=== PATIENT | male | born 1940 | race Caucasian/White ===

== ENCOUNTER 2017-09-16 14:45 | Inpatient (IN) | payer MEDICARE ==
[2017-09-16] VITALS (13 sets, daily range): BP systolic 168–228; BP diastolic 74–110; PULSE 60–72; RESP 18–35; TEMP 97.8–99; O2SAT 94–100
[~2017-09-16 14:45] MED LIST: ATOR40TA49 PO; CLON.1 PO; FOLI1 PO; METO50TA PO; NITR0.4S SL; RIVA15 PO; VITA20002 PO
[2017-09-16] MEDS ORDERED: SODIUM CHLOR 0.9% 1000 ML INJ 1,000 ML IV SCH ×2 (15:12→17:17)
[2017-09-16] MEDS ORDERED: PANTOPRAZOLE SODIUM 40 MG VIAL IVP ONE (15:15)
[2017-09-16] MEDS ORDERED: SODIUM CHLORIDE 0.9% FLUSH 10 ML FLUSH IVF PRN (15:15)
--- NOTE | 2017-09-16 15:18 | PD ---
HPI Chief Complaint: GI Complaint Time Seen by Provider: 14:55 Travel History International Travel<30 days: No Contact w/Intl Traveler<30days: No Traveled to known affect area: No History of Present Illness HPI The patient is a 77-year-old male who presents to the emergency department for rectal bleeding. The patient states he has had 4 large bowel movements at home containing bright red blood with clots. He also complains of lower abdominal cramping. He denies any history of GI bleeds including upper GI bleed, gastritis, peptic ulcer disease, hemorrhoids, or diverticulosis. However, the patient states he has never had a previous colonoscopy. The patient is followed by his primary physician, Dr. Field. The patient states he takes aspirin occasionally, but denies taking any anticoagulants on a daily basis. The patient denies any lightheadedness, chest pain, shortness of breath , dizziness, nausea, or vomiting. He denies any hematemesis. Symptoms are moderate. PFSH Past Medical History Blood Disorders: No Heart Rhythm Problems: No Cancer: Yes (BLADDER ) Cardiovascular Problems: Yes High Cholesterol: No Chemotherapy: No Chest Pain: No Congestive Heart Failure: No Diabetes: No Endocrine: No Genitourinary: Yes (BLADDER CANCER) Hepatitis: Yes (NOT SURE ) Hiatal Hernia: Yes Hypertension: Yes Immune Disorder: No Musculoskeletal: Yes (SP. STENOSIS, ARTHRITIS) Neurologic: No Psychiatric: No Reproductive: No Respiratory: Yes (COPD) Myocardial Infarction: Yes (2) Radiation Therapy: No Thyroid Disease: No Menopausal: No Past Surgical History Abdominal Surgery: No AICD: No Arteriovenous Shunt: No Body Medical Devices: STENTS X 2 Cardiac Surgery: Yes (CARDIAC STENTS X 2) Coronary Stent: Yes (2 STENTS; ) Ear Surgery: No Endocrine Surgery: No Eye Surgery: Yes (CATARACT SURGER) Genitourinary Surgery: Yes (TURBT) Gynecologic Surgery: No Insulin Pump: No Joint Replacement: No Oral Surgery: Yes Pacemaker: No Thoracic Surgery: No Other Surgery: Yes Social History Alcohol Use: No Tobacco Use: Yes ( 1 CIGAR DAILY) Substance Use: No Allergies-Medications (Allergen,Severity, Reaction): Coded Allergies: diphenhydramine (Unverified Allergy, Severe, ANTIHISTAMINES, 11/21/16) Uncoded Allergies: ANTIHISTAMINES (Allergy, Severe, 05/30/07) NIASPAN (Allergy, Intermediate, 07/10/13) FACE BECOMES NUMB Reported Meds & Prescriptions Reported Meds & Active Scripts Active Reported Losartan (Losartan Potassium) 25 Mg Tab 12.5 Mg PO DAILY Clonidine (Clonidine HCl) 0.1 Mg Tab 0.1 Mg PO BID Metoprolol Tartrate 25 Mg Tab 25 Mg PO BID Review of Systems Except as stated in HPI: all other systems reviewed are Neg General / Constitutional: No: Fever HENT: No: Lightheadedness Cardiovascular: No: Chest Pain or Discomfort Respiratory: No: Shortness of Breath Gastrointestinal: Positive: Abdominal Pain, Hematochezia, Changes in Bowel Habits (Lower abdominal cramping), No: Nausea, Vomiting, Hematemesis Genitourinary: No: Hematuria Musculoskeletal: No: Weakness Neurologic: No: Weakness, Dizziness Physical Exam Narrative GENERAL: Awake, alert, pleasant 77-year-old male who appears his stated age and is in SKIN: Focused skin assessment warm/dry. HEAD: Atraumatic. Normocephalic. EYES: No injection or drainage. ENT: No nasal bleeding or discharge. Mucous membranes pink and moist. NECK: Trachea midline. No JVD. CARDIOVASCULAR: Regular rate and rhythm. No murmur appreciated. RESPIRATORY: No accessory muscle use. Clear to auscultation. Breath sounds equal bilaterally. GASTROINTESTINAL: Abdomen soft, non-tender, nondistended. No rebound tenderness. Rectal: The patient has gross red blood clots around the anus, within the adult diaper, on exam. MUSCULOSKELETAL: No obvious deformities. No clubbing. No cyanosis. No edema. NEUROLOGICAL: Awake and alert. No obvious cranial nerve deficits. Motor grossly within normal limits. Normal speech. PSYCHIATRIC: Appropriate mood and affect; insight and judgment normal. Data Data Last Documented VS Vital Signs Date Time Temp Pulse Resp B/P (MAP) Pulse Ox O2 Delivery O2 Flow Rate FiO2 09/16/17 15:54 18 09/16/17 15:50 98 Nasal Cannula 2.00 09/16/17 15:49 60 09/16/17 14:48 97.8 Orders Orders Complete Blood Count With Diff (09/16/17 15:12) Comprehensive Metabolic Panel (09/16/17 15:12) Prothrombin Time / Inr (Pt) (09/16/17 15:12) Act Partial Throm Time (Ptt) (09/16/17 15:12) Type And Screen (09/16/17 15:12) Ecg Monitoring (09/16/17 15:12) Iv Access Insert/Monitor (09/16/17 15:12) Orthostatic Vital Signs (09/16/17 15:12) Oximetry (09/16/17 15:12) Pantoprazole Inj (Protonix Inj) (09/16/17 15:15) Sodium Chlor 0.9% 1000 Ml Inj (Ns 1000 M (09/16/17 15:12) Sodium Chloride 0.9% Flush (Ns Flush) (09/16/17 15:15) Electrocardiogram (09/16/17 ) Admit To Inpatient (09/16/17 ) Code Status (09/16/17 15:21) Vital Signs (Adult) CARTER.QSHIFT (09/16/17 15:21) Activity Bed Rest (09/16/17 15:21) Intake + Output CARTER.QSHIFT (09/16/17 15:21) Diet Npo (09/16/17 Dinner) Sodium Chloride 0.9% Flush (Ns Flush) (09/16/17 15:30) Sodium Chloride 0.9% Flush (Ns Flush) (09/16/17 21:00) Ondansetron Inj (Zofran Inj) (09/16/17 15:30) Pantoprazole Inj (Protonix Inj) (09/16/17 15:30) Hgb & Hct (09/16/17 21:21) Hgb & Hct (09/17/17 03:21) Hgb & Hct (09/17/17 09:21) Hgb & Hct (09/17/17 15:21) Hgb & Hct (09/17/17 21:21) Basic Metabolic Panel (Bmp) (09/17/17 06:00) Abdomen, Flat & Upright (09/16/17 ) Consult Gastroenterology (09/16/17 ) Making Machine Catcher / Telemetry CARTER.Q8H (09/16/17 15:21) Scd Bilateral/Knee High CARTER.BID (09/16/17 15:21) Inpatient Certification (09/16/17 ) Consult Gastroenterology (09/16/17 ) (Hub Use Only)Inp Phy Cons/Ref (09/16/17 ) Labs Laboratory Tests Test 09/16/17 15:16 White Blood Count 9.3 TH/MM3 Red Blood Count 3.22 MIL/MM3 Hemoglobin 11.0 GM/DL Hematocrit 31.0 % Mean Corpuscular Volume 96.5 FL Mean Corpuscular Hemoglobin 34.1 PG Mean Corpuscular Hemoglobin Concent 35.3 % Red Cell Distribution Width 14.1 % Platelet Count 260 TH/MM3 Mean Platelet Volume 8.6 FL Neutrophils (%) (Auto) 67.3 % Lymphocytes (%) (Auto) 20.4 % Monocytes (%) (Auto) 5.5 % Eosinophils (%) (Auto) 6.0 % Basophils (%) (Auto) 0.8 % Neutrophils # (Auto) 6.2 TH/MM3 Lymphocytes # (Auto) 1.9 TH/MM3 Monocytes # (Auto) 0.5 TH/MM3 Eosinophils # (Auto) 0.6 TH/MM3 Basophils # (Auto) 0.1 TH/MM3 CBC Comment DIFF FINAL Differential Comment Prothrombin Time 10.0 SEC Prothromb Time International Ratio 1.0 RATIO Activated Partial Thromboplast Time 28.5 SEC Blood Urea Nitrogen 36 MG/DL Creatinine 3.48 MG/DL Random Glucose 119 MG/DL Total Protein 7.5 GM/DL Albumin 3.5 GM/DL Calcium Level 8.2 MG/DL Alkaline Phosphatase 72 U/L Aspartate Amino Transf (AST/SGOT) 24 U/L Alanine Aminotransferase (ALT/SGPT) 23 U/L Total Bilirubin 0.2 MG/DL Sodium Level 140 MEQ/L Potassium Level 5.4 MEQ/L Chloride Level 109 MEQ/L Carbon Dioxide Level 21.5 MEQ/L Anion Gap 10 MEQ/L Estimat Glomerular Filtration Rate 17 ML/MIN [facility] Medical Decision Making Medical Screen Exam Complete: Yes Emergency Medical Condition: Yes Medical Record Reviewed: Yes Interpretation(s) EKG reveals normal sinus rhythm with a rate of 60. Voltage criteria for LVH. Return elevated J-point in V2. Laboratory Tests Test 09/16/17 15:16 White Blood Count 9.3 TH/MM3 Red Blood Count 3.22 MIL/MM3 Hemoglobin 11.0 GM/DL Hematocrit 31.0 % Mean Corpuscular Volume 96.5 FL Mean Corpuscular Hemoglobin 34.1 PG Mean Corpuscular Hemoglobin Concent 35.3 % Red Cell Distribution Width 14.1 % Platelet Count 260 TH/MM3 Mean Platelet Volume 8.6 FL Neutrophils (%) (Auto) 67.3 % Lymphocytes (%) (Auto) 20.4 % Monocytes (%) (Auto) 5.5 % Eosinophils (%) (Auto) 6.0 % Basophils (%) (Auto) 0.8 % Neutrophils # (Auto) 6.2 TH/MM3 Lymphocytes # (Auto) 1.9 TH/MM3 Monocytes # (Auto) 0.5 TH/MM3 Eosinophils # (Auto) 0.6 TH/MM3 Basophils # (Auto) 0.1 TH/MM3 CBC Comment DIFF FINAL Differential Comment Prothrombin Time 10.0 SEC Prothromb Time International Ratio 1.0 RATIO Activated Partial Thromboplast Time 28.5 SEC Blood Urea Nitrogen 36 MG/DL Creatinine 3.48 MG/DL Random Glucose 119 MG/DL Total Protein 7.5 GM/DL Albumin 3.5 GM/DL Calcium Level 8.2 MG/DL Alkaline Phosphatase 72 U/L Aspartate Amino Transf (AST/SGOT) 24 U/L Alanine Aminotransferase (ALT/SGPT) 23 U/L Total Bilirubin 0.2 MG/DL Sodium Level 140 MEQ/L Potassium Level 5.4 MEQ/L Chloride Level 109 MEQ/L Carbon Dioxide Level 21.5 MEQ/L Anion Gap 10 MEQ/L Estimat Glomerular Filtration Rate 17 ML/MIN Differential Diagnosis Differential diagnosis includes upper GI bleed, gastritis, peptic ulcer disease , AV malformation, fistula, Meckel's diverticulitis, diverticulosis, internal hemorrhoids, symptomatic anemia. Narrative Course IV was established, labs are drawn and sent, and the patient was placed on cardiac telemetry monitoring and continuous pulse oximetry monitoring. EKG was ordered and interpreted. Type and screen was sent to lab. The patient had 2 large bowel movements within the emergency department consisting of large bright red blood clots. The patient also has lower abdominal cramping, may be diverticular bleed. The patient's EMR states he takes Xarelto, however, that was for DVT in 2016. He currently denies taking any daily anticoagulants. The patient was administered a one-time dose of Protonix 40 mg intravenously. A call was placed to Dr. Dorantes, the on-call plant engineering supervisor, at 3:54 PM. I had a discussion with Dr. Dorantes, who is aware of the patient. Orthostatic vital signs were obtained, upon sitting the patient up he did have a syncopal-like episode, became quite pale, however, never lost consciousness. The patient's heart rate is not elevated, but he is on metoprolol. It appears the patient is having a significant GI bleed, most likely diverticulosis. The patient will be admitted to the intensive care unit. HemaPrompt Point of Care Internal Pos. & Neg. Controls: Passed Fecal Specimen Occult Blood: Positive Physician Communication Physician Communication The on-call room manager was paged for admission. Diagnosis Primary Impression: GIB (gastrointestinal bleeding) Qualified Codes: K92.2 - Gastrointestinal hemorrhage, unspecified Additional Impressions: HTN (hypertension) Qualified Codes: I10 - Essential (primary) hypertension Acute kidney injury superimposed on chronic kidney disease Admitting Information Admitting Physician Requests: Admit Condition: Stable Marcus Austin MD Sep 16, 2017 15:18
[2017-09-16] MEDS ORDERED: SODIUM CHLORIDE 0.9% FLUSH 10 ML FLUSH IV FLUSH PRN ×2 (15:30→17:30)
[2017-09-16] MEDS ORDERED: ONDANSETRON HCL 4 MG/2 ML VIAL IV PUSH PRN ×2 (15:30→17:30)
[2017-09-16] MEDS: PANTOPRAZOLE SODIUM 40 MG VIAL IV PUSH SCH (15:30)
--- NOTE | 2017-09-16 15:35 | HHI.HP ---
HPI Service [facility] Hospitalists Primary Care Physician Unknown Travel History International Travel<30 Days: No Contact w/Intl Traveler <30 Da: No Traveled to Known Affected Are: No History of Present Illness The patient is a 77-year-old male with past medical history which includes hyperlipidemia, hypertension, coronary artery disease with PR status post cardiac stents 2001 then stent to the LAD 2006, chronic kidney disease stage V, bladder cancer status post diagnostic cystoscopy BCG and TURP, morbid obesity, DVT 2016 treated with Xarelto no longer on anticoagulation who presents to the emergency department for rectal bleeding. The patient states he has had 4 large bowel movements at home containing bright red blood with clots. He also complains of lower abdominal cramping. He denies any history of GI bleeds including upper GI bleed, gastritis, peptic ulcer disease, hemorrhoids, or diverticulosis. However, the patient states he has never had a previous colonoscopy. The patient states he takes aspirin occasionally, but denies taking any anticoagulants on a daily basis. The patient denies any lightheadedness, chest pain, shortness of breath, dizziness, nausea, or vomiting. He also denies any hematemesis. Past Family Social History Past Medical History hyperlipidemia, hypertension, coronary artery disease with PR status post cardiac stents 2001 then stent to the LAD 2006, chronic kidney disease stage V, bladder cancer status post diagnostic cystoscopy BCG and TURP, morbid obesity, DVT 2016 treated with Xarelto no longer on anticoagulation Past Surgical History Cystoscopy TURP Cataract surgery Eyelid excision and repair Shoulder surgery Reported Medications Nitrostat (Nitroglycerin) 0.4 Mg Subl 0.4 Mg SL 1 TAB SL EVERY 5 MINS X 3 PRN CHEST PAIN Folate 1 Mg Tab (Folic Acid) 1 Mg Tab 1 Mg PO DAILY Catapres 0.1 mg (Clonidine HCl) 0.1 Mg Tab 0.1 Mg PO BID Lipitor 40 Mg Tab (Atorvastatin Calcium) 40 Mg Tab 40 Mg PO DAILY Vitamin D-3 (Cholecalciferol) 2 000 Tab 2,000 Unit PO DAILY Lopressor (Metoprolol Tartrate) 50 Mg Tab 50 Mg PO BID Allergies: Coded Allergies: diphenhydramine (Unverified Allergy, Severe, ANTIHISTAMINES, 11/21/16) Uncoded Allergies: ANTIHISTAMINES (Allergy, Severe, 05/30/07) NIASPAN (Allergy, Intermediate, 07/10/13) FACE BECOMES NUMB Family History Pancreatic carcinoma Congestive heart failure Alzheimer's disease Social History Denies EtOH use Smokes cigars 1 daily Physical Exam Vital Signs Vital Signs Date Time Temp Pulse Resp B/P (MAP) Pulse Ox O2 Delivery O2 Flow Rate FiO2 09/16/17 14:48 97.8 72 18 202/86 (124) 94 221/110 (147) Physical Exam GENERAL: This is a well-nourished, well-developed patient, in no apparent distress. SKIN: No rashes, ecchymoses or lesions. Cool and dry. HEAD: Atraumatic. Normocephalic. No temporal or scalp tenderness. EYES: Extraocular motions intact. No scleral icterus. No injection or drainage. CARDIOVASCULAR: Regular rate and rhythm RESPIRATORY: Clear to auscultation. Breath sounds equal bilaterally. GASTROINTESTINAL: Abdomen soft, non-tender, nondistended. MUSCULOSKELETAL: Extremities without clubbing, cyanosis, or edema. No joint tenderness, effusion, or edema noted. No calf tenderness. Negative Homans sign bilaterally. NEUROLOGICAL: Awake and alert. No focal deficits. Motor and sensory grossly within normal limits. Five out of 5 muscle strength in all muscle groups. Normal speech. Caprini VTE Risk Assessment Caprini VTE Risk Assessment: Mod/High Risk (score >= 2) Caprini Risk Assessment Model Point Value = 1 Point Value = 2 Point Value = 3 Point Value = 5 Age 41-60 Minor surgery BMI > 25 kg/m2 Swollen legs Varicose veins or History of unexplained or recurrent spontaneous Oral contraceptives or hormone replacement Sepsis (< 1 month) Serious lung disease, including pneumonia (< 1 month) Abnormal pulmonary function Acute myocardial infarction Congestive heart failure (< 1 month) History of inflammatory bowel disease Medical patient at bed rest Age 61-74 Arthroscopic surgery Major open surgery (> 45 min) Laparoscopic surgery (> 45 min) Malignancy Confined to bed (> 72 hours) Immobilizing plaster cast Central venous access Age >= 75 History of VTE Family history of VTE Factor V Leiden Prothrombin [id number] Lupus anticoagulant Anticardiolipin antibodies Elevated serum homocysteine Heparin-induced thrombocytopenia Other congenital or acquired thrombophilia Stroke (< 1 month) Elective arthroplasty Hip, pelvis, or leg fracture Acute spinal cord injury (< 1 month) Prophylaxis Regimen Total Risk Factor Score Risk Level Prophylaxis Regimen 0-1 Low Early ambulation 2 Moderate Order ONE of the following: *Sequential Compression Device (SCD) *Heparin 5000 units SQ BID 3-4 Higher Order ONE of the following medications: *Heparin 5000 units SQ TID *Enoxaparin/Lovenox 40 mg SQ daily (WT < 150 kg, CrCl > 30 mL/min) *Enoxaparin/Lovenox 30 mg SQ daily (WT < 150 kg, CrCl > 10-29 mL/min) *Enoxaparin/Lovenox 30 mg SQ BID (WT < 150 kg, CrCl > 30 mL/min) AND/OR *Sequential Compression Device (SCD) 5 or more Highest Order ONE of the following medications: *Heparin 5000 units SQ TID (Preferred with Epidurals) *Enoxaparin/Lovenox 40 mg SQ daily (WT < 150 kg, CrCl > 30 mL/min) *Enoxaparin/Lovenox 30 mg SQ daily (WT < 150 kg, CrCl > 10-29 mL/min) *Enoxaparin/Lovenox 30 mg SQ BID (WT < 150 kg, CrCl > 30 mL/min) AND *Sequential Compression Device (SCD) Assessment and Plan Problem List: (1) GIB (gastrointestinal bleeding) ICD Codes: K92.2 - Gastrointestinal hemorrhage, unspecified Status: Acute (2) CAD (coronary artery disease) ICD Codes: I25.10 - Atherosclerotic heart disease of [place] coronary artery without angina pectoris (3) HTN (hypertension) ICD Codes: I10 - Essential (primary) hypertension Physician Certification 2 Midnight Certification Type: Admission for Inpatient Services Order for Inpatient Services The services are ordered in accordance with Medicare regulations or non- Medicare payer requirements, as applicable. In the case of services not specified as inpatient-only, they are appropriately provided as inpatient services in accordance with the 2-midnight benchmark. Estimated LOS (days): 4 days is the estimated time the patient will need to remain in the hospital, assuming treatment plan goals are met and no additional complications. Post-Hospital Plan: Not yet determined Problem Qualifiers (1) GIB (gastrointestinal bleeding): Qualified Codes: K92.2 - Gastrointestinal hemorrhage, unspecified (2) HTN (hypertension): Qualified Codes: I10 - Essential (primary) hypertension Marietta Dinh Sep 16, 2017 15:35
[2017-09-16 15:44] LABS: AUTOMATED NEUTROPHIL # 6.2 TH/MM3 (1.8-7.7); BASOPHIL # 0.1 TH/MM3 (0-0.2); BASOPHIL % 0.8 % (0.0-2.0); EOSINOPHIL # 0.6 TH/MM3 (0-0.4); LYMPH % 20.4 % (9.0-44.0); LYMPHOCYTE # 1.9 TH/MM3 (1.0-4.8); MEAN CELL VOLUME 96.5 FL (80.0-100.0); MEAN CORPUSCULAR HEMOGLOBIN 34.1 PG (27.0-34.0); MEAN CORPUSCULAR HGB CONC 35.3 % (32.0-36.0); MEAN PLATELET VOLUME 8.6 FL (7.0-11.0); MONO % 5.5 % (0.0-8.0); MONOCYTE # 0.5 TH/MM3 (0-0.9); NEUT % 67.3 % (16.0-70.0); PLATELET COUNT 260 TH/MM3 (150-450); RED BLOOD COUNT 3.22 MIL/MM3 (4.50-5.90); RED CELL DISTRIBUTION WIDTH 14.1 % (11.6-17.2); WHITE BLOOD COUNT 9.3 TH/MM3 (4.0-11.0)
[2017-09-16] MEDS ORDERED: CLON0.1T PO (15:58)
[2017-09-16] MEDS ORDERED: LOSA25TA PO (15:58)
[2017-09-16] MEDS ORDERED: METO25TA3 PO (15:58)
[2017-09-16 16:16] LABS: ALKALINE PHOSPHATASE 72 U/L (45-117); TOTAL BILIRUBIN ADULT 0.2 MG/DL (0.2-1.0); TOTAL PROTEIN 7.5 GM/DL (6.4-8.2)
[2017-09-16 16:17] LABS: ALBUMIN 3.5 GM/DL (3.4-5.0); ALT (GPT) 23 U/L (12-78); AST (GOT) 24 U/L (15-37); BICARBONATE 21.5 MEQ/L (21.0-32.0); BLOOD UREA NITROGEN 36 MG/DL (7-18); CALCIUM 8.2 MG/DL (8.5-10.1); CHLORIDE 109 MEQ/L (98-107); CREATININE 3.48 MG/DL (0.60-1.30); GLOMERULAR FILTRATION RATE 17 ML/MIN (>89); GLUCOSE,RANDOM 119 MG/DL (74-106); SODIUM (NA) 140 MEQ/L (136-145)
--- NOTE | 2017-09-16 16:35 | PD.CONS ---
HPI History of Present Illness This is a 77 year old []. [facility] Coded Allergies: diphenhydramine (Unverified Allergy, Severe, ANTIHISTAMINES, 11/21/16) Uncoded Allergies: ANTIHISTAMINES (Allergy, Severe, 05/30/07) NIASPAN (Allergy, Intermediate, 07/10/13) FACE BECOMES NUMB GI Exam Vitals I&O Vital Signs Date Time Temp Pulse Resp B/P (MAP) Pulse Ox O2 Delivery O2 Flow Rate FiO2 09/16/17 15:54 18 09/16/17 15:50 18 98 Nasal Cannula 2.00 09/16/17 15:49 60 18 168/74 (105) 98 Nasal Cannula 2.00 09/16/17 15:25 62 18 214/80 (124) 98 Nasal Cannula 2.00 09/16/17 14:48 97.8 72 18 202/86 (124) 94 221/110 (147) Laboratory Test 09/16/17 15:16 White Blood Count 9.3 TH/MM3 Red Blood Count 3.22 MIL/MM3 Hemoglobin 11.0 GM/DL Hematocrit 31.0 % Mean Corpuscular Volume 96.5 FL Mean Corpuscular Hemoglobin 34.1 PG Mean Corpuscular Hemoglobin Concent 35.3 % Red Cell Distribution Width 14.1 % Platelet Count 260 TH/MM3 Mean Platelet Volume 8.6 FL Neutrophils (%) (Auto) 67.3 % Lymphocytes (%) (Auto) 20.4 % Monocytes (%) (Auto) 5.5 % Eosinophils (%) (Auto) 6.0 % Basophils (%) (Auto) 0.8 % Neutrophils # (Auto) 6.2 TH/MM3 Lymphocytes # (Auto) 1.9 TH/MM3 Monocytes # (Auto) 0.5 TH/MM3 Eosinophils # (Auto) 0.6 TH/MM3 Basophils # (Auto) 0.1 TH/MM3 CBC Comment DIFF FINAL Differential Comment Prothrombin Time 10.0 SEC Prothromb Time International Ratio 1.0 RATIO Activated Partial Thromboplast Time 28.5 SEC Blood Urea Nitrogen 36 MG/DL Creatinine 3.48 MG/DL Random Glucose 119 MG/DL Total Protein 7.5 GM/DL Albumin 3.5 GM/DL Calcium Level 8.2 MG/DL Alkaline Phosphatase 72 U/L Aspartate Amino Transf (AST/SGOT) 24 U/L Alanine Aminotransferase (ALT/SGPT) 23 U/L Total Bilirubin 0.2 MG/DL Sodium Level 140 MEQ/L Potassium Level 5.4 MEQ/L Chloride Level 109 MEQ/L Carbon Dioxide Level 21.5 MEQ/L Anion Gap 10 MEQ/L Estimat Glomerular Filtration Rate 17 ML/MIN Physical Examination HEENT: Pupils round and reactive to light; normocephalic; atraumatic; no jaundice. Throat is clear. NECK: Neck is supple, no JVD, no lymphadenopathy. CHEST: Chest is clear to auscultation and percussion. CARDIAC: Regular rate and rhythm with no murmur gallop or rubs. ABDOMEN: Soft, nondistended, nontender; no hepatosplenomegaly; bowel sounds are present in all four quadrants. EXTREMITIES: No clubbing, cyanosis, or edema. SKIN: Normal; no rash; no jaundice. BEAN SNAPPER: No focal deficits; alert and oriented times three. Delores Griffith Sep 16, 2017 16:35
--- NOTE | 2017-09-16 17:02 | PD.CONS ---
HPI History of Present Illness This is a 77 year old morbid obese male who had been in his usual state of health up until today when he started having uncontrolled defecation urgency and bright red bleeding. Patient states that onset of symptoms was approximately 2 hours before his admission time, but did note that he had been trying multiple times today to have a bowel movement and did admit to some straining. Patient denies any nausea or vomiting, no dyspepsia or dysphasia no obvious hematemesis. He did note some lower abdominal cramping yesterday but contributed to needing to have a bowel movement. Bright red rectal bleeding today has been anywhere from 2-300 cc at a time and multiple times for the first hour and 1/2-2 hours of admission. During my exam patient states that the bleeding has slowed down some. Patient was hypertensive on admission but did have a syncopal episode while sitting on the toilet but he did recover fairly quickly. Patient does note a history of bladder cancer back in 2005, does admit to daily wine alcohol consumption and 1 cigar daily. Patient is currently and is at his side. Patient's abdomen is round obese, soft, with tympany. Patient states no previous GI workup which includes no EGD or colonoscopy. Patient denies any family history of colon cancer. According to the record patient has Xarelto listed as a medication but he denies any usage of Xarelto to his knowledge. (Delores Griffith) PFSH Past Medical History Daily alcohol consumption Morbid obesity History of bladder cancer Hypertension (Delores Griffith) Coded Allergies: diphenhydramine (Unverified Allergy, Severe, ANTIHISTAMINES, 11/21/16) Uncoded Allergies: ANTIHISTAMINES (Allergy, Severe, 05/30/07) NIASPAN (Allergy, Intermediate, 07/10/13) FACE BECOMES NUMB Medications Administered Medications Medications (Trade) Dose Ordered Sig/Matthew Route PRN Reason Start Time Stop Time Status Last Admin Dose Admin Sodium Chloride 1,000 ml @ 125 mls/hr Q8H IV 09/16/17 15:12 09/16/17 23:11 09/16/17 15:38 Family History No family history of colon cancer Social History Positive for 1 cigar daily alcohol wine daily, no illicit drugs Patient is currently here with his (Delores Griffith) Review of Systems Constitutional: COMPLAINS OF: Dizziness Gastrointestinal: COMPLAINS OF: Abdominal pain (Lower abdominal cramping), Bloody stools, Diarrhea (Loose bloody stools) (Delores Griffith) GI Exam Vitals I&O Vital Signs Date Time Temp Pulse Resp B/P (MAP) Pulse Ox O2 Delivery O2 Flow Rate FiO2 09/16/17 15:54 18 09/16/17 15:50 18 98 Nasal Cannula 2.00 09/16/17 15:49 60 18 168/74 (105) 98 Nasal Cannula 2.00 09/16/17 15:25 62 18 214/80 (124) 98 Nasal Cannula 2.00 09/16/17 14:48 97.8 72 18 202/86 (124) 94 221/110 (147) Laboratory Test 09/16/17 15:16 White Blood Count 9.3 TH/MM3 Red Blood Count 3.22 MIL/MM3 Hemoglobin 11.0 GM/DL Hematocrit 31.0 % Mean Corpuscular Volume 96.5 FL Mean Corpuscular Hemoglobin 34.1 PG Mean Corpuscular Hemoglobin Concent 35.3 % Red Cell Distribution Width 14.1 % Platelet Count 260 TH/MM3 Mean Platelet Volume 8.6 FL Neutrophils (%) (Auto) 67.3 % Lymphocytes (%) (Auto) 20.4 % Monocytes (%) (Auto) 5.5 % Eosinophils (%) (Auto) 6.0 % Basophils (%) (Auto) 0.8 % Neutrophils # (Auto) 6.2 TH/MM3 Lymphocytes # (Auto) 1.9 TH/MM3 Monocytes # (Auto) 0.5 TH/MM3 Eosinophils # (Auto) 0.6 TH/MM3 Basophils # (Auto) 0.1 TH/MM3 CBC Comment DIFF FINAL Differential Comment Prothrombin Time 10.0 SEC Prothromb Time International Ratio 1.0 RATIO Activated Partial Thromboplast Time 28.5 SEC Blood Urea Nitrogen 36 MG/DL Creatinine 3.48 MG/DL Random Glucose 119 MG/DL Total Protein 7.5 GM/DL Albumin 3.5 GM/DL Calcium Level 8.2 MG/DL Alkaline Phosphatase 72 U/L Aspartate Amino Transf (AST/SGOT) 24 U/L Alanine Aminotransferase (ALT/SGPT) 23 U/L Total Bilirubin 0.2 MG/DL Sodium Level 140 MEQ/L Potassium Level 5.4 MEQ/L Chloride Level 109 MEQ/L Carbon Dioxide Level 21.5 MEQ/L Anion Gap 10 MEQ/L Estimat Glomerular Filtration Rate 17 ML/MIN Physical Examination HEENT: Morbid obese normocephalic; atraumatic; no jaundice. NECK: Neck is supple, obese CHEST: Chest is clear to auscultation and percussion. CARDIAC: Regular rate and rhythm ABDOMEN: Large, obese, tympanic soft, nontender to light palpation but does note some lower abdominal cramping in the past 24 hours; no hepatosplenomegaly; bowel sounds are present in all four quadrants. EXTREMITIES: Trace lower extremity edema. SKIN: Dried thick skin turgor lower extremities; no rash; no jaundice. APPLICATION DEVELOPER: No focal deficits; alert and oriented times three. (Delores Griffith) Assessment and Plan Assessment: (1) GIB (gastrointestinal bleeding) ICD Codes: K92.2 - Gastrointestinal hemorrhage, unspecified Status: Acute Plan Lower GI bleeding rectal bleeding bright red, Gastrointestinal hemorrhage, lower GI Morbid obese 77-year-old male who had been in his usual state of health up until today's date when he was admitted to the hospital 09/16/2017. Has strained and attempted to have bowel movement several times today. 2 hours before admission patient had uncontrolled painless bright red rectal bleeding loose 2-300 cc continuous for several hours. During my exam the rectal bleeding had slowed down some. Patient also had a syncopal episode while up on the toilet but recovered fairly quickly. No family history of colon cancer but patient has a history of bladder cancer from 2005. Patient does admit to daily wine consumption 1 cigar daily, denies any NSAIDs or significant amounts of carbonated beverages. Patient denies any use of Xarelto which was listed on his medical records. He stated that if he took it it was a long time ago. No history of EGD or colonoscopy. Current hemoglobin 11 Plan Consent for colonoscopy in a.m. patient [place] [facility] [place] need to evaluate whether he will need to be done in the unit versus GI lab. Monitor labs with special attention hemoglobin Monitor rectal bleeding and document specific I's and O's May use rectal Morrissey for patient's safety secondary to his syncopal episode when getting up, this could have been vasovagal. GoLYTELY prep Further recommendations to follow Patient was seen per myself and Dr. Dorantes, this note was written on his behalf (Delores Griffith) Physician Comments Seen and examined, plan as above. Colonoscopy in AM Further recommendations to follow. Thank you for the consult. (Katarina Dorantes MD) Problem Qualifiers (1) GIB (gastrointestinal bleeding): Qualified Codes: K92.2 - Gastrointestinal hemorrhage, unspecified Delores Griffith Sep 16, 2017 17:02 Katarina Dorantes MD Sep 16, 2017 22:58
[2017-09-16] MEDS ORDERED: PEG (High)/E-LYTE SOLN 4000 ML BTL PO ONE (17:15)
--- NOTE | 2017-09-16 17:17 | HHI.HP ---
[facility] Service Critical Care Medicine Primary Care Physician Unknown Diagnosis: (1) GIB (gastrointestinal bleeding) (2) CAD (coronary artery disease) (3) HTN (hypertension) Travel History International Travel<30 Days: No Contact w/Intl Traveler <30 Da: No Traveled to Known Affected Are: No History of Present Illness History of Present Illness HPI This is a 77-year-old male that presented to the ED secondary to rectal bleeding. Per report the patient approximately had 4 large bowel movements at home containing bright red blood with complaints of abdominal pain and cramping. The patient denied a history of any pertinent medical history of previous GI bleed, gastritis, peptic ulcer disease, hemorrhoids, or diverticulosis. Per review of medical records the patient had a history of being on Xarelto but he denied taking any type of blood thinner medication upon evaluation and examination in the ED . The patient is followed by his primary physician, Dr. Field. The patient states he takes aspirin occasionally, but denies taking any anticoagulants on a daily basis. Per review of the medical records and interviewing the patient he stated he had one episode of "almost passing out while having his bowel movement today. In the ED, orthostatic BP were obtained, the patient was notably significantly hypotensive upon standing, with noted lightheadedness . The patient has a past medical history significant for bladder cancer, and an LA approximately 17 years ago. GI has been consulted plan for endoscopic procedure in a.m. Critical care medicine was consulted. History PFSH Past Medical History Blood Disorders: No Heart Rhythm Problems: No Cancer: Yes (BLADDER ) Cardiovascular Problems: Yes High Cholesterol: No Chemotherapy: No Chest Pain: No Congestive Heart Failure: No Diabetes: No Endocrine: No Genitourinary: Yes (BLADDER CANCER) Hepatitis: Yes (NOT SURE ) Hiatal Hernia: Yes Hypertension: Yes Immune Disorder: No Musculoskeletal: Yes (SP. STENOSIS, ARTHRITIS) Neurologic: No Psychiatric: No Reproductive: No Respiratory: Yes (COPD) Myocardial Infarction: Yes (2) Radiation Therapy: No Thyroid Disease: No Menopausal: No Past Surgical History Abdominal Surgery: No AICD: No Arteriovenous Shunt: No Body Medical Devices: STENTS X 2 Cardiac Surgery: Yes (CARDIAC STENTS X 2) Coronary Stent: Yes (2 STENTS; ) Ear Surgery: No Endocrine Surgery: No Eye Surgery: Yes (CATARACT SURGER) Genitourinary Surgery: Yes (TURBT) Gynecologic Surgery: No Insulin Pump: No Joint Replacement: No Oral Surgery: Yes Pacemaker: No Thoracic Surgery: No Other Surgery: Yes Social History Alcohol Use: No Tobacco Use: Yes ( 1 CIGAR DAILY) Substance Use: No Allergies-Medications Allergies-Medications (Allergen,Severity, Reaction): Coded Allergies: diphenhydramine (Unverified Allergy, Severe, ANTIHISTAMINES, 11/21/16) Uncoded Allergies: ANTIHISTAMINES (Allergy, Severe, 05/30/07) NIASPAN (Allergy, Intermediate, 07/10/13) FACE BECOMES NUMB Reported Meds & Prescriptions Reported Meds & Active Scripts Active Reported Losartan (Losartan Potassium) 25 Mg Tab 12.5 Mg PO DAILY Clonidine (Clonidine HCl) 0.1 Mg Tab 0.1 Mg PO BID Metoprolol Tartrate 25 Mg Tab 25 Mg PO BID ROS Review of Systems Except as stated in HPI: all other systems reviewed are Neg General / Constitutional: No: Fever HENT: Lightheadedness upon standing Cardiovascular: No: Chest Pain or Discomfort Respiratory: No: Shortness of Breath Gastrointestinal: Positive: Abdominal Pain, Hematochezia, Changes in Bowel Habits (Lower abdominal cramping), No: Nausea, Vomiting, Hematemesis Genitourinary: No: Hematuria Musculoskeletal: No: Weakness Neurologic: No: Weakness, Dizziness Past Family Social History Allergies: Coded Allergies: diphenhydramine (Unverified Allergy, Severe, ANTIHISTAMINES, 11/21/16) Uncoded Allergies: ANTIHISTAMINES (Allergy, Severe, 05/30/07) NIASPAN (Allergy, Intermediate, 07/10/13) FACE BECOMES NUMB Physical Exam Vital Signs Vital Signs Date Time Temp Pulse Resp B/P (MAP) Pulse Ox O2 Delivery O2 Flow Rate FiO2 09/16/17 15:54 18 09/16/17 15:50 18 98 Nasal Cannula 2.00 09/16/17 15:49 60 18 168/74 (105) 98 Nasal Cannula 2.00 09/16/17 15:25 62 18 214/80 (124) 98 Nasal Cannula 2.00 09/16/17 14:48 97.8 72 18 202/86 (124) 94 221/110 (147) Physical Exam GENERAL: This is a well-developed well-nourished obese male, alert and oriented , anxious SKIN: Warm and dry. HEAD: Atraumatic. Normocephalic. EYES: Pupils equal and round. No scleral icterus. No injection or drainage. ENT: No nasal bleeding or discharge. Mucous membranes pink and moist. NECK: Trachea midline. No JVD. CARDIOVASCULAR: Normal rate, regular rhythm. Hypertensive BP 220/90 RESPIRATORY: No accessory muscle use. Clear to auscultation. Breath sounds equal bilaterally. GASTROINTESTINAL: Abdomen soft, obese non-tender, nondistended. No guarding. MUSCULOSKELETAL: Extremities without clubbing, cyanosis,. No obvious deformities. Peripheral edema bilateral lower extremities 1+ NEUROLOGICAL: Awake and alert. RASS 0. No gross focal/sensory deficits. Follows commands in all 4 extremities. Laboratory Laboratory Tests Test 09/16/17 15:16 White Blood Count 9.3 Red Blood Count 3.22 Hemoglobin 11.0 Hematocrit 31.0 Mean Corpuscular Volume 96.5 Mean Corpuscular Hemoglobin 34.1 Mean Corpuscular Hemoglobin Concent 35.3 Red Cell Distribution Width 14.1 Platelet Count 260 Mean Platelet Volume 8.6 Neutrophils (%) (Auto) 67.3 Lymphocytes (%) (Auto) 20.4 Monocytes (%) (Auto) 5.5 Eosinophils (%) (Auto) 6.0 Basophils (%) (Auto) 0.8 Neutrophils # (Auto) 6.2 Lymphocytes # (Auto) 1.9 Monocytes # (Auto) 0.5 Eosinophils # (Auto) 0.6 Basophils # (Auto) 0.1 CBC Comment DIFF FINAL Differential Comment Prothrombin Time 10.0 Prothromb Time International Ratio 1.0 Activated Partial Thromboplast Time 28.5 Blood Urea Nitrogen 36 Creatinine 3.48 Random Glucose 119 Total Protein 7.5 Albumin 3.5 Calcium Level 8.2 Alkaline Phosphatase 72 Aspartate Amino Transf (AST/SGOT) 24 Alanine Aminotransferase (ALT/SGPT) 23 Total Bilirubin 0.2 Sodium Level 140 Potassium Level 5.4 Chloride Level 109 Carbon Dioxide Level 21.5 Anion Gap 10 Estimat Glomerular Filtration Rate 17 Result Diagram: 09/16/17 1516 09/16/17 1516 Septic Shock Reassessment Septic shock perfusion: reassessment completed Caprini VTE Risk Assessment Caprini VTE Risk Assessment: Mod/High Risk (score >= 2) VTE Pharm Contraindication: Hemorrhage Caprini Risk Assessment Model Point Value = 1 Point Value = 2 Point Value = 3 Point Value = 5 Age 41-60 Minor surgery BMI > 25 kg/m2 Swollen legs Varicose veins or History of unexplained or recurrent spontaneous Oral contraceptives or hormone replacement Sepsis (< 1 month) Serious lung disease, including pneumonia (< 1 month) Abnormal pulmonary function Acute myocardial infarction Congestive heart failure (< 1 month) History of inflammatory bowel disease Medical patient at bed rest Age 61-74 Arthroscopic surgery Major open surgery (> 45 min) Laparoscopic surgery (> 45 min) Malignancy Confined to bed (> 72 hours) Immobilizing plaster cast Central venous access Age >= 75 History of VTE Family history of VTE Factor V Leiden Prothrombin [id number] Lupus anticoagulant Anticardiolipin antibodies Elevated serum homocysteine Heparin-induced thrombocytopenia Other congenital or acquired thrombophilia Stroke (< 1 month) Elective arthroplasty Hip, pelvis, or leg fracture Acute spinal cord injury (< 1 month) Prophylaxis Regimen Total Risk Factor Score Risk Level Prophylaxis Regimen 0-1 Low Early ambulation 2 Moderate Order ONE of the following: *Sequential Compression Device (SCD) *Heparin 5000 units SQ BID 3-4 Higher Order ONE of the following medications: *Heparin 5000 units SQ TID *Enoxaparin/Lovenox 40 mg SQ daily (WT < 150 kg, CrCl > 30 mL/min) *Enoxaparin/Lovenox 30 mg SQ daily (WT < 150 kg, CrCl > 10-29 mL/min) *Enoxaparin/Lovenox 30 mg SQ BID (WT < 150 kg, CrCl > 30 mL/min) AND/OR *Sequential Compression Device (SCD) 5 or more Highest Order ONE of the following medications: *Heparin 5000 units SQ TID (Preferred with Epidurals) *Enoxaparin/Lovenox 40 mg SQ daily (WT < 150 kg, CrCl > 30 mL/min) *Enoxaparin/Lovenox 30 mg SQ daily (WT < 150 kg, CrCl > 10-29 mL/min) *Enoxaparin/Lovenox 30 mg SQ BID (WT < 150 kg, CrCl > 30 mL/min) AND *Sequential Compression Device (SCD) Assessment and Plan Problem List: (1) GIB (gastrointestinal bleeding) ICD Code: K92.2 - Gastrointestinal hemorrhage, unspecified Status: Acute (2) HTN (hypertension) ICD Code: I10 - Essential (primary) hypertension (3) Acute kidney injury superimposed on chronic kidney disease ICD Code: N17.9 - Acute kidney failure, unspecified; N18.9 - Chronic kidney disease, unspecified Status: Acute (4) CAD (coronary artery disease) ICD Code: I25.10 - Atherosclerotic heart disease of [place] coronary artery without angina pectoris Assessment and Plan Assessment This is a 77-year-old male with hematochezia, acute blood loss anemia currently symptomatic. Plan for admit to ICU. Plan Plan by systems: Neurologic: Neuro checks per ICU protocol Acetaminophen for pain and/or temperature greater than 101 Respiratory: Maintain O2 sat greater than 92 % bronchodilators every 4 hours for wheeze Cardiovascular: Essential hypertension Orthostatic hypotension Coronary artery disease Patient home meds include metoprolol, clonidine, losartan will hold for now Patient noted to have orthostatic hypotension Volume resuscitate Maintain IV fluids normal saline 1 25 cc/ Renal: AK I May apply condom catheter, patient to remain on strict bed rest -- Strict I/Os FEN/GI: Hematochezia Rectal bleed Hyperkalemia GI has been consulted Maintain n.p.o. status plan for endoscopy in the am Famotidine GI prophylaxis Zofran for nausea Monitor BMP Heme/ID: Acute blood loss anemia Initial hemoglobin 11 Monitor H&H every 6 hours, transfuse for hemoglobin less than 8 Type and screen Endocrine: Glucose monitoring per ICU protocol -- SSI Prophylaxis: GI Prophylaxis Famotidine DVT Prophylaxis -- SCDs No pharmacological DVT prophylaxis in the setting of GI bleed Lines: Peripheral IVs 2. Central line if indicated Dispo: Level 3 consult Code Status Full Discussed Condition With Dr. Austin, patient, Mrs Henderson Problem Qualifiers (1) GIB (gastrointestinal bleeding): Qualified Codes: K92.2 - Gastrointestinal hemorrhage, unspecified (2) HTN (hypertension): Qualified Codes: I10 - Essential (primary) hypertension Nica Caraballo MD Sep 16, 2017 17:16
[2017-09-16] MEDS ORDERED: CHLORHEXIDINE GLUCONATE 2 % 1 PACK (2 CLOTHS) TOP PRN (17:30)
[2017-09-16] MEDS ORDERED: SENNOSIDES 8.6 MG TAB PO PRN (17:30)
[2017-09-16] MEDS ORDERED: GLUCAGON 1 MG/ML VIAL OTHER PRN (17:30)
[2017-09-16] MEDS ORDERED: RESP: ALBUTEROL 2.5 MG/IPRATROPIUM 0.5 MG NEB (PRN) INH (17:30)
[2017-09-16] MEDS ORDERED: MAGNESIUM HYDROXIDE SUSP 30 ML CUP PO PRN (17:30)
[2017-09-16] MEDS ORDERED: DEXTROSE 50% IN WATER 50 ML VIAL(D50) IV PUSH PRN (17:30)
[2017-09-16] MEDS ORDERED: ACETAMINOPHEN 325 MG TAB PO PRN (17:30)
[2017-09-16] MEDS ORDERED: LABETALOL HCL 100 MG/20 ML VIAL IV PUSH PRN (17:30)
[2017-09-16] MEDS ORDERED: NURSING INFORMATION XX SCH (17:30)
[2017-09-16] MEDS ORDERED: LACTULOSE SYRUP 20 GM/30 ML CUP PO PRN (17:30)
[2017-09-16] MEDS ORDERED: BISACODYL 10 MG SUPP RECTAL PRN (17:30)
--- NOTE | 2017-09-16 18:29 | RADRPT ---
EXAM DATE: 09/16/2017 6:23 PM EDT AGE/SEX: 77 years / Male INDICATIONS: Respiratory failure CLINICAL DATA: This is the patient's initial encounter. Patient reports that signs and symptoms have been present for 1 day and indicates a pain score of 0/10. MEDICAL/SURGICAL HISTORY: . Myocardial infarction. Hypertension. COPD. Bladder cancer Coronar y artery stent. COMPARISON: No prior exams available for comparison. FINDINGS: Heart size is enlarged. No consolidation or effusion. No pneumothorax. Degenerative change in the spi ne. CONCLUSION: Cardiomegaly. No acute findings. Electronically signed by: Yury Mcintosh MD 09/16/2017 6:28 PM EDT
[2017-09-16] MEDS ORDERED: FAMOTIDINE 20 MG/2 ML VIAL IV PUSH SCH (21:00)
[2017-09-16] MEDS: SODIUM CHLORIDE 0.9% FLUSH 10 ML FLUSH IV FLUSH SCH (21:00)
[2017-09-16] MEDS: INSULIN ASPART SUPPLEMENTAL SCALE SQ SCH (21:00)
[2017-09-16] MEDS: cloNIDine HCL 0.2 MG TAB PO SCH (21:42)
[2017-09-17] VITALS (10 sets, daily range): BP systolic 151–212; BP diastolic 69–92; PULSE 67–86; RESP 24–43; TEMP 97.4–98.9; O2SAT 92–99
[2017-09-17 02:07] LABS: AUTOMATED NEUTROPHIL # 6.9 TH/MM3 (1.8-7.7); BASOPHIL % 0.4 % (0.0-2.0); EOSINOPHIL # 0.3 TH/MM3 (0-0.4); EOSINOPHIL % 2.8 % (0.0-4.0); HEMATOCRIT 27.1 % (39.0-51.0); HEMOGLOBIN 9.1 GM/DL (13.0-17.0); LYMPH % 17.6 % (9.0-44.0); LYMPHOCYTE # 1.7 TH/MM3 (1.0-4.8); MEAN CELL VOLUME 96.4 FL (80.0-100.0); MEAN CORPUSCULAR HEMOGLOBIN 32.4 PG (27.0-34.0); MEAN CORPUSCULAR HGB CONC 33.5 % (32.0-36.0); MEAN PLATELET VOLUME 8.6 FL (7.0-11.0); MONO % 6.3 % (0.0-8.0); MONOCYTE # 0.6 TH/MM3 (0-0.9); NEUT % 72.9 % (16.0-70.0); PLATELET COUNT 203 TH/MM3 (150-450); RED BLOOD COUNT 2.81 MIL/MM3 (4.50-5.90); RED CELL DISTRIBUTION WIDTH 14.2 % (11.6-17.2); WHITE BLOOD COUNT 9.5 TH/MM3 (4.0-11.0)
[2017-09-17] MEDS: CHLORHEXIDINE GLUCONATE 2 % 1 PACK (2 CLOTHS) TOP SCH (04:00)
[2017-09-17] MEDS: cloNIDine HCL 0.2 MG TAB PO SCH ×3 (06:43→21:49)
[2017-09-17] MEDS: INSULIN ASPART SUPPLEMENTAL SCALE SQ SCH ×4 (08:00→21:00)
[2017-09-17 08:12] LABS: ALBUMIN 3.1 GM/DL (3.4-5.0); AST (GOT) 17 U/L (15-37); BICARBONATE 19.9 MEQ/L (21.0-32.0); BLOOD UREA NITROGEN 32 MG/DL (7-18); CALCIUM 7.6 MG/DL (8.5-10.1); CHLORIDE 114 MEQ/L (98-107); CREATININE 3.02 MG/DL (0.60-1.30); GLOMERULAR FILTRATION RATE 20 ML/MIN (>89); GLUCOSE,RANDOM 95 MG/DL (74-106); MAGNESIUM 1.5 MG/DL (1.5-2.5); SODIUM (NA) 144 MEQ/L (136-145)
[2017-09-17 08:16] LABS: ALKALINE PHOSPHATASE 60 U/L (45-117); ALT (GPT) 18 U/L (12-78); PHOSPHORUS 3.2 MG/DL (2.5-4.9); TOTAL BILIRUBIN ADULT 0.3 MG/DL (0.2-1.0); TOTAL PROTEIN 6.5 GM/DL (6.4-8.2)
--- NOTE | 2017-09-17 09:32 | HHI.CCPN ---
Subjective Remarks/Hospital Course This is a 77-year-old male that presented to the ED secondary to rectal bleeding. Per report the patient approximately had 4 large bowel movements at home containing bright red blood with complaints of abdominal pain and cramping. The patient denied a history of any pertinent medical history of previous GI bleed, gastritis, peptic ulcer disease, hemorrhoids, or diverticulosis. Per review of medical records the patient had a history of being on Xarelto but he denied taking any type of blood thinner medication upon evaluation and examination in the ED . The patient is followed by his primary physician, Dr. Field. The patient states he takes aspirin occasionally, but denies taking any anticoagulants on a daily basis. Per review of the medical records and interviewing the patient he stated he had one episode of "almost passing out while having his bowel movement today. In the ED, orthostatic BP were obtained, the patient was notably significantly hypotensive upon standing, with noted lightheadedness . The patient has a past medical history significant for bladder cancer, and an VT approximately 17 years ago. GI has been consulted plan for endoscopic procedure in a.m. Critical care medicine was consulted. Subjective: 09/17:The patient remains hemodynamically stable . Patient has a history of hypertension, labetalol was utilized as needed for systolic greater than 180 during the night . Serial Hgb in progress. Patient currently undergoing bowel preparation for GI procedure this morning, noted melanotic stools. Patient continues on normal saline at 125 an hour. Patient has a history of chronic kidney disease creatinine slightly improved, nephrology has been consulted for follow-up . Noted Dr. Hannah is patient's personal physician. 1500-Later entry post colonoscopy-patient was noted to have extensive diverticulosis throughout the colon, a pedunculated polyp which has been biopsied pathology pending an internal hemorrhoids. Diet recommendations were provided per GI, patient to return for colonoscopy in 3 years. Objective Vital Signs Date Time Temp Pulse Resp B/P (MAP) Pulse Ox O2 Delivery O2 Flow Rate FiO2 09/17/17 04:00 76 09/17/17 04:00 97.4 24 212/89 (130) 96 09/16/17 17:23 Room Air 09/16/17 15:50 2.00 Intake and Output 09/17/17 09/17/17 09/18/17 08:00 16:00 00:00 Intake Total 4260 ml Output Total 800 ml Balance 3460 ml Result Diagram: 09/17/17 0143 09/17/17 0543 Objective Remarks GENERAL: This is a well-developed well-nourished obese male, alert and oriented , in no discomfort SKIN: Warm and dry. HEAD: Atraumatic. Normocephalic. EYES: Pupils equal and round. No scleral icterus. No injection or drainage. ENT: No nasal bleeding or discharge. Mucous membranes pink and moist. NECK: Trachea midline. No JVD. CARDIOVASCULAR: Normal rate, regular rhythm. Hypertensive BP 220/90 RESPIRATORY: No accessory muscle use. Clear to auscultation. Breath sounds equal bilaterally. GASTROINTESTINAL: Abdomen soft, obese non-tender, nondistended. No guarding. MUSCULOSKELETAL: Extremities without clubbing, cyanosis,. No obvious deformities. Peripheral edema bilateral lower extremities 1+ NEUROLOGICAL: Awake and alert. RASS 0. No gross focal/sensory deficits. Follows commands in all 4 extremities. A/P Problem List: (1) GIB (gastrointestinal bleeding) ICD Code: K92.2 - Gastrointestinal hemorrhage, unspecified Status: Acute (2) HTN (hypertension) ICD Code: I10 - Essential (primary) hypertension (3) Acute kidney injury superimposed on chronic kidney disease ICD Code: N17.9 - Acute kidney failure, unspecified; N18.9 - Chronic kidney disease, unspecified Status: Acute (4) CAD (coronary artery disease) ICD Code: I25.10 - Atherosclerotic heart disease of [place] coronary artery without angina pectoris Assessment and Plan Plan Plan by systems: Neurologic: Neuro checks per ICU protocol Acetaminophen for pain and/or temperature greater than 101 Respiratory: Maintain O2 sat greater than 92 % bronchodilators every 4 hours for wheeze O2 1-4 LPM N/C if needed Cardiovascular: Essential hypertension Orthostatic hypotension-resolved Coronary artery disease Patient home meds include metoprolol, clonidine, losartan will hold for now Maintain IV fluids normal saline 125 cc/hr Labetalol as needed for systolic blood pressure greater than 180mmHG Renal: Acute on chronic renal insufficiency May apply condom catheter, patient to remain on strict bed rest. No Morrissey catheter indicated -- Strict I/Os FEN/GI: Hematochezia Rectal bleed Hyperkalemia GI following Maintain NPO status 09/17-planned endoscopy this am Protonix GI prophylaxis Zofran for nausea Monitor BMP Consult nephrology creatinine slightly improved. Patient's personal physician Dr. Hannah Heme/ID: Acute blood loss anemia Initial hemoglobin 11-post hydration Hgb 9 Monitor H&H every 6 hours, transfuse for hemoglobin less than 8 Type and screen Endocrine: Glucose monitoring per ICU protocol -- SSI Prophylaxis: GI Prophylaxis Protonix DVT Prophylaxis -- SCDs No pharmacological DVT prophylaxis in the setting of GI bleed Lines: Peripheral IVs 2. Central line if indicated Dispo: Level 3 follow up. Post colonoscopy, hemoglobin stable level 2 follow up. Plan transfer to [facility] in a.m. Physician Nica Caraballo Problem Qualifiers (1) GIB (gastrointestinal bleeding): Qualified Codes: K92.2 - Gastrointestinal hemorrhage, unspecified (2) HTN (hypertension): Qualified Codes: I10 - Essential (primary) hypertension Nica Caraballo MD Sep 17, 2017 09:32
--- NOTE | 2017-09-17 10:07 | PD.CONS ---
HPI Service Nephrology Consult Requested By Reason for Consult DEVORAH on CKD Primary Care Physician Unknown History of Present Illness This is a 77 y/o male with HTN and obesity who was admitted for heavy rectal bleeding. He had syncopal episode in the ER. Other PMH of CKD 4, we follow in our CKD clinic. In July his creatinine was 3.2, GFR 18. We had made plans for outpatient renal biopsy as he has proteinuric CKD, 4 g. Urine immunofixation revealed polyclonal gammopathy. On admission he is hypertensive, 200s systolic. Creatinine was 3.48 improved to 3.02. He is making urine. His Hb was 11 yesterday is 9.1 today. He has not been transfused but is in route for colonoscopy this morning. He is not in distress, we were consulted to assist with management. (Vero Oliver) Review of Systems Constitutional: COMPLAINS OF: Fatigue, DENIES: Weight gain Cardiovascular: COMPLAINS OF: Syncope Gastrointestinal: COMPLAINS OF: Abdominal pain, Bloody stools, DENIES: Constipation, Diarrhea Neurologic: DENIES: Abnormal gait (Vero Oliver) Past Family Social History Allergies: Coded Allergies: diphenhydramine (Unverified Allergy, Severe, ANTIHISTAMINES, 11/21/16) Uncoded Allergies: ANTIHISTAMINES (Allergy, Severe, 05/30/07) NIASPAN (Allergy, Intermediate, 07/10/13) FACE BECOMES NUMB Past Medical History CKD 4, proteinuric CKD, baseline creatinine 3.2, GFR 18 Former daily ETOH Morbid obesity History of bladder cancer Hypertension Past Surgical History None Reported Medications Losartan (Losartan Potassium) 25 Mg Tab 12.5 Mg PO DAILY Clonidine (Clonidine HCl) 0.1 Mg Tab 0.1 Mg PO BID Metoprolol Tartrate 25 Mg Tab 25 Mg PO BID Active Ordered Medications Current Medications Medications (Trade) Dose Ordered Sig/Matthew Route Start Time Stop Time Status Last Admin (NS Flush) 2 ml UNSCH PRN IVF 09/16/17 15:15 (NS Flush) 2 ml UNSCH PRN IV FLUSH 09/16/17 15:30 (NS Flush) 2 ml BID IV FLUSH 09/16/17 21:00 (Zofran Inj) 4 mg Q6H PRN IV PUSH 09/16/17 15:30 (Protonix Inj) 40 mg DAILY IV PUSH 09/16/17 15:30 (NS Flush) 2 ml UNSCH PRN IV FLUSH 09/16/17 17:30 (NS Flush) 2 ml BID IV FLUSH 09/16/17 21:00 (Tylenol) 650 mg Q6H PRN PO 09/16/17 17:30 (Zofran Inj) 4 mg Q6H PRN IV PUSH 09/16/17 17:30 (Duoneb Neb) 1 ampule Q4HR NEB PRN INH 09/16/17 17:30 ([facility]) 1 Q361D XX 09/16/17 17:30 09/16/17 17:30 (Chlorhexidine 2% Cloth) 3 pack Taper DAILY@04 TOP 09/17/17 04:00 09/13/18 03:59 (Chlorhexidine 2% Cloth) 3 pack UNSCH PRN TOP 09/16/17 17:30 (Kristen-Colace) 1 tab BID PO 09/16/17 21:00 (Milk Of Magnesia Liq) 30 ml Q12H PRN PO 09/16/17 17:30 (Senokot) 17.2 mg Q12H PRN PO 09/16/17 17:30 (Dulcolax Supp) 10 mg DAILY PRN RECTAL 09/16/17 17:30 (Lactulose Liq) 30 ml DAILY PRN PO 09/16/17 17:30 (D50w (Vial) Inj) 50 ml UNSCH PRN IV PUSH 09/16/17 17:30 (Glucagon Inj) 1 mg UNSCH PRN OTHER 09/16/17 17:30 (NovoLOG SUPPLEMENTAL SCALE) 1 ACHS SLIDING SCALE SQ 09/16/17 21:00 (Trandate Inj) 10 mg Q6H PRN IV PUSH 09/16/17 17:30 (Catapres) 0.2 mg Q8HR PO 09/16/17 22:00 09/17/17 06:43 (Norvasc) 10 mg DAILY PO 09/17/17 09:45 UNV Family History Non contributory Social History Smokes one cigar per day Former heavy ETOH Used to work at [employer] (Vero Oliver) Physical Exam Vital Signs Vital Signs Date Time Temp Pulse Resp B/P (MAP) Pulse Ox O2 Delivery O2 Flow Rate FiO2 6/11/18 04:00 76 09/17/17 04:00 76 09/17/17 04:00 97.4 67 24 212/89 (130) 96 09/17/17 02:00 73 09/17/17 00:00 73 09/17/17 00:00 98.0 73 24 189/78 (115) 98 09/16/17 22:00 63 09/16/17 20:20 99 09/16/17 20:00 99.0 68 28 212/84 (126) 100 09/16/17 20:00 63 09/16/17 20:00 63 30 100 09/16/17 19:17 62 09/16/17 19:17 62 24 228/93 (138) 100 09/16/17 19:01 63 09/16/17 19:01 63 30 202/93 (129) 100 09/16/17 19:00 61 09/16/17 19:00 61 27 202/93 (129) 100 09/16/17 18:31 98.9 63 35 216/84 (128) 100 09/16/17 18:31 63 09/16/17 18:00 63 09/16/17 17:23 63 18 197/95 (129) 100 Room Air 09/16/17 15:54 18 09/16/17 15:50 18 98 Nasal Cannula 2.00 09/16/17 15:49 60 18 168/74 (105) 98 Nasal Cannula 2.00 09/16/17 15:25 62 18 214/80 (124) 98 Nasal Cannula 2.00 09/16/17 14:48 97.8 72 18 202/86 (124) 94 221/110 (147) Physical Exam Elderly male, not in distress Awake, CN II-XII intact , follows commands S1/S2, RRR Hypertensive 200s systolic Lungs clear Obese, soft, hyperactive BS x 4, not tender Ext without edema x 4 Laboratory Laboratory Tests Test 09/16/17 15:16 09/16/17 18:00 09/17/17 01:43 09/17/17 05:43 White Blood Count 9.3 9.5 Red Blood Count 3.22 2.81 Hemoglobin 11.0 9.1 Hematocrit 31.0 27.1 Mean Corpuscular Volume 96.5 96.4 Mean Corpuscular Hemoglobin 34.1 32.4 Mean Corpuscular Hemoglobin Concent 35.3 33.5 Red Cell Distribution Width 14.1 14.2 Platelet Count 260 203 Mean Platelet Volume 8.6 8.6 Neutrophils (%) (Auto) 67.3 72.9 Lymphocytes (%) (Auto) 20.4 17.6 Monocytes (%) (Auto) 5.5 6.3 Eosinophils (%) (Auto) 6.0 2.8 Basophils (%) (Auto) 0.8 0.4 Neutrophils # (Auto) 6.2 6.9 Lymphocytes # (Auto) 1.9 1.7 Monocytes # (Auto) 0.5 0.6 Eosinophils # (Auto) 0.6 0.3 Basophils # (Auto) 0.1 0.0 CBC Comment DIFF FINAL DIFF FINAL Differential Comment Prothrombin Time 10.0 Prothromb Time International Ratio 1.0 Activated Partial Thromboplast Time 28.5 28.7 Blood Urea Nitrogen 36 32 Creatinine 3.48 3.02 Random Glucose 119 95 Total Protein 7.5 6.5 Albumin 3.5 3.1 Calcium Level 8.2 7.6 Alkaline Phosphatase 72 60 Aspartate Amino Transf (AST/SGOT) 24 17 Alanine Aminotransferase (ALT/SGPT) 23 18 Total Bilirubin 0.2 0.3 Sodium Level 140 144 Potassium Level 5.4 5.1 Chloride Level 109 114 Carbon Dioxide Level 21.5 19.9 Anion Gap 10 10 Estimat Glomerular Filtration Rate 17 20 Nasal Screen MRSA (PCR) MRSA NOT DETECTED Phosphorus Level 3.2 Magnesium Level 1.5 (Vero Oliver) Result Diagram: 09/17/17 0143 09/17/17 0543 Imaging Last 72 hours Impressions Chest X-Ray 09/16/17 0000 Signed Impressions: CONCLUSION: Cardiomegaly. No acute findings. (Vero Oliver) Assessment and Plan Problem List: (1) Acute kidney injury superimposed on chronic kidney disease ICD Codes: N17.9 - Acute kidney failure, unspecified; N18.9 - Chronic kidney disease, unspecified Status: Acute Plan: He has proteinuria CKD , Baseline creatinine 3.2, GFR 18 Urine immunofixation revealed polyclonal gammopathy, all serologies and serum electrophoresis were negative We have made plans for renal biopsy outpatient He is non oliguric currently Creatinine slightly better today Has mild acidosis, monitor for now No indication for dialysis at this time Continue to monitor renal function. Avoid nephrotoxic agents, renally dose appropriate to the patient Obtain UA, US has been ordered Quantify proteinuria Monitor urine output (2) HTN (hypertension) ICD Codes: I10 - Essential (primary) hypertension Plan: Hypertensive today Stop IVF On clonidine Hold metoprolol due to bradycardia; hold losartan due to DEVORAH Start amlodipine (3) GIB (gastrointestinal bleeding) ICD Codes: K92.2 - Gastrointestinal hemorrhage, unspecified Status: Acute Plan: To have colonoscopy this morning. GI following Hold antiplatelets Transfuse if needed (4) Anemia ICD Codes: D64.9 - Anemia, unspecified Plan: Acutely worse due to GI bleed Transfuse if needed Check iron profile (Vero Oliver) Assessment and Plan patient was seen and examined. Monitor renal function. Quantify proteinuria. Avoid nephrotoxic agents. Admitted for GI bleeding. Agree with above assessment and plan. (Oli Hannah MD) Problem Qualifiers (1) HTN (hypertension): Qualified Codes: I10 - Essential (primary) hypertension (2) GIB (gastrointestinal bleeding): Qualified Codes: K92.2 - Gastrointestinal hemorrhage, unspecified Vero Oliver Sep 17, 2017 10:07 Oli Hannah MD Sep 17, 2017 11:25
--- NOTE | 2017-09-17 10:28 | GIPROC ---
[facility] [address] [facility]. [facility], [address] COLONOSCOPY PROCEDURE REPORT EXAM DATE: 09/17/2017 PATIENT NAME: Sandoval Henderson MR #: [id number] BIRTHDATE: 1940 ENDOSCOPIST: Katarina Dorantes MD ORDER #: [id number] EXECUTIVE SERVICES ADMINISTRATOR: Kristi Allen and Jazz Garcia STATUS: inpatient INDICATIONS: The patient is a 77 yr old male here for a colonoscopy due to rectal bleeding PROCEDURE PERFORMED: Colonoscopy with polypectomy MEDICATIONS: None and Per Anesthesia. PREP QUALITY: fair PREP TYPE:GoLytely ESTIMATED BLOOD LOSS: None CONSENT: The patient understands the risks and benefits of the procedure and understands that these risks include, but are not limited to: sedation, allergic reaction, infection, perforation and/or bleeding. Alternative means of evaluation and treatment include, among others: physical exam, x-rays, and/or surgical intervention. The patient elects to proceed with this endoscopic procedure. medical equipment was checked for proper function. Hand hygiene and appropriate measures for infection prevention was taken. After the risks, benefits and alternatives of the procedure were thoroughly explained, Informed consent was verified, confirmed and timeout was successfully executed by the treatment team. A digital exam was performed The Pentax [id number] endoscope was introduced through the anus and advanced to the cecum, which was identified by both the appendix and ileocecal valve. The instrument was then slowly withdrawn as the colon was fully examined. COLON FINDINGS: There was severe diverticulosis noted throughout the entire examined colon with associated tortuosity. Moderate sized internal hemorrhoids were found. A medium sized polypoid shaped pedunculated polyp was found at the cecum. A polypectomy was performed with a cold snare. The resection was complete and the polyp tissue was completely retrieved. Retroflexed views revealed no abnormalities The scope was then completely withdrawn from the patient and the procedure terminated. PROCEDURE WITHDRAWAL TIME:8minutes ADVERSE EVENTS: There were no complications. IMPRESSIONS: 1. There was severe diverticulosis noted throughout the entire examined colon 2. Moderate sized internal hemorrhoids 3. A medium sized pedunculated polyp was found at the cecum; polypectomy was performed with a cold snare RECOMMENDATIONS: 1. Await biopsy results. Biopsy results will not be ready for 7-10 days. If you don't hear from us in two weeks, call our office for results. 2. High fiber diet 3. No seeds, nuts and popcorn in diet RECALL: Return 3 years Colonoscopy Katarina Dorantes MD eSigned: Katarina Dorantes MD 09/17/2017 10:28 AM cc:
[2017-09-17] MEDS ORDERED: DO NOT ADM ANY ANTICOAGULANT DRUGS PRN (10:33)
[2017-09-17] MEDS: PANTOPRAZOLE SODIUM 40 MG VIAL IV PUSH SCH (11:40)
[2017-09-17] MEDS ORDERED: PROPOFOL 200 MG/20 ML AMP IV ONE (12:00)
[2017-09-17 12:31] LABS: HEMATOCRIT 24.5 % (39.0-51.0); HEMOGLOBIN 8.4 GM/DL (13.0-17.0)
[2017-09-17] MEDS: ONDANSETRON ODT 4 MG TAB PO PRN (13:50)
--- NOTE | 2017-09-17 14:38 | EKG ---
Date Performed: 09/16/2017 Time Performed: 15:51:53 PTAGE: 77 years EKG: Sinus rhythm BORDERLINE LEFT AXIS DEVIATION POSSIBLE RIGHT VENTRICULAR CONDUCTION DELAY MODERATE VOLTAGE CRITERIA FOR LVH, CONSIDER NORMAL VARIANT BORDERLINE ECG Since the PREVIOUS TRACING , no significant change noted PREVIOUS TRACIN06/05/2007 04.27 DOCTOR: Avtar Cole Interpretating Date/Time 09/17/2017 14:37:07
--- NOTE | 2017-09-17 14:38 | EKG ---
Date Performed: 09/16/2017 Time Performed: 21:14:47 PTAGE: 77 years EKG: Sinus rhythm POSSIBLE RIGHT VENTRICULAR CONDUCTION DELAY MINIMAL VOLTAGE CRITERIA FOR LVH, CONSIDER NORMAL VARIAN T BORDERLINE ECG Since the PREVIOUS TRACING , no significant change noted PREVIOUS TRACIN09/16/2017 15.51 DOCTOR: Avtar Cole Interpretating Date/Time 09/17/2017 14:37:19
[2017-09-17 15:15] LABS: HEMATOCRIT 25.6 % (39.0-51.0); HEMOGLOBIN 8.5 GM/DL (13.0-17.0)
[2017-09-17] MEDS: SODIUM CHLORIDE 0.9% FLUSH 10 ML FLUSH IV FLUSH SCH ×3 (21:00→21:48)
[2017-09-17] MEDS: DOCUSATE SODIUM 50 MG/SENNA 8.6 MG TAB PO SCH (21:00)
[2017-09-17 22:26] LABS: HEMATOCRIT 23.6 % (39.0-51.0); HEMOGLOBIN 7.9 GM/DL (13.0-17.0)
[2017-09-18] VITALS (9 sets, daily range): BP systolic 139–185; BP diastolic 63–81; PULSE 58–78; RESP 16–26; TEMP 97.5–98.7; O2SAT 92–100
[2017-09-18 03:52] LABS: % SATURATION IRON PROFILE 18.6 % (20-50); ALBUMIN 2.9 GM/DL (3.4-5.0); BICARBONATE 23.5 MEQ/L (21.0-32.0); BLOOD UREA NITROGEN 28 MG/DL (7-18); CALCIUM 7.6 MG/DL (8.5-10.1); CHLORIDE 114 MEQ/L (98-107); CREATININE 3.07 MG/DL (0.60-1.30); GLOMERULAR FILTRATION RATE 20 ML/MIN (>89); GLUCOSE,RANDOM 111 MG/DL (74-106); IRON (FE) 54 MCG/DL (65-175); PHOSPHORUS 3.7 MG/DL (2.5-4.9); SODIUM (NA) 145 MEQ/L (136-145); TOTAL IRON BINDING CAPACITY 290 MCG/DL (250-450)
[2017-09-18] MEDS: CHLORHEXIDINE GLUCONATE 2 % 1 PACK (2 CLOTHS) TOP SCH (03:59)
[2017-09-18] MEDS: cloNIDine HCL 0.2 MG TAB PO SCH ×3 (05:55→21:20)
[2017-09-18] MEDS: INSULIN ASPART SUPPLEMENTAL SCALE SQ SCH ×4 (07:33→21:00)
--- NOTE | 2017-09-18 08:01 | HHI.PR ---
Subjective Remarks slept well. no abdomen pain. no new sob Objective Vitals heart reg lung cta abd s/nt ext no edema Vital Signs Date Time Temp Pulse Resp B/P (MAP) Pulse Ox O2 Delivery O2 Flow Rate FiO2 09/18/17 06:00 64 09/18/17 04:00 59 09/18/17 04:00 98.4 59 23 185/81 (115) 100 09/18/17 02:00 69 09/18/17 00:00 98.7 58 21 139/63 (88) 98 09/18/17 00:00 58 09/17/17 22:00 81 09/17/17 22:00 81 42 151/92 (111) 96 09/17/17 20:00 98.9 74 29 159/69 (99) 97 09/17/17 20:00 74 09/17/17 18:00 73 31 168/72 (104) 99 09/17/17 18:00 73 09/17/17 16:00 86 09/17/17 16:00 98.4 86 31 168/72 (104) 92 09/17/17 14:00 81 09/17/17 12:00 98.2 82 43 187/79 (115) 93 09/17/17 12:00 82 09/17/17 10:55 98.5 83 18 169/70 (103) 94 Room Air 09/17/17 10:45 83 18 169/70 (103) 94 Room Air 09/17/17 10:35 98.5 80 18 176/74 (108) 94 Room Air 09/17/17 10:05 98.0 78 20 199/95 (129) 94 09/17/17 09:50 98.0 78 20 199/95 (129) 94 09/17/17 09:50 98.0 79 20 195/88 (123) 96 09/17/17 08:00 98.0 68 25 160/70 (100) 99 09/17/17 08:00 68 Result Diagram: 09/18/17 0326 09/18/17 0326 A/P Problem List: (1) GIB (gastrointestinal bleeding) ICD Codes: K92.2 - Gastrointestinal hemorrhage, unspecified Status: Acute Plan: 1. acute gib. blood loss anemia c-scope. diverticulosis. IH. cecal polypectomy hgb stable. 2. a/ckd 4. proteinuria. awaiting outpt bx. 3. htn. uncontrolled transfer to med/surg PT consult and oob advanced diet monitor h/h, bmp bp meds being adjusted per renal . arb on hold. dvt prophylaxis (2) CAD (coronary artery disease) ICD Codes: I25.10 - Atherosclerotic heart disease of [place] coronary artery without angina pectoris Status: Chronic (3) HTN (hypertension) ICD Codes: I10 - Essential (primary) hypertension Status: Chronic Problem Qualifiers (1) GIB (gastrointestinal bleeding): Qualified Codes: K92.2 - Gastrointestinal hemorrhage, unspecified (2) HTN (hypertension): Qualified Codes: I10 - Essential (primary) hypertension Trent Estrada MD Sep 18, 2017 08:01
[2017-09-18] MEDS: DOCUSATE SODIUM 50 MG/SENNA 8.6 MG TAB PO SCH ×2 (08:43→21:20)
[2017-09-18] MEDS: PANTOPRAZOLE SODIUM 40 MG VIAL IV PUSH SCH (08:43)
[2017-09-18] MEDS: SODIUM CHLORIDE 0.9% FLUSH 10 ML FLUSH IV FLUSH SCH ×3 (08:48→21:22)
--- NOTE | 2017-09-18 09:03 | HHI.GIFU ---
Subjective Remarks Pt resting in bed Denies any BMs since GI procedure yesterday Denies nausea, vomiting, abdominal pain Has not had breakfast yet RN at bedside (Twila Pino) Objective Vitals I&O Vital Signs Date Time Temp Pulse Resp B/P (MAP) Pulse Ox O2 Delivery O2 Flow Rate FiO2 09/18/17 06:00 64 09/18/17 04:00 59 09/18/17 04:00 98.4 59 23 185/81 (115) 100 09/18/17 02:00 69 09/18/17 00:00 98.7 58 21 139/63 (88) 98 09/18/17 00:00 58 09/17/17 22:00 81 09/17/17 22:00 81 42 151/92 (111) 96 09/17/17 20:00 98.9 74 29 159/69 (99) 97 09/17/17 20:00 74 09/17/17 18:00 73 31 168/72 (104) 99 09/17/17 18:00 73 09/17/17 16:00 86 09/17/17 16:00 98.4 86 31 168/72 (104) 92 09/17/17 14:00 81 09/17/17 12:00 98.2 82 43 187/79 (115) 93 09/17/17 12:00 82 09/17/17 10:55 98.5 83 18 169/70 (103) 94 Room Air 09/17/17 10:45 83 18 169/70 (103) 94 Room Air 09/17/17 10:35 98.5 80 18 176/74 (108) 94 Room Air 09/17/17 10:05 98.0 78 20 199/95 (129) 94 09/17/17 09:50 98.0 78 20 199/95 (129) 94 09/17/17 09:50 98.0 79 20 195/88 (123) 96 I/O 09/17/17 09/17/17 09/17/17 09/18/17 09/18/17 09/18/17 07:00 15:00 23:00 07:00 15:00 23:00 Intake Total 4260 ml 100 ml 240 ml Output Total 800 ml 500 ml Balance 3460 ml 100 ml -260 ml Intake Oral 3000 ml 240 ml IV Total 1260 ml Other 100 ml Output Urine Total 600 ml 500 ml Stool Total 200 ml # Voids 4 # Bowel Movements 5 2 0 Laboratory Laboratory Tests Test 09/17/17 11:59 09/17/17 15:00 09/17/17 21:37 09/18/17 03:26 Hemoglobin 8.4 8.5 7.9 8.0 Hematocrit 24.5 25.6 23.6 24.0 Blood Urea Nitrogen 28 Creatinine 3.07 Random Glucose 111 Albumin 2.9 Calcium Level 7.6 Phosphorus Level 3.7 Sodium Level 145 Potassium Level 5.4 Chloride Level 114 Carbon Dioxide Level 23.5 Anion Gap 8 Estimat Glomerular Filtration Rate 20 Iron Level 54 Total Iron Binding Capacity 290 Percent Iron Saturation 18.6 Imaging Last Impressions Chest X-Ray 09/16/17 0000 Signed Impressions: CONCLUSION: Cardiomegaly. No acute findings. Physical Exam HEENT: Normocephalic; atraumatic CHEST: Even/unlabored CARDIAC: RRR ABDOMEN: Obese, soft, nontender, bowel sounds active SKIN: Normal; no rash; no jaundice. SQL TECH: Alert and oriented times three. (Twila Pino) Assessment and Plan Assessment: (1) GIB (gastrointestinal bleeding) ICD Codes: K92.2 - Gastrointestinal hemorrhage, unspecified Status: Acute Plan Assessment: - Rectal bleeding- BRBPR- denies history of rectal bleed, has never had EGD or colonoscopy Does not take blood thinners, does take occasional ASA S/P colonoscopy yesterday --> Severe diverticulosis noted throughout the entire examined colon. Internal hemorrhoids. Medium sized pedunculated polyp was found at the cecum, polypectomy was performed cold snare. (09/18) Pt reports no BM since colonoscopy. H/H stable over night. Plan: WINSOME Colonoscopy biopsy pending Monitor H/H Our service will sign off, please reconsult as needed Have pt follow up with GI after DC Pt has been seen and examined by myself and Dr. Dorantes and this note is written on his behalf (Twila Pino) Physician Comments Seen with Twila. Plan as above, please notify us if needed again. Follow up as out patient. (Katarina Dorantes MD) Problem Qualifiers (1) GIB (gastrointestinal bleeding): Qualified Codes: K92.2 - Gastrointestinal hemorrhage, unspecified Twila Pino 12, 2018 09:03 Katarina Dorantes MD Sep 18, 2017 10:27
[2017-09-18] MEDS: IRON SUCROSE INJ 100 MG in SODIUM CHLORIDE 0.9% INJ 100 ML IV SCH (09:46)
--- NOTE | 2017-09-18 10:00 | HHI.NPPN ---
Subjective Renal Failure: Chronic, Stage IV Interval History Colonoscopy yesterday showed severe diverticulitis. Denies additional GI bleeding. Renal function is stable. To be downgraded today. (Vero Oliver) Review of Systems Gastrointestinal Gastrointestinal: Blood/Tarry Stools (Vero Oliver) Objective Data Data Vital Signs Date Time Temp Pulse Resp B/P (MAP) Pulse Ox O2 Delivery O2 Flow Rate FiO2 09/18/17 06:00 64 09/18/17 04:00 59 09/18/17 04:00 98.4 59 23 185/81 (115) 100 09/18/17 02:00 69 09/18/17 00:00 98.7 58 21 139/63 (88) 98 09/18/17 00:00 58 09/17/17 22:00 81 09/17/17 22:00 81 42 151/92 (111) 96 09/17/17 20:00 98.9 74 29 159/69 (99) 97 09/17/17 20:00 74 09/17/17 18:00 73 31 168/72 (104) 99 09/17/17 18:00 73 09/17/17 16:00 86 09/17/17 16:00 98.4 86 31 168/72 (104) 92 09/17/17 14:00 81 09/17/17 12:00 98.2 82 43 187/79 (115) 93 09/17/17 12:00 82 09/17/17 10:55 98.5 83 18 169/70 (103) 94 Room Air 09/17/17 10:45 83 18 169/70 (103) 94 Room Air 09/17/17 10:35 98.5 80 18 176/74 (108) 94 Room Air 09/17/17 10:05 98.0 78 20 199/95 (129) 94 (Vero Oliver) -: 09/18/17 0326 09/18/17 0326 Imaging Last 72 hours Impressions Chest X-Ray 09/16/17 0000 Signed Impressions: CONCLUSION: Cardiomegaly. No acute findings. (Vero Oliver) Physical Exam General Appearance: Well Developed, Well Nourished, Comfortable (Melody,Vero B. NETWORK LEAD) Eyes Eye Exam: Pupils Equal (Vero OliverP) Throat Throat Exam: Oral Mucosa [place] & Moist (Vero Oliver NETWORK LEAD) Pulmonary Resp Exam: Clear Bilaterally, Breath Sounds Equal (Vero Oliver NETWORK LEAD) Cardiology CV Exam: Regular, Normal Sinus Rhythm (Vero Oliver NETWORK LEAD) Gastrointestinal/Abdomen GI Exam: Soft, Non-Tender, Bowel Sounds Present (Vero Oliver NETWORK LEAD) Musculoskeletal MS Exam: Joints Intact, Normal Tone (Vero Oliver NETWORK LEAD) Integumentary Skin Exam: Warm, Dry, Intact (Vero Oliver NETWORK LEAD) Extremeties Extremities Exam: No Edema, Pedal Pulses Palpable (Vero Oliver NETWORK LEAD) Neurologic Neuro Exam: Alert, Awake, Oriented, Speech Clear, Moving All Extremities (Vero OliverP) Psychiatric Psych Exam: Appropriate Responses (Vero Oliver) Assessment/Plan Discussed Condition With: Patient Assessment Summary: DEVORAH/Acute Renal Failure, Anemia of CKD, CKD Stage IV Problem List: (1) Acute kidney injury superimposed on chronic kidney disease ICD Codes: N17.9 - Acute kidney failure, unspecified; N18.9 - Chronic kidney disease, unspecified Status: Acute Plan: He has proteinuria CKD , Baseline creatinine 3.2, GFR 18 Urine immunofixation revealed polyclonal gammopathy, all serologies and serum electrophoresis were negative We have made plans for renal biopsy outpatient He is making urine Renal function is stable Pending protein quantification, RN has sent but results not available. Mild hyperkalemia, diet changed to low K renal diet Continue to monitor renal function. Avoid nephrotoxic agents, renally dose appropriate to the patient US report noted Repeat labs in AM (2) HTN (hypertension) ICD Codes: I10 - Essential (primary) hypertension Status: Chronic Plan: Some improvement is seen Off IVF On clonidine and amlodipine Hold metoprolol due to bradycardia; hold losartan due to hyperkalemia Trial of hydralazine. (3) GIB (gastrointestinal bleeding) ICD Codes: K92.2 - Gastrointestinal hemorrhage, unspecified Status: Acute Plan: s/p colonoscopy, has diverticulitis GI following Hold antiplatelets Transfuse if needed (4) Anemia ICD Codes: D64.9 - Anemia, unspecified Plan: Acutely worse due to GI bleed Start venofer (Vero Oliver) Plan patient was seen and examined. Renal function is stable. Urine studies not available. Mild hyperkalemia is noted. Dietary potassium restriction is necessary. (Oli Hannah MD) Problem Qualifiers (1) HTN (hypertension): Qualified Codes: I10 - Essential (primary) hypertension (2) GIB (gastrointestinal bleeding): Qualified Codes: K92.2 - Gastrointestinal hemorrhage, unspecified Vero Oliver Sep 18, 2017 10:00 Oli Hannah MD Sep 18, 2017 11:32
[2017-09-18] MEDS: hydrALAZINE HCL 10 MG TAB PO SCH ×3 (10:28→21:21)
[2017-09-19] VITALS (10 sets, daily range): BP systolic 140–198; BP diastolic 56–95; PULSE 67–109; RESP 18–20; TEMP 97.1–98.6; O2SAT 91–94
[2017-09-19] MEDS: CHLORHEXIDINE GLUCONATE 2 % 1 PACK (2 CLOTHS) TOP SCH (03:04)
[2017-09-19] MEDS: hydrALAZINE HCL 10 MG TAB PO SCH ×3 (05:10→22:48)
[2017-09-19] MEDS: cloNIDine HCL 0.2 MG TAB PO SCH ×3 (05:10→22:48)
[2017-09-19] MEDS: INSULIN ASPART SUPPLEMENTAL SCALE SQ SCH ×4 (08:00→21:00)
[2017-09-19] MEDS: PANTOPRAZOLE SODIUM 40 MG VIAL IV PUSH SCH (08:14)
[2017-09-19] MEDS: IRON SUCROSE INJ 100 MG in SODIUM CHLORIDE 0.9% INJ 100 ML IV SCH (08:14)
[2017-09-19] MEDS: DOCUSATE SODIUM 50 MG/SENNA 8.6 MG TAB PO SCH ×2 (08:15→22:48)
[2017-09-19] MEDS: SODIUM CHLORIDE 0.9% FLUSH 10 ML FLUSH IV FLUSH SCH ×2 (08:16→22:49)
[2017-09-19 08:38] LABS: AUTOMATED NEUTROPHIL # 6.8 TH/MM3 (1.8-7.7); BASOPHIL % 0.5 % (0.0-2.0); EOSINOPHIL # 0.3 TH/MM3 (0-0.4); EOSINOPHIL % 3.5 % (0.0-4.0); HEMATOCRIT 25.6 % (39.0-51.0); HEMOGLOBIN 8.7 GM/DL (13.0-17.0); LYMPH % 13.6 % (9.0-44.0); LYMPHOCYTE # 1.2 TH/MM3 (1.0-4.8); MEAN CELL VOLUME 97.2 FL (80.0-100.0); MEAN CORPUSCULAR HEMOGLOBIN 33.2 PG (27.0-34.0); MEAN CORPUSCULAR HGB CONC 34.1 % (32.0-36.0); MEAN PLATELET VOLUME 8.6 FL (7.0-11.0); MONO % 6.6 % (0.0-8.0); MONOCYTE # 0.6 TH/MM3 (0-0.9); NEUT % 75.8 % (16.0-70.0); PLATELET COUNT 198 TH/MM3 (150-450); RED BLOOD COUNT 2.63 MIL/MM3 (4.50-5.90); RED CELL DISTRIBUTION WIDTH 14.3 % (11.6-17.2)
[2017-09-19 09:19] LABS: BICARBONATE 21.2 MEQ/L (21.0-32.0); CALCIUM 8.4 MG/DL (8.5-10.1)
--- NOTE | 2017-09-19 10:20 | HHI.PR ---
Subjective Remarks No new complaints No further bleeding noted Pt reports that he has not been moving out of bed much Objective Vitals Vital Signs Date Time Temp Pulse Resp B/P (MAP) Pulse Ox O2 Delivery O2 Flow Rate FiO2 09/19/17 08:14 97.9 109 20 172/82 (112) 92 09/19/17 05:30 97.7 100 19 189/95 (126) 93 09/19/17 00:00 97.6 67 18 140/64 (89) 94 09/19/17 00:00 68 09/18/17 22:55 92 Room Air 09/18/17 21:50 98.3 78 18 166/73 (104) 94 09/18/17 15:52 98.1 70 20 173/77 (109) 94 09/18/17 12:03 97.5 70 16 171/77 (108) 97 Result Diagram: 09/19/17 0752 09/19/17 0752 Other Results Laboratory Tests Test 09/17/17 11:59 09/17/17 15:00 09/17/17 21:37 09/18/17 03:26 Hemoglobin 8.4 GM/DL 8.5 GM/DL 7.9 GM/DL 8.0 GM/DL Hematocrit 24.5 % 25.6 % 23.6 % 24.0 % Blood Urea Nitrogen 28 MG/DL Creatinine 3.07 MG/DL Random Glucose 111 MG/DL Albumin 2.9 GM/DL Calcium Level 7.6 MG/DL Phosphorus Level 3.7 MG/DL Sodium Level 145 MEQ/L Potassium Level 5.4 MEQ/L Chloride Level 114 MEQ/L Carbon Dioxide Level 23.5 MEQ/L Anion Gap 8 MEQ/L Estimat Glomerular Filtration Rate 20 ML/MIN Iron Level 54 MCG/DL Total Iron Binding Capacity 290 MCG/DL Percent Iron Saturation 18.6 % Test 09/19/17 07:52 White Blood Count 9.0 TH/MM3 Red Blood Count 2.63 MIL/MM3 Hemoglobin 8.7 GM/DL Hematocrit 25.6 % Mean Corpuscular Volume 97.2 FL Mean Corpuscular Hemoglobin 33.2 PG Mean Corpuscular Hemoglobin Concent 34.1 % Red Cell Distribution Width 14.3 % Platelet Count 198 TH/MM3 Mean Platelet Volume 8.6 FL Neutrophils (%) (Auto) 75.8 % Lymphocytes (%) (Auto) 13.6 % Monocytes (%) (Auto) 6.6 % Eosinophils (%) (Auto) 3.5 % Basophils (%) (Auto) 0.5 % Neutrophils # (Auto) 6.8 TH/MM3 Lymphocytes # (Auto) 1.2 TH/MM3 Monocytes # (Auto) 0.6 TH/MM3 Eosinophils # (Auto) 0.3 TH/MM3 Basophils # (Auto) 0.0 TH/MM3 CBC Comment DIFF FINAL Differential Comment Blood Urea Nitrogen 25 MG/DL Creatinine 3.00 MG/DL Random Glucose 108 MG/DL Calcium Level 8.4 MG/DL Sodium Level 141 MEQ/L Potassium Level 5.2 MEQ/L Chloride Level 112 MEQ/L Carbon Dioxide Level 21.2 MEQ/L Anion Gap 8 MEQ/L Estimat Glomerular Filtration Rate 20 ML/MIN Imaging Last Impressions Chest X-Ray 09/16/17 0000 Signed Impressions: CONCLUSION: Cardiomegaly. No acute findings. Objective Remarks General: NAD, AAox3 Chest: CTA Cardiac: Regular Abd: +BS, soft ND/NT Ext: No edema A/P Problem List: (1) GIB (gastrointestinal bleeding) ICD Codes: K92.2 - Gastrointestinal hemorrhage, unspecified Status: Acute Plan: Acute GIB, blood loss anemia - Pt is a 77 y/o male with HTN and CKD, stage 4 who presented to the ED on secondary to rectal bleeding. Per report the patient approximately had 4 large bowel movements at home containing bright red blood with complaints of abdominal pain and cramping. - GI was consulted at admission - Pt underwent evaluation with colonoscopy on 09/17/17 --> severe diverticulosis noted throughout the entire colon, moderate sized internal hemorrhoids, medium sized pedunculated polyp was found at the cecum s/p polypectomy - H/H has remained stable, labs on 09/19 with Hgb 8.7/Hct 25.6 - Pt evaluated and recommended HHC/PT - Pt tolerating renal diet Acute on CKD, stage 4 Hyperkalemia - Baseline creatinine 3.2, GFR 18 - Pt with proteinuria and is planned for outpt renal bx. - Renal function is stable HTN, uncontrolled - BP meds being adjusted per renal - Pt is on clonidine 0.2mg Q8H and amlodipine 10mg daily - Hydralazine 10mg Q8H added on 09/18 - Metoprolol held due to bradycardia; hold losartan held due to hyperkalemia - DVT prophylaxis (2) CAD (coronary artery disease) ICD Codes: I25.10 - Atherosclerotic heart disease of [place] coronary artery without angina pectoris Status: Chronic (3) HTN (hypertension) ICD Codes: I10 - Essential (primary) hypertension Status: Chronic Assessment and Plan Patient examined. Assessment and plan formulated with Beatrice Suazo PA-C. I agree with the above. gib resolved. stable h/h htn. renal adjusting meds. general weakness. ambulate today. Problem Qualifiers (1) GIB (gastrointestinal bleeding): Qualified Codes: K92.2 - Gastrointestinal hemorrhage, unspecified (2) HTN (hypertension): Qualified Codes: I10 - Essential (primary) hypertension Beatrice Suazo Sep 19, 2017 10:20 Trent Estrada MD Sep 19, 2017 11:52
--- NOTE | 2017-09-19 11:39 | HHI.NPPN ---
Subjective Renal Failure: Chronic, Stage IV Interval History Doing well. Renal function is stable. (Vero Oliver) Review of Systems Gastrointestinal Gastrointestinal: Blood/Tarry Stools (Vero Oliver) Objective Data Data Vital Signs Date Time Temp Pulse Resp B/P (MAP) Pulse Ox O2 Delivery O2 Flow Rate FiO2 09/19/17 11:12 95 09/19/17 08:14 97.9 109 20 172/82 (112) 92 09/19/17 05:30 97.7 100 19 189/95 (126) 93 09/19/17 00:00 97.6 67 18 140/64 (89) 94 09/19/17 00:00 68 09/18/17 22:55 92 Room Air 09/18/17 21:50 98.3 78 18 166/73 (104) 94 09/18/17 15:52 98.1 70 20 173/77 (109) 94 09/18/17 12:03 97.5 70 16 171/77 (108) 97 (Vero Oliver) -: 09/19/17 0752 09/19/17 0752 Physical Exam General Appearance: Well Developed, Well Nourished, Comfortable (Vero Oliver) Eyes Eye Exam: Pupils Equal (Vero Oliver) Throat Throat Exam: Oral Mucosa [place] & Moist (Vero Oliver) Pulmonary Resp Exam: Clear Bilaterally, Breath Sounds Equal (Vero Oliver) Cardiology CV Exam: Regular, Normal Sinus Rhythm (Vero Oliver) Gastrointestinal/Abdomen GI Exam: Soft, Non-Tender, Bowel Sounds Present (Vero Oliver) Musculoskeletal MS Exam: Joints Intact, Normal Tone (Vero Oliver) Integumentary Skin Exam: Warm, Dry, Intact (Vero Oliver) Extremeties Extremities Exam: No Edema, Pedal Pulses Palpable (Vero Oliver) Neurologic Neuro Exam: Alert, Awake, Oriented, Speech Clear, Moving All Extremities (Vero Oliver) Psychiatric Psych Exam: Appropriate Responses (Vero Oliver) Assessment/Plan Discussed Condition With: Patient Assessment Summary: DEVORAH/Acute Renal Failure, Anemia of CKD, CKD Stage IV Problem List: (1) Acute kidney injury superimposed on chronic kidney disease ICD Codes: N17.9 - Acute kidney failure, unspecified; N18.9 - Chronic kidney disease, unspecified Status: Acute Plan: He has proteinuria CKD , GFR at baseline. Urine immunofixation revealed polyclonal gammopathy, all serologies and serum electrophoresis were negative We have made plans for renal biopsy outpatient. He is non oliguric. Urine studies not available. Mild hyperkalemia, diet changed to low K renal diet Continue to monitor renal function. Avoid nephrotoxic agents, renally dose appropriate to the patient We will follow in CKD clinic after discharged. Cleared from our perspective. (2) HTN (hypertension) ICD Codes: I10 - Essential (primary) hypertension Status: Chronic Plan: Some improvement is seen On clonidine, hydralazine, and amlodipine Hold metoprolol due to bradycardia; hold losartan due to hyperkalemia (3) GIB (gastrointestinal bleeding) ICD Codes: K92.2 - Gastrointestinal hemorrhage, unspecified Status: Acute Plan: s/p colonoscopy, has diverticulitis GI following Hold antiplatelets Transfuse if needed (4) Anemia ICD Codes: D64.9 - Anemia, unspecified Plan: Acutely worse due to GI bleed Start venofer (Vero Oliver) Plan patient was seen and examined on 09/19/17. He can be discharged from renal standpoint. Agree with above assessment and plan. (Oli Hannah MD) Problem Qualifiers (1) HTN (hypertension): Qualified Codes: I10 - Essential (primary) hypertension (2) GIB (gastrointestinal bleeding): Qualified Codes: K92.2 - Gastrointestinal hemorrhage, unspecified Vero Oliver Sep 19, 2017 11:39 Oli Hannah MD Sep 20, 2017 09:15
[2017-09-20] VITALS (9 sets, daily range): BP systolic 155–181; BP diastolic 67–87; PULSE 72–87; RESP 18; TEMP 97.8–98.8; O2SAT 91–95
[2017-09-20] MEDS: CHLORHEXIDINE GLUCONATE 2 % 1 PACK (2 CLOTHS) TOP SCH (04:00)
[2017-09-20] MEDS: hydrALAZINE HCL 10 MG TAB PO SCH (05:44)
[2017-09-20] MEDS: cloNIDine HCL 0.2 MG TAB PO SCH ×3 (05:44→21:10)
[2017-09-20] MEDS: INSULIN ASPART SUPPLEMENTAL SCALE SQ SCH ×4 (08:00→21:00)
[2017-09-20] MEDS: hydrALAZINE HCL 25 MG TAB PO SCH ×2 (09:44→21:10)
[2017-09-20] MEDS: DOCUSATE SODIUM 50 MG/SENNA 8.6 MG TAB PO SCH ×2 (09:44→21:10)
[2017-09-20] MEDS: NIFEdipine 30 MG SUSTAINED RELEASE TAB PO SCH ×2 (09:44→21:10)
[2017-09-20] MEDS: PANTOPRAZOLE SODIUM 40 MG VIAL IV PUSH SCH (09:45)
[2017-09-20] MEDS: SODIUM CHLORIDE 0.9% FLUSH 10 ML FLUSH IV FLUSH SCH ×2 (09:45→21:18)
[2017-09-20] MEDS: IRON SUCROSE INJ 100 MG in SODIUM CHLORIDE 0.9% INJ 100 ML IV SCH (09:46)
--- NOTE | 2017-09-20 10:34 | HHI.PR ---
Subjective Remarks getting up with PT. bed pad with red blood. family at bedside Objective Vitals heart reg lung cta abd s/nt ext no edema Vital Signs Date Time Temp Pulse Resp B/P (MAP) Pulse Ox O2 Delivery O2 Flow Rate FiO2 09/20/17 08:00 98.8 85 18 168/77 (107) 95 Manual Cuff/Doppler 09/20/17 04:00 98.6 87 18 181/87 (118) 94 09/20/17 00:00 98.6 87 18 165/77 (106) 94 09/19/17 23:00 75 09/19/17 20:00 98.6 93 18 176/56 (96) 94 09/19/17 18:33 Room Air 09/19/17 16:10 98.1 86 20 177/77 (110) 91 09/19/17 15:12 97 09/19/17 12:10 170/90 (116) 09/19/17 11:58 97.1 100 20 198/91 (126) 94 09/19/17 11:12 95 Result Diagram: 09/19/17 0752 09/19/17 0752 Imaging Last Impressions Chest X-Ray 09/16/17 0000 Signed Impressions: CONCLUSION: Cardiomegaly. No acute findings. A/P Problem List: (1) GIB (gastrointestinal bleeding) ICD Codes: K92.2 - Gastrointestinal hemorrhage, unspecified Status: Acute Plan: Acute GIB, blood loss anemia - Pt is a 77 y/o male with HTN and CKD, stage 4 who presented to the ED on secondary to rectal bleeding. Per report the patient approximately had 4 large bowel movements at home containing bright red blood with complaints of abdominal pain and cramping. - GI was consulted at admission - Pt underwent evaluation with colonoscopy on 09/17/17 --> severe diverticulosis noted throughout the entire colon, moderate sized internal hemorrhoids, medium sized pedunculated polyp was found at the cecum s/p polypectomy Pt with some persistent blood on bed padding..?related to hemorrhoids. monitor. check h/h Acute on CKD, stage 4 Hyperkalemia - Baseline creatinine 3.2, GFR 18 - Pt with proteinuria and is planned for outpt renal bx. - Renal function is stable HTN, uncontrolled - Metoprolol held due to bradycardia; hold losartan held due to hyperkalemia clonidine increase per renal bp still elevated. increase hydralazine and change norvasc to procardia if stable then d/c tomorrow. - DVT prophylaxis (2) CAD (coronary artery disease) ICD Codes: I25.10 - Atherosclerotic heart disease of [place] coronary artery without angina pectoris Status: Chronic (3) HTN (hypertension) ICD Codes: I10 - Essential (primary) hypertension Status: Chronic Problem Qualifiers (1) GIB (gastrointestinal bleeding): Qualified Codes: K92.2 - Gastrointestinal hemorrhage, unspecified (2) HTN (hypertension): Qualified Codes: I10 - Essential (primary) hypertension Trent Estrada MD Sep 20, 2017 10:34
--- NOTE | 2017-09-20 11:31 | HHI.NPPN ---
Subjective Renal Failure: Chronic, Stage IV Interval History To work with therapy today, ambulate. Potential discharge. Labs are pending from today. (Vero Oliver) Review of Systems Gastrointestinal Gastrointestinal: Blood/Tarry Stools (Vero Oliver) Objective Data Data Vital Signs Date Time Temp Pulse Resp B/P (MAP) Pulse Ox O2 Delivery O2 Flow Rate FiO2 09/20/17 08:00 98.8 85 18 168/77 (107) 95 Manual Cuff/Doppler 09/20/17 04:00 98.6 87 18 181/87 (118) 94 09/20/17 00:00 98.6 87 18 165/77 (106) 94 09/19/17 23:00 75 09/19/17 20:00 98.6 93 18 176/56 (96) 94 09/19/17 18:33 Room Air 09/19/17 16:10 98.1 86 20 177/77 (110) 91 09/19/17 15:12 97 09/19/17 12:10 170/90 (116) 09/19/17 11:58 97.1 100 20 198/91 (126) 94 (Vero Oliver) -: 09/19/17 0752 09/19/17 0752 Physical Exam General Appearance: Well Developed, Well Nourished, Comfortable (Vero Oliver) Eyes Eye Exam: Pupils Equal (Vero Oliver) Throat Throat Exam: Oral Mucosa [place] & Moist (Vero Oliver) Pulmonary Resp Exam: Clear Bilaterally, Breath Sounds Equal (Vero Oliver) Cardiology CV Exam: Regular, Normal Sinus Rhythm (Vero Oliver) Gastrointestinal/Abdomen GI Exam: Soft, Non-Tender, Bowel Sounds Present (Vero Oliver) Musculoskeletal MS Exam: Joints Intact, Normal Tone (Vero Oliver) Integumentary Skin Exam: Warm, Dry, Intact (Vero Oliver) Extremeties Extremities Exam: No Edema, Pedal Pulses Palpable (Vero Oliver) Neurologic Neuro Exam: Alert, Awake, Oriented, Speech Clear, Moving All Extremities (Vero Oliver) Psychiatric Psych Exam: Appropriate Responses (Vero Oliver) Assessment/Plan Discussed Condition With: Patient Assessment Summary: DEVORAH/Acute Renal Failure, Anemia of CKD, CKD Stage IV Problem List: (1) Acute kidney injury superimposed on chronic kidney disease ICD Codes: N17.9 - Acute kidney failure, unspecified; N18.9 - Chronic kidney disease, unspecified Status: Acute Plan: He has proteinuria CKD , GFR is at baseline. Urine immunofixation revealed polyclonal gammopathy, all serologies and serum electrophoresis were negative We have made plans for renal biopsy outpatient. He is non oliguric. Urine studies not available. Mild hyperkalemia, diet changed to low K renal diet Continue to monitor renal function. Avoid nephrotoxic agents, renally dose appropriate to the patient We will follow in CKD clinic after discharged. Cleared from our perspective. (2) HTN (hypertension) ICD Codes: I10 - Essential (primary) hypertension Status: Chronic Plan: Some improvement is seen On clonidine, hydralazine, and amlodipine Hold metoprolol due to bradycardia; hold losartan due to hyperkalemia (3) GIB (gastrointestinal bleeding) ICD Codes: K92.2 - Gastrointestinal hemorrhage, unspecified Status: Acute Plan: s/p colonoscopy, has diverticulitis , bleeding mostly subsided GI has evaluated (4) Anemia ICD Codes: D64.9 - Anemia, unspecified Plan: Acutely worse due to GI bleed Ordered Venofer (Vero Oliver) Plan patient was seen and examined. Renal function is stable. He can be discharged from renal standpoint. (Oli Hannah MD) Problem Qualifiers (1) HTN (hypertension): Qualified Codes: I10 - Essential (primary) hypertension (2) GIB (gastrointestinal bleeding): Qualified Codes: K92.2 - Gastrointestinal hemorrhage, unspecified Vero Oliver Sep 20, 2017 11:31 Oli Hannah MD Sep 20, 2017 20:20
[2017-09-20 11:53] LABS: ALBUMIN 3.1 GM/DL (3.4-5.0); CALCIUM 8.8 MG/DL (8.5-10.1); CREATININE 2.98 MG/DL (0.60-1.30)
[2017-09-20 12:12] LABS: PHOSPHORUS 2.3 MG/DL (2.5-4.9)
[2017-09-20] MEDS: ONDANSETRON ODT 4 MG TAB PO PRN (15:26)
[2017-09-21] VITALS: BP 157/65; PULSE 89; RESP 18; TEMP 97.6; O2SAT 95
[2017-09-21 04:00] VITALS: BP 143/67; PULSE 90; RESP 18; TEMP 97.9; O2SAT 95
[2017-09-21] MEDS: CHLORHEXIDINE GLUCONATE 2 % 1 PACK (2 CLOTHS) TOP SCH (04:00)
[2017-09-21] MEDS: cloNIDine HCL 0.2 MG TAB PO SCH ×2 (06:01→13:30)
[2017-09-21 08:00] VITALS: BP 144/65; PULSE 86; PULSE 92; RESP 18; TEMP 97.9; O2SAT 90
[2017-09-21] MEDS: INSULIN ASPART SUPPLEMENTAL SCALE SQ SCH ×2 (08:00→12:00)
[2017-09-21] MEDS: SODIUM CHLORIDE 0.9% FLUSH 10 ML FLUSH IV FLUSH SCH (08:52)
[2017-09-21] MEDS: hydrALAZINE HCL 25 MG TAB PO SCH (08:52)
[2017-09-21] MEDS: DOCUSATE SODIUM 50 MG/SENNA 8.6 MG TAB PO SCH (08:52)
[2017-09-21] MEDS: NIFEdipine 30 MG SUSTAINED RELEASE TAB PO SCH (08:52)
[2017-09-21] MEDS ORDERED: PANTOPRAZOLE SOD 40 MG DELAYED RELEASE TAB PO SCH (09:00)
[2017-09-21 10:02] LABS: AUTOMATED NEUTROPHIL # 6.3 TH/MM3 (1.8-7.7); BASOPHIL % 0.4 % (0.0-2.0); EOSINOPHIL # 0.4 TH/MM3 (0-0.4); EOSINOPHIL % 4.3 % (0.0-4.0); HEMATOCRIT 24.9 % (39.0-51.0); HEMOGLOBIN 8.4 GM/DL (13.0-17.0); LYMPH % 15.4 % (9.0-44.0); LYMPHOCYTE # 1.3 TH/MM3 (1.0-4.8); MEAN CELL VOLUME 96.7 FL (80.0-100.0); MEAN CORPUSCULAR HEMOGLOBIN 32.7 PG (27.0-34.0); MEAN CORPUSCULAR HGB CONC 33.8 % (32.0-36.0); MEAN PLATELET VOLUME 8.7 FL (7.0-11.0); MONO % 7.6 % (0.0-8.0); MONOCYTE # 0.7 TH/MM3 (0-0.9); NEUT % 72.3 % (16.0-70.0); PLATELET COUNT 213 TH/MM3 (150-450); RED BLOOD COUNT 2.58 MIL/MM3 (4.50-5.90); RED CELL DISTRIBUTION WIDTH 14.3 % (11.6-17.2); WHITE BLOOD COUNT 8.7 TH/MM3 (4.0-11.0)
--- NOTE | 2017-09-21 10:08 | HHI.PR ---
Objective Vitals Vital Signs Date Time Temp Pulse Resp B/P (MAP) Pulse Ox O2 Delivery O2 Flow Rate FiO2 09/21/17 08:00 97.9 92 18 144/65 (91) 90 09/21/17 04:00 97.9 90 18 143/67 (92) 95 09/21/17 00:00 97.6 89 18 157/65 (95) 95 09/20/17 20:00 97.8 79 18 155/67 (96) 94 09/20/17 16:52 77 09/20/17 16:00 98.2 82 18 170/74 (106) 91 09/20/17 12:46 72 09/20/17 12:00 98.3 79 18 160/72 (101) 94 Result Diagram: 09/21/17 0754 09/20/17 1110 Other Results Laboratory Tests Test 09/20/17 11:10 09/21/17 07:54 Blood Urea Nitrogen 23 MG/DL Creatinine 2.98 MG/DL Random Glucose 131 MG/DL Albumin 3.1 GM/DL Calcium Level 8.8 MG/DL Phosphorus Level 2.3 MG/DL Sodium Level 141 MEQ/L Potassium Level 4.8 MEQ/L Chloride Level 109 MEQ/L Carbon Dioxide Level 21.0 MEQ/L Anion Gap 11 MEQ/L Estimat Glomerular Filtration Rate 21 ML/MIN White Blood Count 8.7 TH/MM3 Red Blood Count 2.58 MIL/MM3 Hemoglobin 8.4 GM/DL Hematocrit 24.9 % Mean Corpuscular Volume 96.7 FL Mean Corpuscular Hemoglobin 32.7 PG Mean Corpuscular Hemoglobin Concent 33.8 % Red Cell Distribution Width 14.3 % Platelet Count 213 TH/MM3 Mean Platelet Volume 8.7 FL Neutrophils (%) (Auto) 72.3 % Lymphocytes (%) (Auto) 15.4 % Monocytes (%) (Auto) 7.6 % Eosinophils (%) (Auto) 4.3 % Basophils (%) (Auto) 0.4 % Neutrophils # (Auto) 6.3 TH/MM3 Lymphocytes # (Auto) 1.3 TH/MM3 Monocytes # (Auto) 0.7 TH/MM3 Eosinophils # (Auto) 0.4 TH/MM3 Basophils # (Auto) 0.0 TH/MM3 CBC Comment DIFF FINAL Differential Comment Imaging Last Impressions Chest X-Ray 09/16/17 0000 Signed Impressions: CONCLUSION: Cardiomegaly. No acute findings. Objective Remarks General: NAD, AAox3 Chest: CTA Cardiac: Regular Abd: +BS, soft ND/NT Ext: No edema A/P Problem List: (1) GIB (gastrointestinal bleeding) ICD Codes: K92.2 - Gastrointestinal hemorrhage, unspecified Status: Acute Plan: Acute GIB, blood loss anemia - Pt is a 77 y/o male with HTN and CKD, stage 4 who presented to the ED on secondary to rectal bleeding. Per report the patient approximately had 4 large bowel movements at home containing bright red blood with complaints of abdominal pain and cramping. - GI was consulted at admission - Pt underwent evaluation with colonoscopy on 09/17/17 --> severe diverticulosis noted throughout the entire colon, moderate sized internal hemorrhoids, medium sized pedunculated polyp was found at the cecum s/p polypectomy - Pt was having some persistent bleeding on bed padding on 09/20, ?related to hemorrhoids. - Repeat H/H on 09/21 with stable Hgb 8.4 Acute on CKD, stage 4 Hyperkalemia - Baseline creatinine 3.2, GFR 18 - Pt with proteinuria and is planned for outpt renal bx. - Renal function is stable HTN, uncontrolled - Metoprolol held due to bradycardia; hold losartan held due to hyperkalemia clonidine increase per renal - BP was still elevated on 09/20. - Hydralazine increased to 25mg Q12H and Norvasc changed to Procardia XL 30mg po daily on 09/20 with improvements in BP control - DVT prophylaxis (2) CAD (coronary artery disease) ICD Codes: I25.10 - Atherosclerotic heart disease of [place] coronary artery without angina pectoris Status: Chronic (3) HTN (hypertension) ICD Codes: I10 - Essential (primary) hypertension Status: Chronic Problem Qualifiers (1) GIB (gastrointestinal bleeding): Qualified Codes: K92.2 - Gastrointestinal hemorrhage, unspecified (2) HTN (hypertension): Qualified Codes: I10 - Essential (primary) hypertension Beatrice Suazo Sep 21, 2017 10:08
[2017-09-21] MEDS ORDERED: CLON.2 PO (10:11)
[2017-09-21] MEDS ORDERED: HYDR-3799 PO (10:11)
[2017-09-21] MEDS ORDERED: NIFE30TA8 PO (10:11)
--- NOTE | 2017-09-21 10:16 | HHI.DCPOC ---
Discharge Care Plan Diagnosis: (1) CAD (coronary artery disease) (2) HTN (hypertension) (3) Anemia (4) Acute kidney injury superimposed on chronic kidney disease (5) GIB (gastrointestinal bleeding) Goals to Promote Your Health * To prevent worsening of your condition and complications * To maintain your health at the optimal level Directions to Meet Your Goals Take your medications as prescribed Follow your dietary instruction Follow activity as directed Keep your appointments as scheduled Take your immunizations and boosters as scheduled If your symptoms worsen call your PCP, if no PCP go to Urgent Care Center or Emergency Room Smoking is Dangerous to Your Health. Avoid second hand smoke Call the 24-hour hour crisis hotline for domestic abuse at Beatrice Suazo Sep 21, 2017 10:16
--- NOTE | 2017-09-21 10:18 | HHI.FF ---
Face to Face Verification Diagnosis: (1) CAD (coronary artery disease) (2) HTN (hypertension) (3) Anemia (4) GIB (gastrointestinal bleeding) (5) Acute kidney injury superimposed on chronic kidney disease Physical Therapy Order: Evaluate and Treat, Improve ambulation, Strength and gait training Home Health Nursing Order: Medical education Signs/symptoms of disease process Nursing assessment with vital signs Instructions: Please recheck CBC, BMP, Mg+ on Sunday09/25/17 with results to the pts PCP, Dr. Collins I have seen patient Sandoval Henderson on 09/21/17. My clinical findings support the need for the requested home health care services because: Deconditioned w/ increased weakness I certify that my clinical findings support that this patient is homebound because: Unsteady gait/balance Beatrice Suazo Sep 21, 2017 10:18 Trent Estrada MD Sep 21, 2017 13:49
[2017-09-21 11:40] VITALS: PULSE 79
[2017-09-21 11:46] LABS: BICARBONATE 20.5 MEQ/L (21.0-32.0); CALCIUM 8.3 MG/DL (8.5-10.1); CREATININE 3.44 MG/DL (0.60-1.30)
[2017-09-21 12:22] VITALS: BP 108/64; PULSE 71; RESP 16; TEMP 97.9; O2SAT 96
--- NOTE | 2017-09-21 13:42 | HHI.DS ---
Discharge Summary Admission Date Sep 16, 2017 at 16:48 Discharge Date: Sep 21, 2017 (1) GIB (gastrointestinal bleeding) Diagnosis: Principal ICD Codes: K92.2 - Gastrointestinal hemorrhage, unspecified Status: Acute (2) CAD (coronary artery disease) Diagnosis: Secondary ICD Codes: I25.10 - Atherosclerotic heart disease of [place] coronary artery without angina pectoris Status: Chronic (3) HTN (hypertension) Diagnosis: Secondary ICD Codes: I10 - Essential (primary) hypertension Status: Chronic Consultants Dr. Oli Hannah - Nephrology Dr. Katarina Dorantes - GI Brief History The patient is a 77-year-old male with past medical history which includes hyperlipidemia, hypertension, coronary artery disease with ID status post cardiac stents 2 2001 then stent to the LAD 2006, chronic kidney disease stage V, bladder cancer status post diagnostic cystoscopy BCG and TURP, morbid obesity, DVT 2015 treated with Xarelto no longer on anticoagulation who presents to the emergency department for rectal bleeding. The patient states he has had 4 large bowel movements at home containing bright red blood with clots. He also complains of lower abdominal cramping. He denies any history of GI bleeds including upper GI bleed, gastritis, peptic ulcer disease, hemorrhoids, or diverticulosis. However, the patient states he has never had a previous colonoscopy. The patient states he takes aspirin occasionally, but denies taking any anticoagulants on a daily basis. The patient denies any lightheadedness, chest pain, shortness of breath, dizziness, nausea, or vomiting. He also denies any hematemesis. CBC/BMP: 09/21/17 0754 09/21/17 0754 Significant Findings Laboratory Tests Test 09/19/17 07:52 09/20/17 11:10 09/21/17 07:54 Red Blood Count 2.63 MIL/MM3 (4.50-5.90) 2.58 MIL/MM3 (4.50-5.90) Hemoglobin 8.7 GM/DL (13.0-17.0) 8.4 GM/DL (13.0-17.0) Hematocrit 25.6 % (39.0-51.0) 24.9 % (39.0-51.0) Neutrophils (%) (Auto) 75.8 % (16.0-70.0) 72.3 % (16.0-70.0) Blood Urea Nitrogen 25 MG/DL (7-18) 23 MG/DL (7-18) 26 MG/DL (7-18) Creatinine 3.00 MG/DL (0.60-1.30) 2.98 MG/DL (0.60-1.30) 3.44 MG/DL (0.60-1.30) Random Glucose 108 MG/DL (74-106) 131 MG/DL (74-106) Calcium Level 8.4 MG/DL (8.5-10.1) 8.3 MG/DL (8.5-10.1) Potassium Level 5.2 MEQ/L (3.5-5.1) Chloride Level 112 MEQ/L (98-107) 109 MEQ/L (98-107) 110 MEQ/L (98-107) Estimat Glomerular Filtration Rate 20 ML/MIN (>89) 21 ML/MIN (>89) 17 ML/MIN (>89) Albumin 3.1 GM/DL (3.4-5.0) Phosphorus Level 2.3 MG/DL (2.5-4.9) Eosinophils (%) (Auto) 4.3 % (0.0-4.0) Carbon Dioxide Level 20.5 MEQ/L (21.0-32.0) Imaging Last Impressions Chest X-Ray 09/16/17 0000 Signed Impressions: CONCLUSION: Cardiomegaly. No acute findings. PE at Discharge General: NAD, AAox3 Chest: CTA Cardiac: Regular Abd: +BS, soft ND/NT Ext: No edema Hospital Course Acute GIB, blood loss anemia - Pt is a 77 y/o male with HTN and CKD, stage 4 who presented to the ED on secondary to rectal bleeding. Per report the patient approximately had 4 large bowel movements at home containing bright red blood with complaints of abdominal pain and cramping. GI was consulted at admission. Pt underwent evaluation with colonoscopy on 09/17/17 --> severe diverticulosis noted throughout the entire colon, moderate sized internal hemorrhoids, medium sized pedunculated polyp was found at the cecum s/p polypectomy. Pt was having some persistent bleeding on bed padding on 09/20, ?related to hemorrhoids. Repeat H/H on 09/21 with stable Hgb 8.4, no further bleeding prior to discharge Pt will need to followup with GI in 2 weeks, call for that appt We will arrange for [facility] to check CBC, BMP and Mg on 09/25/17, with results to Dr. Collins Acute on CKD, stage 4 Hyperkalemia - Pt with baseline CKD, stage 4 with baseline creatinine 3.2, GFR 18. Nephrology is following as an outpt and was consulted at admission. Pt with proteinuria and is planned for outpt renal bx. Renal function is stable. He will need to followup with Dr. Hannah in 1 week. He has outpt renal biopsy planned. HTN, uncontrolled - Pt had some medication adjustments during admission. His Metoprolol was held due to bradycardia; hold losartan held due to hyperkalemia. Clonidine was increase per renal to 0.2mg Q8H. BP was still elevated on 09/20. Hydralazine was increased to 25mg Q12H and Norvasc changed to Procardia XL 30mg po daily on with improvements in BP control. Pt is being discharged on the Clonidine 0.2mg Q8H, Hydralazine 12mg Q12H and Procardia XL 30mg daily. We will have [facility] monitor his vitals upon discharge and his is to report his medication changes and BP readings to his PCP at followup. Pt Condition on Discharge: Stable Discharge Disposition: Disch w/ Home Health Serv Discharge Instructions DIET: Follow Instructions for: Renal Failure Diet Activities you can perform: Regular-No Restrictions Follow up Referrals: Appointment for Follow Up @ [facility] - 2 Weeks @ [facility] - [address] Hannah PCP Follow-up - [address] Collins PCP Follow-up New Medications: Clonidine (Catapres) 0.2 Mg Tab 0.2 MG PO Q8HR for Blood Pressure Management for 30 Days, TAB Hydralazine HCl (Hydralazine HCl) 25 Mg Tablet 25 MG PO Q12HR for Blood Pressure Management, #62 TAB Nifedipine ER 24 HR (Nifedipine ER 24 HR) 30 Mg Tab 30 MG PO BID for Blood Pressure Management, #62 TAB Discontinued Medications: Clonidine (Clonidine) 0.1 Mg Tab 0.1 MG PO BID for Blood Pressure Management, #60 TAB 0 Refills Losartan (Losartan) 25 Mg Tab 12.5 MG PO DAILY for Blood Pressure Management, #15 TAB 0 Refills Metoprolol Tartrate (Metoprolol Tartrate) 25 Mg Tab 25 MG PO BID, #60 TAB 0 Refills Beatrice Suazo Sep 21, 2017 13:42 Trent Estrada MD Sep 21, 2017 13:53
[2017-09-21] MEDS ORDERED: WALKER WHEELS/F1 MIS (13:50)
--- NOTE | 2017-09-21 15:01 | HHI.NPPN ---
Subjective Renal Failure: Chronic, Stage IV Interval History He is ready to be discharged. Creatinine is worse today. Non oliguric. (Vero Oliver) Review of Systems Gastrointestinal Gastrointestinal: Blood/Tarry Stools (Vero Oliver) Objective Data Data Vital Signs Date Time Temp Pulse Resp B/P (MAP) Pulse Ox O2 Delivery O2 Flow Rate FiO2 09/21/17 12:22 97.9 71 16 108/64 (79) 96 09/21/17 08:00 97.9 92 18 144/65 (91) 90 09/21/17 08:00 86 09/21/17 04:00 97.9 90 18 143/67 (92) 95 09/21/17 00:00 97.6 89 18 157/65 (95) 95 09/20/17 20:00 97.8 79 18 155/67 (96) 94 09/20/17 16:52 77 09/20/17 16:00 98.2 82 18 170/74 (106) 91 (Vero Oliver) -: 09/21/17 0754 09/21/17 0754 Physical Exam General Appearance: Well Developed, Well Nourished, No Acute Distress, Comfortable (Vero Oliver) Eyes Eye Exam: Pupils Equal (Vero Oliver) Throat Throat Exam: Oral Mucosa [place] & Moist (Vero Oliver) Pulmonary Resp Exam: Clear Bilaterally, Breath Sounds Equal, No Distress (Vero Oliver) Cardiology CV Exam: Regular, Normal Sinus Rhythm (Vero Oliver) Gastrointestinal/Abdomen GI Exam: Soft, Non-Tender, Bowel Sounds Present (Vero Oliver) Musculoskeletal MS Exam: Joints Intact, Normal Gait, Normal Tone, Good Strength (Vero Oliver) Integumentary Skin Exam: Warm, Dry, Intact (Vero Oliver) Extremeties Extremities Exam: No Edema, Pedal Pulses Palpable (Vero Oliver) Neurologic Neuro Exam: Alert, Awake, Oriented, Speech Clear, Moving All Extremities (Vero Oliver) Psychiatric Psych Exam: Appropriate Responses (Vero Oliver) Assessment/Plan Discussed Condition With: Patient, Spouse, Relative Assessment Summary: DEVORAH/Acute Renal Failure, Anemia of CKD, CKD Stage IV Problem List: (1) Acute kidney injury superimposed on chronic kidney disease ICD Codes: N17.9 - Acute kidney failure, unspecified; N18.9 - Chronic kidney disease, unspecified Status: Acute Plan: He has proteinuria CKD pending outpatient biopsy. Urine immunofixation revealed polyclonal gammopathy, all serologies and serum electrophoresis were negative He is non oliguric. Creatinine is slightly worse today, although non oliguric. He is able to be discharged We will follow in CKD clinic within 4 weeks. Advised to avoid NSAIDs at home. Antihypertensives reviewed. PO fluids encouraged. (2) HTN (hypertension) ICD Codes: I10 - Essential (primary) hypertension Status: Chronic Plan: BP stable. On clonidine, hydralazine, and amlodipine We will resume ARB in outpatient setting. (3) GIB (gastrointestinal bleeding) ICD Codes: K92.2 - Gastrointestinal hemorrhage, unspecified Status: Acute Plan: s/p colonoscopy, has diverticulitis , bleeding mostly subsided GI has evaluated (4) Anemia ICD Codes: D64.9 - Anemia, unspecified Plan: Acutely worse due to GI bleed Given Venofer (Vero Oliver) Plan patient was seen and examined. Renal function is worse, he is nearing the need for dialysis. Renal biopsy is pending, there were plans to schedule it as an outpatient. We will follow up in CKD clinic. (Oli Hannah MD) Problem Qualifiers (1) HTN (hypertension): Qualified Codes: I10 - Essential (primary) hypertension (2) GIB (gastrointestinal bleeding): Qualified Codes: K92.2 - Gastrointestinal hemorrhage, unspecified Vero Oliver Sep 21, 2017 15:01 Oli Hannah MD Sep 21, 2017 16:01
[2017-09-21 16:04] VITALS: BP 134/68; PULSE 78; RESP 18; TEMP 98; O2SAT 94
== END 2017-09-21 18:55 | disposition home health service (06) | DRG 378 ==
LOC: NEPC 14:45 → NEDA 16:48 → HIMW 17:50 → N05B 09-18 11:06
PROVIDERS: ADMIT Anesthesiology; ATTEND Anesthesiology
PROC: 0DBH8ZZ Excision of Cecum, Via Natural or Artificial Opening Endoscopic (ICD-10-PCS; principal; 2017-09-17 10:03)
DX: K57.33 Diverticulitis of large intestine without perforation or abscess with bleeding (principal); N17.9 Acute kidney failure, unspecified; E87.2 Acidosis; N18.4 Chronic kidney disease, stage 4 (severe); I13.11 Hypertensive heart and chronic kidney disease without heart failure, with stage 5 chronic kidney disease, or end stage renal disease; D62 Acute posthemorrhagic anemia; D89.0 Polyclonal hypergammaglobulinemia; E87.5 Hyperkalemia; J44.9 Chronic obstructive pulmonary disease, unspecified; E66.01 Morbid (severe) obesity due to excess calories; I25.2 Old myocardial infarction; I25.10 Atherosclerotic heart disease of native coronary artery without angina pectoris; E78.5 Hyperlipidemia, unspecified; I95.1 Orthostatic hypotension; R80.9 Proteinuria, unspecified; K64.8 Other hemorrhoids; D12.0 Benign neoplasm of cecum; D63.1 Anemia in chronic kidney disease; R00.1 Bradycardia, unspecified; F17.290 Nicotine dependence, other tobacco product, uncomplicated; Z85.51 Personal history of malignant neoplasm of bladder; Z86.718 Personal history of other venous thrombosis and embolism; Z95.5 Presence of coronary angioplasty implant and graft
CPT/HCPCS: 71045; 80048; 80053; 80069; 82948; 83540; 83550; 83735; 84100; 85014; 85018; 85025; 85610; 85730; 86850; 86900; 86901; 86920; 87641; 88305; 93005; 96361; 96374; C9113; J1756; J7030

== ENCOUNTER 2017-09-26 11:55 | Inpatient (IN) ==
[2017-10-07] MEDS ORDERED: Sod Chloride 0.9% Inj 1,000 ML IV.CONT PRN
[2017-10-07] MEDS ORDERED: Bisacodyl 10 MG Supp RECTAL PRN
[2017-10-07] MEDS ORDERED: Heparin 10,000 UNITS/10 ML Vial (for IV use) IV.FLUSH PRN
[2017-10-07] MEDS ORDERED: Gelatin 12 MM/7 MM Topical Foam TOPICAL PRN
[2017-10-07] MEDS ORDERED: Sod Chloride 0.9% Inj 1,000 ML OTHER PRN ×2
[2017-10-07] MEDS ORDERED: Albumin Human 25% Inj 100 ML IV.SIG PRN
[2017-10-07] MEDS ORDERED: Heparin 10,000 UNITS/10 ML Vial (for IV use) IV.PUSH PRN ×2 (00:01)
[2017-10-07] MEDS ORDERED: Pantoprazole Inj 40 MG Vial ONE (01:51)
[2017-10-07] MEDS: Pantoprazole Inj 40 MG Vial IV.PUSH SCH ×2 (02:04→16:32)
[2017-10-07 03:04] LABS: Baso # (Auto) 0.1 th/mm3 (0.0-0.2); Eos # (Auto) 0.2 th/mm3 (0.0-0.4); Eos % (Auto) 1.8 % (0.0-4.0); Hematocrit 30.8 % (39.0-51.0); Hemoglobin 10.3 gm/dL (13.0-17.0); Lymph # (Auto) 1.7 th/mm3 (1.0-4.8); Lymph % (Auto) 12.7 % (9.0-44.0); Mean Corpuscular HGB Conc 33.4 % (32.0-36.0); Mean Corpuscular Hemoglobin 31.8 pg (27.0-34.0); Mean Platelet Volume 8.5 fL (7.0-11.0); Mono # (Auto) 1.3 th/mm3 (0.0-0.9); Mono % (Auto) 9.7 % (0.0-8.0); Neut % (Auto) 74.8 % (16.0-70.0); Platelet Count 348 th/mm3 (150-450); Red Blood Count 3.24 mil/mm3 (4.50-5.90); Red Cell Distribution Width 15.8 % (11.6-17.2); White Blood Count 13.4 th/mm3 (4.0-11.0)
[2017-10-07 03:16] LABS: Calcium 8.5 mg/dL (8.5-10.1); Carbon Dioxide 28.7 meq/L (21.0-32.0); Magnesium 2.1 mg/dL (1.5-2.5); Potassium 4.1 meq/L (3.5-5.1)
[2017-10-07] MEDS ORDERED: Chlorhexidine Gluconate 2% 1 Pack (2 Cloths) TOPICAL PRN (04:00)
[2017-10-07] MEDS: Chlorhexidine Gluconate 2% 1 Pack (2 Cloths) TOPICAL SCH (05:56)
[2017-10-07] MEDS: hydrALAZINE 25 MG Tablet PO SCH ×3 (06:17→21:09)
[2017-10-07] MEDS: Isosorbide Mononitrate 30 MG ER 24HR Tablet (Imdur) PO SCH (06:17)
[2017-10-07] MEDS: Docusate Sodium 100 MG Capsule PO SCH ×2 (09:27→22:04)
[2017-10-07] MEDS: Acetaminophen 500 MG Tablet PO PRN (09:29)
--- NOTE | 2017-10-07 11:04 | P.PNCA ---
- Note Subjective/Hospital Course:: HPI Service Critical Care Medicine Primary Care Physician Regina Collins MD Admission Diagnosis nonstemi,acute on chronic kidney injury Diagnosis: (1) NSTEMI (non-ST elevated myocardial infarction) Diagnosis: Principal (2) Acute kidney injury superimposed on CKD Diagnosis: Principal (3) History of GI bleed Diagnosis: Principal (4) Severe diverticulosis Diagnosis: Secondary (5) Cecal polyp/tubular adenoma Diagnosis: Secondary (6) CAD (coronary artery disease) Diagnosis: Secondary (7) Anemia Diagnosis: Secondary (8) HTN (hypertension) Diagnosis: Secondary Chief Complaint: Chest pain Non-ST elevation TX Travel History International Travel<30 Days: No Contact w/Intl Traveler <30 Da: No Traveled to Known Affected Are: No History of Present Illness The patient is a 77-year-old male with past medical history significant for recent GI bleed from severe diverticulosis, Chronic kidney disease stage IV, hyperlipidemia, hypertension, coronary artery disease with TX , cardiac stents in 2001, and stent to the LAD 2006, bladder cancer status post BCG immunotherapy and TURP, morbid obesity, DVT 2015, who presented to the emergency department with severe central chest pain. He had been having on and off chest pain for the last 2 days worsened over the last 24 hours. EKG in the emergency department showed extensive anterolateral ST depression and troponin was elevated at 1.16. He was ruled in for non-ST elevation TX, Dr. hoyt his lace tearing supervisor was consulted. Due to ongoing chest pain patient was started on IV nitroglycerin infusion. Patient also received 162 mg of aspirin. After evaluation Dr. Hoyt has started the patient on IV heparin also. Patient was recently admitted for lower GI bleed and anemia, was discharged on 09/21/2017. Colonoscopy on 09/17/17 showed severe diverticulosis, moderate sized internal hemorrhoids, and pedunculated polyp at the cecum s/p polypectomy-biopsy showed tubular adenoma. Patient has chronic kidney disease with baseline creatinine around 3.5, creatinine today is elevated to 4.74 I evaluated the patient in the ED, he is currently anxious in moderate distress. On IV heparin and IV nitro infusions. In next addition to this I will place him on scheduled aspirin, start carvedilol 3.125 mg twice daily, use as needed IV labetalol for hypertension. Patient also started on lower dose Lipitor due to renal failure. Plan for possible cardiac catheterization within 24 hours or sooner if persistent chest pain. Family made aware that patient may need hemodialysis, as he is already stage V Review of Systems ROS Limitations: Other (as per HPI) Past Family Social History Allergies: Coded Allergies: diphenhydramine (Unverified Allergy, Severe, ANTIHISTAMINES, 09/26/17) Uncoded Allergies: ANTIHISTAMINES (Allergy, Severe, 05/30/07) NIASPAN (Allergy, Intermediate, 07/10/13) FACE BECOMES NUMB Past Medical History Admission for lower GI bleed 09/16/2017 to 09/21/2017 CKD 4 History of alcohol abuse Coronary artery disease Morbid obesity History of bladder cancer Hypertension Cecal polyp biopsy showing tubular adenoma Past Surgical History Cardiac catheterization and stents 2001; stent to the LAD 2006 Reported Medications Nifedipine ER 24 HR (Nifedipine) 30 Mg Tab 30 Mg PO BID Hydralazine HCl 25 Mg Tablet 25 Mg PO Q12HR Catapres (Clonidine) 0.2 Mg Tab 0.2 Mg PO Q8HR 30 Days Active Ordered Medications Currently on nitroglycerin IV infusion Getting started on heparin infusion Family History Father of CHF at the age of 83 Social History Glass of wine daily previously used to drink heavily 8 years ago Smokes 1 cigar daily Physical Exam Vital Signs Vital Signs Date Time Temp Pulse Resp B/P (MAP) Pulse Ox O2 Delivery O2 Flow Rate FiO2 09/26/17 13:04 86 22 130/61 (84) 97 Nasal Cannula 2.00 09/26/17 12:38 104 147/67 09/26/17 12:04 97.8 107 22 147/67 (93) 94 Room Air Physical Exam GENERAL: Well-nourished, well-developed patient lying in [facility] in moderate distress SKIN: Warm and dry. HEAD: Atraumatic. Normocephalic. EYES: Pupils equal and round. No scleral icterus. ENT: No nasal bleeding or discharge. Mucous membranes pink and moist. NECK: Trachea midline. No JVD. CARDIOVASCULAR: Regular rate and rhythm. No murmur appreciated. Currently on nitroglycerin infusion RESPIRATORY: No accessory muscle use. Clear to auscultation. Breath sounds equal bilaterally. GASTROINTESTINAL: Abdomen soft, non-tender, nondistended. MUSCULOSKELETAL: No obvious deformities. No clubbing. No cyanosis. 2+ pitting pedal edema NEUROLOGICAL: Awake and alert. No obvious cranial nerve deficits. Motor grossly within normal limits. Normal speech. Laboratory Laboratory Tests Test 09/26/17 12:00 White Blood Count 11.3 Red Blood Count 2.76 Hemoglobin 9.2 Hematocrit 26.7 Mean Corpuscular Volume 96.8 Mean Corpuscular Hemoglobin 33.5 Mean Corpuscular Hemoglobin Concent 34.6 Red Cell Distribution Width 14.1 Platelet Count 379 Mean Platelet Volume 8.4 Neutrophils (%) (Auto) 75.4 Lymphocytes (%) (Auto) 14.0 Monocytes (%) (Auto) 6.6 Eosinophils (%) (Auto) 3.2 Basophils (%) (Auto) 0.8 Neutrophils # (Auto) 8.5 Lymphocytes # (Auto) 1.6 Monocytes # (Auto) 0.7 Eosinophils # (Auto) 0.4 Basophils # (Auto) 0.1 CBC Comment DIFF FINAL Differential Comment Prothrombin Time 10.0 Prothromb Time International Ratio 1.0 Activated Partial Thromboplast Time 28.1 Blood Urea Nitrogen 41 Creatinine 4.74 Random Glucose 121 Calcium Level 8.8 Magnesium Level 1.9 Sodium Level 138 Potassium Level 4.7 Chloride Level 105 Carbon Dioxide Level 19.6 Anion Gap 13 Estimat Glomerular Filtration Rate 12 Total Creatine Kinase 365 Creatine Kinase MB 7.3 Creatine Kinase MB % 2.0 Troponin I 1.16 Result Diagram: 09/26/17 1200 09/26/17 1200 Imaging Chest x-ray showing left lower lobe atelectasis Septic Shock Reassessment Septic shock perfusion: reassessment completed Caprini VTE Risk Assessment Caprini VTE Risk Assessment: Mod/High Risk (score >= 2) Caprini Risk Assessment Model 3 Point Value = 1 Point Value = 2 Point Value = 3 Point Value = 5 Age 41-60 Minor surgery BMI > 25 kg/m2 Swollen legs Varicose veins or History of unexplained or recurrent spontaneous Oral contraceptives or hormone replacement Sepsis (< 1 month) Serious lung disease, including pneumonia (< 1 month) Abnormal pulmonary function Acute myocardial infarction Congestive heart failure (< 1 month) History of inflammatory bowel disease Medical patient at bed rest Age 61-74 Arthroscopic surgery Major open surgery (> 45 min) Laparoscopic surgery (> 45 min) Malignancy Confined to bed (> 72 hours) Immobilizing plaster cast Central venous access Age >= 75 History of VTE Family history of VTE Factor V Leiden Prothrombin [id number] Lupus anticoagulant Anticardiolipin antibodies Elevated serum homocysteine Heparin-induced thrombocytopenia Other congenital or acquired thrombophilia Stroke (< 1 month) Elective arthroplasty Hip, pelvis, or leg fracture Acute spinal cord injury (< 1 month) Prophylaxis Regimen 3 Total Risk Factor Score Risk Level Prophylaxis Regimen 0-1 Low Early ambulation 2 Moderate Order ONE of the following: *Sequential Compression Device (SCD) *Heparin 5000 units SQ BID 3-4 Higher Order ONE of the following medications: *Heparin 5000 units SQ TID *Enoxaparin/Lovenox 40 mg SQ daily (WT < 150 kg, CrCl > 30 mL/min) *Enoxaparin/Lovenox 30 mg SQ daily (WT < 150 kg, CrCl > 10-29 mL/min) *Enoxaparin/Lovenox 30 mg SQ BID (WT < 150 kg, CrCl > 30 mL/min) AND/OR *Sequential Compression Device (SCD) 5 or more Highest Order ONE of the following medications: *Heparin 5000 units SQ TID (Preferred with Epidurals) *Enoxaparin/Lovenox 40 mg SQ daily (WT < 150 kg, CrCl > 30 mL/min) *Enoxaparin/Lovenox 30 mg SQ daily (WT < 150 kg, CrCl > 10-29 mL/min) *Enoxaparin/Lovenox 30 mg SQ BID (WT < 150 kg, CrCl > 30 mL/min) AND *Sequential Compression Device (SCD) Assessment and Plan Assessment and Plan Plan by systems: Neurologic: Neuro checks per ICU protocol Pain control with morphine Supplement thiamine due to daily alcohol use Respiratory: Probable COPD Tobacco abuse Maintain O2 sat greater than 92 % Bronchodilators every 4 hours as needed for SOB Cardiovascular: NSTEMI Essential hypertension Coronary artery disease Cardiology Dr. Hoyt consulted. Check serial troponins Possible cardiac catheterization in 24 hours or earlier if persistent chest pain Received aspirin in the ED, continue aspirin 81 mg daily Started on IV heparin. Continue IV nitroglycerin Start carvedilol 3.25 mg p.o. every 12. Start Lipitor 20 mg nightly (lower dose started due to renal failure) Continue clonidine. Hold nifedipine and hydralazine while on nitro drip Maintain IV fluids normal saline 50 cc/hr Labetalol as needed for systolic blood pressure greater than 160mmHG Check 2D echo Renal: Acute on chronic kidney disease Place [facility]sey catheter Consult nephrology Dr. Hannah Strict I/Os May need hemodialysis post cath FEN/GI: History of lower GI bleed secondary to severe diverticulosis NPO after midnight. IV Protonix 40 mg every 12 Colonoscopy on 09/17/17 showed severe diverticulosis noted throughout the entire colon, moderate sized internal hemorrhoids, medium sized pedunculated polyp in cecum s/p polypectomy Heme/ID: Anemia and recent GI bleed Patient had been started on aspirin and IV heparin Monitor hemoglobin closely every 8 hours Transfuse to keep hemoglobin more than 8 GI consult if needed Type and screen 2U PRBC Endocrine: Glucose monitoring per ICU protocol SSI Prophylaxis: GI Prophylaxis Protonix 40 mg IV every 12 DVT Prophylaxis SCDs. IV heparin Lines: Peripheral IVs 2. Central line if indicated CCT 45 MIN Patient is critically ill with acute non-ST elevation TX, complicated by recent GI bleed and acute on chronic kidney disease. He is at high risk of decompensation secondary to ischemia and potentially GI bleed from IV anticoagulation and antiplatelet therapy Code Status Full Discussed Condition With Dr. Perez Problem Qualifiers (1) CAD (coronary artery disease): Qualified Codes: I25.10 - Atherosclerotic heart disease of [place] coronary artery without angina pectoris; I25.84 - Coronary atherosclerosis due to calcified coronary lesion Rodo Koch MD Sep 26, 2017 14:06 <Electronically signed by Rodo Koch MD> 09/26/17 1503 Subjective/Hospital Course: 77-year-old male who presented to the emergency department with severe central chest pain. He had been having on and off chest pain for the 2 days prior to arrival , worsened over the past 24 hours. EKG in the emergency department showed extensive anterolateral ST depression and troponin was elevated at 1.16. He was ruled in for non-ST elevation TX, Dr. hoyt his lace tearing supervisor was consulted. Due to ongoing chest pain patient was started on IV nitroglycerin infusion. Pt underwent cardiac cath 09/27: LAD proximally has a 90% stenosis. Left circumflex gives rise to a ramus intermedius branch, which is moderate caliber size, 90 percent stenosis. The first obtuse marginal branch has an 80 percent stenosis. Right coronary artery is 100 percent occluded in proximal to mid segment. ECHO : EF 60-65%. We were consulted to eval for CABG PMH: CKD stage IV ( now on dialysis baseline creatinine 3.5 ) recent GI bleed from severe diverticulosis, Chronic kidney disease stage IV, hyperlipidemia, hypertension, coronary artery disease with TX, cardiac stents in 2001, and stent to the LAD 2006, bladder cancer status post BCG immunotherapy and TURP, morbid obesity, DVT 2015, PFT were done in ICU 09/26 FEV1 0.84/ repeat FEV1 pending in am carotid US 50-70% stenosis right ICA: will need f/u with Vascular as an outpt 10/01 pt for dialysis this am , remains on nasal cannula swelling improved to both feet continue to optimize fluid status for now, surgery ? sunday / Monday 10/02 pt slowly improving on 2 liter nasal cannula Fev1 improving discussed with Dr Mane/ will tentatively schedule for Tuesday 10/03 on nasal cannula , feels better add OT to eval / will need SNF/ rehab after surgery 10/04 pt remains on 2 liter nasal cannula need much encouragement to stay OOB , ambulate consult OT/ in addition to PT, decrease pain meds 10/05 pt still sleepy, narcotics completely DC BP meds adjusted, running on low side for dialysis today continue PT / OT OOB ambulate/ Dr Mane spoke with family / tentatively scheduled for Sunday10/06/17 More awake and alert this morning. Very debilitated - ambulates with a walker and requires assistance to turn in bed. Formal frailty testing would put him at 4/4. He will likely require SNF placement postop. 10/07/17 c/o productive cough today and WBC is up to 13.5K Objective:: Vital Signs - 24 hr 10/07/17 03:21 10/07/17 04:00 10/07/17 04:21 Temperature 99.5 F Pulse Rate 80 75 75 Blood Pressure 144/63 H Pulse Oximetry 97 10/07/17 05:21 10/07/17 06:00 10/07/17 08:00 Temperature 98.7 F Pulse Rate 73 73 68 Blood Pressure 148/65 H Pulse Oximetry 94 L 10/07/17 09:00 10/07/17 09:27 10/07/17 10:00 Temperature Pulse Rate 88 95 H 94 H Blood Pressure Pulse Oximetry Labs:: Laboratory Results - last 12 hr 10/04/17 10/05/17 10/05/17 03:29 04:47 04:47 WBC 10.2 RBC 2.85 L Hgb 9.2 L Hct 27.3 L MCV 96.0 MCH 32.4 MCHC 33.7 RDW 15.3 Plt Count 279 MPV 8.6 Neut % (Auto) Lymph % (Auto) [place] % (Auto) Eos % (Auto) Baso % (Auto) Neut # (Auto) Lymph # (Auto) [place] # (Auto) Eos # (Auto) Baso # (Auto) WBC Differential Differential Comment APTT 49.2 H 43.2 H Sodium Potassium Chloride Carbon Dioxide Anion Gap BUN Creatinine Estimated GFR Random Glucose Calcium Magnesium Blood Type Antibody Screen MTS Gel Crossmatch 10/05/17 10/06/17 10/06/17 10:38 05:10 05:10 WBC 10.6 RBC 3.26 L Hgb 10.4 L Hct 31.3 L MCV 96.0 MCH 31.8 MCHC 33.2 RDW 15.3 Plt Count 344 MPV 9.0 Neut % (Auto) Lymph % (Auto) [place] % (Auto) Eos % (Auto) Baso % (Auto) Neut # (Auto) Lymph # (Auto) [place] # (Auto) Eos # (Auto) Baso # (Auto) WBC Differential Differential Comment APTT 38.7 H Sodium 131 L Potassium 4.3 Chloride 92 L Carbon Dioxide 24.9 Anion Gap 14 BUN 34 H Creatinine 7.50 H D Estimated GFR 7 L Random Glucose 182 H Calcium 8.6 Magnesium Blood Type Antibody Screen MTS Gel Crossmatch 10/06/17 10/06/17 10/06/17 06:10 12:52 19:18 WBC RBC Hgb Hct MCV MCH MCHC RDW Plt Count MPV Neut % (Auto) Lymph % (Auto) [place] % (Auto) Eos % (Auto) Baso % (Auto) Neut # (Auto) Lymph # (Auto) [place] # (Auto) Eos # (Auto) Baso # (Auto) WBC Differential Differential Comment APTT 44.5 H 37.7 H Sodium Potassium Chloride Carbon Dioxide Anion Gap BUN Creatinine Estimated GFR Random Glucose Calcium Magnesium Blood Type O Positive Antibody Screen Negative MTS Gel Crossmatch See Detail 10/07/17 10/07/17 10/07/17 02:44 02:44 02:44 WBC 13.4 H RBC 3.24 L Hgb 10.3 L Hct 30.8 L MCV 95.0 MCH 31.8 MCHC 33.4 RDW 15.8 Plt Count 348 MPV 8.5 Neut % (Auto) 74.8 H Lymph % (Auto) 12.7 [place] % (Auto) 9.7 H Eos % (Auto) 1.8 Baso % (Auto) 1.0 Neut # (Auto) 10.0 H Lymph # (Auto) 1.7 [place] # (Auto) 1.3 H Eos # (Auto) 0.2 Baso # (Auto) 0.1 WBC Differential . Differential Comment Auto diff final APTT 49.5 H Sodium 136 Potassium 4.1 Chloride 95 L Carbon Dioxide 28.7 Anion Gap 12 BUN 39 H Creatinine 8.12 H Estimated GFR 6 L Random Glucose 99 Calcium 8.5 Magnesium 2.1 Blood Type Antibody Screen MTS Gel Crossmatch Result Diagrams: 10/07/17 02:44 10/07/17 02:44 Cardiovascular:: RRR Telemetry:: NSR Pulmonary:: Bilateral crackles GI/:: NABS, NT - Plan (1) CAD (coronary artery disease) Plan:: Patient is scheduled for CABG tomorrow, but has now developed a new productive cough with an increased WBC. CXR and sputum cx requested. (2) End stage renal disease Plan:: Patient dialyzed per [facility] per Nephrology
--- NOTE | 2017-10-07 11:45 | P.PN ---
Subjective Interval history: 77-year-old male with past medical history significant for recent GI bleed from severe diverticulosis, Chronic kidney disease stage IV, hyperlipidemia, hypertension, coronary artery disease with TX, cardiac stents in 2001, and stent to the LAD 2006, bladder cancer status post BCG immunotherapy and TURP, morbid obesity, DVT 2015, who presented to the emergency department with severe central chest pain. He had been having on and off chest pain for the last 2 days worsened over the last 24 hours. EKG in the emergency department showed extensive anterolateral ST depression and troponin was elevated at 1.16. He was ruled in for non-ST elevation TX, Dr. hoyt his projection camera operator was consulted. Due to ongoing chest pain patient was started on IV nitroglycerin infusion. Patient also received 162 mg of aspirin. After evaluation Dr. Hoyt has started the patient on IV heparin also. Patient has chronic kidney disease with baseline creatinine around 3.5, develop DEVORAH and started on HD. Physical Exam Vital signs: Vital Signs 10/07/17 03:21 10/07/17 04:00 10/07/17 04:21 Temperature 99.5 F Pulse Rate 80 75 75 Blood Pressure 144/63 H Pulse Oximetry 97 10/07/17 05:21 10/07/17 06:00 10/07/17 08:00 Temperature 98.7 F Pulse Rate 73 73 68 Blood Pressure 148/65 H Pulse Oximetry 94 L 10/07/17 09:00 10/07/17 09:27 10/07/17 10:00 Temperature Pulse Rate 88 95 H 94 H Blood Pressure Pulse Oximetry Intake & Output 10/06/17 10/07/17 10/07/17 18:59 06:59 18:59 Intake Total 360 / 360 Output Total 0 / 0 Balance 360 / 360 Weight 95 kg Intake: Oral 360 / 360 Output: Urine 0 / 0 Other: Date of Last Bowel Movement 10/07/17 # Bowel Movements 1 - Constitutional no acute distress - Routine HEENT Exam Head: Present: normocephalic ENT: Present: mucous membranes moist - Routine Neck Exam Present: supple - Routine Respiratory Exam Present: decreased breath sounds, rales, rhonchi, diminished air movement - Routine Cardiovascular Exam Present: S1, S2 - Routine Abdominal Exam Present: soft, normoactive bowel sounds, distended - Routine Extremities Exam Present: edema - Routine Skin Exam Present: intact Results - Labs CBC & Chem 7: 10/07/17 02:44 10/07/17 02:44 Labs: Laboratory Results - last 24 hr 10/04/17 10/05/17 10/05/17 03:29 04:47 04:47 WBC 10.2 RBC 2.85 L Hgb 9.2 L Hct 27.3 L MCV 96.0 MCH 32.4 MCHC 33.7 RDW 15.3 Plt Count 279 MPV 8.6 Neut % (Auto) Lymph % (Auto) [place] % (Auto) Eos % (Auto) Baso % (Auto) Neut # (Auto) Lymph # (Auto) [place] # (Auto) Eos # (Auto) Baso # (Auto) WBC Differential Differential Comment APTT 49.2 H 43.2 H Sodium Potassium Chloride Carbon Dioxide Anion Gap BUN Creatinine Estimated GFR Random Glucose Calcium Magnesium Blood Type Antibody Screen MTS Gel Crossmatch 10/05/17 10/06/17 10/06/17 10:38 05:10 05:10 WBC 10.6 RBC 3.26 L Hgb 10.4 L Hct 31.3 L MCV 96.0 MCH 31.8 MCHC 33.2 RDW 15.3 Plt Count 344 MPV 9.0 Neut % (Auto) Lymph % (Auto) [place] % (Auto) Eos % (Auto) Baso % (Auto) Neut # (Auto) Lymph # (Auto) [place] # (Auto) Eos # (Auto) Baso # (Auto) WBC Differential Differential Comment APTT 38.7 H Sodium 131 L Potassium 4.3 Chloride 92 L Carbon Dioxide 24.9 Anion Gap 14 BUN 34 H Creatinine 7.50 H D Estimated GFR 7 L Random Glucose 182 H Calcium 8.6 Magnesium Blood Type Antibody Screen MTS Gel Crossmatch 10/06/17 10/06/17 10/06/17 06:10 12:52 19:18 WBC RBC Hgb Hct MCV MCH MCHC RDW Plt Count MPV Neut % (Auto) Lymph % (Auto) [place] % (Auto) Eos % (Auto) Baso % (Auto) Neut # (Auto) Lymph # (Auto) [place] # (Auto) Eos # (Auto) Baso # (Auto) WBC Differential Differential Comment APTT 44.5 H 37.7 H Sodium Potassium Chloride Carbon Dioxide Anion Gap BUN Creatinine Estimated GFR Random Glucose Calcium Magnesium Blood Type O Positive Antibody Screen Negative MTS Gel Crossmatch See Detail 10/07/17 10/07/17 10/07/17 02:44 02:44 02:44 WBC 13.4 H RBC 3.24 L Hgb 10.3 L Hct 30.8 L MCV 95.0 MCH 31.8 MCHC 33.4 RDW 15.8 Plt Count 348 MPV 8.5 Neut % (Auto) 74.8 H Lymph % (Auto) 12.7 [place] % (Auto) 9.7 H Eos % (Auto) 1.8 Baso % (Auto) 1.0 Neut # (Auto) 10.0 H Lymph # (Auto) 1.7 [place] # (Auto) 1.3 H Eos # (Auto) 0.2 Baso # (Auto) 0.1 WBC Differential . Differential Comment Auto diff final APTT 49.5 H Sodium 136 Potassium 4.1 Chloride 95 L Carbon Dioxide 28.7 Anion Gap 12 BUN 39 H Creatinine 8.12 H Estimated GFR 6 L Random Glucose 99 Calcium 8.5 Magnesium 2.1 Blood Type Antibody Screen MTS Gel Crossmatch Assessment and Plan - Plan 1. Chronic kidney disease and DEVORAH. 2. IHD. 3. Hypertension. 4. Anemia. Patient is for CABG tomorrow. BUN and Creatinine still elevated. Now HD today, to optimize fluid and electrolytes before the surgery. Dr. Hannah will follow from tomorrow.
[2017-10-07] MEDS: Heparin 10,000 UNITS/10 ML Vial (for IV use) OTHER PRN (13:39)
--- NOTE | 2017-10-07 15:38 | XR ---
EXAM DATE: 10/07/2017 3:34 PM EDT AGE/SEX: 77 years / Male INDICATIONS: Cough CLINICAL DATA: This is the patient's subsequent encounter. Patient reports that signs and symptoms h ave been present for 2 weeks and indicates a pain score of 0/10. MEDICAL/SURGICAL HISTORY: . Cardiovascular disease. Chronic obstructive pulmonary disease. Hype rtension. Bladder cancer. CHF. Renal failure. . Coronary artery stent [place] [facility] [place]. . FINDINGS: Dialysis catheter is stable in good position. Lungs are focally clear. No pleural effusion evident. C ardiac contours are stable and satisfactory. CONCLUSION: Stable chest. No acute disease. Electronically signed by: August Toussaint MD 10/07/2017 3:36 PM EDT
--- NOTE | 2017-10-07 18:51 | P.PNIM ---
Subjective Interval history: Pt with complaints of cough today His HR this afternoon and evening is slightly more tachy BP is stable Afebrile Physical Exam Vital signs: Vital Signs 10/07/17 03:21 10/07/17 04:00 10/07/17 04:21 Temperature 99.5 F Pulse Rate 80 75 75 Respiratory Rate Blood Pressure 144/63 H Pulse Oximetry 97 10/07/17 05:21 10/07/17 06:00 10/07/17 08:00 Temperature 98.7 F Pulse Rate 73 73 68 Respiratory Rate Blood Pressure 148/65 H Pulse Oximetry 94 L 10/07/17 09:00 10/07/17 09:27 10/07/17 10:00 Temperature Pulse Rate 88 95 H 94 H Respiratory Rate Blood Pressure Pulse Oximetry 10/07/17 11:00 10/07/17 12:00 10/07/17 15:00 Temperature 98.1 F Pulse Rate 100 H 93 H 98 H Respiratory Rate 20 Blood Pressure 105/67 Pulse Oximetry 97 10/07/17 16:00 10/07/17 17:00 10/07/17 18:00 Temperature 98.6 F Pulse Rate 94 H 106 H 102 H Respiratory Rate 20 Blood Pressure 118/58 L Pulse Oximetry 99 96 Intake & Output 10/06/17 10/07/17 10/07/17 18:59 06:59 18:59 Intake Total 360 / 360 720 / 720 Output Total 0 / 0 4000 / 4000 Balance 360 / 360 -3280 / -3280 Weight 95 kg Intake: Oral 360 / 360 720 / 720 Output: Urine 0 / 0 Hemodialysis Amount 4000 / 4000 Other: # Voids 1 Date of Last Bowel Movement 10/07/17 # Bowel Movements 1 2 Narrative: General; NAD, AAOx3 Chest: Poor inspiratory effort, breath sounds equal bilaterally Cardiac: Regular Abd: +BS, soft ND/NT Ext: Trace bilateral LE edema Results - Labs CBC & Chem 7: 10/13/17 05:33 10/13/17 05:33 Laboratory Results - last 24 hr 10/04/17 10/05/17 10/05/17 03:29 04:47 04:47 WBC 10.2 RBC 2.85 L Hgb 9.2 L Hct 27.3 L MCV 96.0 MCH 32.4 MCHC 33.7 RDW 15.3 Plt Count 279 MPV 8.6 Neut % (Auto) Lymph % (Auto) [place] % (Auto) Eos % (Auto) Baso % (Auto) Neut # (Auto) Lymph # (Auto) [place] # (Auto) Eos # (Auto) Baso # (Auto) WBC Differential Differential Comment APTT 49.2 H 43.2 H Sodium Potassium Chloride Carbon Dioxide Anion Gap BUN Creatinine Estimated GFR Random Glucose Calcium Magnesium Blood Type Antibody Screen MTS Gel Crossmatch 10/05/17 10/06/17 10/06/17 10:38 05:10 05:10 WBC 10.6 RBC 3.26 L Hgb 10.4 L Hct 31.3 L MCV 96.0 MCH 31.8 MCHC 33.2 RDW 15.3 Plt Count 344 MPV 9.0 Neut % (Auto) Lymph % (Auto) [place] % (Auto) Eos % (Auto) Baso % (Auto) Neut # (Auto) Lymph # (Auto) [place] # (Auto) Eos # (Auto) Baso # (Auto) WBC Differential Differential Comment APTT 38.7 H Sodium 131 L Potassium 4.3 Chloride 92 L Carbon Dioxide 24.9 Anion Gap 14 BUN 34 H Creatinine 7.50 H D Estimated GFR 7 L Random Glucose 182 H Calcium 8.6 Magnesium Blood Type Antibody Screen MTS Gel Crossmatch 10/06/17 10/06/17 10/06/17 06:10 12:52 19:18 WBC RBC Hgb Hct MCV MCH MCHC RDW Plt Count MPV Neut % (Auto) Lymph % (Auto) [place] % (Auto) Eos % (Auto) Baso % (Auto) Neut # (Auto) Lymph # (Auto) [place] # (Auto) Eos # (Auto) Baso # (Auto) WBC Differential Differential Comment APTT 44.5 H 37.7 H Sodium Potassium Chloride Carbon Dioxide Anion Gap BUN Creatinine Estimated GFR Random Glucose Calcium Magnesium Blood Type O Positive Antibody Screen Negative MTS Gel Crossmatch See Detail 10/07/17 10/07/17 10/07/17 02:44 02:44 02:44 WBC 13.4 H RBC 3.24 L Hgb 10.3 L Hct 30.8 L MCV 95.0 MCH 31.8 MCHC 33.4 RDW 15.8 Plt Count 348 MPV 8.5 Neut % (Auto) 74.8 H Lymph % (Auto) 12.7 [place] % (Auto) 9.7 H Eos % (Auto) 1.8 Baso % (Auto) 1.0 Neut # (Auto) 10.0 H Lymph # (Auto) 1.7 [place] # (Auto) 1.3 H Eos # (Auto) 0.2 Baso # (Auto) 0.1 WBC Differential . Differential Comment Auto diff final APTT 49.5 H Sodium 136 Potassium 4.1 Chloride 95 L Carbon Dioxide 28.7 Anion Gap 12 BUN 39 H Creatinine 8.12 H Estimated GFR 6 L Random Glucose 99 Calcium 8.5 Magnesium 2.1 Blood Type Antibody Screen MTS Gel Crossmatch 10/07/17 15:55 WBC RBC Hgb Hct MCV MCH MCHC RDW Plt Count MPV Neut % (Auto) Lymph % (Auto) [place] % (Auto) Eos % (Auto) Baso % (Auto) Neut # (Auto) Lymph # (Auto) [place] # (Auto) Eos # (Auto) Baso # (Auto) WBC Differential Differential Comment APTT 39.9 H Sodium Potassium Chloride Carbon Dioxide Anion Gap BUN Creatinine Estimated GFR Random Glucose Calcium Magnesium Blood Type Antibody Screen MTS Gel Crossmatch - Imaging Impressions Chest X-Ray 10/07/17 10:54 CONCLUSION: Stable chest. No acute disease. - Procedures 09/27/17 cardiac catheterization showing muti vessel disease Assessment and Plan - Assessment (1) NSTEMI (non-ST elevated myocardial infarction) Code(s): I21.4 - Non-ST elevation (NSTEMI) myocardial infarction Status: Acute Plan: NSTEMI CAD HTN/Hypotension - The patient is a 77-year-old male with past medical history significant for recent GI bleed from severe diverticulosis, Chronic kidney disease stage IV, hyperlipidemia, hypertension, coronary artery disease with VA , cardiac stents in 2001, and stent to the LAD 2006, bladder cancer status post BCG immunotherapy and TURP, morbid obesity, DVT 2015, who presented to the emergency department with severe central chest pain. - EKG in the emergency department showed extensive anterolateral ST depression and troponin was elevated - Patient underwent cardiac catheterization on 09/27/[address] Mcdonald which showed severe multivessel coronary artery disease. 1. Left main coronary has mild luminal irregularities. 2. Left anterior descending coronary artery proximally has a 90% stenosis. The remainder of vessel has mild luminal irregularities. 3. Left circumflex gives rise to a ramus intermedius branch, which is moderate caliber size, 90 percent stenosis. The first obtuse marginal branch has an 80 percent stenosis. There is a second obtuse marginal branch with minor luminal irregularities. 4. Right coronary artery is 100 percent occluded in proximal to mid segment. - Heparin gtt. - On 09/28/17 CVS surgery was consulted and recommended CABG. - Pt had Permacath placed by IR on 09/28 to attempt renal optimization before CABG - His last HD was on 10/05 - Nephrology is planning for next HD Sunday, with goal of optimizing fluid status for CABG - Pt had been tentatively planned for CABG for Sunday but he developed a cough and elevated WBC count of 13,000 on 10/07/17 - CXR (10/07) --> Stable chest. No acute disease. - Pt has been on Imdur, Coreg, Hydralazine, Clonidine, Procardia but BP has been low normal and pt has not been receiving most of these medications the last few days. - Cont. Coreg - Scheduled Clonidine, Hydralazine, Imdur and Procardia stopped on 10/06 - HR slightly elevated today but BP is stable - Clonidine PRN - No LYNDA/ARB due to renal function. - Cont. ASA - PT - Recheck labs and CXR in AM (2) End stage renal disease Code(s): N18.6 - End stage renal disease Status: Acute Plan: Acute kidney injury superimposed on CKD - Nephrology also following - He has advanced CKD, his creatinine was around 3 last week. - DEVORAH may be due to NSTEMI and renal hypoperfusion. - Patient has a perm-cath placed (09/28) - He will require cardiac bypass surgery once volume overload corrected - HD started 09/29/17 per nephrology - Per Nephrology pt will continue HD after CABG , possibly MWF. (3) HTN (hypertension) Code(s): I10 - Essential (primary) hypertension Status: Chronic Plan: -See above (4) COPD (chronic obstructive pulmonary disease) Code(s): J44.9 - Chronic obstructive pulmonary disease, unspecified Status: Chronic (5) Anemia Code(s): D64.9 - Anemia, unspecified Status: Acute Plan: Anemia History of GI bleed - On aspirin and IV heparin - Monitor hemoglobin closely every 8 hours - Transfuse to keep hemoglobin more than 8 - GI consult if needed - Pt transfused with 1U PRBC (09/27/17) - Hgb stable at 10.3 on 10/07 - Pt is on IV Venofer ordered to given with dialysis. - Epogen with HD. - Pt underwent Colonoscopy on 09/17/17 showed severe diverticulosis noted throughout the entire colon, moderate sized internal hemorrhoids, medium sized pedunculated polyp in cecum s/p polypectomy (6) Leukocytosis Code(s): D72.829 - Elevated white blood cell count, unspecified Status: Acute - Attending Attestation Patient examined. Assessment and plan formulated with Beatrice Suazo PA-C. I agree with the above. (3) HTN (hypertension) Qualifiers: Hypertension type: essential hypertension Qualified Code(s): I10 - Essential (primary) hypertension (4) COPD (chronic obstructive pulmonary disease) Qualifiers: Emphysema type: unspecified (5) Anemia Qualifiers: Anemia type: due to chronic kidney disease Chronic kidney disease stage: on chronic dialysis Qualified Code(s): N18.6 - End stage renal disease; D63.1 - Anemia in chronic kidney disease; Z99.2 - Dependence on renal dialysis (6) Leukocytosis Qualifiers: Leukocytosis type: unspecified Qualified Code(s): D72.829 - Elevated white blood cell count, unspecified
[2017-10-07] MEDS: Acetaminophen 325 MG Tablet PO PRN (21:10)
[2017-10-08] MEDS: Pantoprazole Inj 40 MG Vial IV.PUSH SCH ×2 (01:32→13:34)
--- NOTE | 2017-10-08 03:33 | XR ---
EXAM DATE: 10/08/2017 3:26 AM EDT AGE/SEX: 77 years / Male INDICATIONS: Short of breath. CLINICAL DATA: This is the patient's subsequent encounter. Patient reports that signs and symptoms h ave been present for 1 week and indicates a pain score of 0/10. MEDICAL/SURGICAL HISTORY: Cardiovascular disease. Chronic obstructive pulmonary disease. Hype rtension. Bladder cancer. CHF. Renal failure. . Coronary artery stent COMPARISON: [facility], CHEST 1V SINGLE AP, 10/07/2017. . FINDINGS: Dialysis catheter tip at the cavoatrial junction, stable. Interval development of patchy areas of con solidation of the lower lateral left lung. The right lung is clear. The heart is stable in size. The right hemidiaphragm is well delineated. CONCLUSION: Interval development of patchy area of infiltrate in the lateral left lower lung. Electronically signed by: Adrien Santos MD 10/08/2017 3:31 AM EDT
[2017-10-08 04:05] LABS: Baso # (Auto) 0.1 th/mm3 (0.0-0.2); Baso % (Auto) 0.6 % (0.0-2.0); Eos # (Auto) 0.1 th/mm3 (0.0-0.4); Eos % (Auto) 0.4 % (0.0-4.0); Hematocrit 34.9 % (39.0-51.0); Hemoglobin 11.7 gm/dL (13.0-17.0); Lymph # (Auto) 2.3 th/mm3 (1.0-4.8); Mean Corpuscular HGB Conc 33.4 % (32.0-36.0); Mean Corpuscular Hemoglobin 32.5 pg (27.0-34.0); Mean Corpuscular Volume 97.2 fL (80.0-100.0); Mean Platelet Volume 8.4 fL (7.0-11.0); Mono # (Auto) 1.8 th/mm3 (0.0-0.9); Mono % (Auto) 10.4 % (0.0-8.0); Neut # (Auto) 13.2 th/mm3 (1.8-7.7); Neut % (Auto) 75.6 % (16.0-70.0); Platelet Count 351 th/mm3 (150-450); Red Blood Count 3.59 mil/mm3 (4.50-5.90); Red Cell Distribution Width 16.4 % (11.6-17.2); White Blood Count 17.4 th/mm3 (4.0-11.0)
[2017-10-08] MEDS: Chlorhexidine Gluconate 2% 1 Pack (2 Cloths) TOPICAL SCH (05:09)
[2017-10-08 05:11] LABS: Calcium 9.1 mg/dL (8.5-10.1); Carbon Dioxide 25.9 meq/L (21.0-32.0); Magnesium 2.3 mg/dL (1.5-2.5); Potassium 4.2 meq/L (3.5-5.1)
[2017-10-08] MEDS: Isosorbide Mononitrate 30 MG ER 24HR Tablet (Imdur) PO SCH (06:21)
[2017-10-08] MEDS: hydrALAZINE 25 MG Tablet PO SCH ×2 (06:21→13:33)
[2017-10-08] MEDS: Docusate Sodium 100 MG Capsule PO SCH ×2 (08:46→21:33)
[2017-10-08] MEDS: Heparin Drip 25,000 UNIT/250 ML BAG IV.CONT PRN (08:47)
--- NOTE | 2017-10-08 10:32 | P.PNNP ---
Subjective Interval history: He is still coughing, short of breath. Family informs us the CABG has been postponed until . He had 4L UF yesterday with dialysis in anticipation of surgery. <Vero Oliver - Last Filed: 10/08/17 10:25> Physical Exam Vital signs: Vital Signs 10/07/17 11:00 10/07/17 12:00 10/07/17 15:00 Temperature 98.1 F Pulse Rate 100 H 93 H 98 H Respiratory Rate 20 Blood Pressure 105/67 Pulse Oximetry 97 10/07/17 16:00 10/07/17 17:00 10/07/17 18:00 Temperature 98.6 F Pulse Rate 94 H 106 H 102 H Respiratory Rate 20 Blood Pressure 118/58 L Pulse Oximetry 99 96 10/07/17 19:00 10/07/17 20:00 10/07/17 21:00 Temperature 97.5 F L Pulse Rate 100 H 100 H 95 H Respiratory Rate Blood Pressure 133/62 Pulse Oximetry 98 98 10/07/17 21:15 10/07/17 22:00 10/07/17 23:00 Temperature Pulse Rate 83 92 H Respiratory Rate Blood Pressure Pulse Oximetry 96 10/08/17 00:00 10/08/17 01:00 10/08/17 02:00 Temperature 98.4 F Pulse Rate 92 H 89 82 Respiratory Rate Blood Pressure 122/58 L Pulse Oximetry 94 L 94 L 10/08/17 03:00 10/08/17 04:00 10/08/17 05:00 Temperature 97.5 F L Pulse Rate 76 75 76 Respiratory Rate Blood Pressure 135/65 Pulse Oximetry 96 96 10/08/17 06:00 10/08/17 07:00 10/08/17 08:00 Temperature Pulse Rate 78 90 92 H Respiratory Rate Blood Pressure Pulse Oximetry 10/08/17 08:27 10/08/17 09:00 10/08/17 09:08 Temperature 97.7 F Pulse Rate 98 H Respiratory Rate 16 Blood Pressure 126/62 Pulse Oximetry 96 10/08/17 10:00 Temperature Pulse Rate 102 H Respiratory Rate Blood Pressure Pulse Oximetry Intake & Output 10/07/17 10/08/17 10/08/17 18:59 06:59 18:59 Intake Total 720 / 720 600 / 600 Output Total 4000 / 4000 0 / 0 Balance -3280 / -3280 600 / 600 Weight 89 kg Intake: Oral 720 / 720 600 / 600 Output: Urine 0 / 0 Hemodialysis Amount 4000 / 4000 Other: # Voids 1 Date of Last Bowel Movement 10/07/17 # Bowel Movements 2 - Constitutional mild distress, chronically ill appearing - Routine HEENT Exam Head: Present: normocephalic Eye: Present: EOMI - Routine Respiratory Exam Present: rales - Routine Cardiovascular Exam Present: RRR, S1, S2 - Routine Abdominal Exam Present: soft, normoactive bowel sounds - Routine Extremities Exam Present: full ROM - Routine Skin Exam Present: intact, warm - Routine Neurological Exam Present: alert, oriented X3 - Routine Psychiatric Exam Present: normal affect, normal thought process <Vero Oliver - Last Filed: 10/08/17 10:25> Vital signs: Vital Signs 10/07/17 11:00 10/07/17 12:00 10/07/17 15:00 Temperature 98.1 F Pulse Rate 100 H 93 H 98 H Respiratory Rate 20 Blood Pressure 105/67 Pulse Oximetry 97 10/07/17 16:00 10/07/17 17:00 10/07/17 18:00 Temperature 98.6 F Pulse Rate 94 H 106 H 102 H Respiratory Rate 20 Blood Pressure 118/58 L Pulse Oximetry 99 96 10/07/17 19:00 10/07/17 20:00 10/07/17 21:00 Temperature 97.5 F L Pulse Rate 100 H 100 H 95 H Respiratory Rate Blood Pressure 133/62 Pulse Oximetry 98 98 10/07/17 21:15 10/07/17 22:00 10/07/17 23:00 Temperature Pulse Rate 83 92 H Respiratory Rate Blood Pressure Pulse Oximetry 96 10/08/17 00:00 10/08/17 01:00 10/08/17 02:00 Temperature 98.4 F Pulse Rate 92 H 89 82 Respiratory Rate Blood Pressure 122/58 L Pulse Oximetry 94 L 94 L 10/08/17 03:00 10/08/17 04:00 10/08/17 05:00 Temperature 97.5 F L Pulse Rate 76 75 76 Respiratory Rate Blood Pressure 135/65 Pulse Oximetry 96 96 10/08/17 06:00 10/08/17 07:00 10/08/17 08:00 Temperature Pulse Rate 78 90 92 H Respiratory Rate Blood Pressure Pulse Oximetry 10/08/17 08:27 10/08/17 09:00 10/08/17 09:08 Temperature 97.7 F Pulse Rate 98 H Respiratory Rate 16 Blood Pressure 126/62 Pulse Oximetry 96 10/08/17 10:00 Temperature Pulse Rate 102 H Respiratory Rate Blood Pressure Pulse Oximetry Intake & Output 10/07/17 10/08/17 10/08/17 18:59 06:59 18:59 Intake Total 720 / 720 600 / 600 Output Total 4000 / 4000 0 / 0 Balance -3280 / -3280 600 / 600 Weight 89 kg Intake: Oral 720 / 720 600 / 600 Output: Urine 0 / 0 Hemodialysis Amount 4000 / 4000 Other: # Voids 1 Date of Last Bowel Movement 10/07/17 # Bowel Movements 2 <Oli Hannah - Last Filed: 10/08/17 10:38> Assessment and Plan - Assessment (1) End stage renal disease Code(s): N18.6 - End stage renal disease Status: Chronic Plan: He has reached ESRD, started on HD. We will dialyze the patient Sunday and then resume MWF schedule. Avoid IVF administration. Gadolinium is contraindicated. He has become anuric. We are using a PermCath for HD, has some tunneling edema. (2) HTN (hypertension) Code(s): I10 - Essential (primary) hypertension Status: Chronic Qualifiers: Hypertension type: renovascular hypertension Qualified Code(s): I15.0 - Renovascular hypertension Plan: Continue present medications. (3) NSTEMI (non-ST elevated myocardial infarction) Code(s): I21.4 - Non-ST elevation (NSTEMI) myocardial infarction Status: Acute Plan: Cardiology following. On Heparin gtt. Plan for CABG postponed. (4) Anemia Code(s): D64.9 - Anemia, unspecified Status: Acute Qualifiers: Anemia type: due to chronic kidney disease Plan: Epogen with dialysis has been ordered. <Vero Oliver - Last Filed: 10/08/17 10:25> - Assessment (1) End stage renal disease Code(s): N18.6 - End stage renal disease Status: Chronic (2) HTN (hypertension) Code(s): I10 - Essential (primary) hypertension Status: Chronic Qualifiers: Hypertension type: renovascular hypertension Qualified Code(s): I15.0 - Renovascular hypertension (3) NSTEMI (non-ST elevated myocardial infarction) Code(s): I21.4 - Non-ST elevation (NSTEMI) myocardial infarction Status: Acute (4) Anemia Code(s): D64.9 - Anemia, unspecified Status: Acute Qualifiers: Anemia type: due to chronic kidney disease - Attending Attestation patient was seen and examined. Agree with above assessment and plan. Dialysis tomorrow. Most likely has reached ESRD. <Oli Hannah - Last Filed: 10/08/17 10:38>
[2017-10-08] MEDS: Acetaminophen 500 MG Tablet PO PRN (13:32)
--- NOTE | 2017-10-08 15:39 | P.PNCA ---
- Note Subjective/Hospital Course: 7/2 pt ambulating better in hallway, still somewhat sleepy WBC count 17K CXR left lower infiltrate continue aggressive pulm toileting sputum pending / discussed with PCP Objective: Vital Signs - 24 hr 10/07/17 16:00 10/07/17 17:00 10/07/17 18:00 Temperature 98.6 F Pulse Rate 94 H 106 H 102 H Respiratory Rate 20 Blood Pressure 118/58 L Pulse Oximetry 99 96 10/07/17 19:00 10/07/17 20:00 10/07/17 21:00 Temperature 97.5 F L Pulse Rate 100 H 100 H 95 H Respiratory Rate Blood Pressure 133/62 Pulse Oximetry 98 98 10/07/17 21:15 10/07/17 22:00 10/07/17 23:00 Temperature Pulse Rate 83 92 H Respiratory Rate Blood Pressure Pulse Oximetry 96 10/08/17 00:00 10/08/17 01:00 10/08/17 02:00 Temperature 98.4 F Pulse Rate 92 H 89 82 Respiratory Rate Blood Pressure 122/58 L Pulse Oximetry 94 L 94 L 10/08/17 03:00 10/08/17 04:00 10/08/17 05:00 Temperature 97.5 F L Pulse Rate 76 75 76 Respiratory Rate Blood Pressure 135/65 Pulse Oximetry 96 96 10/08/17 06:00 10/08/17 07:00 10/08/17 08:00 Temperature Pulse Rate 78 90 92 H Respiratory Rate Blood Pressure Pulse Oximetry 10/08/17 08:27 10/08/17 09:00 10/08/17 09:08 Temperature 97.7 F Pulse Rate 98 H 98 H Respiratory Rate 16 Blood Pressure 126/62 Pulse Oximetry 96 10/08/17 10:00 10/08/17 11:00 10/08/17 12:00 Temperature 97.4 F L Pulse Rate 102 H 91 H 86 Respiratory Rate 16 Blood Pressure 110/53 L Pulse Oximetry 98 10/08/17 13:00 10/08/17 14:00 10/08/17 15:00 Temperature Pulse Rate 88 86 90 Respiratory Rate Blood Pressure Pulse Oximetry Labs: Laboratory Results - last 12 hr 10/08/17 10/08/17 10/08/17 03:41 03:41 03:41 WBC 17.4 H RBC 3.59 L Hgb 11.7 L Hct 34.9 L MCV 97.2 MCH 32.5 MCHC 33.4 RDW 16.4 Plt Count 351 MPV 8.4 Neut % (Auto) 75.6 H Lymph % (Auto) 13.0 [place] % (Auto) 10.4 H Eos % (Auto) 0.4 Baso % (Auto) 0.6 Neut # (Auto) 13.2 H Lymph # (Auto) 2.3 [place] # (Auto) 1.8 H Eos # (Auto) 0.1 Baso # (Auto) 0.1 WBC Differential . Differential Comment Auto diff final APTT 52.0 H Sodium 135 L Potassium 4.2 Chloride 96 L Carbon Dioxide 25.9 Anion Gap 13 BUN 32 H Creatinine 6.98 H Estimated GFR 8 L Random Glucose 126 H Calcium 9.1 Magnesium 2.3 Result Diagrams: 10/08/17 03:41 10/08/17 03:41 Telemetry: NSR - Plan (1) CAD (coronary artery disease) Plan: ASA, statin , BB rescheduled for thurs (2) End stage renal disease Plan: on dialysis (3) HTN (hypertension) (1) CAD (coronary artery disease) Qualifiers: Coronary Disease-Associated Artery/Lesion type: [place] artery (3) HTN (hypertension) Qualifiers: Hypertension type: renovascular hypertension Qualified Code(s): I15.0 - Renovascular hypertension
[2017-10-08] MEDS: Piperacil/Tazo 3.375 GM Premix 50 ML IV.SIG SCH ×2 (17:19→21:31)
--- NOTE | 2017-10-08 19:25 | P.PNIM ---
Subjective Interval history: Pt still with cough today, bringing up some phlegm Afebrile Pt ambulated about 60' in the [place] today with PT Physical Exam Vital signs: Vital Signs 10/07/17 20:00 10/07/17 21:00 10/07/17 21:15 Temperature 97.5 F L Pulse Rate 100 H 95 H Respiratory Rate Blood Pressure 133/62 Pulse Oximetry 98 98 96 10/07/17 22:00 10/07/17 23:00 10/08/17 00:00 Temperature 98.4 F Pulse Rate 83 92 H 92 H Respiratory Rate Blood Pressure 122/58 L Pulse Oximetry 94 L 10/08/17 01:00 10/08/17 02:00 10/08/17 03:00 Temperature Pulse Rate 89 82 76 Respiratory Rate Blood Pressure Pulse Oximetry 94 L 10/08/17 04:00 10/08/17 05:00 10/08/17 06:00 Temperature 97.5 F L Pulse Rate 75 76 78 Respiratory Rate Blood Pressure 135/65 Pulse Oximetry 96 96 10/08/17 07:00 10/08/17 08:00 10/08/17 08:27 Temperature 97.7 F Pulse Rate 90 92 H 98 H Respiratory Rate 16 Blood Pressure 126/62 Pulse Oximetry 10/08/17 09:00 10/08/17 09:08 10/08/17 10:00 Temperature Pulse Rate 98 H 102 H Respiratory Rate Blood Pressure Pulse Oximetry 96 10/08/17 11:00 10/08/17 11:50 10/08/17 12:00 Temperature 97.4 F L Pulse Rate 91 H 86 Respiratory Rate 16 Blood Pressure 110/53 L Pulse Oximetry 98 98 10/08/17 13:00 10/08/17 14:00 10/08/17 15:00 Temperature 98.7 F Pulse Rate 88 86 89 Respiratory Rate 16 Blood Pressure 119/79 Pulse Oximetry 96 10/08/17 16:00 10/08/17 17:00 10/08/17 18:00 Temperature Pulse Rate 90 92 H 90 Respiratory Rate Blood Pressure Pulse Oximetry Intake & Output 10/08/17 10/08/17 10/09/17 06:59 18:59 06:59 Intake Total 600 / 600 1284 / 1284 Output Total 0 / 0 325 / 325 Balance 600 / 600 959 / 959 Weight 89 kg Intake: Oral 600 / 600 1284 / 1284 Output: Urine 0 / 0 Emesis 325 / 325 Other: # Voids 0 Narrative: General: NAD, AAOx3 Chest: Coarse breath sounds bilaterally Cardiac: Regular Abd: +BS, soft ND/NT Ext: Mild bilateral LE edema Results - Labs CBC & Chem 7: 10/13/17 05:33 10/13/17 05:33 Laboratory Results - last 24 hr 10/07/17 10/08/17 10/08/17 23:11 03:41 03:41 WBC 17.4 H RBC 3.59 L Hgb 11.7 L Hct 34.9 L MCV 97.2 MCH 32.5 MCHC 33.4 RDW 16.4 Plt Count 351 MPV 8.4 Neut % (Auto) 75.6 H Lymph % (Auto) 13.0 Warrick % (Auto) 10.4 H Eos % (Auto) 0.4 Baso % (Auto) 0.6 Neut # (Auto) 13.2 H Lymph # (Auto) 2.3 Warrick # (Auto) 1.8 H Eos # (Auto) 0.1 Baso # (Auto) 0.1 WBC Differential . Differential Comment Auto diff final APTT 48.4 H D Sodium 135 L Potassium 4.2 Chloride 96 L Carbon Dioxide 25.9 Anion Gap 13 BUN 32 H Creatinine 6.98 H Estimated GFR 8 L Random Glucose 126 H Calcium 9.1 Magnesium 2.3 10/08/17 03:41 WBC RBC Hgb Hct MCV MCH MCHC RDW Plt Count MPV Neut % (Auto) Lymph % (Auto) Warrick % (Auto) Eos % (Auto) Baso % (Auto) Neut # (Auto) Lymph # (Auto) Warrick # (Auto) Eos # (Auto) Baso # (Auto) WBC Differential Differential Comment APTT 52.0 H Sodium Potassium Chloride Carbon Dioxide Anion Gap BUN Creatinine Estimated GFR Random Glucose Calcium Magnesium Microbiology 10/08/17 10:27 Sputum - Expectorated Sputum Gram Stain - Final - Imaging Impressions Chest X-Ray 10/08/17 07:00 CONCLUSION: Interval development of patchy area of infiltrate in the lateral left lower lung. - Procedures 09/27/17 cardiac catheterization showing muti vessel disease Assessment and Plan - Assessment (1) NSTEMI (non-ST elevated myocardial infarction) Code(s): I21.4 - Non-ST elevation (NSTEMI) myocardial infarction Status: Acute Plan: NSTEMI CAD HTN/Hypotension - The patient is a 77-year-old male with past medical history significant for recent GI bleed from severe diverticulosis, Chronic kidney disease stage IV, hyperlipidemia, hypertension, coronary artery disease with NH , cardiac stents in 2001, and stent to the LAD 2006, bladder cancer status post BCG immunotherapy and TURP, morbid obesity, DVT 2016, who presented to the emergency department with severe central chest pain. - EKG in the emergency department showed extensive anterolateral ST depression and troponin was elevated - Patient underwent cardiac catheterization on 09/27/[address] Mcdonald which showed severe multivessel coronary artery disease. 1. Left main coronary has mild luminal irregularities. 2. Left anterior descending coronary artery proximally has a 90% stenosis. The remainder of vessel has mild luminal irregularities. 3. Left circumflex gives rise to a ramus intermedius branch, which is moderate caliber size, 90 percent stenosis. The first obtuse marginal branch has an 80 percent stenosis. There is a second obtuse marginal branch with minor luminal irregularities. 4. Right coronary artery is 100 percent occluded in proximal to mid segment. - Heparin gtt. - On 09/28/17 CVS surgery was consulted and recommended CABG. - Pt had Permacath placed by IR on 09/28 to attempt renal optimization before CABG - Pt had HD Sunday, 10/07, with next dialysis planned for Sunday, 10/09, and then resume MWF schedule - CABG has been postponed tentatively until , depending on pts clinical status - CXR (10/07) --> Stable chest. No acute disease. - CXR (10/08) --> Interval development of patchy area of infiltrate in the lateral left lower lung. - WBC Count elevated to 17,000 on 10/08 - Sputum culture pending - Pt started on Zosyn - Repeat labs in AM - Monitor clinical status closely - Pt has been on Imdur, Coreg, Hydralazine, Clonidine, Procardia but BP has been low normal and pt has not been receiving most of these medications the last few days. - Cont. Coreg - Scheduled Clonidine, Hydralazine, Imdur and Procardia stopped on 10/06 - HR and BP are stable - Clonidine PRN - No LYNDA/ARB due to renal function. - Cont. ASA - PT - Recheck labs and CXR in AM (2) End stage renal disease Code(s): N18.6 - End stage renal disease Status: Acute Plan: ESRD - Nephrology also following - He has advanced CKD, his creatinine was around 3 last week. - DEVORAH may be due to NSTEMI and renal hypoperfusion and per Nephrology notes, pt now likely ESRD. - Patient has a perm-cath placed (09/28) - He will require cardiac bypass surgery once volume overload corrected - HD started 09/29/17 per nephrology - Per Nephrology pt will continue HD after CABG , possibly MWF. (3) HTN (hypertension) Code(s): I10 - Essential (primary) hypertension Status: Chronic Plan: -See above (4) COPD (chronic obstructive pulmonary disease) Code(s): J44.9 - Chronic obstructive pulmonary disease, unspecified Status: Chronic (5) Anemia Code(s): D64.9 - Anemia, unspecified Status: Acute Plan: Anemia History of GI bleed - On aspirin and IV heparin - Monitor hemoglobin closely every 8 hours - Transfuse to keep hemoglobin more than 8 - GI consult if needed - Pt transfused with 1U PRBC (09/27/17) - Hgb stable at 11/7 on 10/08 - Pt is on IV Venofer ordered to given with dialysis. - Epogen with HD. - Pt underwent Colonoscopy on 09/17/17 showed severe diverticulosis noted throughout the entire colon, moderate sized internal hemorrhoids, medium sized pedunculated polyp in cecum s/p polypectomy (6) Leukocytosis Code(s): D72.829 - Elevated white blood cell count, unspecified Status: Acute - Plan Patient examined. Assessment and plan formulated with Beatrice MENENDEZ I agree with the above. (3) HTN (hypertension) Qualifiers: Hypertension type: essential hypertension Qualified Code(s): I10 - Essential (primary) hypertension (4) COPD (chronic obstructive pulmonary disease) Qualifiers: Emphysema type: unspecified (5) Anemia Qualifiers: Anemia type: due to chronic kidney disease Chronic kidney disease stage: on chronic dialysis Qualified Code(s): N18.6 - End stage renal disease; D63.1 - Anemia in chronic kidney disease; Z99.2 - Dependence on renal dialysis (6) Leukocytosis Qualifiers: Leukocytosis type: unspecified Qualified Code(s): D72.829 - Elevated white blood cell count, unspecified
[2017-10-09 06:08] LABS: Baso # (Auto) 0.1 th/mm3 (0.0-0.2); Baso % (Auto) 0.7 % (0.0-2.0); Eos # (Auto) 0.3 th/mm3 (0.0-0.4); Eos % (Auto) 1.8 % (0.0-4.0); Hematocrit 33.6 % (39.0-51.0); Hemoglobin 10.9 gm/dL (13.0-17.0); Lymph # (Auto) 2.9 th/mm3 (1.0-4.8); Lymph % (Auto) 19.2 % (9.0-44.0); Mean Corpuscular HGB Conc 32.6 % (32.0-36.0); Mean Corpuscular Hemoglobin 31.8 pg (27.0-34.0); Mean Corpuscular Volume 97.5 fL (80.0-100.0); Mean Platelet Volume 8.6 fL (7.0-11.0); Mono # (Auto) 1.3 th/mm3 (0.0-0.9); Mono % (Auto) 8.3 % (0.0-8.0); Neut # (Auto) 10.7 th/mm3 (1.8-7.7); Platelet Count 343 th/mm3 (150-450); Red Blood Count 3.44 mil/mm3 (4.50-5.90); Red Cell Distribution Width 16.3 % (11.6-17.2); White Blood Count 15.3 th/mm3 (4.0-11.0)
[2017-10-09 06:24] LABS: Calcium 9.2 mg/dL (8.5-10.1); Potassium 4.6 meq/L (3.5-5.1)
[2017-10-09] MEDS: hydrALAZINE 25 MG Tablet PO SCH ×4 (06:42→21:05)
[2017-10-09] MEDS: Heparin Drip 25,000 UNIT/250 ML BAG IV.CONT PRN ×2 (07:04→22:07)
[2017-10-09] MEDS: Isosorbide Mononitrate 30 MG ER 24HR Tablet (Imdur) PO SCH (08:02)
--- NOTE | 2017-10-09 09:01 | XR ---
EXAM DATE: 10/09/2017 8:56 AM EDT AGE/SEX: 77 years / Male INDICATIONS: Shortness of breath. CLINICAL DATA: This is the patient's subsequent encounter. Patient reports that signs and symptoms h ave been present for 3 days and indicates a pain score of 5/10. MEDICAL/SURGICAL HISTORY: . Chronic kidney injury. . Patient too weak to give history. COMPARISON: [facility] [place], CHEST 1V SINGLE AP, 10/08/2017. . FINDINGS: A single AP view of the chest demonstrates diminished lung volumes without evidence of mass, infiltra te or effusion. Heart mildly enlarged. Right jugular vascular catheter with tip in the right atrium. The cardiomediastinal contours are unremarkable. Osseous structures are intact. CONCLUSION: No acute cardiopulmonary disease Electronically signed by: Schuyler Collins MD 10/09/2017 8:59 AM EDT
[2017-10-09] MEDS: Piperacil/Tazo 3.375 GM Premix 50 ML IV.SIG SCH ×5 (09:10→21:04)
--- NOTE | 2017-10-09 09:26 | P.PNNP ---
Subjective Interval history: Seen during dialysis. He feels better today. Ambulated yesterday with minimal assistance. Not on oxygen currently. CABG planned for . <Vero Oliver - Last Filed: 10/09/17 09:19> Physical Exam Vital signs: Vital Signs 10/08/17 10:00 10/08/17 11:00 10/08/17 11:50 Temperature 97.4 F L Pulse Rate 102 H 91 H Respiratory Rate 16 Blood Pressure 110/53 L Pulse Oximetry 98 98 10/08/17 12:00 10/08/17 13:00 10/08/17 14:00 Temperature Pulse Rate 86 88 86 Respiratory Rate Blood Pressure Pulse Oximetry 10/08/17 14:35 10/08/17 15:00 10/08/17 16:00 Temperature 98.7 F Pulse Rate 89 90 Respiratory Rate 3 L 16 Blood Pressure 119/79 Pulse Oximetry 96 10/08/17 17:00 10/08/17 18:00 10/08/17 19:00 Temperature Pulse Rate 92 H 90 90 Respiratory Rate Blood Pressure Pulse Oximetry 10/08/17 20:00 10/08/17 21:00 10/08/17 22:00 Temperature 99 F Pulse Rate 78 86 Respiratory Rate 20 Blood Pressure 143/64 H Pulse Oximetry 93 L 10/08/17 23:00 10/09/17 00:00 10/09/17 01:00 Temperature 98.1 F Pulse Rate 76 80 74 Respiratory Rate 20 Blood Pressure 136/63 Pulse Oximetry 97 10/09/17 02:00 10/09/17 03:42 10/09/17 05:03 Temperature 98.2 F Pulse Rate 76 75 90 Respiratory Rate 20 Blood Pressure 135/61 Pulse Oximetry 97 10/09/17 07:45 Temperature 98.2 F Pulse Rate 80 Respiratory Rate 17 Blood Pressure 141/63 H Pulse Oximetry 93 L Intake & Output 10/08/17 10/09/17 10/09/17 18:59 06:59 18:59 Intake Total 1334 / 1334 540 / 540 1000 / 1000 Output Total 325 / 325 Balance 1009 / 1009 540 / 540 1000 / 1000 Weight 90 kg Intake: IV 50 / 50 300 / 300 1000 / 1000 Heparin/D5W 25,000 U/250 mL 25, 250 / 250 000 unit In 250 ml @ Per Protocol IV.CONT TITRATE PRN Rx #:[id number] Zosyn 3.375 GM Premix 50 ML @ 50 / 50 50 / 50 100 mls/hr IV.SIG Q6H LEO Rx#: [id number] NS Inj 1,000 ML @ As Directed 1000 / 1000 OTHER .Q0M PRN Rx#:[id number] Oral 1284 / 1284 240 / 240 Output: Emesis 325 / 325 Other: # Voids 0 - Constitutional no acute distress - Routine HEENT Exam Head: Present: normocephalic ENT: Present: mucous membranes moist - Routine Neck Exam Present: supple, full ROM - Routine Respiratory Exam Present: wheezes, crackles, diminished air movement - Routine Cardiovascular Exam Present: RRR, S1, S2 - Routine Abdominal Exam Present: soft, normoactive bowel sounds - Routine Skin Exam Present: intact - Routine Neurological Exam Present: alert, oriented X3, CN II-XII intact - Routine Psychiatric Exam Present: normal affect <Vero Oliver - Last Filed: 10/09/17 09:19> Vital signs: Vital Signs 10/08/17 11:50 10/08/17 12:00 10/08/17 13:00 Temperature Pulse Rate 86 88 Respiratory Rate Blood Pressure Pulse Oximetry 98 10/08/17 14:00 10/08/17 14:35 10/08/17 15:00 Temperature 98.7 F Pulse Rate 86 89 Respiratory Rate 3 L 16 Blood Pressure 119/79 Pulse Oximetry 96 10/08/17 16:00 10/08/17 17:00 10/08/17 18:00 Temperature Pulse Rate 90 92 H 90 Respiratory Rate Blood Pressure Pulse Oximetry 10/08/17 19:00 10/08/17 20:00 10/08/17 21:00 Temperature 99 F Pulse Rate 90 78 Respiratory Rate 20 Blood Pressure 143/64 H Pulse Oximetry 93 L 10/08/17 22:00 10/08/17 23:00 10/09/17 00:00 Temperature 98.1 F Pulse Rate 86 76 80 Respiratory Rate 20 Blood Pressure 136/63 Pulse Oximetry 97 10/09/17 01:00 10/09/17 02:00 10/09/17 03:42 Temperature 98.2 F Pulse Rate 74 76 75 Respiratory Rate 20 Blood Pressure 135/61 Pulse Oximetry 97 10/09/17 05:03 10/09/17 07:00 10/09/17 07:45 Temperature 98.2 F Pulse Rate 90 80 80 Respiratory Rate 17 Blood Pressure 141/63 H Pulse Oximetry 93 L 10/09/17 08:00 10/09/17 09:00 10/09/17 10:00 Temperature Pulse Rate 96 H 96 H 102 H Respiratory Rate Blood Pressure Pulse Oximetry Intake & Output 10/08/17 10/09/17 10/09/17 18:59 06:59 18:59 Intake Total 1334 / 1334 540 / 540 1000 / 1000 Output Total 325 / 325 Balance 1009 / 1009 540 / 540 1000 / 1000 Weight 90 kg Intake: IV 50 / 50 300 / 300 1000 / 1000 Heparin/D5W 25,000 U/250 mL 25, 250 / 250 000 unit In 250 ml @ Per Protocol IV.CONT TITRATE PRN Rx #:[id number] Zosyn 3.375 GM Premix 50 ML @ 50 / 50 50 / 50 100 mls/hr IV.SIG Q6H LEO Rx#: [id number] NS Inj 1,000 ML @ As Directed 1000 / 1000 OTHER .Q0M PRN Rx#:[id number] Oral 1284 / 1284 240 / 240 Output: Emesis 325 / 325 Other: # Voids 0 <Oli Hannah - Last Filed: 10/09/17 11:26> Assessment and Plan - Assessment (1) End stage renal disease Code(s): N18.6 - End stage renal disease Status: Chronic Plan: He has reached ESRD. Perm cath in place. Seen during dialysis today on a 3K, 310 BFR, goal 2L. Tomorrow we will resume MWF HD schedule. Avoid IVF administration. Gadolinium is contraindicated. He is now anuric. Intermittently monitor labs. He will need AVF placement in the future. Outpatient HD arrangements not final. (2) HTN (hypertension) Code(s): I10 - Essential (primary) hypertension Status: Chronic Qualifiers: Hypertension type: renovascular hypertension Qualified Code(s): I15.0 - Renovascular hypertension Plan: Continue present medications. Blood pressure is stable. (3) NSTEMI (non-ST elevated myocardial infarction) Code(s): I21.4 - Non-ST elevation (NSTEMI) myocardial infarction Status: Acute Plan: Cardiology following. On Heparin gtt. Plan for CABG provided no complications. (4) Anemia Code(s): D64.9 - Anemia, unspecified Status: Acute Qualifiers: Anemia type: due to chronic kidney disease Plan: Epogen with dialysis has been ordered. Also given Venofer. (5) Pneumonia Code(s): J18.9 - Pneumonia, unspecified organism Status: Acute Onset Date: ~ 10/08/17 Qualifiers: Laterality: left Lung location: lower lobe of lung Plan: LLL pneumonia per X ray. Started on Zosyn. <Vero Oliver - Last Filed: 10/09/17 09:19> - Assessment (1) End stage renal disease Code(s): N18.6 - End stage renal disease Status: Chronic (2) HTN (hypertension) Code(s): I10 - Essential (primary) hypertension Status: Chronic Qualifiers: Hypertension type: renovascular hypertension Qualified Code(s): I15.0 - Renovascular hypertension (3) NSTEMI (non-ST elevated myocardial infarction) Code(s): I21.4 - Non-ST elevation (NSTEMI) myocardial infarction Status: Acute (4) Anemia Code(s): D64.9 - Anemia, unspecified Status: Acute Qualifiers: Anemia type: due to chronic kidney disease (5) Pneumonia Code(s): J18.9 - Pneumonia, unspecified organism Status: Acute Onset Date: ~ 10/08/17 Qualifiers: Laterality: left Lung location: lower lobe of lung - Attending Attestation patient was seen and examined. Agree with above assessment and plan. Patient was seen during dialysis. UF goal is 3500 ml/min, BFR is 330 ml/min. <Oli Hannah - Last Filed: 10/09/17 11:26> Acute ROS - Constitutional Reports anorexia - Cardiovascular Denies chest pain, Denies excessive sweating, Denies fast heart rate, Denies shortness of breath - Respiratory Reports change in phlegm color, Reports chest congestion, Reports cough - Gastrointestinal Denies abdominal pain <Vero Oliver - Last Filed: 10/09/17 09:19>
--- NOTE | 2017-10-09 10:03 | P.PNCA ---
- Note Subjective/Hospital Course: 7/2 pt ambulating better in hallway, still somewhat sleepy WBC count 17K CXR left lower infiltrate continue aggressive pulm toileting sputum pending / discussed with PCP 7/3 pt more awake and alert WBC count down to 15K for dialysis today BP stable tentatively scheduled for Thurs ( CABG) Objective: Vital Signs - 24 hr 10/08/17 10:00 10/08/17 11:00 10/08/17 11:50 Temperature 97.4 F L Pulse Rate 102 H 91 H Respiratory Rate 16 Blood Pressure 110/53 L Pulse Oximetry 98 98 10/08/17 12:00 10/08/17 13:00 10/08/17 14:00 Temperature Pulse Rate 86 88 86 Respiratory Rate Blood Pressure Pulse Oximetry 10/08/17 14:35 10/08/17 15:00 10/08/17 16:00 Temperature 98.7 F Pulse Rate 89 90 Respiratory Rate 3 L 16 Blood Pressure 119/79 Pulse Oximetry 96 10/08/17 17:00 10/08/17 18:00 10/08/17 19:00 Temperature Pulse Rate 92 H 90 90 Respiratory Rate Blood Pressure Pulse Oximetry 10/08/17 20:00 10/08/17 21:00 10/08/17 22:00 Temperature 99 F Pulse Rate 78 86 Respiratory Rate 20 Blood Pressure 143/64 H Pulse Oximetry 93 L 10/08/17 23:00 10/09/17 00:00 10/09/17 01:00 Temperature 98.1 F Pulse Rate 76 80 74 Respiratory Rate 20 Blood Pressure 136/63 Pulse Oximetry 97 10/09/17 02:00 10/09/17 03:42 10/09/17 05:03 Temperature 98.2 F Pulse Rate 76 75 90 Respiratory Rate 20 Blood Pressure 135/61 Pulse Oximetry 97 10/09/17 07:45 Temperature 98.2 F Pulse Rate 80 Respiratory Rate 17 Blood Pressure 141/63 H Pulse Oximetry 93 L GENERAL: A&O x 3 SKIN: Warm and dry. HEAD: Normocephalic. EYES: No scleral icterus. No injection or drainage. NECK: Supple, trachea midline. No JVD or lymphadenopathy. CARDIOVASCULAR: Regular rate and rhythm without murmurs, gallops, or rubs. RESPIRATORY: Breath sounds equal bilaterally. No accessory muscle use. diminished in bases L>R GASTROINTESTINAL: Abdomen soft, non-tender, nondistended. MUSCULOSKELETAL: No cyanosis, or edema. BACK: Nontender without obvious deformity. No CVA tenderness. Lines : right vascath Labs: Laboratory Results - last 12 hr 10/06/17 10/09/17 10/09/17 06:10 05:41 05:41 WBC 15.3 H RBC 3.44 L Hgb 10.9 L Hct 33.6 L MCV 97.5 MCH 31.8 MCHC 32.6 RDW 16.3 Plt Count 343 MPV 8.6 Prelim Diff (Auto) Slide review pending Neut % (Auto) 70.0 Lymph % (Auto) 19.2 Hunt % (Auto) 8.3 H Eos % (Auto) 1.8 Baso % (Auto) 0.7 Neut # (Auto) 10.7 H Lymph # (Auto) 2.9 Hunt # (Auto) 1.3 H Eos # (Auto) 0.3 Baso # (Auto) 0.1 WBC Differential . Diff Scan Auto diff confirmed Differential Comment . Keratocytes 1+ H APTT 35.5 H D Sodium Potassium Chloride Carbon Dioxide Anion Gap BUN Creatinine Estimated GFR Random Glucose Calcium MTS Gel Crossmatch See Detail 10/09/17 05:41 WBC RBC Hgb Hct MCV MCH MCHC RDW Plt Count MPV Prelim Diff (Auto) Neut % (Auto) Lymph % (Auto) Hunt % (Auto) Eos % (Auto) Baso % (Auto) Neut # (Auto) Lymph # (Auto) Hunt # (Auto) Eos # (Auto) Baso # (Auto) WBC Differential Diff Scan Differential Comment Keratocytes APTT Sodium 135 L Potassium 4.6 Chloride 95 L Carbon Dioxide 24.0 Anion Gap 16 H BUN 59 H Creatinine 9.30 H Estimated GFR 6 L Random Glucose 98 Calcium 9.2 MTS Gel Crossmatch Result Diagrams: 10/09/17 05:41 10/09/17 05:41 - Plan (1) CAD (coronary artery disease) Plan: ASA, statin , BB rescheduled for thurs (2) End stage renal disease Plan: on dialysis (3) HTN (hypertension) (7) Anemia Plan: On aspirin and IV heparin - Monitor hemoglobin closely every 8 hours - Transfuse to keep hemoglobin more than 8 - GI consult if needed - Pt transfused with 1U PRBC (09/27/17) - Hgb stable at 11/7 on 7/2 - Pt is on IV Venofer ordered to given with dialysis. - Epogen with HD. - Pt underwent Colonoscopy on 09/17/17 showed severe diverticulosis noted throughout the entire colon, moderate sized internal hemorrhoids, medium sized pedunculated polyp in cecum s/p polypectomy (8) Pneumonia pulm toileting OOB nebs / ezpap acapella await sputum results on zosyn (1) CAD (coronary artery disease) Qualifiers: Coronary Disease-Associated Artery/Lesion type: [place] artery (3) HTN (hypertension) Qualifiers: Hypertension type: renovascular hypertension Qualified Code(s): I15.0 - Renovascular hypertension (7) Anemia Qualifiers: Anemia type: due to chronic kidney disease (8) Pneumonia Qualifiers: Laterality: left Lung location: lower lobe of lung
[2017-10-09] MEDS: Docusate Sodium 100 MG Capsule PO SCH ×2 (12:56→21:05)
[2017-10-09] MEDS: Pantoprazole Inj 40 MG Vial IV.PUSH SCH ×2 (12:57→13:05)
--- NOTE | 2017-10-09 16:51 | P.PNIM ---
Subjective Interval history: Pt had been feeling better this morning but after HD was more lethargic Afebrile Complained of increased back pain Physical Exam Vital signs: Vital Signs 10/08/17 17:00 10/08/17 18:00 10/08/17 19:00 Temperature Pulse Rate 92 H 90 90 Respiratory Rate Blood Pressure Pulse Oximetry 10/08/17 20:00 10/08/17 21:00 10/08/17 22:00 Temperature 99 F Pulse Rate 78 86 Respiratory Rate 20 Blood Pressure 143/64 H Pulse Oximetry 93 L 10/08/17 23:00 10/09/17 00:00 10/09/17 01:00 Temperature 98.1 F Pulse Rate 76 80 74 Respiratory Rate 20 Blood Pressure 136/63 Pulse Oximetry 97 10/09/17 02:00 10/09/17 03:42 10/09/17 05:03 Temperature 98.2 F Pulse Rate 76 75 90 Respiratory Rate 20 Blood Pressure 135/61 Pulse Oximetry 97 10/09/17 07:00 10/09/17 07:45 10/09/17 08:00 Temperature 98.2 F Pulse Rate 80 80 96 H Respiratory Rate 17 Blood Pressure 141/63 H Pulse Oximetry 93 L 10/09/17 09:00 10/09/17 10:00 10/09/17 11:00 Temperature Pulse Rate 96 H 102 H 108 H Respiratory Rate Blood Pressure Pulse Oximetry 10/09/17 12:00 10/09/17 12:51 10/09/17 13:00 Temperature 99.4 F Pulse Rate 98 H 100 H 104 H Respiratory Rate 18 Blood Pressure 131/57 L Pulse Oximetry 94 L 10/09/17 14:00 10/09/17 15:28 Temperature 97.8 F Pulse Rate 104 H 89 Respiratory Rate 18 Blood Pressure 129/58 L Pulse Oximetry 96 Intake & Output 10/08/17 10/09/17 10/09/17 18:59 06:59 18:59 Intake Total 1334 / 1334 540 / 540 1050 / 1050 Output Total 325 / 325 3500 / 3500 Balance 1009 / 1009 540 / 540 -2450 / -2450 Weight 90 kg Intake: IV 50 / 50 300 / 300 1050 / 1050 Heparin/D5W 25,000 U/250 mL 25, 250 / 250 000 unit In 250 ml @ Per Protocol IV.CONT TITRATE PRN Rx #:[id number] Zosyn 3.375 GM Premix 50 ML @ 50 / 50 50 / 50 50 / 50 100 mls/hr IV.SIG Q6H [facility] Rx#: [id number] NS Inj 1,000 ML @ As Directed 1000 / 1000 OTHER .Q0M PRN Rx#:[id number] Oral 1284 / 1284 240 / 240 Output: Emesis 325 / 325 Hemodialysis Amount 3500 / 3500 Other: # Voids 0 Narrative: General: NAD, AAOx3 Chest: Coarse breath sounds bilaterally Cardiac: Regular Abd: +BS, soft ND/NT Ext: Mild bilateral LE edema Results - Labs CBC & Chem 7: 10/13/17 05:33 10/13/17 05:33 Laboratory Results - last 24 hr 10/06/17 10/09/17 10/09/17 06:10 05:41 05:41 WBC 15.3 H RBC 3.44 L Hgb 10.9 L Hct 33.6 L MCV 97.5 MCH 31.8 MCHC 32.6 RDW 16.3 Plt Count 343 MPV 8.6 Prelim Diff (Auto) Slide review pending Neut % (Auto) 70.0 Lymph % (Auto) 19.2 [place] % (Auto) 8.3 H Eos % (Auto) 1.8 Baso % (Auto) 0.7 Neut # (Auto) 10.7 H Lymph # (Auto) 2.9 [place] # (Auto) 1.3 H Eos # (Auto) 0.3 Baso # (Auto) 0.1 WBC Differential . Diff Scan Auto diff confirmed Differential Comment . Keratocytes 1+ H APTT 35.5 H D Sodium Potassium Chloride Carbon Dioxide Anion Gap BUN Creatinine Estimated GFR Random Glucose Calcium MTS Gel Crossmatch See Detail 10/09/17 10/09/17 05:41 15:19 WBC RBC Hgb Hct MCV MCH MCHC RDW Plt Count MPV Prelim Diff (Auto) Neut % (Auto) Lymph % (Auto) [place] % (Auto) Eos % (Auto) Baso % (Auto) Neut # (Auto) Lymph # (Auto) [place] # (Auto) Eos # (Auto) Baso # (Auto) WBC Differential Diff Scan Differential Comment Keratocytes APTT 52.5 H D Sodium 135 L Potassium 4.6 Chloride 95 L Carbon Dioxide 24.0 Anion Gap 16 H BUN 59 H Creatinine 9.30 H Estimated GFR 6 L Random Glucose 98 Calcium 9.2 MTS Gel Crossmatch Microbiology 10/08/17 10:27 Sputum - Expectorated Sputum Gram Stain - Final - Imaging Impressions Chest X-Ray 10/09/17 08:00 CONCLUSION: No acute cardiopulmonary disease - Procedures 09/27/17 cardiac catheterization showing muti vessel disease Assessment and Plan - Assessment (1) NSTEMI (non-ST elevated myocardial infarction) Code(s): I21.4 - Non-ST elevation (NSTEMI) myocardial infarction Status: Acute Plan: NSTEMI CAD HTN/Hypotension - The patient is a 77-year-old male with past medical history significant for recent GI bleed from severe diverticulosis, Chronic kidney disease stage IV, hyperlipidemia, hypertension, coronary artery disease with AR , cardiac stents in 2001, and stent to the LAD 2006, bladder cancer status post BCG immunotherapy and TURP, morbid obesity, DVT 2015, who presented to the emergency department with severe central chest pain. - EKG in the emergency department showed extensive anterolateral ST depression and troponin was elevated - Patient underwent cardiac catheterization on 09/27/[address] Mcdonald which showed severe multivessel coronary artery disease. 1. Left main coronary has mild luminal irregularities. 2. Left anterior descending coronary artery proximally has a 90% stenosis. The remainder of vessel has mild luminal irregularities. 3. Left circumflex gives rise to a ramus intermedius branch, which is moderate caliber size, 90 percent stenosis. The first obtuse marginal branch has an 80 percent stenosis. There is a second obtuse marginal branch with minor luminal irregularities. 4. Right coronary artery is 100 percent occluded in proximal to mid segment. - Heparin gtt. - On 09/28/17 CVS surgery was consulted and recommended CABG. - Pt had Permacath placed by IR on 09/28 to attempt renal optimization before CABG - Pt had HD Sunday, 10/07, and Sunday, 10/09, and then pt to resume MWF schedule - CABG has been postponed tentatively until , depending on pts clinical status - On 10/07/17 pt complained of increased cough - CXR (10/07) --> Stable chest. No acute disease. - CXR (10/08) --> Interval development of patchy area of infiltrate in the lateral left lower lung. - WBC Count elevated to 17,000 on 10/08 - CXR (10/09) --> No acute cardiopulmonary disease - WBC count trended down to 15,000 on 10/09 - Sputum culture pending - Pt started on Zosyn on 10/08 - Repeat labs in AM - Monitor clinical status closely - Pt had been on Imdur, Coreg, Hydralazine, Clonidine, Procardia but BP was low normal, so the scheduled Clonidine, Hydralazine, Imdur and Procardia stopped on 10/06/17 - Cont. Coreg - HR and BP are stable - Clonidine PRN - No LYNDA/ARB due to renal function. - Cont. ASA - PT (2) End stage renal disease Code(s): N18.6 - End stage renal disease Status: Acute Plan: ESRD - Nephrology also following - He has advanced CKD, his creatinine was around 3 last week. - DEVORAH may be due to NSTEMI and renal hypoperfusion and per Nephrology notes, pt now likely ESRD. - Patient has a perm-cath placed (09/28) - He will require cardiac bypass surgery once volume overload corrected - HD started 09/29/17 per nephrology - Per Nephrology pt will continue HD after CABG , possibly MWF. (3) HTN (hypertension) Code(s): I10 - Essential (primary) hypertension Status: Chronic Plan: -See above (4) COPD (chronic obstructive pulmonary disease) Code(s): J44.9 - Chronic obstructive pulmonary disease, unspecified Status: Chronic (5) Anemia Code(s): D64.9 - Anemia, unspecified Status: Acute Plan: Anemia History of GI bleed - On aspirin and IV heparin - Monitor hemoglobin closely every 8 hours - Transfuse to keep hemoglobin more than 8 - GI consult if needed - Pt transfused with 1U PRBC (09/27/17) - Hgb stable at 11/7 on 10/08 - Pt is on IV Venofer ordered to given with dialysis. - Epogen with HD. - Pt underwent Colonoscopy on 09/17/17 showed severe diverticulosis noted throughout the entire colon, moderate sized internal hemorrhoids, medium sized pedunculated polyp in cecum s/p polypectomy - H/H is fairly stable (6) Leukocytosis Code(s): D72.829 - Elevated white blood cell count, unspecified Status: Acute - Attending Attestation Patient examined. Assessment and plan formulated with Beatrice Suazo PA-C. I agree with the above. (3) HTN (hypertension) Qualifiers: Hypertension type: essential hypertension Qualified Code(s): I10 - Essential (primary) hypertension (4) COPD (chronic obstructive pulmonary disease) Qualifiers: Emphysema type: unspecified (5) Anemia Qualifiers: Anemia type: due to chronic kidney disease Chronic kidney disease stage: on chronic dialysis Qualified Code(s): N18.6 - End stage renal disease; D63.1 - Anemia in chronic kidney disease; Z99.2 - Dependence on renal dialysis (6) Leukocytosis Qualifiers: Leukocytosis type: unspecified Qualified Code(s): D72.829 - Elevated white blood cell count, unspecified
[2017-10-09] MEDS: Acetaminophen 325 MG Tablet PO PRN ×2 (17:44→21:06)
[2017-10-10] MEDS: Pantoprazole Inj 40 MG Vial IV.PUSH SCH ×2 (01:51→15:16)
[2017-10-10] MEDS: Piperacil/Tazo 3.375 GM Premix 50 ML IV.SIG SCH ×4 (01:52→20:58)
[2017-10-10] MEDS: hydrALAZINE 25 MG Tablet PO SCH ×2 (05:41→15:24)
[2017-10-10] MEDS: Isosorbide Mononitrate 30 MG ER 24HR Tablet (Imdur) PO SCH ×2 (05:42→06:04)
[2017-10-10 06:46] LABS: Baso # (Auto) 0.1 th/mm3 (0.0-0.2); Baso % (Auto) 0.6 % (0.0-2.0); Eos # (Auto) 0.2 th/mm3 (0.0-0.4); Eos % (Auto) 1.3 % (0.0-4.0); Hematocrit 36.8 % (39.0-51.0); Lymph # (Auto) 2.6 th/mm3 (1.0-4.8); Lymph % (Auto) 19.5 % (9.0-44.0); Mean Corpuscular HGB Conc 32.5 % (32.0-36.0); Mean Corpuscular Hemoglobin 31.8 pg (27.0-34.0); Mean Corpuscular Volume 97.9 fL (80.0-100.0); Mean Platelet Volume 8.7 fL (7.0-11.0); Mono # (Auto) 1.3 th/mm3 (0.0-0.9); Mono % (Auto) 9.4 % (0.0-8.0); Neut # (Auto) 9.3 th/mm3 (1.8-7.7); Neut % (Auto) 69.2 % (16.0-70.0); Platelet Count 344 th/mm3 (150-450); Red Blood Count 3.76 mil/mm3 (4.50-5.90); Red Cell Distribution Width 16.3 % (11.6-17.2); White Blood Count 13.5 th/mm3 (4.0-11.0)
[2017-10-10 07:26] LABS: Calcium 9.6 mg/dL (8.5-10.1); Carbon Dioxide 25.5 meq/L (21.0-32.0); Magnesium 2.6 mg/dL (1.5-2.5); Potassium 4.2 meq/L (3.5-5.1)
--- NOTE | 2017-10-10 09:59 | P.PNNP ---
Subjective Interval history: patient was seen and examined during dialysis. On 3K, UF goal is 3500 ml. PermCath being used. Physical Exam Vital signs: Vital Signs 10/09/17 10:00 10/09/17 11:00 10/09/17 12:00 Temperature Pulse Rate 102 H 108 H 98 H Respiratory Rate Blood Pressure Pulse Oximetry 10/09/17 12:51 10/09/17 13:00 10/09/17 14:00 Temperature 99.4 F Pulse Rate 100 H 104 H 104 H Respiratory Rate 18 Blood Pressure 131/57 L Pulse Oximetry 94 L 10/09/17 15:00 10/09/17 15:28 10/09/17 16:00 Temperature 97.8 F Pulse Rate 93 H 89 92 H Respiratory Rate 18 Blood Pressure 129/58 L Pulse Oximetry 96 10/09/17 17:00 10/09/17 18:00 10/09/17 19:00 Temperature 98.5 F Pulse Rate 92 H 98 H 84 Respiratory Rate 20 Blood Pressure 130/65 Pulse Oximetry 98 10/09/17 20:00 10/09/17 21:00 10/09/17 22:00 Temperature Pulse Rate 84 80 82 Respiratory Rate Blood Pressure Pulse Oximetry 10/09/17 23:00 10/10/17 00:00 10/10/17 01:00 Temperature 98.7 F Pulse Rate 86 71 74 Respiratory Rate 20 Blood Pressure 117/58 L Pulse Oximetry 96 10/10/17 02:00 10/10/17 03:00 10/10/17 04:00 Temperature 98.3 F Pulse Rate 82 83 84 Respiratory Rate 20 Blood Pressure 132/60 Pulse Oximetry 97 10/10/17 05:00 10/10/17 06:00 10/10/17 07:00 Temperature Pulse Rate 80 77 87 Respiratory Rate 16 Blood Pressure 127/59 L Pulse Oximetry 96 10/10/17 08:00 Temperature Pulse Rate 88 Respiratory Rate Blood Pressure Pulse Oximetry Intake & Output 10/09/17 10/10/17 10/10/17 18:59 06:59 18:59 Intake Total 1991 540 / 540 Output Total 3500 / 3500 Balance -1508 / -1508 540 / 540 Weight 88 kg Intake: IV 1050 / 1050 300 / 300 Heparin/D5W 25,000 U/250 mL 25, 250 / 250 000 unit In 250 ml @ Per Protocol IV.CONT TITRATE PRN Rx #:[id number] Zosyn 3.375 GM Premix 50 ML @ 50 / 50 50 / 50 100 mls/hr IV.SIG Q6H [facility] Rx#: [id number] NS Inj 1,000 ML @ As Directed 1000 / 1000 OTHER .Q0M PRN Rx#:[id number] Oral 942 / 942 240 / 240 Output: Hemodialysis Amount 3500 / 3500 Other: # Voids 1 - Constitutional no acute distress - Routine HEENT Exam Head: Present: normocephalic, atraumatic Eye: Present: EOMI, PERRL ENT: Present: mucous membranes moist - Routine Respiratory Exam Present: CTA bilaterally - Routine Cardiovascular Exam Present: RRR, S1, S2 - Routine Abdominal Exam Present: soft, normoactive bowel sounds. Absent: tenderness, distended - Routine Extremities Exam Present: full ROM. Absent: cyanosis, edema - Routine Skin Exam Present: intact - Routine Neurological Exam Present: alert, oriented X3 - Routine Psychiatric Exam Present: normal affect Assessment and Plan - Assessment (1) End stage renal disease Code(s): N18.6 - End stage renal disease Status: Chronic Plan: He has reached ESRD. Perm cath in place. Seen during dialysis. Surgery is scheduled for tomorrow, dialysis will be on Sunday. Recommend D10 when he is NPO. (2) HTN (hypertension) Code(s): I10 - Essential (primary) hypertension Status: Chronic Qualifiers: Hypertension type: renovascular hypertension Qualified Code(s): I15.0 - Renovascular hypertension Plan: Continue present medications. Blood pressure is stable. (3) NSTEMI (non-ST elevated myocardial infarction) Code(s): I21.4 - Non-ST elevation (NSTEMI) myocardial infarction Status: Acute Plan: Cardiology following. On Heparin gtt. Plan for CABG provided no complications. (4) Anemia Code(s): D64.9 - Anemia, unspecified Status: Acute Qualifiers: Anemia type: due to chronic kidney disease Plan: Epogen with dialysis has been ordered. Also given Venofer. (5) Pneumonia Code(s): J18.9 - Pneumonia, unspecified organism Status: Acute Onset Date: ~ 10/08/17 Qualifiers: Laterality: left Lung location: lower lobe of lung Plan: LLL pneumonia per X ray. Started on Zosyn. Acute ROS - Constitutional Denies anorexia - Cardiovascular Denies chest pain - Respiratory Denies shortness of breath - Gastrointestinal Denies abdominal pain - Hematologic/Lymphatic Denies easy bleeding - Allergic/Immunologic Denies hives
[2017-10-10] MEDS: Heparin 10,000 UNITS/10 ML Vial (for IV use) OTHER PRN (10:41)
--- NOTE | 2017-10-10 11:39 | P.PNCA ---
- Note Subjective/Hospital Course: 7/ pt ambulating better in hallway, still somewhat sleepy WBC count 17K CXR left lower infiltrate continue aggressive pulm toileting sputum pending / discussed with PCP / pt more awake and alert WBC count down to 15K for dialysis today BP stable tentatively scheduled for Thurs ( CABG) 10/10 pt undergoing dialysis WBC improving, on room air scheduled for OR in am Objective: Vital Signs - 24 hr 10/09/17 12:00 10/09/17 12:51 10/09/17 13:00 Temperature 99.4 F Pulse Rate 98 H 100 H 104 H Respiratory Rate 18 Blood Pressure 131/57 L Pulse Oximetry 94 L 10/09/17 14:00 10/09/17 15:00 10/09/17 15:28 Temperature 97.8 F Pulse Rate 104 H 93 H 89 Respiratory Rate 18 Blood Pressure 129/58 L Pulse Oximetry 96 10/09/17 16:00 10/09/17 17:00 10/09/17 18:00 Temperature Pulse Rate 92 H 92 H 98 H Respiratory Rate Blood Pressure Pulse Oximetry 10/09/17 19:00 10/09/17 20:00 10/09/17 21:00 Temperature 98.5 F Pulse Rate 84 84 80 Respiratory Rate 20 Blood Pressure 130/65 Pulse Oximetry 98 10/09/17 22:00 10/09/17 23:00 10/10/17 00:00 Temperature 98.7 F Pulse Rate 82 86 71 Respiratory Rate 20 Blood Pressure 117/58 L Pulse Oximetry 96 10/10/17 01:00 10/10/17 02:00 10/10/17 03:00 Temperature 98.3 F Pulse Rate 74 82 83 Respiratory Rate 20 Blood Pressure 132/60 Pulse Oximetry 97 10/10/17 04:00 10/10/17 05:00 10/10/17 06:00 Temperature Pulse Rate 84 80 77 Respiratory Rate Blood Pressure Pulse Oximetry 10/10/17 07:00 10/10/17 08:00 Temperature Pulse Rate 87 88 Respiratory Rate 16 Blood Pressure 127/59 L Pulse Oximetry 96 GENERAL: SKIN: Warm and dry. HEAD: Normocephalic. EYES: No scleral icterus. No injection or drainage. NECK: Supple, trachea midline. No JVD or lymphadenopathy. CARDIOVASCULAR: Regular rate and rhythm without murmurs, gallops, or rubs. RESPIRATORY: Breath sounds equal bilaterally. No accessory muscle use. GASTROINTESTINAL: Abdomen soft, non-tender, nondistended. MUSCULOSKELETAL: No cyanosis, or edema. BACK: Nontender without obvious deformity. No CVA tenderness. Labs: Laboratory Results - last 12 hr 10/10/17 10/10/17 10/10/17 06:07 06:07 06:07 WBC 13.5 H RBC 3.76 L Hgb 12.0 L Hct 36.8 L MCV 97.9 MCH 31.8 MCHC 32.5 RDW 16.3 Plt Count 344 MPV 8.7 Neut % (Auto) 69.2 Lymph % (Auto) 19.5 [place] % (Auto) 9.4 H Eos % (Auto) 1.3 Baso % (Auto) 0.6 Neut # (Auto) 9.3 H Lymph # (Auto) 2.6 [place] # (Auto) 1.3 H Eos # (Auto) 0.2 Baso # (Auto) 0.1 WBC Differential . Differential Comment Auto diff final APTT 53.8 H D Sodium 134 L Potassium 4.2 Chloride 92 L Carbon Dioxide 25.5 Anion Gap 17 H BUN 43 H Creatinine 7.98 H Estimated GFR 7 L Random Glucose 106 Calcium 9.6 Magnesium 2.6 H Result Diagrams: 10/10/17 06:07 10/10/17 06:07 - Plan (1) CAD (coronary artery disease) Plan: ASA, statin , BB scheduled for thurs (2) End stage renal disease Plan: on dialysis (3) HTN (hypertension) (7) Anemia Plan: On aspirin and IV heparin - Monitor hemoglobin closely every 8 hours - Transfuse to keep hemoglobin more than 8 - GI consult if needed - Pt transfused with 1U PRBC (09/27/17) - Hgb stable at 11/7 on 10/08 - Pt is on IV Venofer ordered to given with dialysis. - Epogen with HD. - Pt underwent Colonoscopy on 09/17/17 showed severe diverticulosis noted throughout the entire colon, moderate sized internal hemorrhoids, medium sized pedunculated polyp in cecum s/p polypectomy (8) Pneumonia (1) CAD (coronary artery disease) Qualifiers: Coronary Disease-Associated Artery/Lesion type: [place] artery (3) HTN (hypertension) Qualifiers: Hypertension type: renovascular hypertension Qualified Code(s): I15.0 - Renovascular hypertension (7) Anemia Qualifiers: Anemia type: due to chronic kidney disease (8) Pneumonia Qualifiers: Laterality: left Lung location: lower lobe of lung
[2017-10-10] MEDS: Docusate Sodium 100 MG Capsule PO SCH ×2 (16:30→21:00)
[2017-10-11] MEDS: Pantoprazole Inj 40 MG Vial IV.PUSH SCH ×2 (02:50→14:44)
[2017-10-11] MEDS: Piperacil/Tazo 3.375 GM Premix 50 ML IV.SIG SCH ×3 (02:51→14:45)
[2017-10-11] MEDS: hydrALAZINE 25 MG Tablet PO SCH ×2 (02:52→06:45)
[2017-10-11] MEDS: Acetaminophen 325 MG Tablet PO PRN (03:05)
[2017-10-11] MEDS: Isosorbide Mononitrate 30 MG ER 24HR Tablet (Imdur) PO SCH (06:45)
--- NOTE | 2017-10-11 10:16 | P.PNNP ---
Subjective Interval history: Sitting up in a chair, just finished breakfast. Per cardiology the CABG is postponed. He is reportedly (per floor nursing staff) having syncopal episodes during or shortly after HD. Discussed with dialysis staff, he has not had any episodes during dialysis. The patient cannot recall events. Denies CP, Shortness of breath, dizziness, headache, and generalized pain. Appetite is sufficient. All other ROS negative. <Vero Oliver - Last Filed: 10/11/17 10:04> Physical Exam Vital signs: Vital Signs 10/10/17 11:00 10/10/17 12:00 10/10/17 13:00 Temperature Pulse Rate 108 H 88 100 H Respiratory Rate 16 Blood Pressure 96/55 L Pulse Oximetry 10/10/17 14:00 10/10/17 15:00 10/10/17 16:00 Temperature Pulse Rate 96 H 96 H 100 H Respiratory Rate Blood Pressure 110/58 L Pulse Oximetry 97 10/10/17 16:06 10/10/17 17:00 10/10/17 18:12 Temperature Pulse Rate 92 H Respiratory Rate 16 Blood Pressure Pulse Oximetry 98 10/10/17 19:00 10/10/17 21:58 10/10/17 23:00 Temperature 98.7 F 99.1 F Pulse Rate 93 H 93 H Respiratory Rate 16 16 Blood Pressure 111/61 115/58 L Pulse Oximetry 97 98 97 10/11/17 00:00 10/11/17 01:00 10/11/17 02:00 Temperature Pulse Rate 89 86 96 H Respiratory Rate Blood Pressure Pulse Oximetry 10/11/17 03:00 10/11/17 04:00 10/11/17 05:00 Temperature 97.9 F Pulse Rate 92 H 90 91 H Respiratory Rate 16 Blood Pressure 127/65 Pulse Oximetry 96 10/11/17 06:00 10/11/17 07:00 10/11/17 08:00 Temperature 97.8 F Pulse Rate 92 H 89 89 Respiratory Rate Blood Pressure 107/58 L Pulse Oximetry 95 10/11/17 08:28 Temperature Pulse Rate Respiratory Rate Blood Pressure Pulse Oximetry 95 Intake & Output 10/10/17 10/11/17 10/11/17 18:59 06:59 18:59 Intake Total 300 / 300 580 / 580 Output Total 3500 / 3500 400 / 400 Balance -3200 / -3200 180 / 180 Weight 85 kg Intake: IV 300 / 300 100 / 100 Heparin/D5W 25,000 U/250 mL 25, 250 / 250 000 unit In 250 ml @ Per Protocol IV.CONT TITRATE PRN Rx #:[id number] Zosyn 3.375 GM Premix 50 ML @ 50 / 50 100 / 100 100 mls/hr IV.SIG Q6H [facility] Rx#: [id number] Oral 480 / 480 Output: Urine 0 / 0 Stool 400 / 400 Hemodialysis Amount 3500 / 3500 Other: Date of Last Bowel Movement 10/10/17 10/11/17 # Incontinent Bowel Movements 2 - Constitutional no acute distress - Routine HEENT Exam Head: Present: normocephalic Eye: Present: EOMI ENT: Present: mucous membranes moist - Routine Respiratory Exam Present: CTA bilaterally. Absent: accessory muscle use, rhonchi, wheezes - Routine Cardiovascular Exam Present: RRR, S1, S2 - Routine Abdominal Exam Present: soft, normoactive bowel sounds - Routine Extremities Exam Present: full ROM, pulses intact. Absent: cyanosis, edema, calf tenderness, joint swelling - Routine Skin Exam Present: intact, warm - Routine Neurological Exam Present: alert, oriented X3, CN II-XII intact - Detailed Neurological Exam: Coma Scale Eye Opening: Spontaneous Verbal Response: Oriented Motor Response: Obey commands [place] Coma Scale Total: 15 - Routine Psychiatric Exam Present: normal affect, normal thought process <Vero Oliver - Last Filed: 10/11/17 10:04> Vital signs: Vital Signs 10/11/17 15:00 10/11/17 16:00 10/11/17 17:00 Temperature 98.5 F Pulse Rate 96 H 98 H 98 H Respiratory Rate Blood Pressure 110/60 Pulse Oximetry 95 10/11/17 18:00 10/11/17 19:00 10/11/17 20:00 Temperature 98.5 F Pulse Rate 104 H 101 H 102 H Respiratory Rate 16 Blood Pressure 153/60 H Pulse Oximetry 10/11/17 21:00 10/11/17 22:00 10/11/17 22:01 Temperature Pulse Rate 98 H 94 H Respiratory Rate Blood Pressure Pulse Oximetry 94 L 10/11/17 23:00 10/12/17 00:00 10/12/17 01:00 Temperature 98.8 F Pulse Rate 100 H 98 H 94 H Respiratory Rate 14 Blood Pressure 152/69 H Pulse Oximetry 90 L 10/12/17 02:00 10/12/17 03:00 10/12/17 04:00 Temperature 98.4 F Pulse Rate 95 H 89 89 Respiratory Rate 14 Blood Pressure 148/70 H Pulse Oximetry 93 L 10/12/17 05:00 10/12/17 06:00 10/12/17 07:00 Temperature 97.5 F L Pulse Rate 89 61 88 Respiratory Rate 18 Blood Pressure 148/69 H Pulse Oximetry 95 10/12/17 08:00 10/12/17 09:00 10/12/17 10:00 Temperature Pulse Rate 104 H 100 H 108 H Respiratory Rate Blood Pressure Pulse Oximetry 10/12/17 11:00 10/12/17 12:00 10/12/17 13:00 Temperature 98.2 F Pulse Rate 102 H 111 H 99 H Respiratory Rate 18 Blood Pressure 133/62 Pulse Oximetry 95 10/12/17 14:00 Temperature Pulse Rate 96 H Respiratory Rate Blood Pressure Pulse Oximetry Intake & Output 10/11/17 10/12/17 10/12/17 18:59 06:59 18:59 Intake Total 990 / 990 170 / 170 Output Total 0 / 0 0 / 0 Balance 990 / 990 170 / 170 Weight 83 kg Intake: IV 50 / 50 50 / 50 Zosyn 2.25 GM Premix 50 ML @ 50 / 50 100 mls/hr IV.SIG Q8H [facility] Rx#: [id number] Zosyn 3.375 GM Premix 50 ML @ 50 / 50 100 mls/hr IV.SIG Q6H [facility] Rx#: [id number] Oral 940 / 940 120 / 120 Output: Urine 0 / 0 0 / 0 Other: Date of Last Bowel Movement 10/11/17 10/12/17 10/12/17 <Oli Hannah - Last Filed: 10/12/17 14:46> Assessment and Plan - Assessment (1) End stage renal disease Code(s): N18.6 - End stage renal disease Status: Chronic Plan: He has reached ESRD, now on MWF treatment. Using Perm cath for HD. He will need AVF placed eventually. Monitor labs intermittently including phosphorus level. He is not on phosphate binder therapy. Avoid IVF administration, unless he is NPO for prolonged periods, then begin D10. Renally dose appropriate to renal status (2) HTN (hypertension) Code(s): I10 - Essential (primary) hypertension Status: Chronic Qualifiers: Hypertension type: renovascular hypertension Qualified Code(s): I15.0 - Renovascular hypertension Plan: Blood pressure is borderline low. On low dose Carvedilol. Stop Nifedipine, temporarily suspend Hydralazine. Continue Isosorbide. (3) NSTEMI (non-ST elevated myocardial infarction) Code(s): I21.4 - Non-ST elevation (NSTEMI) myocardial infarction Status: Acute Plan: Cardiology following. On Heparin gtt. CABG postponed. (4) Anemia Code(s): D64.9 - Anemia, unspecified Status: Acute Qualifiers: Anemia type: due to chronic kidney disease Plan: Epogen with dialysis has been ordered. Also given Venofer. (5) Pneumonia Code(s): J18.9 - Pneumonia, unspecified organism Status: Acute Onset Date: ~ 10/08/17 Qualifiers: Laterality: left Lung location: lower lobe of lung Plan: LLL pneumonia per X ray. Started on Zosyn. On oxygen intermittently. Cough/deep breathing encouraged. <Vero Oliver - Last Filed: 10/11/17 10:04> - Assessment (1) End stage renal disease Code(s): N18.6 - End stage renal disease Status: Chronic (2) HTN (hypertension) Code(s): I10 - Essential (primary) hypertension Status: Chronic Qualifiers: Hypertension type: renovascular hypertension Qualified Code(s): I15.0 - Renovascular hypertension (3) NSTEMI (non-ST elevated myocardial infarction) Code(s): I21.4 - Non-ST elevation (NSTEMI) myocardial infarction Status: Acute (4) Anemia Code(s): D64.9 - Anemia, unspecified Status: Acute Qualifiers: Anemia type: due to chronic kidney disease (5) Pneumonia Code(s): J18.9 - Pneumonia, unspecified organism Status: Acute Onset Date: ~ 10/08/17 Qualifiers: Laterality: left Lung location: lower lobe of lung - Attending Attestation patient was seen and examined. Apparently surgery has been postponed. Dialysis will be continued. <Oli Hannah - Last Filed: 10/12/17 14:46>
--- NOTE | 2017-10-11 10:34 | P.PNCA ---
- Note Subjective/Hospital Course: 10/08 pt ambulating better in hallway, still somewhat sleepy WBC count 17K CXR left lower infiltrate continue aggressive pulm toileting sputum pending / discussed with PCP 10/09 pt more awake and alert WBC count down to 15K for dialysis today BP stable tentatively scheduled for Thurs ( CABG) 10/10 pt undergoing dialysis WBC improving, on room air scheduled for OR in am 10/11 pt had presyncope episode yesterday after dialysis nursing notified Dr Mane OR cancelled today Dr Mane to talk with Dr Mcdonald regarding high PCI vs allowing pt to go to rehab for two week / then follow with Dr Mane Objective: Vital Signs - 24 hr 10/10/17 11:00 10/10/17 12:00 10/10/17 13:00 Temperature Pulse Rate 108 H 88 100 H Respiratory Rate 16 Blood Pressure 96/55 L Pulse Oximetry 10/10/17 14:00 10/10/17 15:00 10/10/17 16:00 Temperature Pulse Rate 96 H 96 H 100 H Respiratory Rate Blood Pressure 110/58 L Pulse Oximetry 97 10/10/17 16:06 10/10/17 17:00 10/10/17 18:12 Temperature Pulse Rate 92 H Respiratory Rate 16 Blood Pressure Pulse Oximetry 98 10/10/17 19:00 10/10/17 21:58 10/10/17 23:00 Temperature 98.7 F 99.1 F Pulse Rate 93 H 93 H Respiratory Rate 16 16 Blood Pressure 111/61 115/58 L Pulse Oximetry 97 98 97 10/11/17 00:00 10/11/17 01:00 10/11/17 02:00 Temperature Pulse Rate 89 86 96 H Respiratory Rate Blood Pressure Pulse Oximetry 10/11/17 03:00 10/11/17 04:00 10/11/17 05:00 Temperature 97.9 F Pulse Rate 92 H 90 91 H Respiratory Rate 16 Blood Pressure 127/65 Pulse Oximetry 96 10/11/17 06:00 10/11/17 07:00 10/11/17 08:00 Temperature 97.8 F Pulse Rate 92 H 89 89 Respiratory Rate Blood Pressure 107/58 L Pulse Oximetry 95 10/11/17 08:28 Temperature Pulse Rate Respiratory Rate Blood Pressure Pulse Oximetry 95 GENERAL: A&O x 3 SKIN: Warm and dry / HEAD: Normocephalic. EYES: No scleral icterus. No injection or drainage. NECK: Supple, trachea midline. No JVD or lymphadenopathy. CARDIOVASCULAR: Regular rate and rhythm without murmurs, gallops, or rubs. RESPIRATORY: Breath sounds equal bilaterally. No accessory muscle use. GASTROINTESTINAL: Abdomen soft, non-tender, nondistended. MUSCULOSKELETAL: No cyanosis, or edema. BACK: Nontender without obvious deformity. No CVA tenderness. Labs: Laboratory Results - last 12 hr 10/11/17 03:39 APTT 52.0 H Result Diagrams: 10/10/17 06:07 10/10/17 06:07 - Plan (1) CAD (coronary artery disease) Plan: ASA, statin , BB OR cancelled 2/2 pt presyncopal episode BP meds reduced see above regarding plan (2) End stage renal disease Plan: on dialysis (3) HTN (hypertension) (7) Anemia Plan: On aspirin and IV heparin - Monitor hemoglobin closely every 8 hours - Transfuse to keep hemoglobin more than 8 - GI consult if needed - Pt transfused with 1U PRBC (09/27/17) - Hgb stable at 11/7 on 10/08 - Pt is on IV Venofer ordered to given with dialysis. - Epogen with HD. - Pt underwent Colonoscopy on 09/17/17 showed severe diverticulosis noted throughout the entire colon, moderate sized internal hemorrhoids, medium sized pedunculated polyp in cecum s/p polypectomy (8) Pneumonia (1) CAD (coronary artery disease) Qualifiers: Coronary Disease-Associated Artery/Lesion type: three affiliated artery (3) HTN (hypertension) Qualifiers: Hypertension type: renovascular hypertension Qualified Code(s): I15.0 - Renovascular hypertension (7) Anemia Qualifiers: Anemia type: due to chronic kidney disease (8) Pneumonia Qualifiers: Laterality: left Lung location: lower lobe of lung
--- NOTE | 2017-10-11 12:05 | P.PNCA ---
Subjective Interval history: events noted asked to comment on consideration for percutaneous revascularization options Physical Exam Vital signs: Vital Signs 10/10/17 13:00 10/10/17 14:00 10/10/17 15:00 Temperature Pulse Rate 100 H 96 H 96 H Respiratory Rate Blood Pressure 110/58 L Pulse Oximetry 97 10/10/17 16:00 10/10/17 16:06 10/10/17 17:00 Temperature Pulse Rate 100 H 92 H Respiratory Rate Blood Pressure Pulse Oximetry 98 10/10/17 18:12 10/10/17 19:00 10/10/17 21:58 Temperature 98.7 F Pulse Rate 93 H Respiratory Rate 16 16 Blood Pressure 111/61 Pulse Oximetry 97 98 10/10/17 23:00 10/11/17 00:00 10/11/17 01:00 Temperature 99.1 F Pulse Rate 93 H 89 86 Respiratory Rate 16 Blood Pressure 115/58 L Pulse Oximetry 97 10/11/17 02:00 10/11/17 03:00 10/11/17 04:00 Temperature 97.9 F Pulse Rate 96 H 92 H 90 Respiratory Rate 16 Blood Pressure 127/65 Pulse Oximetry 96 10/11/17 05:00 10/11/17 06:00 10/11/17 07:00 Temperature 97.8 F Pulse Rate 91 H 92 H 89 Respiratory Rate Blood Pressure 107/58 L Pulse Oximetry 95 10/11/17 08:00 10/11/17 08:28 Temperature Pulse Rate 89 Respiratory Rate Blood Pressure Pulse Oximetry 95 Intake & Output 10/10/17 10/11/17 10/11/17 18:59 06:59 18:59 Intake Total 300 / 300 580 / 580 50 / 50 Output Total 3500 / 3500 400 / 400 Balance -3200 / -3200 180 / 180 50 / 50 Weight 85 kg Intake: IV 300 / 300 100 / 100 50 / 50 Heparin/D5W 25,000 U/250 mL 25, 250 / 250 000 unit In 250 ml @ Per Protocol IV.CONT TITRATE PRN Rx #:[id number] Zosyn 3.375 GM Premix 50 ML @ 50 / 50 100 / 100 50 / 50 100 mls/hr IV.SIG Q6H [facility] Rx#: [id number] Oral 480 / 480 Output: Urine 0 / 0 Stool 400 / 400 Hemodialysis Amount 3500 / 3500 Other: Date of Last Bowel Movement 10/10/17 10/11/17 # Incontinent Bowel Movements 2 - Constitutional no acute distress - Routine HEENT Exam Head: Present: normocephalic Eye: Present: EOMI, PERRL ENT: Present: mucous membranes moist - Routine Neck Exam Absent: JVD, carotid bruit - Routine Chest/Breast/Axilla Exam Chest wall: Absent: tenderness - Routine Respiratory Exam Present: CTA bilaterally - Routine Cardiovascular Exam Present: RRR, S1, S2. Absent: murmur, gallop, rubs - Routine Abdominal Exam Present: soft, normoactive bowel sounds. Absent: tenderness, distended - Routine Extremities Exam Present: pulses intact. Absent: cyanosis, edema - Routine Skin Exam Absent: petechiae - Routine Neurological Exam Present: alert. Absent: sensory deficit, motor deficit Assessment and Plan - Plan CAD multivessel CAD [employer] RCA LAD may be approachable, but OM1 and OM2 and RCA not approachable would recommend med mgt and SNF with CT surgery followup for reconsideration of CABG call with further questions
[2017-10-11] MEDS: Heparin Drip 25,000 UNIT/250 ML BAG IV.CONT PRN (14:50)
--- NOTE | 2017-10-11 19:02 | P.PNIM ---
Subjective Interval history: No new complaints. Physical Exam Vital signs: Vital Signs 10/10/17 21:58 10/10/17 23:00 10/11/17 00:00 Temperature 99.1 F Pulse Rate 93 H 89 Respiratory Rate 16 Blood Pressure 115/58 L Pulse Oximetry 98 97 10/11/17 01:00 10/11/17 02:00 10/11/17 03:00 Temperature 97.9 F Pulse Rate 86 96 H 92 H Respiratory Rate 16 Blood Pressure 127/65 Pulse Oximetry 96 10/11/17 04:00 10/11/17 05:00 10/11/17 06:00 Temperature Pulse Rate 90 91 H 92 H Respiratory Rate Blood Pressure Pulse Oximetry 10/11/17 07:00 10/11/17 08:00 10/11/17 08:28 Temperature 97.8 F Pulse Rate 89 89 Respiratory Rate Blood Pressure 107/58 L Pulse Oximetry 95 95 10/11/17 11:00 10/11/17 15:00 Temperature 97.8 F 98.5 F Pulse Rate 89 89 Respiratory Rate Blood Pressure 108/58 L 110/60 Pulse Oximetry 95 95 Intake & Output 10/11/17 10/11/17 10/12/17 06:59 18:59 06:59 Intake Total 580 / 580 990 / 990 Output Total 400 / 400 0 / 0 Balance 180 / 180 990 / 990 Weight 85 kg Intake: IV 100 / 100 50 / 50 Zosyn 3.375 GM Premix 50 ML @ 100 / 100 50 / 50 100 mls/hr IV.SIG Q6H [facility] Rx#: [id number] Oral 480 / 480 940 / 940 Output: Urine 0 / 0 0 / 0 Stool 400 / 400 Other: Date of Last Bowel Movement 10/11/17 10/11/17 # Incontinent Bowel Movements 2 Narrative: General: NAD, AAOx3 Chest: Coarse breath sounds bilaterally Cardiac: Regular Abd: +BS, soft ND/NT Ext: Mild bilateral LE edema Results - Labs CBC & Chem 7: 10/13/17 05:33 10/13/17 05:33 Laboratory Results - last 24 hr 10/11/17 03:39 APTT 52.0 H - Procedures 09/27/17 cardiac catheterization showing muti vessel disease Assessment and Plan - Assessment (1) NSTEMI (non-ST elevated myocardial infarction) Code(s): I21.4 - Non-ST elevation (NSTEMI) myocardial infarction Status: Acute Plan: NSTEMI CAD HTN/Hypotension - The patient is a 77-year-old male with past medical history significant for recent GI bleed from severe diverticulosis, Chronic kidney disease stage IV, hyperlipidemia, hypertension, coronary artery disease with NE , cardiac stents in 2001, and stent to the LAD 2006, bladder cancer status post BCG immunotherapy and TURP, morbid obesity, DVT 2015, who presented to the emergency department with severe central chest pain. - EKG in the emergency department showed extensive anterolateral ST depression and troponin was elevated - Patient underwent cardiac catheterization on 09/27/[address] Mcdonald which showed severe multivessel coronary artery disease. 1. Left main coronary has mild luminal irregularities. 2. Left anterior descending coronary artery proximally has a 90% stenosis. The remainder of vessel has mild luminal irregularities. 3. Left circumflex gives rise to a ramus intermedius branch, which is moderate caliber size, 90 percent stenosis. The first obtuse marginal branch has an 80 percent stenosis. There is a second obtuse marginal branch with minor luminal irregularities. 4. Right coronary artery is 100 percent occluded in proximal to mid segment. - Heparin gtt. - On 09/28/17 CVS surgery was consulted and recommended CABG. - Pt had Permacath placed by IR on 09/28 to attempt renal optimization before CABG - Pt had HD Sunday, 10/07, and Sunday, 10/09, and then pt to resume MWF schedule - CABG has been postponed tentatively until , depending on pts clinical status - On 10/07/17 pt complained of increased cough - CXR (10/07) --> Stable chest. No acute disease. - CXR (10/08) --> Interval development of patchy area of infiltrate in the lateral left lower lung. - WBC Count elevated to 17,000 on 10/08 - CXR (10/09) --> No acute cardiopulmonary disease - WBC count trended down to 15,000 on 10/09 - Sputum culture pending - Pt started on Zosyn on 10/08 - Repeat labs in AM - Monitor clinical status closely - Pt had been on Imdur, Coreg, Hydralazine, Clonidine, Procardia but BP was low normal, so the scheduled Clonidine, Hydralazine, Imdur and Procardia stopped on 10/06/17 - Cont. Coreg - HR and BP are stable - Clonidine PRN - No LYNDA/ARB due to renal function. - Cont. ASA - PT - CTS felt that pt is NOT a surgical candidate at this time. - Case d/w Dr. Mane (10/10/17) - Case d/w Cardiology, Dr. Mcdonald (10/11/17) CAD multivessel CAD [employer] RCA - LAD may be approachable, but OM1 and OM2 and RCA not approachable - would recommend med mgt and SNF with CT surgery followup for reconsideration of CABG - anticipate d/c to SNF in next few days - repeat CXR in AM - repeat BMP/CBC in AM (2) End stage renal disease Code(s): N18.6 - End stage renal disease Status: Acute Plan: ESRD - Nephrology also following - He has advanced CKD, his creatinine was around 3 last week. - DEVORAH may be due to NSTEMI and renal hypoperfusion and per Nephrology notes, pt now likely ESRD. - Patient has a perm-cath placed (09/28) - He will require cardiac bypass surgery once volume overload corrected - HD started 09/29/17 per nephrology - Per Nephrology pt will continue HD after CABG , possibly MWF. (3) HTN (hypertension) Code(s): I10 - Essential (primary) hypertension Status: Chronic Plan: -See above (4) Hyperlipidemia Code(s): E78.5 - Hyperlipidemia, unspecified Status: Chronic Plan: - See above (5) COPD (chronic obstructive pulmonary disease) Code(s): J44.9 - Chronic obstructive pulmonary disease, unspecified Status: Chronic (6) Anemia Code(s): D64.9 - Anemia, unspecified Status: Acute Plan: Anemia History of GI bleed - On aspirin and IV heparin - Monitor hemoglobin closely every 8 hours - Transfuse to keep hemoglobin more than 8 - GI consult if needed - Pt transfused with 1U PRBC (09/27/17) - Hgb stable at 11/7 on 10/08 - Pt is on IV Venofer ordered to given with dialysis. - Epogen with HD. - Pt underwent Colonoscopy on 09/17/17 showed severe diverticulosis noted throughout the entire colon, moderate sized internal hemorrhoids, medium sized pedunculated polyp in cecum s/p polypectomy - H/H is fairly stable (3) HTN (hypertension) Qualifiers: Hypertension type: essential hypertension Qualified Code(s): I10 - Essential (primary) hypertension (4) Hyperlipidemia Qualifiers: Hyperlipidemia type: mixed hyperlipidemia Qualified Code(s): E78.2 - Mixed hyperlipidemia (5) COPD (chronic obstructive pulmonary disease) Qualifiers: Emphysema type: unspecified (6) Anemia Qualifiers: Anemia type: due to chronic kidney disease Chronic kidney disease stage: on chronic dialysis Qualified Code(s): N18.6 - End stage renal disease; D63.1 - Anemia in chronic kidney disease; Z99.2 - Dependence on renal dialysis
[2017-10-11] MEDS: Chlorhexidine Gluconate 2% 1 Pack (2 Cloths) TOPICAL SCH (23:18)
[2017-10-11] MEDS: Docusate Sodium 100 MG Capsule PO SCH (23:19)
[2017-10-11] MEDS: Piperacil/Tazo 2.25 GM Premix 50 ML IV.SIG SCH (23:57)
[2017-10-12 04:46] LABS: Baso # (Auto) 0.1 th/mm3 (0.0-0.2); Baso % (Auto) 0.6 % (0.0-2.0); Eos # (Auto) 0.2 th/mm3 (0.0-0.4); Eos % (Auto) 1.2 % (0.0-4.0); Hemoglobin 12.7 gm/dL (13.0-17.0); Lymph # (Auto) 3.1 th/mm3 (1.0-4.8); Lymph % (Auto) 18.1 % (9.0-44.0); Mean Corpuscular HGB Conc 32.4 % (32.0-36.0); Mean Corpuscular Hemoglobin 31.6 pg (27.0-34.0); Mean Corpuscular Volume 97.3 fL (80.0-100.0); Mean Platelet Volume 8.7 fL (7.0-11.0); Mono # (Auto) 1.6 th/mm3 (0.0-0.9); Mono % (Auto) 9.4 % (0.0-8.0); Neut # (Auto) 12.3 th/mm3 (1.8-7.7); Neut % (Auto) 70.7 % (16.0-70.0); Platelet Count 365 th/mm3 (150-450); Red Blood Count 4.01 mil/mm3 (4.50-5.90); Red Cell Distribution Width 16.4 % (11.6-17.2); White Blood Count 17.4 th/mm3 (4.0-11.0)
[2017-10-12 05:03] LABS: Albumin 3.8 g/dL (3.4-5.0); Calcium 9.2 mg/dL (8.5-10.1); Carbon Dioxide 24.5 meq/L (21.0-32.0); Potassium 3.9 meq/L (3.5-5.1)
[2017-10-12 05:13] LABS: Phosphorus 9.6 mg/dL (2.5-4.9)
[2017-10-12] MEDS: Piperacil/Tazo 2.25 GM Premix 50 ML IV.SIG SCH (06:41)
[2017-10-12] MEDS: Isosorbide Mononitrate 30 MG ER 24HR Tablet (Imdur) PO SCH (06:42)
[2017-10-12] MEDS: Docusate Sodium 100 MG Capsule PO SCH ×3 (07:05→21:01)
[2017-10-12] MEDS: Pantoprazole Inj 40 MG Vial IV.PUSH SCH ×2 (07:35→12:32)
[2017-10-12] MEDS: Heparin 10,000 UNITS/10 ML Vial (for IV use) OTHER PRN (09:40)
--- NOTE | 2017-10-12 11:31 | P.PNNP ---
Subjective Interval history: Seen during dialysis. States he feels better. Status of CABG is unknown. <Vero Oliver - Last Filed: 10/12/17 11:26> Physical Exam Vital signs: Vital Signs 10/11/17 12:00 10/11/17 13:00 10/11/17 14:00 Temperature Pulse Rate 100 H 94 H 98 H Respiratory Rate Blood Pressure Pulse Oximetry 10/11/17 15:00 10/11/17 16:00 10/11/17 17:00 Temperature 98.5 F Pulse Rate 96 H 98 H 98 H Respiratory Rate Blood Pressure 110/60 Pulse Oximetry 95 10/11/17 18:00 10/11/17 19:00 10/11/17 20:00 Temperature 98.5 F Pulse Rate 104 H 101 H 102 H Respiratory Rate 16 Blood Pressure 153/60 H Pulse Oximetry 10/11/17 21:00 10/11/17 22:00 10/11/17 22:01 Temperature Pulse Rate 98 H 94 H Respiratory Rate Blood Pressure Pulse Oximetry 94 L 10/11/17 23:00 10/12/17 00:00 10/12/17 01:00 Temperature 98.8 F Pulse Rate 100 H 98 H 94 H Respiratory Rate 14 Blood Pressure 152/69 H Pulse Oximetry 90 L 10/12/17 02:00 10/12/17 03:00 10/12/17 04:00 Temperature 98.4 F Pulse Rate 95 H 89 89 Respiratory Rate 14 Blood Pressure 148/70 H Pulse Oximetry 93 L 10/12/17 05:00 10/12/17 06:00 10/12/17 07:00 Temperature 97.5 F L Pulse Rate 89 61 88 Respiratory Rate 18 Blood Pressure 148/69 H Pulse Oximetry 95 10/12/17 08:00 10/12/17 09:00 10/12/17 10:00 Temperature Pulse Rate 104 H 100 H 108 H Respiratory Rate Blood Pressure Pulse Oximetry Intake & Output 10/11/17 10/12/17 10/12/17 18:59 06:59 18:59 Intake Total 990 / 990 170 / 170 Output Total 0 / 0 0 / 0 Balance 990 / 990 170 / 170 Weight 83 kg Intake: IV 50 / 50 50 / 50 Zosyn 2.25 GM Premix 50 ML @ 50 / 50 100 mls/hr IV.SIG Q8H [facility] Rx#: [id number] Zosyn 3.375 GM Premix 50 ML @ 50 / 50 100 mls/hr IV.SIG Q6H [facility] Rx#: [id number] Oral 940 / 940 120 / 120 Output: Urine 0 / 0 0 / 0 Other: Date of Last Bowel Movement 10/11/17 10/12/17 - Constitutional no acute distress - Routine HEENT Exam Head: Present: normocephalic - Routine Neck Exam Present: supple, full ROM - Routine Respiratory Exam Present: crackles. Absent: accessory muscle use, decreased breath sounds - Routine Cardiovascular Exam Present: RRR, S1, S2 - Routine Abdominal Exam Present: soft, normoactive bowel sounds - Routine Skin Exam Present: intact, warm - Routine Neurological Exam Present: alert, oriented X3, CN II-XII intact - Detailed Neurological Exam: Coma Scale Eye Opening: Spontaneous Verbal Response: Oriented Motor Response: None Brady Coma Scale Total: 10 - Routine Psychiatric Exam Present: normal affect, normal thought process <Vero Oliver - Last Filed: 10/12/17 11:26> Vital signs: Vital Signs 10/11/17 15:00 10/11/17 16:00 10/11/17 17:00 Temperature 98.5 F Pulse Rate 96 H 98 H 98 H Respiratory Rate Blood Pressure 110/60 Pulse Oximetry 95 10/11/17 18:00 10/11/17 19:00 10/11/17 20:00 Temperature 98.5 F Pulse Rate 104 H 101 H 102 H Respiratory Rate 16 Blood Pressure 153/60 H Pulse Oximetry 10/11/17 21:00 10/11/17 22:00 10/11/17 22:01 Temperature Pulse Rate 98 H 94 H Respiratory Rate Blood Pressure Pulse Oximetry 94 L 10/11/17 23:00 10/12/17 00:00 10/12/17 01:00 Temperature 98.8 F Pulse Rate 100 H 98 H 94 H Respiratory Rate 14 Blood Pressure 152/69 H Pulse Oximetry 90 L 10/12/17 02:00 10/12/17 03:00 10/12/17 04:00 Temperature 98.4 F Pulse Rate 95 H 89 89 Respiratory Rate 14 Blood Pressure 148/70 H Pulse Oximetry 93 L 10/12/17 05:00 10/12/17 06:00 10/12/17 07:00 Temperature 97.5 F L Pulse Rate 89 61 88 Respiratory Rate 18 Blood Pressure 148/69 H Pulse Oximetry 95 10/12/17 08:00 10/12/17 09:00 10/12/17 10:00 Temperature Pulse Rate 104 H 100 H 108 H Respiratory Rate Blood Pressure Pulse Oximetry 10/12/17 11:00 10/12/17 12:00 10/12/17 13:00 Temperature 98.2 F Pulse Rate 102 H 111 H 99 H Respiratory Rate 18 Blood Pressure 133/62 Pulse Oximetry 95 10/12/17 14:00 Temperature Pulse Rate 96 H Respiratory Rate Blood Pressure Pulse Oximetry Intake & Output 10/11/17 10/12/17 10/12/17 18:59 06:59 18:59 Intake Total 990 / 990 170 / 170 Output Total 0 / 0 0 / 0 Balance 990 / 990 170 / 170 Weight 83 kg Intake: IV 50 / 50 50 / 50 Zosyn 2.25 GM Premix 50 ML @ 50 / 50 100 mls/hr IV.SIG Q8H [facility] Rx#: [id number] Zosyn 3.375 GM Premix 50 ML @ 50 / 50 100 mls/hr IV.SIG Q6H [facility] Rx#: [id number] Oral 940 / 940 120 / 120 Output: Urine 0 / 0 0 / 0 Other: Date of Last Bowel Movement 10/11/17 10/12/17 10/12/17 <Oli Hannah - Last Filed: 10/12/17 14:59> Assessment and Plan - Assessment (1) End stage renal disease Code(s): N18.6 - End stage renal disease Status: Chronic Plan: He has reached ESRD, now on MWF treatment. Seen during HD today on a 3K, 300 BFR , goal 2L. We are using Perm cath for HD. He will need AVF placed eventually. Monitor labs intermittently. Phosphorus is extremely high. Start Renvela with meals, 2400 mg. Avoid IVF administration, unless he is NPO for prolonged periods , then begin D10. Renally dose appropriate to renal status. Outpatient HD will be at [facility], chair time TBD. (2) HTN (hypertension) Code(s): I10 - Essential (primary) hypertension Status: Chronic Qualifiers: Hypertension type: renovascular hypertension Qualified Code(s): I15.0 - Renovascular hypertension Plan: Blood pressure is better. On low dose Carvedilol and Isosorbide. (3) NSTEMI (non-ST elevated myocardial infarction) Code(s): I21.4 - Non-ST elevation (NSTEMI) myocardial infarction Status: Acute Plan: Cardiology following. On Heparin gtt. Plans for CABG unclear. (4) Anemia Code(s): D64.9 - Anemia, unspecified Status: Acute Qualifiers: Anemia type: due to chronic kidney disease Plan: Epogen with dialysis. Follow hemoglobin. (5) Pneumonia Code(s): J18.9 - Pneumonia, unspecified organism Status: Acute Onset Date: ~ 10/08/17 Qualifiers: Laterality: left Lung location: lower lobe of lung Plan: LLL pneumonia per X ray. On Zosyn. On oxygen intermittently. Clinically looks better. <Vero Oliver - Last Filed: 10/12/17 11:26> - Assessment (1) End stage renal disease Code(s): N18.6 - End stage renal disease Status: Chronic (2) HTN (hypertension) Code(s): I10 - Essential (primary) hypertension Status: Chronic Qualifiers: Hypertension type: renovascular hypertension Qualified Code(s): I15.0 - Renovascular hypertension (3) NSTEMI (non-ST elevated myocardial infarction) Code(s): I21.4 - Non-ST elevation (NSTEMI) myocardial infarction Status: Acute (4) Anemia Code(s): D64.9 - Anemia, unspecified Status: Acute Qualifiers: Anemia type: due to chronic kidney disease (5) Pneumonia Code(s): J18.9 - Pneumonia, unspecified organism Status: Acute Onset Date: ~ 10/08/17 Qualifiers: Laterality: left Lung location: lower lobe of lung - Attending Attestation patient was seen and examined. Surgery has been postponed. Leukocytosis is worse. Dialysis MWF. <Oli Hannah - Last Filed: 10/12/17 14:59>
--- NOTE | 2017-10-12 12:33 | P.PNIM ---
Subjective Interval history: No fever. No coughing. Nursing informs me that pt is having episodes of diarrhea which seem to correlate with zosyn. Pt's white count continues to rise. Physical Exam Vital signs: Vital Signs 10/11/17 13:00 10/11/17 14:00 10/11/17 15:00 Temperature 98.5 F Pulse Rate 94 H 98 H 96 H Respiratory Rate Blood Pressure 110/60 Pulse Oximetry 95 10/11/17 16:00 10/11/17 17:00 10/11/17 18:00 Temperature Pulse Rate 98 H 98 H 104 H Respiratory Rate Blood Pressure Pulse Oximetry 10/11/17 19:00 10/11/17 20:00 10/11/17 21:00 Temperature 98.5 F Pulse Rate 101 H 102 H 98 H Respiratory Rate 16 Blood Pressure 153/60 H Pulse Oximetry 10/11/17 22:00 10/11/17 22:01 10/11/17 23:00 Temperature 98.8 F Pulse Rate 94 H 100 H Respiratory Rate 14 Blood Pressure 152/69 H Pulse Oximetry 94 L 90 L 10/12/17 00:00 10/12/17 01:00 10/12/17 02:00 Temperature Pulse Rate 98 H 94 H 95 H Respiratory Rate Blood Pressure Pulse Oximetry 10/12/17 03:00 10/12/17 04:00 10/12/17 05:00 Temperature 98.4 F Pulse Rate 89 89 89 Respiratory Rate 14 Blood Pressure 148/70 H Pulse Oximetry 93 L 10/12/17 06:00 10/12/17 07:00 10/12/17 08:00 Temperature 97.5 F L Pulse Rate 61 88 104 H Respiratory Rate 18 Blood Pressure 148/69 H Pulse Oximetry 95 10/12/17 09:00 10/12/17 10:00 10/12/17 11:00 Temperature 98.2 F Pulse Rate 100 H 108 H 102 H Respiratory Rate 18 Blood Pressure 133/62 Pulse Oximetry 95 10/12/17 12:00 Temperature Pulse Rate 111 H Respiratory Rate Blood Pressure Pulse Oximetry Intake & Output 10/11/17 10/12/17 10/12/17 18:59 06:59 18:59 Intake Total 990 / 990 170 / 170 Output Total 0 / 0 0 / 0 Balance 990 / 990 170 / 170 Weight 83 kg Intake: IV 50 / 50 50 / 50 Zosyn 2.25 GM Premix 50 ML @ 50 / 50 100 mls/hr IV.SIG Q8H LE[facility] Rx#: [id number] Zosyn 3.375 GM Premix 50 ML @ 50 / 50 100 mls/hr IV.SIG Q6H LEO Rx#: [id number] Oral 940 / 940 120 / 120 Output: Urine 0 / 0 0 / 0 Other: Date of Last Bowel Movement 10/11/17 10/12/17 10/12/17 Narrative: General: NAD, AAOx3 Chest: clear x b/l Cardiac: Regular Abd: +BS, soft ND/NT Ext: Mild bilateral LE edema Results - Labs CBC & Chem 7: 10/13/17 05:33 10/13/17 05:33 - Procedures 09/27/17 cardiac catheterization showing muti vessel disease Assessment and Plan - Assessment (1) NSTEMI (non-ST elevated myocardial infarction) Code(s): I21.4 - Non-ST elevation (NSTEMI) myocardial infarction Status: Acute Plan: Leukocytosis - pt treated with zosyn (10/08 - 10/12) - Pt had signs & symptoms of pneumonia. Fever, cough, wheezing, and abnormal cxr - Pt now c/o diarrhea which possibly correlates to timing of Zosyn - stop zosyn - obtain stool studies: C. Dif, Fecal leukocyte, gram stain, C&S, O&P - encourage PO intake - observe - repeat CBC/BMP in AM NSTEMI CAD HTN/Hypotension - The patient is a 77-year-old male with past medical history significant for recent GI bleed from severe diverticulosis, Chronic kidney disease stage IV, hyperlipidemia, hypertension, coronary artery disease with [place] , cardiac stents in 2001, and stent to the LAD 2006, bladder cancer status post BCG immunotherapy and TURP, morbid obesity, DVT 2015, who presented to the emergency department with severe central chest pain. - EKG in the emergency department showed extensive anterolateral ST depression and troponin was elevated - Patient underwent cardiac catheterization on 09/27/[address] Mcdonald which showed severe multivessel coronary artery disease. 1. Left main coronary has mild luminal irregularities. 2. Left anterior descending coronary artery proximally has a 90% stenosis. The remainder of vessel has mild luminal irregularities. 3. Left circumflex gives rise to a ramus intermedius branch, which is moderate caliber size, 90 percent stenosis. The first obtuse marginal branch has an 80 percent stenosis. There is a second obtuse marginal branch with minor luminal irregularities. 4. Right coronary artery is 100 percent occluded in proximal to mid segment. - Heparin gtt. - On 09/28/17 CVS surgery was consulted and recommended CABG. - Pt had Permacath placed by IR on 09/28 to attempt renal optimization before CABG - Pt had HD Sunday, 10/07, and Sunday, 10/09, and then pt to resume MWF schedule - CABG has been postponed tentatively until , depending on pts clinical status - On 10/07/17 pt complained of increased cough - CXR (10/07) --> Stable chest. No acute disease. - CXR (10/08) --> Interval development of patchy area of infiltrate in the lateral left lower lung. - WBC Count elevated to 17,000 on 10/08 - CXR (10/09) --> No acute cardiopulmonary disease - WBC count trended down to 15,000 on 10/09 - Sputum culture (10/08) --> moderate leukocytes, normal simeon - Zosyn on 10/08 -10/12/17 - - Pt had been on Imdur, Coreg, Hydralazine, Clonidine, Procardia but BP was low normal, so the scheduled Clonidine, Hydralazine, Imdur and Procardia stopped on 10/06/17 - Cont. Coreg - observe HR and blood pressure - Clonidine PRN - No LYNDA/ARB due to renal function. - Cont. ASA - PT - CTS felt that pt is NOT a surgical candidate at this time. - Case d/w Dr. Mane (10/10/17) - Case d/w Cardiology, Dr. Mcdonald (10/11/17) - LAD may be approachable, but OM1 and OM2 and RCA not approachable - would recommend med mgt and SNF with CT surgery followup for reconsideration of CABG - anticipate d/c to [facility] or SNF in the next few days - repeat CXR --> pending (2) End stage renal disease Code(s): N18.6 - End stage renal disease Status: Acute Plan: ESRD - Nephrology also following - He has advanced CKD, his creatinine was around 3 last week. - DEVORAH may be due to NSTEMI and renal hypoperfusion and per Nephrology notes, pt now likely ESRD. - Patient has a perm-cath placed (09/28) - HD started 09/29/17 per nephrology - Per Nephrology pt will continue HD MWF (3) HTN (hypertension) Code(s): I10 - Essential (primary) hypertension Status: Chronic Plan: -See above (4) COPD (chronic obstructive pulmonary disease) Code(s): J44.9 - Chronic obstructive pulmonary disease, unspecified Status: Chronic (5) Anemia Code(s): D64.9 - Anemia, unspecified Status: Acute Plan: Anemia History of GI bleed - On aspirin and IV heparin - Monitor hemoglobin closely every 8 hours - Transfuse to keep hemoglobin more than 8 - GI consult if needed - Pt transfused with 1U PRBC (09/27/17) - Hgb stable at 11/7 on 10/08 - Pt is on IV Venofer ordered to given with dialysis. - Epogen with HD. - Pt underwent Colonoscopy on 09/17/17 showed severe diverticulosis noted throughout the entire colon, moderate sized internal hemorrhoids, medium sized pedunculated polyp in cecum s/p polypectomy - H/H is fairly stable (6) Leukocytosis Code(s): D72.829 - Elevated white blood cell count, unspecified Status: Acute Plan: - see above (3) HTN (hypertension) Qualifiers: Hypertension type: essential hypertension Qualified Code(s): I10 - Essential (primary) hypertension (4) COPD (chronic obstructive pulmonary disease) Qualifiers: Emphysema type: unspecified (5) Anemia Qualifiers: Anemia type: due to chronic kidney disease Chronic kidney disease stage: on chronic dialysis Qualified Code(s): N18.6 - End stage renal disease; D63.1 - Anemia in chronic kidney disease; Z99.2 - Dependence on renal dialysis (6) Leukocytosis Qualifiers: Leukocytosis type: unspecified Qualified Code(s): D72.829 - Elevated white blood cell count, unspecified
[2017-10-12] MEDS: Chlorhexidine Gluconate 2% 1 Pack (2 Cloths) TOPICAL SCH (13:59)
--- NOTE | 2017-10-12 18:36 | XR ---
EXAM DATE: 10/12/2017 1:55 PM EDT AGE/SEX: 77 years / Male INDICATIONS: Pneumonia. CLINICAL DATA: This is the patient's subsequent encounter. Patient reports that signs and symptoms h ave been present for 1 week and indicates a pain score of 0/10. MEDICAL/SURGICAL HISTORY: Chronic obstructive pulmonary disease. Cardiovascular disease. Hype rtension. Bladder cancer. CHF. Renal failure. Coronary artery stent. Pt. on dialysis. None. COMPARISON: [facility] [place]ST 1V SINGLE AP, 10/09/2017. . FINDINGS: A single AP view of the chest demonstrates the lungs to be symmetrically aerated without evidence of mass, infiltrate or effusion. The heart size is enlarged but stable. There is a right-sided central line in place.. Osseous structures are intact and stable.. CONCLUSION: No acute intrathoracic disease. Stable examination. Electronically signed by: Edmundo Roy MD 10/12/2017 2:05 PM EDT
[2017-10-13] MEDS: Pantoprazole Inj 40 MG Vial IV.PUSH SCH (04:19)
[2017-10-13 06:08] LABS: Baso # (Auto) 0.1 th/mm3 (0.0-0.2); Baso % (Auto) 0.7 % (0.0-2.0); Eos # (Auto) 0.2 th/mm3 (0.0-0.4); Eos % (Auto) 1.4 % (0.0-4.0); Hematocrit 38.8 % (39.0-51.0); Hemoglobin 12.7 gm/dL (13.0-17.0); Lymph # (Auto) 2.7 th/mm3 (1.0-4.8); Lymph % (Auto) 16.8 % (9.0-44.0); Mean Corpuscular HGB Conc 32.7 % (32.0-36.0); Mean Corpuscular Hemoglobin 32.3 pg (27.0-34.0); Mean Corpuscular Volume 98.6 fL (80.0-100.0); Mean Platelet Volume 8.4 fL (7.0-11.0); Mono # (Auto) 1.5 th/mm3 (0.0-0.9); Mono % (Auto) 9.3 % (0.0-8.0); Neut # (Auto) 11.4 th/mm3 (1.8-7.7); Neut % (Auto) 71.8 % (16.0-70.0); Platelet Count 317 th/mm3 (150-450); Red Blood Count 3.94 mil/mm3 (4.50-5.90); Red Cell Distribution Width 17.6 % (11.6-17.2); White Blood Count 15.9 th/mm3 (4.0-11.0)
[2017-10-13] MEDS: Isosorbide Mononitrate 30 MG ER 24HR Tablet (Imdur) PO SCH (06:20)
[2017-10-13 06:29] LABS: Albumin 3.6 g/dL (3.4-5.0); Calcium 9.5 mg/dL (8.5-10.1); Carbon Dioxide 25.4 meq/L (21.0-32.0); Magnesium 2.6 mg/dL (1.5-2.5); Potassium 3.8 meq/L (3.5-5.1)
[2017-10-13 06:35] LABS: Phosphorus 7.6 mg/dL (2.5-4.9)
[2017-10-13 07:23] LABS: Eosinophils 2 % (0-4); Lymphocytes 14 % (9-44); Monocytes 12 % (0-8); Myelocytes 3 % (0-0); Platelet Estimate Normal (Normal); Platelet Morphology Normal (Normal)
[2017-10-13 07:24] LABS: RBC Morphology Normal (Normal)
[2017-10-13] MEDS: Docusate Sodium 100 MG Capsule PO SCH (09:02)
--- NOTE | 2017-10-13 11:45 | P.DS ---
<Marietta Dinh W - Last Filed: 10/13/17 12:03> Date of admission: 09/26/17 13:11 Primary care physician: Regina Solitario Attending physician on discharge: Nura Benedict Anticipated date of discharge: 10/13/17 Brief History from admission: The patient is a 77-year-old male with past medical history significant for recent GI bleed from severe diverticulosis, Chronic kidney disease stage IV, hyperlipidemia, hypertension, coronary artery disease with [place] , cardiac stents in 2001, and stent to the LAD 2006, bladder cancer status post BCG immunotherapy and TURP, morbid obesity, DVT 2015, who presented to the emergency department with severe central chest pain. He had been having on and off chest pain for the last 2 days worsened over the last 24 hours. EKG in the emergency department showed extensive anterolateral ST depression and troponin was elevated at 1.16. He was ruled in for non-ST elevation CO, Dr. hoyt his rock singer was consulted. Due to ongoing chest pain patient was started on IV nitroglycerin infusion. Patient also received 162 mg of aspirin. After evaluation Dr. Hoyt has started the patient on IV heparin also. Patient was recently admitted for lower GI bleed and anemia, was discharged on 09/21/2017. Colonoscopy on 09/17/17 showed severe diverticulosis, moderate sized internal hemorrhoids, and pedunculated polyp at the cecum s/p polypectomy-biopsy showed tubular adenoma. Patient has chronic kidney disease with baseline creatinine around 3.5, creatinine today is elevated to 4.74 I evaluated the patient in the ED, he is currently anxious in moderate distress. On IV heparin and IV nitro infusions. In next addition to this I will place him on scheduled aspirin, start carvedilol 3.125 mg twice daily, use as needed IV labetalol for hypertension. Patient also started on lower dose Lipitor due to renal failure. Plan for possible cardiac catheterization within 24 hours or sooner if persistent chest pain. Family made aware that patient may need hemodialysis, as he is already stage V DS: Diagnosis - Discharge Diagnosis (1) CAD (coronary artery disease) Status: Acute (2) End stage renal disease Status: Chronic (3) NSTEMI (non-ST elevated myocardial infarction) Status: Acute DS: Summary Hospital Course: Leukocytosis - pt treated with zosyn (10/08 - 10/12) - Pt had signs & symptoms of pneumonia. Fever, cough, wheezing, and abnormal cxr - Pt now c/o diarrhea which possibly correlates to timing of Zosyn - stop zosyn (10/12) - obtain stool studies: C. Dif negative, Fecal leukocyte, gram stain, C&S, O&P pending. Stool sample did show many budding yeast, Diflucan PO x 5 days ordered - encourage PO intake - repeat CBC 10/13/ showed WBC trending down without abx. Patient is a febrile also NSTEMI CAD HTN/Hypotension - The patient is a 77-year-old male with past medical history significant for recent GI bleed from severe diverticulosis, Chronic kidney disease stage IV, hyperlipidemia, hypertension, coronary artery disease with CO , cardiac stents in 2001, and stent to the LAD 2006, bladder cancer status post BCG immunotherapy and TURP, morbid obesity, DVT 2015, who presented to the emergency department with severe central chest pain. - EKG in the emergency department showed extensive anterolateral ST depression and troponin was elevated - Patient underwent cardiac catheterization on 09/27/[address] Hoyt which showed severe multivessel coronary artery disease. 1. Left main coronary has mild luminal irregularities. 2. Left anterior descending coronary artery proximally has a 90% stenosis. The remainder of vessel has mild luminal irregularities. 3. Left circumflex gives rise to a ramus intermedius branch, which is moderate caliber size, 90 percent stenosis. The first obtuse marginal branch has an 80 percent stenosis. There is a second obtuse marginal branch with minor luminal irregularities. 4. Right coronary artery is 100 percent occluded in proximal to mid segment. - Heparin gtt. - On 09/28/17 CVS surgery was consulted and recommended CABG. - Pt had Permacath placed by IR on 09/28 to attempt renal optimization before CABG - Pt had HD Sunday, 10/07, and Sunday, 10/09, and then pt to resume MWF schedule - CABG has been postponed tentatively until , depending on pts clinical status - On 10/07/17 pt complained of increased cough - CXR (10/07) --> Stable chest. No acute disease. - CXR (10/08) --> Interval development of patchy area of infiltrate in the lateral left lower lung. - WBC Count elevated to 17,000 on 7/2 - CXR (10/09) --> No acute cardiopulmonary disease - WBC count trended down to 15,000 on 10/09 - Sputum culture (10/08) --> moderate leukocytes, normal simeon - Zosyn on 10/08 -10/12/17 - - Pt had been on Imdur, Coreg, Hydralazine, Clonidine, Procardia but BP was low normal, so the scheduled Clonidine, Hydralazine, Imdur and Procardia stopped on 10/06/17 - Cont. Coreg - observe HR and blood pressure - Clonidine PRN - No LYNDA/ARB due to renal function. - Cont. ASA - PT - CTS felt that pt is NOT a surgical candidate at this time. - Case d/w Dr. Mane (10/10/17) - Case d/w Cardiology, Dr. Hoyt (10/11/17) - LAD may be approachable, but OM1 and OM2 and RCA not approachable - would recommend med mgt and SNF with CT surgery followup for reconsideration of CABG - repeat CXR (10/12) -> no intrathoracic disease. Stable examination ESRD - Nephrology also following - He has advanced CKD, his creatinine was around 3 last week. - DEVORAH may be due to NSTEMI and renal hypoperfusion and per Nephrology notes, pt now likely ESRD. - Patient has a perm-cath placed (09/28) - HD started 09/29/17 per nephrology - Per Nephrology pt will continue HD MWF HTN (hypertension) -See above Anemia History of GI bleed - On aspirin and IV heparin - Monitor hemoglobin closely every 8 hours - Transfuse to keep hemoglobin more than 8 - GI consult if needed - Pt transfused with 1U PRBC (09/27/17) - Hgb stable at 11/7 on 10/08 - Pt is on IV Venofer ordered to given with dialysis. - Epogen with HD. - Pt underwent Colonoscopy on 09/17/17 showed severe diverticulosis noted throughout the entire colon, moderate sized internal hemorrhoids, medium sized pedunculated polyp in cecum s/p polypectomy - H/H is fairly stable - Time Spent with Patient Total time spent providing and/or coordinating discharge services: Greater than 30 minutes Exam Vital signs: Vital Signs 10/12/17 12:00 10/12/17 13:00 10/12/17 14:00 Temperature Pulse Rate 111 H 99 H 96 H Respiratory Rate Blood Pressure Pulse Oximetry 10/12/17 15:00 10/12/17 16:00 10/12/17 16:28 Temperature 97.8 F Pulse Rate 96 H 95 H 95 H Respiratory Rate 18 Blood Pressure 130/60 Pulse Oximetry 97 10/12/17 17:26 10/12/17 19:50 10/12/17 20:00 Temperature 98.0 F Pulse Rate 94 H 94 H 90 Respiratory Rate 19 Blood Pressure 143/69 H Pulse Oximetry 96 10/12/17 21:00 10/12/17 22:00 10/12/17 23:00 Temperature 97.9 F Pulse Rate 88 85 74 Respiratory Rate 19 Blood Pressure 150/65 H Pulse Oximetry 93 L 10/12/17 23:10 10/13/17 00:22 10/13/17 01:19 Temperature Pulse Rate 88 92 H 89 Respiratory Rate Blood Pressure Pulse Oximetry 10/13/17 02:45 10/13/17 03:10 10/13/17 03:55 Temperature 98.2 F Pulse Rate 80 94 H 89 Respiratory Rate 20 Blood Pressure 148/72 H Pulse Oximetry 92 L 10/13/17 04:38 10/13/17 05:44 10/13/17 06:11 Temperature Pulse Rate 82 82 80 Respiratory Rate Blood Pressure Pulse Oximetry 10/13/17 07:00 10/13/17 08:00 10/13/17 09:00 Temperature 98.4 F Pulse Rate 82 84 98 H Respiratory Rate 18 Blood Pressure 129/56 L Pulse Oximetry 97 10/13/17 10:00 Temperature Pulse Rate 104 H Respiratory Rate Blood Pressure Pulse Oximetry Intake & Output 10/12/17 10/13/17 10/13/17 18:59 06:59 18:59 Intake Total 502 / 502 240 / 240 Output Total 1999 Balance 502 / 502 -1760 / -1760 Weight 85.5 kg Intake: IV 142 / 142 Heparin/D5W 25,000 U/250 mL 25, 42 / 42 000 unit In 250 ml @ Per Protocol IV.CONT TITRATE PRN Rx #:[id number] Zosyn 2.25 GM Premix 50 ML @ 50 / 50 100 mls/hr IV.SIG Q8H LE[facility] Rx#: [id number] Oral 360 / 360 240 / 240 Output: Urine 0 / 0 Hemodialysis Amount 1999 Other: Date of Last Bowel Movement 10/12/17 10/12/17 # Bowel Movements 2 1 Narrative: General: NAD, AAOx3 Chest: clear through out Cardiac: Regular Abd: +BS, soft ND/NT Ext: Mild bilateral LE edema Results Procedures completed during hospitalization: 09/27/[address] Hoyt showing muti vessel disease Permacath placed by IR Colonoscopy on 09/17/17 showed severe diverticulosis noted throughout the entire colon, moderate sized internal hemorrhoids, medium sized pedunculated polyp in cecum s/p polypectomy Labs on day of discharge: Labs from last 24 hours 10/13/17 10/13/17 10/12/17 05:33 05:33 14:20 WBC 15.9 H RBC 3.94 L Hgb 12.7 L Hct 38.8 L MCV 98.6 MCH 32.3 MCHC 32.7 RDW 17.6 H Plt Count 317 MPV 8.4 Prelim Diff (Auto) Slide review pending Neut % (Auto) 71.8 H Lymph % (Auto) 16.8 Wilkinson % (Auto) 9.3 H Eos % (Auto) 1.4 Baso % (Auto) 0.7 Neut # (Auto) 11.4 H Lymph # (Auto) 2.7 Wilkinson # (Auto) 1.5 H Eos # (Auto) 0.2 Baso # (Auto) 0.1 WBC Differential Manual diff final Seg Neuts % (Manual) 67 Band Neuts % (Manual) 2 Lymphocytes % (Manual) 14 Monocytes % (Manual) 12 H Eosinophils % (Manual) 2 Myelocytes % (Man) 3 H Abs Neuts (Manual) 11.4 H Differential Comment . Platelet Estimate Normal Platelet Morphology Normal RBC Morphology Normal Sodium 134 L Potassium 3.8 Chloride 93 L Carbon Dioxide 25.4 Anion Gap 16 H BUN 40 H Creatinine 8.77 H Estimated GFR 6 L Random Glucose 99 Calcium 9.5 Phosphorus 7.6 H D Magnesium 2.6 H Albumin 3.6 Stl C.difficile Tox PCR Negative St C. diff Tox Epid 027 Negative Misc Test Result Misc Test Comment MTS Gel Crossmatch 10/12/17 10/10/17 14:20 13:04 WBC RBC Hgb Hct MCV MCH MCHC RDW Plt Count MPV Prelim Diff (Auto) Neut % (Auto) Lymph % (Auto) Wilkinson % (Auto) Eos % (Auto) Baso % (Auto) Neut # (Auto) Lymph # (Auto) Wilkinson # (Auto) Eos # (Auto) Baso # (Auto) WBC Differential Seg Neuts % (Manual) Band Neuts % (Manual) Lymphocytes % (Manual) Monocytes % (Manual) Eosinophils % (Manual) Myelocytes % (Man) Abs Neuts (Manual) Differential Comment Platelet Estimate Platelet Morphology RBC Morphology Sodium Potassium Chloride Carbon Dioxide Anion Gap BUN Creatinine Estimated GFR Random Glucose Calcium Phosphorus Magnesium Albumin Stl C.difficile Tox PCR St C. diff Tox Epid 027 Misc Test Result Cancelled Misc Test Comment Cancelled MTS Gel Crossmatch See Detail - Impressions ITS Impressions Chest X-Ray 10/12/17 08:00 CONCLUSION: No acute intrathoracic disease. Stable examination. <Nura Benedict - Last Filed: 10/29/17 21:58> Date of admission: 09/26/17 13:11 Primary care physician: Regina Solitario DS: Diagnosis - Discharge Diagnosis (1) NSTEMI (non-ST elevated myocardial infarction) Status: Acute (2) End stage renal disease Status: Acute (3) HTN (hypertension) Status: Chronic (4) COPD (chronic obstructive pulmonary disease) Status: Chronic (5) Anemia Status: Acute (6) Leukocytosis Status: Acute DS: Summary Hospital Course: Patient examined. Assessment and plan formulated with Marietta Dinh PA-C. I agree with the above. - Time Spent with Patient Total time spent providing and/or coordinating discharge services: Greater than 30 minutes Results - Impressions ITS Impressions Chest X-Ray 10/12/17 08:00 CONCLUSION: No acute intrathoracic disease. Stable examination. Discharge Plan - Discharge Order Discharge Orders: Discharge Order (Routine); Ordered 10/13/17 Ordered By: Marietta Dinh - Physicians Team Primary Care Provider: Regina Solitario Attending Provider: Nura Benedict Other Providers: Oli Hannah MD ; Rowena Lo MD ; Payton Mane MD ; Jose Antonio Hoyt MD ; Nura Benedict, DO ; [facility], ; [facility] - Rxs /Orders / Referrals /Forms Prescriptions: Discontinued clonidine HCl 0.2 mg Tablet 0.2 mg PO Q8HR hydralazine 25 mg Tablet 25 mg PO Q12HR No Action acetaminophen 325 mg Tablet 650 mg PO Q6HR PRN (Reason: Pain Scale 1 To 2) RF: 0 aspirin 81 mg tablet,delayed release (DR/EC) 81 mg PO DAILY bisacodyl [Bisac-Evac] 10 mg Suppository 10 mg PA DAILY PRN (Reason: Severe Consitipation) RF: 0 carvedilol [Coreg] 3.125 mg tablet 3.125 mg PO BID clopidogrel [Plavix] 75 mg tablet 75 mg PO DAILY ipratropium-albuterol 0.5 mg-3 mg(2.5 mg base)/3 mL Solution For Nebulization 1 amp NEB Q4HR NEB PRN (Reason: Shortness Of Breath) RF: 0 isosorbide mononitrate 30 mg tablet extended release 24 hr 30 mg PO DAILY@0700 lactulose 20 gram/30 mL Solution 30 ml PO DAILY PRN (Reason: Severe Consitipation) RF: 0 magnesium hydroxide [Milk of Magnesia] 400 mg/5 mL Suspension 30 ml PO Q12H PRN (Reason: Mild Constipation) RF: 0 nitroglycerin [Nitrostat] 0.4 mg Tablet, Sublingual 0.4 mg Sublingual Q5M PRN (Reason: Chest Pain) RF: 0 nystatin 100,000 unit/gram cream 1 applicatio Topical BID ondansetron 4 mg Tablet,Disintegrating 4 mg PO Q4H PRN (Reason: Nausea Or Vomiting) RF: 0 oxycodone-acetaminophen 5-325 mg Tablet 1 tab PO Q6H PRN (Reason: Pain Scale 3 To 5) RF: 0 pantoprazole 40 mg Tablet,Delayed Release (Dr/Ec) 40 mg PO BID RF: 0 pravastatin 40 mg tablet 40 mg PO HS prochlorperazine 25 mg Suppository 25 mg PA Q12HR PRN (Reason: Nausea Or Vomiting) RF: 0 sennosides [Senna Lax] 8.6 mg Tablet 17.2 mg PO Q12H PRN (Reason: Moderate Constipation) RF: 0 sevelamer carbonate [Renvela] 800 mg Tablet 2,400 mg PO TIDAC RF: 0 temazepam 15 mg Capsule 15 mg PO HS PRN (Reason: Insomnia) RF: 0 white petrolatum-mineral oil [Eucerin] cream 1 applicatio Topical QID Referrals: Payton Mane MD [Physician] - See Instructions ( Your appointment has been scheduled for [10/25/17] at [1:30 PM ] If you cannot make this appointment, please call the office to reschedule ) Oli Hannah MD [Physician] - See Instructions (Dialysis Sunday, Sunday and Sunday follow up with Dr. Hannah in 1-2 weeks) Regina Solitario MD [Primary Care Provider] - See Instructions (Follow up 1 week after discharge) Jose Antonio Hoyt MD [Physician] - See Instructions (Follow up in 2 weeks) - Post Discharge Care Plan Care Plan Goals:
[2017-10-13] MEDS ORDERED: Fluconazole 100 MG Tablet PO SCH (21:00)
== END 2017-10-13 13:00 ==
LOC: HCPC 13:11
PROVIDERS: ADMIT Hospitalist; ATTEND Hospitalist

== ENCOUNTER 2017-10-16 11:47 | Inpatient (IN) ==
[2017-10-16] MEDS ORDERED: Bisacodyl 10 MG Supp RECTAL PRN (12:59)
[2017-10-16] MEDS ORDERED: Acetaminophen 325 MG Tablet PO PRN ×2 (12:59→13:45)
[2017-10-16] MEDS ORDERED: Prochlorperazine 25 MG Supp RECTAL PRN (12:59)
--- NOTE | 2017-10-16 13:39 | P.HPIM ---
History of Present Illness Primary Care Physician: UNKNOWN Chief Complaint: Abdominal pain History of Present Illness: This is a 77-year-old male with past medical history significant for coronary artery disease status post IL, history of multiple cardiac stents, chronic kidney disease stage IV now end-stage and on hemodialysis, history of recent GI bleed from severe diverticulosis, hypertension, dyslipidemia, history of bladder cancer status post BCG immunotherapy and TURP, DVT 2016 and morbid obesity who was recently admitted to [facility] with complaints of severe chest pain and was ruled in for NSTEMI and underwent cardiac catheterization revealing multivessel disease more appropriate for CABG. Patient was evaluated by Dr. Ray who did not feel the patient was surgical candidate at this time and recommended medical management and rehab followed by CT reevaluation for reconsideration of CABG. patient also developed pneumonia which was treated with Zosyn. Nephrology was consulted, PermCath was placed and hemodialysis was initiated 09/29/2017. On October 12, 2017, the patient was discharged and admitted [facility] [facility]. Patient started complaining of nausea and abdominal pain yesterday per patient's . This morning, he was mildly lethargic complaining of right upper quadrant abdominal pain. Workup was done which revealed severe leukocytosis with lactic acidosis of 3.5. CT scan of the abdomen was done which showed a distended gallbladder with no cholelithiasis. Presently, patient is in severe abdominal pain, right upper quadrant, mildly nauseated but no vomiting. He is awake but in pain. Denies any shortness of breath or chest pain. Inpatient Certification: I certify that the inpatient services were ordered in accordance with Medicare regulations governing the order. This includes certification that hospital inpatient services are reasonable and necessary and in the case of services not specified as inpatient-only under 42 CFR 419.22(n), that they are appropriately provided as inpatient services in accordance to with the 2-midnight benchmark under 43 CFR 412.3(e) Estimated Total Length of Stay (Days): 4 Plans for Post Hospital Care: Not yet determined Review of Systems All other pertinent systems were reviewed and are negative. PMFSH - History History Provided By: Patient - Medical History Medical History: Medical History (Last Reviewed 10/16/17 @ 13:39 by Jesse Hernández MD) Anemia Bladder cancer CAD (coronary artery disease) Colonoscopy planned DVT (deep venous thrombosis) Diverticul disease small and large intestine, no perforati or abscess GI bleed Hyperlipidemia Hypertension Myocardial infarct, old - Surgical History Surgical History: Surgical History (Last Reviewed 10/16/17 @ 13:39 by Jesse Hernández MD) History of cystoscopy History of heart artery stent History of tonsillectomy - Tobacco History Second Hand Smoke Exposure: No Smoking Status: Light tobacco smoker Tobacco Type: Cigars - Alcohol History How Often Do You Have a Drink Containing Alcohol: 4 or more times a week - Substance Use History Substance History: No History of Abuse Medications and Allergies Active Medications: Active Medications Acetaminophen (Tylenol) 650 mg PO Q4H PRN PRN Reason: Temp > 100.4 Al Hydroxide/Mg Hydroxide (Milk Of Magnesia Liq) 30 ml PO Q12H PRN PRN Reason: Mild Constipation Albuterol (Duoneb Neb (Prn)) 1 ampul NEB Q4HR NEB PRN PRN Reason: SHORTNESS OF BREATH/WHEEZING Bisacodyl (Dulcolax Supp) 10 mg RECTAL DAILY PRN PRN Reason: SEVERE CONSITIPATION Carvedilol (Coreg) 3.125 mg PO BID [facility] Metronidazole/Sodium Chloride (Flagyl 500 Mg Inj) 100 mls @ 100 mls/hr IV.SIG Q8H [facility] Piperacillin/Tazobactam/Dextrose (Zosyn 2.25 Gm Premix) 50 mls @ 100 mls/hr IV.SIG Q8H [facility] Isosorbide Mononitrate (Imdur) 30 mg PO DAILY@0700 [facility] Lactulose (Lactulose Liq) 30 ml PO DAILY PRN PRN Reason: SEVERE CONSITIPATION Nitroglycerin (Nitrostat Sl) 0.4 mg SL Q5M PRN PRN Reason: CHEST PAIN Nystatin (Mycostatin Cream) 1 applicatio TOPICAL BID [facility] Ondansetron HCl (Zofran Odt) 4 mg PO Q4H PRN PRN Reason: NAUSEA OR VOMITING Pantoprazole Sodium (Protonix Inj) 40 mg IV.PUSH Q12H [facility] Prochlorperazine (Compazine Supp) 25 mg RECTAL Q12HR PRN PRN Reason: NAUSEA OR VOMITING Sennosides (Senokot) 17.2 mg PO Q12H PRN PRN Reason: Moderate Constipation Sodium Chloride (Ns Flush) 2 ml IV.FLUSH PRN PRN PRN Reason: FLUSH AFTER USING IV ACCESS Temazepam (Restoril) 15 mg PO HS PRN PRN Reason: INSOMNIA Allergies Allergy/AdvReac Type Severity Reaction Status Date / Time diphenhydramine Allergy Severe Edema, Verified 10/13/17 14:14 Generalized niacin AdvReac Intermediate Numbness Verified 10/13/17 14:13 [From Niaspan Extended-Release] ANTIHISTAMINES Allergy Edema Uncoded 10/13/17 14:13 Home Medications Medication Instructions Recorded Confirmed Type walker [Ultra-Light Rollator] 10/06/17 10/13/17 History Exam Vital signs: Vital Signs 10/16/17 12:30 Temperature 98.8 F Pulse Rate 99 H Respiratory Rate 18 Blood Pressure 145/65 H Pulse Oximetry 95 Narrative: In mild distress because of pain PERRL, pink conjunctiva without injection, anicteric Supple neck tachycardic, regular rhythm Clear breath sounds, poor effort Decreased bowel sounds, severe tenderness right upper quadrant, mildly distended. Mild guarding. No edema Alert awake and oriented to self, person but not to time. Moves extremities.t Caprini VTE Risk Assessment Caprini VTE Risk Assessment: Moderate/High Risk (score >= 2) Caprini Risk Assessment Model: Point Value = 1 Point Value = 2 Point Value = 3 Point Value = 5 Age 41-60 Minor surgery BMI > 25 kg/m2 Swollen legs Varicose veins or History of unexplained or recurrent spontaneous Oral contraceptives or hormone replacement Sepsis (< 1 month) Serious lung disease, including pneumonia (< 1 month) Abnormal pulmonary function Acute myocardial infarction Congestive heart failure (< 1 month) History of inflammatory bowel disease Medical patient at bed rest Age 61-74 Arthroscopic surgery Major open surgery (> 45 min) Laparoscopic surgery (> 45 min) Malignancy Confined to bed (> 72 hours) Immobilizing plaster cast Central venous access Age >= 75 History of VTE Family history of VTE Factor V Leiden Prothrombin [id number] Lupus anticoagulant Anticardiolipin antibodies Elevated serum homocysteine Heparin-induced thrombocytopenia Other congenital or acquired thrombophilia Stroke (< 1 month) Elective arthroplasty Hip, pelvis, or leg fracture Acute spinal cord injury (< 1 month) Prophylaxis Regimen: Total Risk Factor Score Risk Level Prophylaxis Regimen 0-1 Low Early ambulation 2 Moderate Order ONE of the following: *Sequential Compression Device (SCD) *Heparin 5000 units SQ BID 3-4 Higher Order ONE of the following medications: *Heparin 5000 units SQ TID *Enoxaparin/Lovenox 40 mg SQ daily (WT < 150 kg, CrCl > 30 mL/min) *Enoxaparin/Lovenox 30 mg SQ daily (WT < 150 kg, CrCl > 10-29 mL/min) *Enoxaparin/Lovenox 30 mg SQ BID (WT < 150 kg, CrCl > 30 mL/min) AND/OR *Sequential Compression Device (SCD) 5 or more Highest Order ONE of the following medications: *Heparin 5000 units SQ TID (Preferred with Epidurals) *Enoxaparin/Lovenox 40 mg SQ daily (WT < 150 kg, CrCl > 30 mL/min) *Enoxaparin/Lovenox 30 mg SQ daily (WT < 150 kg, CrCl > 10-29 mL/min) *Enoxaparin/Lovenox 30 mg SQ BID (WT < 150 kg, CrCl > 30 mL/min) AND *Sequential Compression Device (SCD) Assessment and Plan - Plan This is a 77-year-old male with history of coronary artery disease status post IL status post coronary stenting, end-stage renal disease on hemodialysis, history of bladder cancer status post BCG mid therapy and TURP, was doing rehab at [place] when he started complaining of severe abdominal pain, found to have leukocytosis, lactic acidosis and cholecystitis Severe sepsis secondary to acalculous cholecystitis -CT scan of the abdomen revealed distended gallbladder with no cholelithiasis, there is also pericholecystic stranding with no pericholecystic fluid. High risk, likely healthcare associated, start Zosyn high-dose. Keep Flagyl for now. Blood cultures drawn, follow-up results. Lactic acid is 3.5, improved to 2.4. Leukocytosis of 32.8. Consulted general surgery, awaiting call, might either need cholecystectomy versus rajesh-cholecystostomy with drainage. Start IVF, caution with renal failure. NSTEMI, CAD-status post cardiac catheterization, multivessel disease, poor candidate for CABG because of debilitation. Plan is for rehab and then do CABG. Continue Coreg, Imdur, statin. Hold aspirin and Plavix in anticipation for need for surgery. Suspected pneumonia-on Zosyn from October 08 - October 12, afebrile, C. difficile negative. Patient has used in the stool. Stop Diflucan for now. Hypertension- End-stage renal disease-consult nephrology, patient undergoing hemodialysis MWF. Continue Renvela. Status post PermCath 09/28/2017 Anemia-history of GI bleed, 09/17/2017, colonoscopy showed diverticulosis with hemorrhoids, biopsy showed tubular adenoma, status post transfusion, stable hemoglobin for now. No need for Epogen COPD, not in exacerbation-duo nebs as needed Hyponatremia-likely secondary to dehydration, start IVF DVT prophylaxis: Hold for now in anticipation for surgery, start heparin when able to. Protonix for GI prophylaxis Discussed with Yanyd. Discussed with nursing.
[2017-10-16] MEDS ORDERED: Naloxone Inj 0.4 MG/ML Vial IV.PUSH PRN (13:45)
[2017-10-16] MEDS ORDERED: Piperacil/Tazo 2.25 GM Premix 50 ML IV.SIG SCH (14:00)
[2017-10-16] MEDS: Pantoprazole Inj 40 MG Vial IV.PUSH SCH (14:44)
[2017-10-16] MEDS: Sod Chloride 0.9% Inj 1,000 ML IV.CONT SCH (14:45)
[2017-10-16] MEDS: Morphine Inj 4 MG/ML Vial IV.PUSH PRN ×3 (14:49→23:05)
[2017-10-16 16:30] LABS: INR 1.2 Ratio
--- NOTE | 2017-10-16 16:53 | P.HPGS ---
History of Present Illness Service: General Surgery Primary Care Physician: UNKNOWN Chief Complaint: Abdominal pain History of Present Illness: This is a 77-year-old male with multiple comorbidities who originally presented with chest pain and was ruled in for NSTEMI appropriate for CABG. He was ruled out as a surgical candidate and subsequently developed pneumonia and started hemodialysis. He was eventually discharged to [facility]. Patient started complaining of nausea and abdominal pain . This morning, he was mildly lethargic complaining of right upper quadrant abdominal pain. Workup was done which revealed severe leukocytosis with lactic acidosis of 3.5. CT scan of the abdomen was done which showed a distended gallbladder with no cholelithiasis. Presently the patient is still lethargic with pain to epigastric and left upper quadrant - Diagnosis (1) Cholecystitis (2) Leukocytosis Inpatient Certification: I certify that the inpatient services were ordered in accordance with Medicare regulations governing the order. This includes certification that hospital inpatient services are reasonable and necessary and in the case of services not specified as inpatient-only under 42 CFR 419.22(n), that they are appropriately provided as inpatient services in accordance to with the 2-midnight benchmark under 43 CFR 412.3(e) Estimated Total Length of Stay (Days): 4 Plans for Post Hospital Care: Not yet determined Review of Systems All other systems reviewed negative except as stated in HPI PMFSH - History History Provided By: Medical Record - Medical History Medical History: Medical History (Last Reviewed 10/16/17 @ 16:17 by Eileen Meyer) Anemia Bladder cancer CAD (coronary artery disease) Colonoscopy planned DVT (deep venous thrombosis) Diverticul disease small and large intestine, no perforati or abscess GI bleed Hyperlipidemia Hypertension Myocardial infarct, old - Surgical History Surgical History: Surgical History (Last Reviewed 10/16/17 @ 13:39 by Jesse Hernández MD) History of cystoscopy History of heart artery stent History of tonsillectomy - Tobacco History Second Hand Smoke Exposure: No Smoking Status: Light tobacco smoker Tobacco Type: Cigars - Alcohol History How Often Do You Have a Drink Containing Alcohol: 4 or more times a week - Substance Use History Substance History: No History of Abuse Medications and Allergies Active Medications: Active Medications Acetaminophen (Tylenol) 650 mg PO Q4H PRN PRN Reason: Temp > 100.4 Acetaminophen (Tylenol) 650 mg PO Q6HR PRN PRN Reason: PAIN SCALE 1 TO 2 Al Hydroxide/Mg Hydroxide (Milk Of Magnesia Liq) 30 ml PO Q12H PRN PRN Reason: Mild Constipation Albuterol (Duoneb Neb (Prn)) 1 ampul NEB Q4HR NEB PRN PRN Reason: SHORTNESS OF BREATH/WHEEZING Bisacodyl (Dulcolax Supp) 10 mg RECTAL DAILY PRN PRN Reason: SEVERE CONSITIPATION Carvedilol (Coreg) 3.125 mg PO BID [facility] Metronidazole/Sodium Chloride (Flagyl 500 Mg Inj) 100 mls @ 100 mls/hr IV.SIG Q8H [facility] Last Admin: 10/16/17 14:44 Dose: 100 mls/hr Sodium Chloride (Ns Inj) 1,000 mls @ 125 mls/hr IV.CONT .Q8H [facility] Stop: 10/17/17 05:59 Last Admin: 10/16/17 14:45 Dose: 84 mls/hr Piperacillin/Tazobactam/Dextrose (Zosyn 4.5 Gm Premix) 4.5 gm in 100 mls @ 200 mls/hr IV.SIG Q6H [facility] Isosorbide Mononitrate (Imdur) 30 mg PO DAILY@0700 [facility] Lactulose (Lactulose Liq) 30 ml PO DAILY PRN PRN Reason: SEVERE CONSITIPATION Morphine Sulfate (Morphine Inj) 4 mg IV.PUSH Q3H PRN PRN Reason: PAIN 6-10;IF UNABLE TO TAKE PO Last Admin: 10/16/17 14:49 Dose: 4 mg Naloxone HCl (Narcan Inj) 0.4 mg IV.PUSH UNSCH PRN PRN Reason: SEE LABEL COMMENTS Nitroglycerin (Nitrostat Sl) 0.4 mg SL Q5M PRN PRN Reason: CHEST PAIN Nystatin (Mycostatin Cream) 1 applicatio TOPICAL BID [facility] Ondansetron HCl (Zofran Odt) 4 mg PO Q4H PRN PRN Reason: NAUSEA OR VOMITING Oxycodone/Acetaminophen (Percocet 5/325 Mg) 1 tab PO Q6H PRN PRN Reason: PAIN SCALE 3 TO 5 Pantoprazole Sodium (Protonix Inj) 40 mg IV.PUSH Q12H [facility] Last Admin: 10/16/17 14:44 Dose: 40 mg Prochlorperazine (Compazine Supp) 25 mg RECTAL Q12HR PRN PRN Reason: NAUSEA OR VOMITING Sennosides (Senokot) 17.2 mg PO Q12H PRN PRN Reason: Moderate Constipation Sodium Chloride (Ns Flush) 2 ml IV.FLUSH PRN PRN PRN Reason: FLUSH AFTER USING IV ACCESS Temazepam (Restoril) 15 mg PO HS PRN PRN Reason: INSOMNIA Allergies Allergy/AdvReac Type Severity Reaction Status Date / Time diphenhydramine Allergy Severe Edema, Verified 10/13/17 14:14 Generalized niacin AdvReac Intermediate Numbness Verified 10/13/17 14:13 [From Niaspan Extended-Release] ANTIHISTAMINES Allergy Edema Uncoded 10/13/17 14:13 Home Medications Medication Instructions Recorded Confirmed Type walker [Ultra-Light Rollator] 10/06/17 10/13/17 History Exam Vital signs: Vital Signs 10/16/17 12:30 Temperature 98.8 F Pulse Rate 99 H Respiratory Rate 18 Blood Pressure 145/65 H Pulse Oximetry 95 Intake & Output 10/15/17 10/16/17 10/16/17 18:59 06:59 18:59 Weight 85.9 kg Other: Weight On Admission 85.9 kg Narrative: Laboratory Results - last 24 hr 10/16/17 16:01 PT 12.0 H INR 1.2 - Constitutional obese, chronically ill appearing - Routine Respiratory Exam Present: decreased breath sounds - Routine Cardiovascular Exam Present: RRR - Routine Abdominal Exam Present: tenderness, distended Comments: tenderness with palpation to epigastric and RUQ - Routine Neurological Exam lethargic Results - Results CT scan - abdomen: report reviewed Caprini VTE Risk Assessment Caprini VTE Risk Assessment: Moderate/High Risk (score >= 2) Caprini Risk Assessment Model: Point Value = 1 Point Value = 2 Point Value = 3 Point Value = 5 Age 41-60 Minor surgery BMI > 25 kg/m2 Swollen legs Varicose veins or History of unexplained or recurrent spontaneous Oral contraceptives or hormone replacement Sepsis (< 1 month) Serious lung disease, including pneumonia (< 1 month) Abnormal pulmonary function Acute myocardial infarction Congestive heart failure (< 1 month) History of inflammatory bowel disease Medical patient at bed rest Age 61-74 Arthroscopic surgery Major open surgery (> 45 min) Laparoscopic surgery (> 45 min) Malignancy Confined to bed (> 72 hours) Immobilizing plaster cast Central venous access Age >= 75 History of VTE Family history of VTE Factor V Leiden Prothrombin [id number] Lupus anticoagulant Anticardiolipin antibodies Elevated serum homocysteine Heparin-induced thrombocytopenia Other congenital or acquired thrombophilia Stroke (< 1 month) Elective arthroplasty Hip, pelvis, or leg fracture Acute spinal cord injury (< 1 month) Prophylaxis Regimen: Total Risk Factor Score Risk Level Prophylaxis Regimen 0-1 Low Early ambulation 2 Moderate Order ONE of the following: *Sequential Compression Device (SCD) *Heparin 5000 units SQ BID 3-4 Higher Order ONE of the following medications: *Heparin 5000 units SQ TID *Enoxaparin/Lovenox 40 mg SQ daily (WT < 150 kg, CrCl > 30 mL/min) *Enoxaparin/Lovenox 30 mg SQ daily (WT < 150 kg, CrCl > 10-29 mL/min) *Enoxaparin/Lovenox 30 mg SQ BID (WT < 150 kg, CrCl > 30 mL/min) AND/OR *Sequential Compression Device (SCD) 5 or more Highest Order ONE of the following medications: *Heparin 5000 units SQ TID (Preferred with Epidurals) *Enoxaparin/Lovenox 40 mg SQ daily (WT < 150 kg, CrCl > 30 mL/min) *Enoxaparin/Lovenox 30 mg SQ daily (WT < 150 kg, CrCl > 10-29 mL/min) *Enoxaparin/Lovenox 30 mg SQ BID (WT < 150 kg, CrCl > 30 mL/min) AND *Sequential Compression Device (SCD) Assessment and Plan - Assessment (1) Cholecystitis Code(s): K81.9 - Cholecystitis, unspecified Status: Acute (2) Leukocytosis Code(s): D72.829 - Elevated white blood cell count, unspecified Status: Acute Qualifiers: Leukocytosis type: unspecified Qualified Code(s): D72.829 - Elevated white blood cell count, unspecified - Plan At this point the patient is not a surgical candidate. Consult interventional radiology for percutaneous cholecystostomy tube and IV antibiotics - Attending Attestation The exam, history, and the medical decision-making described in the above note were completed with the assistance of the mid-level provider. I reviewed and agree with the findings presented. I attest that I had a [id number] encounter with the patient on the same day, and personally performed and documented my assessment and findings in the medical record.
[2017-10-16] MEDS ORDERED: Iohexol 350 MG/ML 50 ML Vial (for Rad Diag) IVCONTRAST ONE (17:26)
--- NOTE | 2017-10-16 17:47 | P.PNPSYCH ---
- Diagnosis (1) Acute adjustment disorder with mixed anxiety and depressed mood Status: Acute Current Visit: Yes - Progress Notes/Response to Treatment Contents of Sessions: Adjustment, Challenges Procedure and Time with Patient: Psychotherapy [id number], 38-52 minutes Targeted Symptoms/Reason for Referral: All symptoms related to patient adjusting to decreased functional ability immediately following medical stay, to encourage ongoing program participation, and to provide empathic listening as patient processes thoughts and feelings about medical complexities. Symptoms include, but are not limited to, fluctuating levels of anxiety, depressed mood, and frustration related to loss of independence and autonomy. Type of Therapeutic Intervention: Supportive, interpersonal, insight oriented, with collateral focus on family/ caregiver system as needed. Treatment Plan: The plan is to continue to provide supportive psychotherapy throughout the patient's stay in the facility. This investigative writer will continue to promote participation in therapies across all domains which increase the patient's functional ability. I will attend team conferences in order to have ongoing consultation with other members of the patient's treatment team across all domains. I will observe the patient participating with other therapists across different domains in order to gauge the patient's participation and provide appropriate feedback to the patient related to their responsiveness to the treating therapists and the emotional content related to participation in the rehabilitation program both in the gym/room during treatment and when the patient is getting restorative rest outside treatment times. I will also continue to normalize the patients feelings related to their medical complexities and ongoing challenges to which they are adjusting, while providing verbal praise and ongoing encouragement related to participation in the program. The goal is for the patient to continue to participate in therapies and process thoughts and feelings regarding the medical rehabilitation process. This goal is ongoing throughout their stint, as the patient must be effortful in the therapy process so that all and occupational therapy goals can be met despite ongoing medical complexities. Emotional transparency and insight regarding the way their history and present situation shape their emotional functioning and response to the stressors indigenous to the medical rehabilitation process will be addressed as appropriate. The long- term goal is to diminish, or at least identify and appropriately process, any uncomfortable feelings related to the patient's ongoing challenges that are a part of recovering from a medical crisis and to assist the patient in adapting and adjusting to functioning at the improving levels the patient meets throughout the course of their stay at the facility. Progress Toward Goals / Interaction/Reaction to Therapy: Patient is lethargic and physically uncomfortable, with increased medical complexities. He is going to be sent out for treatment of medical issues. Met with his who was extremely emotionally distraught and fearful. Provided support and comfort for her as she processed thoughts and feelings about her fear of his , as they have been together more than 5 decades.
[2017-10-16] MEDS ORDERED: Temazepam 15 MG Capsule PO PRN (21:00)
[2017-10-16] MEDS: Piperacil/Tazo 4.5 GM Premix 4.5 GM/100 ML BAG IV.SIG SCH (21:06)
[2017-10-17] MEDS: Pantoprazole Inj 40 MG Vial IV.PUSH SCH ×2 (01:39→20:32)
[2017-10-17] MEDS: Piperacil/Tazo 4.5 GM Premix 4.5 GM/100 ML BAG IV.SIG SCH (03:51)
[2017-10-17] MEDS: Sod Chloride 0.9% Inj 1,000 ML IV.CONT SCH (03:53)
[2017-10-17] MEDS: Morphine Inj 4 MG/ML Vial IV.PUSH PRN ×2 (06:22→14:21)
[2017-10-17] MEDS: Isosorbide Mononitrate 30 MG ER 24HR Tablet (Imdur) PO SCH (06:22)
[2017-10-17 08:54] LABS: Baso # (Auto) 0.1 th/mm3 (0.0-0.2); Baso % (Auto) 0.3 % (0.0-2.0); Eos # (Auto) 0.1 th/mm3 (0.0-0.4); Eos % (Auto) 0.4 % (0.0-4.0); Hemoglobin 11.5 gm/dL (13.0-17.0); Lymph # (Auto) 1.5 th/mm3 (1.0-4.8); Lymph % (Auto) 6.6 % (9.0-44.0); Mean Corpuscular HGB Conc 31.9 % (32.0-36.0); Mean Corpuscular Hemoglobin 31.6 pg (27.0-34.0); Mean Platelet Volume 8.7 fL (7.0-11.0); Mono # (Auto) 1.3 th/mm3 (0.0-0.9); Mono % (Auto) 5.8 % (0.0-8.0); Neut # (Auto) 19.4 th/mm3 (1.8-7.7); Neut % (Auto) 86.9 % (16.0-70.0); Platelet Count 281 th/mm3 (150-450); Red Blood Count 3.64 mil/mm3 (4.50-5.90); Red Cell Distribution Width 17.8 % (11.6-17.2); White Blood Count 22.4 th/mm3 (4.0-11.0)
--- NOTE | 2017-10-17 08:54 | P.PNNP ---
Subjective Interval history: Events noted. Patient diagnosed with acute cholecystitis. Underwent cholecystotomy tube/drain placed by IR. Seen by surgery, not a candidate for surgery due to cardiac risk factors. Patient complains of thirst. He is currently NPO. On Flagyl and Zosyn Leukocytosis is worse. Physical Exam Vital signs: Vital Signs 10/16/17 12:30 10/16/17 16:00 10/16/17 19:29 Temperature 98.8 F 99 F Pulse Rate 99 H 91 H Respiratory Rate 18 24 18 Blood Pressure 145/65 H 107/51 L Pulse Oximetry 95 94 L 10/16/17 20:00 10/16/17 21:38 10/17/17 00:00 Temperature 98.2 F 98.4 F Pulse Rate 84 87 Respiratory Rate 18 18 Blood Pressure 131/57 L 108/57 L Pulse Oximetry 95 94 L 95 10/17/17 01:39 10/17/17 04:00 Temperature 98.1 F Pulse Rate 90 Respiratory Rate 18 20 Blood Pressure 129/58 L Pulse Oximetry 94 L Intake & Output 10/16/17 10/17/17 10/17/17 18:59 06:59 18:59 Intake Total 1450 / 1450 Output Total 20 / 20 Balance 1430 / 1430 Weight 85.9 kg 85.6 kg Intake: IV 1450 / 1450 NS Inj 1,000 ML @ 125 mls/hr IV 1000 / 1000 .CONT .Q8H [facility] Rx#:[id number] Zosyn 2.25 GM Premix 50 ML @ 50 / 50 100 mls/hr IV.SIG Q8H [facility] Rx#: [id number] Zosyn 4.5 GM Premix 4.5 gm In 200 / 200 100 ml @ 200 mls/hr IV.SIG Q6H [facility] Rx#:[id number] Flagyl 500 MG Inj 100 ML @ 100 200 / 200 mls/hr IV.SIG Q8H [facility] Rx#: [id number] Output: Wound Drainage 20 / 20 Right Upper Abdomen 20 / 20 Other: # Incontinent Voids 3 Weight On Admission 85.9 kg - Constitutional no acute distress - Routine HEENT Exam Head: Present: normocephalic, atraumatic Eye: Present: EOMI, PERRL ENT: Present: mucous membranes dry - Routine Neck Exam Present: supple, full ROM. Absent: JVD, carotid bruit - Routine Respiratory Exam Present: CTA bilaterally - Routine Cardiovascular Exam Present: RRR, S1, S2 - Routine Abdominal Exam Present: soft, tenderness, distended Comments: cholecystotomy - Routine Extremities Exam Absent: cyanosis, edema - Routine Neurological Exam Present: alert, oriented X3, CN II-XII intact Assessment and Plan - Assessment (1) End stage renal disease Code(s): N18.6 - End stage renal disease Status: Chronic Plan: To continue dialysis MWF. \ Avoid Gadolinium. To restart phosphorus binders when he is no longer NPO. Start D10NS when he is NPO. (2) NSTEMI (non-ST elevated myocardial infarction) Code(s): I21.4 - Non-ST elevation (NSTEMI) myocardial infarction Status: Acute Plan: s/p cath, has multivessel disease. Seen by CT surgery, CABG has been deferred due to comorbidities and poor functional status. Monitor. At risk for complications. (3) Acute cholecystitis Code(s): K81.0 - Acute cholecystitis Status: Acute Plan: s/p cholecystotomy by IR. Surgery following. High risk for surgery. Currently NPO (4) HTN (hypertension) Code(s): I10 - Essential (primary) hypertension Status: Chronic Qualifiers: Hypertension type: essential hypertension Qualified Code(s): I10 - Essential (primary) hypertension Plan: BP is actually low to low normal. Hold antihypertensives other than beta dayanara. - Plan plan is to continue HD MWF. Avoid Gadolinium. Avoid excessive IVF. When NPO, he may need D10NS. Dose medications appropriate to renal status, I have reduced the dose of Zosyn. - Attending Attestation Prognosis is guarded at this time.
[2017-10-17] MEDS ORDERED: Heparin 10,000 UNITS/10 ML Vial (for IV use) OTHER PRN (08:56)
[2017-10-17] MEDS ORDERED: Gelatin 12 MM/7 MM Topical Foam TOPICAL PRN (08:56)
[2017-10-17] MEDS ORDERED: Acetaminophen 325 MG Tablet PO PRN (08:56)
[2017-10-17] MEDS ORDERED: Sod Chloride 0.9% Inj 1,000 ML OTHER PRN ×2 (08:56)
[2017-10-17] MEDS ORDERED: Albumin Human 25% Inj 100 ML IV.SIG PRN (08:56)
[2017-10-17] MEDS ORDERED: Sod Chloride 0.9% Inj 1,000 ML IV.CONT PRN (08:56)
[2017-10-17] MEDS ORDERED: Piperacil/Tazo 2.25 GM Premix 50 ML IV.SIG SCH (09:00)
[2017-10-17 09:20] LABS: Albumin 2.6 g/dL (3.4-5.0); Anion Gap 19 meq/L (5-15); Aspartate Aminotransferase 17 U/L (15-37); Blood Urea Nitrogen 85 mg/dL (7-18); Calcium 9.4 mg/dL (8.5-10.1); Carbon Dioxide 20.7 meq/L (21.0-32.0); Chloride 96 meq/L (98-107); Glomerular Filtration Rate 4 mL/min (>89); Glucose,Random 87 mg/dL (74-106); Potassium 5.2 meq/L (3.5-5.1); Sodium 136 meq/L (136-145)
[2017-10-17 09:21] LABS: Alanine Aminotransferase 17 U/L (12-78)
[2017-10-17 09:24] LABS: Alkaline Phosphatase 75 U/L (45-117); Total Protein 7.6 g/dL (6.4-8.2)
[2017-10-17] MEDS ORDERED: Sodium Chloride 23.4% Inj 154 MEQ in Dextrose 10% in Water Inj 1,000 ML IV.CONT SCH ×2 (11:00)
[2017-10-17] MEDS: Heparin 10,000 UNITS/10 ML Vial (for IV use) IV.FLUSH PRN (13:13)
--- NOTE | 2017-10-17 13:27 | P.PNGS ---
Subjective Patient reports: pain is less, afebrile Physical Exam Vital signs: Vital Signs 10/16/17 16:00 10/16/17 19:29 10/16/17 20:00 Temperature 99 F 98.2 F Pulse Rate 91 H 84 Respiratory Rate 24 18 18 Blood Pressure 107/51 L 131/57 L Pulse Oximetry 94 L 95 10/16/17 21:38 10/17/17 00:00 10/17/17 01:39 Temperature 98.4 F Pulse Rate 87 Respiratory Rate 18 18 Blood Pressure 108/57 L Pulse Oximetry 94 L 95 10/17/17 04:00 10/17/17 08:00 10/17/17 09:31 Temperature 98.1 F 97.2 F L Pulse Rate 90 91 H Respiratory Rate 20 22 Blood Pressure 129/58 L 130/59 L Pulse Oximetry 94 L 94 L 95 Intake & Output 10/16/17 10/17/17 10/17/17 18:59 06:59 18:59 Intake Total 1450 / 1450 Output Total 20 / 20 600 / 600 Balance 1430 / 1430 -600 / -600 Weight 85.9 kg 85.6 kg Intake: IV 1450 / 1450 NS Inj 1,000 ML @ 125 mls/hr IV 1000 / 1000 .CONT .Q8H [facility] Rx#:[id number] Zosyn 2.25 GM Premix 50 ML @ 50 / 50 100 mls/hr IV.SIG Q8H [facility] Rx#: [id number] Zosyn 4.5 GM Premix 4.5 gm In 200 / 200 100 ml @ 200 mls/hr IV.SIG Q6H [facility] Rx#:[id number] Flagyl 500 MG Inj 100 ML @ 100 200 / 200 mls/hr IV.SIG Q8H [facility] Rx#: [id number] Output: Hemodialysis Amount 600 / 600 Wound Drainage 20 / 20 Right Upper Abdomen 20 / Other: # Incontinent Voids 3 Weight On Admission 85.9 kg Narrative: Laboratory Results - last 12 hr 10/17/17 10/17/17 08:06 08:06 WBC 22.4 H RBC 3.64 L Hgb 11.5 L D Hct 36.0 L MCV 99.0 MCH 31.6 MCHC 31.9 L RDW 17.8 H Plt Count 281 D MPV 8.7 Neut % (Auto) 86.9 H Lymph % (Auto) 6.6 L [place] % (Auto) 5.8 Eos % (Auto) 0.4 Baso % (Auto) 0.3 Neut # (Auto) 19.4 H Lymph # (Auto) 1.5 [place] # (Auto) 1.3 H Eos # (Auto) 0.1 Baso # (Auto) 0.1 WBC Differential . Differential Comment Auto diff final Sodium 136 Potassium 5.2 H Chloride 96 L Carbon Dioxide 20.7 L Anion Gap 19 H BUN 85 H Creatinine 12.39 H* D Estimated GFR 4 L Random Glucose 87 Calcium 9.4 D Total Bilirubin 0.5 AST 17 ALT 17 Alkaline Phosphatase 75 Total Protein 7.6 D Albumin 2.6 L D - Constitutional no acute distress, obese - Routine Respiratory Exam Present: CTA bilaterally - Routine Cardiovascular Exam Present: RRR - Routine Abdominal Exam Present: tenderness (tenderness with palpation to RUQ), distended, drain ( cholecystostomy tube placed by IR, put out 20ml of bilious drainage) Assessment and Plan - Assessment (1) Cholecystitis Code(s): K81.9 - Cholecystitis, unspecified Status: Acute (2) Leukocytosis Code(s): D72.829 - Elevated white blood cell count, unspecified Status: Acute - Plan S/P cholecystostomy tube placement. WBC trending down. More alert after dialysis today. Ok for diet in the AM. No further surgical intervention at this time - Attending Attestation The exam, history, and the medical decision-making described in the above note were completed with the assistance of the mid-level provider. I reviewed and agree with the findings presented. I attest that I had a [id number] encounter with the patient on the same day, and personally performed and documented my assessment and findings in the medical record. (2) Leukocytosis Qualifiers: Leukocytosis type: unspecified Qualified Code(s): D72.829 - Elevated white blood cell count, unspecified
--- NOTE | 2017-10-17 15:34 | P.PNIM ---
Subjective Interval history: Status post rajesh-cholecystostomy tube placement yesterday, status post hemodialysis this morning, now, patient is more awake, oriented. Mild pain right upper quadrant, mildly distended abdomen. Afebrile. No nausea or vomiting. Physical Exam Vital signs: Vital Signs 10/16/17 16:00 10/16/17 19:29 10/16/17 20:00 Temperature 99 F 98.2 F Pulse Rate 91 H 84 Respiratory Rate 24 18 18 Blood Pressure 107/51 L 131/57 L Pulse Oximetry 94 L 95 10/16/17 21:38 10/17/17 00:00 10/17/17 01:39 Temperature 98.4 F Pulse Rate 87 Respiratory Rate 18 18 Blood Pressure 108/57 L Pulse Oximetry 94 L 95 10/17/17 04:00 10/17/17 08:00 10/17/17 09:31 Temperature 98.1 F 97.2 F L Pulse Rate 90 91 H Respiratory Rate 20 22 Blood Pressure 129/58 L 130/59 L Pulse Oximetry 94 L 94 L 95 Intake & Output 10/16/17 10/17/17 10/17/17 18:59 06:59 18:59 Intake Total 1450 / 1450 Output Total 20 / 20 600 / 600 Balance 1430 / 1430 -600 / -600 Weight 85.9 kg 85.6 kg Intake: IV 1450 / 1450 NS Inj 1,000 ML @ 125 mls/hr IV 1000 / 1000 .CONT .Q8H [facility] Rx#:[id number] Zosyn 2.25 GM Premix 50 ML @ 50 / 50 100 mls/hr IV.SIG Q8H [facility] Rx#: [id number] Zosyn 4.5 GM Premix 4.5 gm In 200 / 200 100 ml @ 200 mls/hr IV.SIG Q6H [facility] Rx#:[id number] Flagyl 500 MG Inj 100 ML @ 100 200 / 200 mls/hr IV.SIG Q8H [facility] Rx#: [id number] Output: Hemodialysis Amount 600 / 600 Wound Drainage 20 / 20 Right Upper Abdomen 20 / 20 Other: # Incontinent Voids 3 Weight On Admission 85.9 kg Narrative: Not in distress. PERRL, pink conjunctiva without injection, anicteric Supple neck Regular rate, regular rhythm Clear breath sounds, poor effort Mildly distended, normal bowel sounds, mild tenderness right upper quadrant, no guarding. Rajesh-cholecystostomy tube in place with dark brown output. No edema Alert, awake, oriented 3, moves extremities. Results - Labs CBC & Chem 7: 10/17/17 08:06 10/17/17 08:06 Laboratory Results - last 24 hr 10/16/17 10/17/17 10/17/17 16:01 08:06 08:06 WBC 22.4 H RBC 3.64 L Hgb 11.5 L D Hct 36.0 L MCV 99.0 MCH 31.6 MCHC 31.9 L RDW 17.8 H Plt Count 281 D MPV 8.7 Neut % (Auto) 86.9 H Lymph % (Auto) 6.6 L [place] % (Auto) 5.8 Eos % (Auto) 0.4 Baso % (Auto) 0.3 Neut # (Auto) 19.4 H Lymph # (Auto) 1.5 [place] # (Auto) 1.3 H Eos # (Auto) 0.1 Baso # (Auto) 0.1 WBC Differential . Differential Comment Auto diff final PT 12.0 H INR 1.2 Sodium 136 Potassium 5.2 H Chloride 96 L Carbon Dioxide 20.7 L Anion Gap 19 H BUN 85 H Creatinine 12.39 H* D Estimated GFR 4 L Random Glucose 87 Calcium 9.4 D Total Bilirubin 0.5 AST 17 ALT 17 Alkaline Phosphatase 75 Total Protein 7.6 D Albumin 2.6 L D Assessment and Plan - Plan This is a 77-year-old male with history of coronary artery disease status post [place] status post coronary stenting, end-stage renal disease on hemodialysis, history of bladder cancer status post BCG mid therapy and TURP, was doing rehab at [place] when he started complaining of severe abdominal pain, found to have leukocytosis, lactic acidosis and cholecystitis Severe sepsis secondary to acalculous cholecystitis -CT scan of the abdomen revealed distended gallbladder with no cholelithiasis, there is also pericholecystic stranding with no pericholecystic fluid. High risk, likely healthcare associated, continue Zosyn, stop Flagyl now. Leukocytosis a lot better. Follow-up blood culture. Lactic acidosis resolved. General surgery following, status post rajesh-cholecystostomy tube placement 10/16/2017 via IR. NSTEMI, CAD-status post cardiac catheterization, multivessel disease, poor candidate for CABG because of debilitation. Plan is for rehab and then do CABG. Continue Coreg, Imdur, statin. Restart aspirin and Plavix. Suspected pneumonia-on Zosyn from October 08 - October 12, afebrile, C. difficile negative. Patient has used in the stool. Off Diflucan for now. Hypertension-antihypertensives on hold, resume. End-stage renal disease-nephrology consulted, hemodialysis today, patient undergoing hemodialysis MWF. Continue Renvela. Status post PermCath 09/28/2017 Anemia-history of GI bleed, 09/17/2017, colonoscopy showed diverticulosis with hemorrhoids, biopsy showed tubular adenoma, status post transfusion, stable hemoglobin for now. No need for Epogen COPD, not in exacerbation-duo nebs as needed FEN Hyponatremia-likely secondary to dehydration, resolved, decrease IVF Start renal diet DVT prophylaxis: Heparin. Protonix for GI prophylaxis Discussed with Yandy and .
[2017-10-17] MEDS: Piperacil/Tazo 2.25 GM Premix 50 ML IV.SIG SCH ×2 (19:18→22:47)
[2017-10-18] MEDS: Piperacil/Tazo 2.25 GM Premix 50 ML IV.SIG SCH ×3 (07:21→23:43)
[2017-10-18] MEDS: Isosorbide Mononitrate 30 MG ER 24HR Tablet (Imdur) PO SCH (07:21)
--- NOTE | 2017-10-18 08:17 | P.PNNP ---
Subjective Interval history: patient feels better today. Tolerating diet he says. Had dialysis yesterday. Minimal UF yesterday. Physical Exam Vital signs: Vital Signs 10/17/17 09:31 10/17/17 16:00 10/17/17 20:00 Temperature 98 F 98 F Pulse Rate 100 H 108 H Respiratory Rate 18 18 Blood Pressure 129/59 L 131/60 Pulse Oximetry 95 95 97 10/17/17 22:55 10/18/17 00:00 10/18/17 01:48 Temperature 98.3 F Pulse Rate 84 Respiratory Rate 18 18 18 Blood Pressure 123/64 Pulse Oximetry 97 10/18/17 03:17 10/18/17 04:00 Temperature 97.8 F Pulse Rate 84 Respiratory Rate 16 18 Blood Pressure 138/64 Pulse Oximetry 94 L Intake & Output 10/17/17 10/18/17 10/18/17 18:59 06:59 18:59 Intake Total 450 / 450 Output Total 600 / 600 Balance -600 / -600 450 / 450 Weight 85.4 kg Intake: IV 200 / 200 Zosyn 2.25 GM Premix 50 ML @ 100 / 100 100 mls/hr IV.SIG Q8H [facility] Rx#: [id number] Flagyl 500 MG Inj 100 ML @ 100 100 / 100 mls/hr IV.SIG Q8H [facility] Rx#: [id number] Oral 250 / 250 Output: Hemodialysis Amount 600 / 600 Other: # Incontinent Voids 1 - Constitutional no acute distress - Routine HEENT Exam Head: Present: normocephalic, atraumatic Eye: Present: EOMI - Routine Neck Exam Present: supple. Absent: JVD - Routine Respiratory Exam Present: CTA bilaterally - Routine Cardiovascular Exam Present: RRR, S1, S2 - Routine Abdominal Exam Present: soft. Absent: tenderness, distended, rebound - Routine Neurological Exam Present: alert, oriented X3 - Routine Psychiatric Exam Present: normal affect Assessment and Plan - Assessment (1) End stage renal disease Code(s): N18.6 - End stage renal disease Status: Chronic Plan: To continue dialysis MWF. \ Avoid Gadolinium. Recheck Phosphorus before restarting binder. (2) NSTEMI (non-ST elevated myocardial infarction) Code(s): I21.4 - Non-ST elevation (NSTEMI) myocardial infarction Status: Acute Plan: s/p cath, has multivessel disease. Seen by CT surgery, CABG has been deferred due to comorbidities and poor functional status. Monitor. At risk for complications. (3) Acute cholecystitis Code(s): K81.0 - Acute cholecystitis Status: Acute Plan: s/p cholecystotomy by IR. Surgery following. No plans for surgery. Diet initiated. (4) HTN (hypertension) Code(s): I10 - Essential (primary) hypertension Status: Chronic Qualifiers: Hypertension type: essential hypertension Qualified Code(s): I10 - Essential (primary) hypertension Plan: BP is under control. - Plan plan is to continue HD MWF. Avoid Gadolinium. Avoid excessive IVF. When NPO, he may need D10NS. Dose medications appropriate to renal status, I have reduced the dose of Zosyn.
--- NOTE | 2017-10-18 09:08 | P.PNIM ---
Subjective Interval history: says abdomen pain better no complaints Physical Exam Vital signs: Vital Signs 10/17/17 09:31 10/17/17 16:00 10/17/17 20:00 Temperature 98 F 98 F Pulse Rate 100 H 108 H Respiratory Rate 18 18 Blood Pressure 129/59 L 131/60 Pulse Oximetry 95 95 97 10/17/17 22:55 10/18/17 00:00 10/18/17 01:48 Temperature 98.3 F Pulse Rate 84 Respiratory Rate 18 18 18 Blood Pressure 123/64 Pulse Oximetry 97 10/18/17 03:17 10/18/17 04:00 Temperature 97.8 F Pulse Rate 84 Respiratory Rate 16 18 Blood Pressure 138/64 Pulse Oximetry 94 L Intake & Output 10/17/17 10/18/17 10/18/17 18:59 06:59 18:59 Intake Total 450 / 450 Output Total 600 / 600 Balance -600 / -600 450 / 450 Weight 85.4 kg Intake: IV 200 / 200 Zosyn 2.25 GM Premix 50 ML @ 100 / 100 100 mls/hr IV.SIG Q8H [facility] Rx#: [id number] Flagyl 500 MG Inj 100 ML @ 100 100 / 100 mls/hr IV.SIG Q8H [facility] Rx#: [id number] Oral 250 / 250 Output: Hemodialysis Amount 600 / 600 Other: # Incontinent Voids 1 nad heart reg lung cta abds s/nt/nabs/cholecystostomy tube ext no edema Results - Labs CBC & Chem 7: 10/17/17 08:06 10/17/17 08:06 Laboratory Results - last 24 hr 10/17/17 10/17/17 08:06 08:06 WBC 22.4 H RBC 3.64 L Hgb 11.5 L D Hct 36.0 L MCV 99.0 MCH 31.6 MCHC 31.9 L RDW 17.8 H Plt Count 281 D MPV 8.7 Neut % (Auto) 86.9 H Lymph % (Auto) 6.6 L [place] % (Auto) 5.8 Eos % (Auto) 0.4 Baso % (Auto) 0.3 Neut # (Auto) 19.4 H Lymph # (Auto) 1.5 [place] # (Auto) 1.3 H Eos # (Auto) 0.1 Baso # (Auto) 0.1 WBC Differential . Differential Comment Auto diff final Sodium 136 Potassium 5.2 H Chloride 96 L Carbon Dioxide 20.7 L Anion Gap 19 H BUN 85 H Creatinine 12.39 H* D Estimated GFR 4 L Random Glucose 87 Calcium 9.4 D Total Bilirubin 0.5 AST 17 ALT 17 Alkaline Phosphatase 75 Total Protein 7.6 D Albumin 2.6 L D Assessment and Plan - Assessment (1) Cholecystitis Code(s): K81.9 - Cholecystitis, unspecified Status: Acute Plan: 1. Acute Cholecystitis: Pt admitted from [place] for acute cholecystitis seen by general surg. not surgical candidate IR placed Cholecystostomy tube 10/16 pt on zosyn renal dosing dvt prophylaxis tolerating diet PT 2. CAD.Recent nstemi: Pt presented recently with nstemi He is currently not surgical candidate due to deconditioning was sent to [place] for rehab and then reevaluation. 3. ESRD on HD m/w/f 4. General weakness 5. HTN 6. COPD 7. Anemia 8. Hx Bladder ca (2) CAD (coronary artery disease) Code(s): I25.10 - Atherosclerotic heart disease of [place] coronary artery without angina pectoris Status: Acute (3) End stage renal disease Code(s): N18.6 - End stage renal disease Status: Chronic (4) COPD (chronic obstructive pulmonary disease) Code(s): J44.9 - Chronic obstructive pulmonary disease, unspecified Status: Chronic (2) CAD (coronary artery disease) Qualifiers: Coronary Disease-Associated Artery/Lesion type: [place] artery [place] vs. transplanted heart: [place] heart
--- NOTE | 2017-10-18 12:36 | P.PNGS ---
Subjective Patient reports: no new complaints, feels better, tolerating a regular diet Physical Exam Vital signs: Vital Signs 10/17/17 16:00 10/17/17 20:00 10/17/17 22:55 Temperature 98 F 98 F Pulse Rate 100 H 108 H Respiratory Rate 18 18 18 Blood Pressure 129/59 L 131/60 Pulse Oximetry 95 97 10/18/17 00:00 10/18/17 01:48 10/18/17 03:17 Temperature 98.3 F Pulse Rate 84 Respiratory Rate 18 18 16 Blood Pressure 123/64 Pulse Oximetry 97 10/18/17 04:00 Temperature 97.8 F Pulse Rate 84 Respiratory Rate 18 Blood Pressure 138/64 Pulse Oximetry 94 L Intake & Output 10/17/17 10/18/17 10/18/17 18:59 06:59 18:59 Intake Total 450 / 450 Output Total 600 / 600 Balance -600 / -600 450 / 450 Weight 85.4 kg Intake: IV 200 / 200 Zosyn 2.25 GM Premix 50 ML @ 100 / 100 100 mls/hr IV.SIG Q8H [facility] Rx#: [id number] Flagyl 500 MG Inj 100 ML @ 100 100 / 100 mls/hr IV.SIG Q8H [facility] Rx#: [id number] Oral 250 / 250 Output: Hemodialysis Amount 600 / 600 Other: # Incontinent Voids 1 - Constitutional mild distress - Routine Respiratory Exam Present: CTA bilaterally - Routine Cardiovascular Exam Present: RRR - Routine Abdominal Exam Present: tenderness, distended Assessment and Plan - Assessment (1) Cholecystitis Code(s): K81.9 - Cholecystitis, unspecified Status: Acute (2) Leukocytosis Code(s): D72.829 - Elevated white blood cell count, unspecified Status: Acute - Plan S/P cholecystostomy tube placement. Continue to watch WBC trends Tolerating PO - Attending Attestation The exam, history, and the medical decision-making described in the above note were completed with the assistance of the mid-level provider. I reviewed and agree with the findings presented. I attest that I had a [id number] encounter with the patient on the same day, and personally performed and documented my assessment and findings in the medical record. (2) Leukocytosis Qualifiers: Leukocytosis type: unspecified Qualified Code(s): D72.829 - Elevated white blood cell count, unspecified
[2017-10-18 14:26] LABS: Baso # (Auto) 0.1 th/mm3 (0.0-0.2); Baso % (Auto) 0.4 % (0.0-2.0); Eos # (Auto) 0.4 th/mm3 (0.0-0.4); Eos % (Auto) 3.2 % (0.0-4.0); Hematocrit 35.4 % (39.0-51.0); Hemoglobin 11.5 gm/dL (13.0-17.0); Lymph # (Auto) 1.4 th/mm3 (1.0-4.8); Mean Corpuscular HGB Conc 32.5 % (32.0-36.0); Mean Corpuscular Volume 98.5 fL (80.0-100.0); Mean Platelet Volume 8.8 fL (7.0-11.0); Mono # (Auto) 0.8 th/mm3 (0.0-0.9); Mono % (Auto) 7.2 % (0.0-8.0); Neut % (Auto) 77.2 % (16.0-70.0); Platelet Count 314 th/mm3 (150-450); Red Blood Count 3.59 mil/mm3 (4.50-5.90); White Blood Count 11.7 th/mm3 (4.0-11.0)
[2017-10-18] MEDS: Morphine Inj 4 MG/ML Vial IV.PUSH PRN (15:28)
--- NOTE | 2017-10-18 18:18 | IR ---
EXAM DATE: 10/16/2017 5:39 PM EDT AGE/SEX: 77 years / Male INDICATIONS: Patient with a history of cholecystitis. CLINICAL DATA: This is the patient's initial encounter. Patient reports that signs and symptoms have been present for 1 day and indicates a pain score of 10/10. MEDICAL/SURGICAL HISTORY: . Anemia Bladder bleed Hyperlipidemia HTN Myocardial infarct . Cysto scopy Tonsillectomy COMPARISON: No prior exams available for comparison. FLUORO TIME (min): 1.4 IMAGE SERIES: 2 CONTRAST (cc): 10cc Omnipaque (iohexol) 350 DEVICE(S): 8 Hungarian All purpose drain locking . . PROCEDURE: 1. Ultrasound guided puncture of the gallbladder. 2. Percutaneous cholangiogram. 3. Percutaneous cholecystostomy tube placement. 4. Conscious sedation with continuous EKG and oximetry monitoring. The risks, benefits and alternatives to the procedure were explained and verbal and written consent w as obtained. The site was prepped in sterile fashion. Full sterile technique was used, including ca p, mask, sterile gloves and gown and a large sterile sheet. Hand hygiene and 2% chlorhexidine and/or betadine/alcohol prep was utilized per protocol for cutaneous antisepsis. Sterile gel and sterile p robe cover were utilized for ultrasound guidance. The skin and subcutaneous tissues were infiltrated with local anesthetic solution. With ultrasound and fluoroscopic guidance the gallbladder was punctured with a micropuncture set and a 4 Hungarian dilator was placed. Injection of positive contrast demonstrates position within the gallb ladder. A 0.035 guidewire was placed within the gallbladder lumen and dilatation was performed to ac cept the prescribed catheter. Conscious sedation was performed with the prescribed dosages and duration as above in the presence of an independent trained radiology nurse to assist in the monitoring of the patient. EKG and oximetry remained stable throughout the procedure. The patient tolerated the procedure well and there were n o complications. The patient was sent to post anesthesia recovery in stable condition. CONCLUSION: 1. Uncomplicated percutaneous cholecystostomy as above. Electronically signed by: Joon Vasquez MD 10/18/2017 6:17 PM EDT
[2017-10-19] MEDS: Piperacil/Tazo 2.25 GM Premix 50 ML IV.SIG SCH ×3 (05:50→22:05)
[2017-10-19] MEDS: Isosorbide Mononitrate 30 MG ER 24HR Tablet (Imdur) PO SCH (06:48)
[2017-10-19 07:38] LABS: Albumin 2.7 g/dL (3.4-5.0); Calcium 8.4 mg/dL (8.5-10.1); Potassium 4.5 meq/L (3.5-5.1)
[2017-10-19 07:45] LABS: Phosphorus 8.9 mg/dL (2.5-4.9)
--- NOTE | 2017-10-19 08:59 | P.PNNP ---
Subjective Interval history: Seen during dialysis. Denies abdominal pain. Afebrile. <Vero Oliver - Last Filed: 10/19/17 08:52> Physical Exam Vital signs: Vital Signs 10/18/17 12:00 10/18/17 16:00 10/18/17 18:06 Temperature 97.5 F L 99.0 F Pulse Rate 89 87 Respiratory Rate 20 20 Blood Pressure 116/59 L 118/56 L Pulse Oximetry 98 98 98 10/18/17 20:00 10/18/17 23:40 10/19/17 00:00 Temperature 97.9 F 98.0 F Pulse Rate 89 79 Respiratory Rate 18 18 17 Blood Pressure 106/55 L 113/60 Pulse Oximetry 96 95 10/19/17 06:25 10/19/17 08:00 Temperature 98.1 F Pulse Rate 70 Respiratory Rate 16 18 Blood Pressure 115/62 Pulse Oximetry 95 Intake & Output 10/18/17 10/19/17 10/19/17 18:59 06:59 18:59 Intake Total 50 / 50 150 / 150 50 / 50 Balance 50 / 50 150 / 150 50 / 50 Intake: IV 50 / 50 100 / 100 50 / 50 Zosyn 2.25 GM Premix 50 ML @ 50 / 50 100 / 100 50 / 50 100 mls/hr IV.SIG Q8H [facility] Rx#: [id number] Oral 50 / 50 - Constitutional no acute distress, chronically ill appearing - Routine HEENT Exam Head: Present: normocephalic ENT: Present: mucous membranes moist - Routine Neck Exam Present: supple. Absent: JVD, carotid bruit - Routine Respiratory Exam Present: CTA bilaterally. Absent: accessory muscle use - Routine Cardiovascular Exam Present: RRR, S1, S2. Absent: murmur - Routine Abdominal Exam Present: soft, normoactive bowel sounds Comments: GB drain RUQ - Routine Extremities Exam Absent: edema - Routine Skin Exam Present: intact, warm - Routine Neurological Exam Present: alert, oriented X3, CN II-XII intact - Detailed Neurological Exam: Coma Scale Eye Opening: Spontaneous Verbal Response: Oriented Motor Response: Obey commands [place] Coma Scale Total: 15 - Routine Psychiatric Exam Present: normal affect, normal thought process <Vero Oliver - Last Filed: 10/19/17 08:52> Vital signs: Vital Signs 10/18/17 16:00 07/12/18 18:06 10/18/17 20:00 Temperature 99.0 F 97.9 F Pulse Rate 87 89 Respiratory Rate 20 18 Blood Pressure 118/56 L 106/55 L Pulse Oximetry 98 98 96 10/18/17 23:40 10/19/17 00:00 10/19/17 06:25 Temperature 98.0 F 98.1 F Pulse Rate 79 70 Respiratory Rate 18 17 16 Blood Pressure 113/60 115/62 Pulse Oximetry 95 95 10/19/17 08:00 Temperature 98.9 F Pulse Rate 82 Respiratory Rate 20 Blood Pressure 133/76 Pulse Oximetry 91 L Intake & Output 10/18/17 10/19/17 10/19/17 18:59 06:59 18:59 Intake Total 50 / 50 150 / 150 50 / 50 Output Total 1000 / 1000 Balance 50 / 50 150 / 150 -950 / -950 Intake: IV 50 / 50 100 / 100 50 / 50 Zosyn 2.25 GM Premix 50 ML @ 50 / 50 100 / 100 50 / 50 100 mls/hr IV.SIG Q8H [facility] Rx#: [id number] Oral 50 / 50 Output: Hemodialysis Amount 1000 / 1000 <Oli Hannah - Last Filed: 10/19/17 14:08> Assessment and Plan - Assessment (1) End stage renal disease Code(s): N18.6 - End stage renal disease Status: Chronic Plan: Seen during dialysis on a 3K, 350 BFR, goal 500 ml. Permcath right IJ for HD use. Will need AVF at later date. Avoid gadolinium and IVF. Begin Renvela for hyperphosphatemia. Discussed foods to avoid. High protein diet ordered. He will eventually go to [facility] for outpatient HD. (2) NSTEMI (non-ST elevated myocardial infarction) Code(s): I21.4 - Non-ST elevation (NSTEMI) myocardial infarction Status: Acute Plan: s/p cath, has multivessel disease. Seen by CT surgery, CABG has been deferred due to comorbidities and poor functional status. Monitor. At risk for complications. (3) Acute cholecystitis Code(s): K81.0 - Acute cholecystitis Status: Acute Plan: s/p cholecystotomy by IR. Surgery following. No plans for surgery. Tolerating diet. On Zosyn. (4) HTN (hypertension) Code(s): I10 - Essential (primary) hypertension Status: Chronic Qualifiers: Hypertension type: essential hypertension Qualified Code(s): I10 - Essential (primary) hypertension Plan: Blood pressure is controlled. Continue current medications. - Plan When NPO, he may need D10NS. <Vero Oliver - Last Filed: 10/19/17 08:52> - Assessment (1) End stage renal disease Code(s): N18.6 - End stage renal disease Status: Chronic (2) NSTEMI (non-ST elevated myocardial infarction) Code(s): I21.4 - Non-ST elevation (NSTEMI) myocardial infarction Status: Acute (3) Acute cholecystitis Code(s): K81.0 - Acute cholecystitis Status: Acute (4) HTN (hypertension) Code(s): I10 - Essential (primary) hypertension Status: Chronic Qualifiers: Hypertension type: essential hypertension Qualified Code(s): I10 - Essential (primary) hypertension - Attending Attestation patient was seen and examined. Agree with above assessment and plan. <Oli Hannah - Last Filed: 10/19/17 14:08>
[2017-10-19] MEDS ORDERED: Calcium Acetate 667 MG Capsule PO SCH (09:00)
--- NOTE | 2017-10-19 10:43 | P.PNIM ---
Subjective Interval history: in HD. no complaints Physical Exam Vital signs: Vital Signs 10/18/17 12:00 10/18/17 16:00 10/18/17 18:06 Temperature 97.5 F L 99.0 F Pulse Rate 89 87 Respiratory Rate 20 20 Blood Pressure 116/59 L 118/56 L Pulse Oximetry 98 98 98 10/18/17 20:00 10/18/17 23:40 10/19/17 00:00 Temperature 97.9 F 98.0 F Pulse Rate 89 79 Respiratory Rate 18 18 17 Blood Pressure 106/55 L 113/60 Pulse Oximetry 96 95 10/19/17 06:25 10/19/17 08:00 Temperature 98.1 F 98.9 F Pulse Rate 70 82 Respiratory Rate 16 20 Blood Pressure 115/62 133/76 Pulse Oximetry 95 91 L Intake & Output 10/18/17 10/19/17 10/19/17 18:59 06:59 18:59 Intake Total 50 / 50 150 / 150 50 / 50 Balance 50 / 50 150 / 150 50 / 50 Intake: IV 50 / 50 100 / 100 50 / 50 Zosyn 2.25 GM Premix 50 ML @ 50 / 50 100 / 100 50 / 50 100 mls/hr IV.SIG Q8H [facility] Rx#: [id number] Oral 50 / 50 heart reg lung cta abd s/nt. yola tube ext no edema Results - Labs CBC & Chem 7: 10/18/17 13:55 10/19/17 06:55 Laboratory Results - last 24 hr 10/18/17 10/19/17 13:55 06:55 WBC 11.7 H RBC 3.59 L Hgb 11.5 L Hct 35.4 L MCV 98.5 MCH 32.0 MCHC 32.5 RDW 17.0 Plt Count 314 MPV 8.8 Neut % (Auto) 77.2 H Lymph % (Auto) 12.0 [place] % (Auto) 7.2 Eos % (Auto) 3.2 Baso % (Auto) 0.4 Neut # (Auto) 9.0 H Lymph # (Auto) 1.4 [place] # (Auto) 0.8 Eos # (Auto) 0.4 Baso # (Auto) 0.1 WBC Differential . Differential Comment Auto diff final Sodium 136 Potassium 4.5 Chloride 94 L Carbon Dioxide 28.0 Anion Gap 14 BUN 73 H Creatinine 10.77 H* D Estimated GFR 5 L Random Glucose 87 Calcium 8.4 L D Phosphorus 8.9 H Albumin 2.7 L - Imaging Impressions Percutaneous Cholangiogram 10/16/17 00:00 CONCLUSION: 1. Uncomplicated percutaneous cholecystostomy as above. Assessment and Plan - Assessment (1) Cholecystitis Code(s): K81.9 - Cholecystitis, unspecified Status: Acute Plan: 1. Acute Cholecystitis: Pt admitted from [place] for acute cholecystitis seen by general surg. not surgical candidate IR placed Cholecystostomy tube 10/16 pt on zosyn renal dosing dvt prophylaxis tolerating diet PT 2. CAD.Recent nstemi: Pt presented recently with nstemi He is currently not surgical candidate due to deconditioning was sent to [place] for rehab and then reevaluation. cont current medications 3. ESRD on HD m/w/f. getting HD now. 4. General weakness 5. HTN 6. COPD 7. Anemia 8. Hx Bladder ca (2) CAD (coronary artery disease) Code(s): I25.10 - Atherosclerotic heart disease of [place] coronary artery without angina pectoris Status: Acute (3) End stage renal disease Code(s): N18.6 - End stage renal disease Status: Chronic (4) COPD (chronic obstructive pulmonary disease) Code(s): J44.9 - Chronic obstructive pulmonary disease, unspecified Status: Chronic (2) CAD (coronary artery disease) Qualifiers: Coronary Disease-Associated Artery/Lesion type: [place] artery [place] vs. transplanted heart: [place] heart
--- NOTE | 2017-10-19 13:11 | P.PNGS ---
Subjective Patient reports: no new complaints, feels better Physical Exam Vital signs: Vital Signs 10/18/17 16:00 10/18/17 18:06 10/18/17 20:00 Temperature 99.0 F 97.9 F Pulse Rate 87 89 Respiratory Rate 20 18 Blood Pressure 118/56 L 106/55 L Pulse Oximetry 98 98 96 10/18/17 23:40 10/19/17 00:00 10/19/17 06:25 Temperature 98.0 F 98.1 F Pulse Rate 79 70 Respiratory Rate 18 17 16 Blood Pressure 113/60 115/62 Pulse Oximetry 95 95 10/19/17 08:00 Temperature 98.9 F Pulse Rate 82 Respiratory Rate 20 Blood Pressure 133/76 Pulse Oximetry 91 L Intake & Output 10/18/17 10/19/17 10/19/17 18:59 06:59 18:59 Intake Total 50 / 50 150 / 150 50 / 50 Output Total 1000 / 1000 Balance 50 / 50 150 / 150 -950 / -950 Intake: IV 50 / 50 100 / 100 50 / 50 Zosyn 2.25 GM Premix 50 ML @ 50 / 50 100 / 100 50 / 50 100 mls/hr IV.SIG Q8H [facility] Rx#: [id number] Oral 50 / 50 Output: Hemodialysis Amount 1000 / 1000 - Constitutional no acute distress - Routine Abdominal Exam Present: tenderness, distended Assessment and Plan - Assessment (1) Cholecystitis Code(s): K81.9 - Cholecystitis, unspecified Status: Acute (2) Leukocytosis Code(s): D72.829 - Elevated white blood cell count, unspecified Status: Acute - Plan S/P cholecystostomy tube placement. WBC continue to trend downward Tolerating PO General Surgery signing off - Attending Attestation The exam, history, and the medical decision-making described in the above note were completed with the assistance of the mid-level provider. I reviewed and agree with the findings presented. I attest that I had a [id number] encounter with the patient on the same day, and personally performed and documented my assessment and findings in the medical record. (2) Leukocytosis Qualifiers: Leukocytosis type: unspecified Qualified Code(s): D72.829 - Elevated white blood cell count, unspecified
[2017-10-20] MEDS: Isosorbide Mononitrate 30 MG ER 24HR Tablet (Imdur) PO SCH (08:32)
[2017-10-20] MEDS: Piperacil/Tazo 2.25 GM Premix 50 ML IV.SIG SCH ×3 (08:34→21:42)
--- NOTE | 2017-10-20 10:49 | P.PNIM ---
Subjective Interval history: Pt sitting up in chair, no new complaints LE swelling in better since HD yesterday Cholecystostomy tube without much output in the bag Physical Exam Vital signs: Vital Signs 10/19/17 16:00 10/19/17 18:06 10/19/17 20:00 Temperature 99.4 F 97.9 F Pulse Rate 96 H 64 Respiratory Rate 20 16 Blood Pressure 113/56 L 120/58 L Pulse Oximetry 96 96 95 10/19/17 23:51 10/20/17 04:00 10/20/17 08:00 Temperature 98.0 F 97.9 F 98.1 F Pulse Rate 60 64 90 Respiratory Rate 14 14 16 Blood Pressure 120/64 110/69 144/65 H Pulse Oximetry 95 96 92 L Intake & Output 10/19/17 10/20/17 10/20/17 18:59 06:59 18:59 Intake Total 100 / 100 270 / 270 Output Total 1000 / 1000 1000 / 1000 Balance -900 / -900 -730 / -730 Weight 85 kg Intake: IV 100 / 100 50 / 50 Zosyn 2.25 GM Premix 50 ML @ 100 / 100 50 / 50 100 mls/hr IV.SIG Q8H [facility] Rx#: [id number] Oral 220 / 220 Output: Hemodialysis Amount 1000 / 1000 1000 / 1000 Wound Drainage 0 / 0 0 / 0 # 1 Right Upper Anterior Chest 0 / 0 0 / 0 Right Upper Abdomen 0 / 0 Other: # Incontinent Voids 1 Date of Last Bowel Movement 10/19/17 10/19/17 Narrative: GENERAL: NAD, AAOx3 CARDIO: Regular rate and rhythm without murmurs, gallops, or rubs. RESP: Breath sounds equal bilaterally. No accessory muscle use. ABD: +Bs, mildly distended, mild tenderness right upper quadrant, no guarding. cholecystostomy tube in place with dark brown fluid in the tubing, not much in the bag EXT: No cyanosis, or edema. Results - Labs CBC & Chem 7: 10/18/17 13:55 10/19/17 06:55 - Imaging Percutaneous Cholangiogram 10/16/17 00:00 CONCLUSION: 1. Uncomplicated percutaneous cholecystostomy as above. Assessment and Plan - Assessment (1) Cholecystitis Code(s): K81.9 - Cholecystitis, unspecified Status: Acute Plan: Acute Cholecystitis General weakness - Pt is a 77 y/o male with CAD s/p [place] status post coronary stenting, ESRD on hemodialysis, history of bladder cancer who was doing rehab at [place] when he started complaining of severe abdominal pain, found to have leukocytosis, lactic acidosis and cholecystitis - Pt was transferred from [place] for acute cholecystitis - CT scan of the abdomen revealed distended gallbladder with no cholelithiasis, there is also pericholecystic stranding with no pericholecystic fluid - Pt has been seen by general surgery but is not a surgical candidate - IR placed Cholecystostomy tube on 10/16, monitor output - Pt on Zosyn, renal dosing - Pt tolerating oral intake - PT daily - DVT prophylaxis CAD, recent NSTEMI HTN - Pt presented recently with NSTEMI s/p cardiac catheterization, multivessel disease, poor candidate for CABG because of deconditioning - Pt was sent to [place] for rehab and then reevaluation. - Cont current medications, Continue Coreg, Imdur, statin, aspirin and Plavix. ESRD on HD - Nephrology following - Pt is on HD schedule - Continue Renvela. - Status post PermCath 09/28/2017 COPD - Not in exacerbation - Duo nebs as needed Anemia History of GI bleed - Pt previously underwent evaluation with colonoscopy on 09/17/2017 which showed diverticulosis with hemorrhoids, biopsy showed tubular adenoma, status post transfusion, stable hemoglobin for now. No need for Epogen Hx Bladder ca The exam, history, and the medical decision-making described in the above note were completed with the assistance of the mid-level provider. I reviewed and agree with the findings presented. I attest that I had a [id number] encounter with the patient on the same day, and personally performed and documented my assessment and findings in the medical record. (2) CAD (coronary artery disease) Code(s): I25.10 - Atherosclerotic heart disease of [place] coronary artery without angina pectoris Status: Acute (3) End stage renal disease Code(s): N18.6 - End stage renal disease Status: Chronic (4) COPD (chronic obstructive pulmonary disease) Code(s): J44.9 - Chronic obstructive pulmonary disease, unspecified Status: Chronic (2) CAD (coronary artery disease) Qualifiers: Coronary Disease-Associated Artery/Lesion type: [place] artery [place] vs. transplanted heart: [place] heart
--- NOTE | 2017-10-20 12:53 | P.PNNP ---
Subjective Interval history: No acute complaints. VSS and afebrile. Hemodialysis yesterday. <Kathi Hernández - Last Filed: 10/20/17 12:49> Physical Exam Vital signs: Vital Signs 10/19/17 16:00 10/19/17 18:06 10/19/17 20:00 Temperature 99.4 F 97.9 F Pulse Rate 96 H 64 Respiratory Rate 20 16 Blood Pressure 113/56 L 120/58 L Pulse Oximetry 96 96 95 10/19/17 23:51 10/20/17 04:00 10/20/17 08:00 Temperature 98.0 F 97.9 F 98.1 F Pulse Rate 60 64 90 Respiratory Rate 14 14 16 Blood Pressure 120/64 110/69 144/65 H Pulse Oximetry 95 96 92 L 10/20/17 10:54 Temperature Pulse Rate Respiratory Rate Blood Pressure Pulse Oximetry 96 Intake & Output 10/19/17 10/20/17 10/20/17 18:59 06:59 18:59 Intake Total 100 / 100 270 / 270 Output Total 1000 / 1000 1000 / 1000 Balance -900 / -900 -730 / -730 Weight 85 kg Intake: IV 100 / 100 50 / 50 Zosyn 2.25 GM Premix 50 ML @ 100 / 100 50 / 50 100 mls/hr IV.SIG Q8H [facility] Rx#: [id number] Oral 220 / 220 Output: Hemodialysis Amount 1000 / 1000 1000 / 1000 Wound Drainage 0 / 0 0 / 0 # 1 Right Upper Anterior Chest 0 / 0 0 / 0 Right Upper Abdomen 0 / 0 Other: # Incontinent Voids 1 Date of Last Bowel Movement 10/19/17 10/19/17 - Constitutional no acute distress - Routine HEENT Exam Head: Absent: normocephalic ENT: Present: mucous membranes moist - Routine Neck Exam Present: supple. Absent: JVD - Routine Respiratory Exam Present: decreased breath sounds. Absent: rales, rhonchi, wheezes - Routine Cardiovascular Exam Present: RRR - Routine Abdominal Exam Present: soft, normoactive bowel sounds - Routine Extremities Exam Present: vascular access - Routine Skin Exam Present: dry, warm - Routine Neurological Exam Present: alert, oriented X3 - Routine Psychiatric Exam Present: cooperative <Kathi Hernández - Last Filed: 10/20/17 12:49> Vital signs: Vital Signs 10/20/17 10:54 07/14/18 12:00 10/20/17 16:00 Temperature 98 F 97.5 F L Pulse Rate 97 H 78 Respiratory Rate 16 16 Blood Pressure 102/60 130/64 Pulse Oximetry 96 97 98 10/20/17 20:00 10/20/17 21:50 10/21/17 00:20 Temperature 98 F 97.7 F Pulse Rate 90 88 Respiratory Rate 20 19 Blood Pressure 110/69 115/66 Pulse Oximetry 97 96 96 10/21/17 04:00 10/21/17 08:00 Temperature 98 F 97.3 F L Pulse Rate 76 90 Respiratory Rate 20 18 Blood Pressure 118/62 98/55 L Pulse Oximetry 96 98 Intake & Output 10/20/17 10/21/17 10/21/17 18:59 06:59 18:59 Intake Total 500 / 500 450 / 450 550 / 550 Output Total 0 / 0 250 / 250 Balance 500 / 500 200 / 200 550 / 550 Intake: IV 100 / 100 50 / 50 Zosyn 2.25 GM Premix 50 ML @ 100 / 100 50 / 50 100 mls/hr IV.SIG Q8H [facility] Rx#: [id number] Oral 400 / 400 400 / 400 550 / 550 Output: Urine 0 / 0 Emesis 250 / 250 Wound Drainage 0 / 0 # 1 Right Upper Anterior Chest 0 / 0 Right Upper Abdomen 0 / 0 Other: # Voids 3 Date of Last Bowel Movement 10/20/17 10/20/17 # Bowel Movements 0 2 # Emes[place] 1 <Mike Ernst Q - Last Filed: 10/21/17 10:22> Assessment and Plan - Assessment (1) End stage renal disease Code(s): N18.6 - End stage renal disease Status: Chronic Plan: Hemodialysis M/W/F Permcath right IJ for HD use. Will need AVF at later date. Avoid gadolinium and IVF. Continue Renvela for hyperphosphatemia. Hemodialysis yesterday with removal of 500ml He will eventually go to [facility] for outpatient HD. Next planned hemodialysis on Sunday (2) NSTEMI (non-ST elevated myocardial infarction) Code(s): I21.4 - Non-ST elevation (NSTEMI) myocardial infarction Status: Acute Plan: s/p cath, has multivessel disease. Seen by CT surgery, CABG has been deferred due to comorbidities and poor functional status. Monitor. At risk for complications. (3) Acute cholecystitis Code(s): K81.0 - Acute cholecystitis Status: Acute Plan: s/p cholecystotomy by IR. Surgery following. No plans for surgery. Tolerating diet. On Zosyn. (4) HTN (hypertension) Code(s): I10 - Essential (primary) hypertension Status: Chronic Qualifiers: Hypertension type: essential hypertension Qualified Code(s): I10 - Essential (primary) hypertension Plan: Blood pressure is controlled. Continue current medications. - Plan When NPO, he may need D10NS. <Kathi Hernández - Last Filed: 10/20/17 12:49> - Assessment (1) End stage renal disease Code(s): N18.6 - End stage renal disease Status: Chronic (2) NSTEMI (non-ST elevated myocardial infarction) Code(s): I21.4 - Non-ST elevation (NSTEMI) myocardial infarction Status: Acute (3) Acute cholecystitis Code(s): K81.0 - Acute cholecystitis Status: Acute (4) HTN (hypertension) Code(s): I10 - Essential (primary) hypertension Status: Chronic Qualifiers: Hypertension type: essential hypertension Qualified Code(s): I10 - Essential (primary) hypertension - Attending Attestation Patient seen and examined, agree with above. HD to continue, will need AVF. <Manjit Ernst - Last Filed: 10/21/17 10:22>
[2017-10-21] MEDS: Isosorbide Mononitrate 30 MG ER 24HR Tablet (Imdur) PO SCH (06:31)
[2017-10-21] MEDS: Piperacil/Tazo 2.25 GM Premix 50 ML IV.SIG SCH ×3 (06:31→21:15)
[2017-10-21 08:22] LABS: Baso # (Auto) 0.1 th/mm3 (0.0-0.2); Baso % (Auto) 0.6 % (0.0-2.0); Eos # (Auto) 0.3 th/mm3 (0.0-0.4); Eos % (Auto) 2.7 % (0.0-4.0); Hematocrit 32.9 % (39.0-51.0); Hemoglobin 10.9 gm/dL (13.0-17.0); Lymph # (Auto) 1.2 th/mm3 (1.0-4.8); Lymph % (Auto) 11.5 % (9.0-44.0); Mean Corpuscular HGB Conc 33.1 % (32.0-36.0); Mean Corpuscular Hemoglobin 32.2 pg (27.0-34.0); Mean Corpuscular Volume 97.5 fL (80.0-100.0); Mean Platelet Volume 8.4 fL (7.0-11.0); Mono # (Auto) 0.8 th/mm3 (0.0-0.9); Mono % (Auto) 7.5 % (0.0-8.0); Neut # (Auto) 7.9 th/mm3 (1.8-7.7); Neut % (Auto) 77.7 % (16.0-70.0); Platelet Count 299 th/mm3 (150-450); Red Blood Count 3.37 mil/mm3 (4.50-5.90); White Blood Count 10.1 th/mm3 (4.0-11.0)
[2017-10-21 08:45] LABS: Alanine Aminotransferase 20 U/L (12-78); Albumin 2.8 g/dL (3.4-5.0); Anion Gap 16 meq/L (5-15); Aspartate Aminotransferase 22 U/L (15-37); Blood Urea Nitrogen 59 mg/dL (7-18); Carbon Dioxide 25.2 meq/L (21.0-32.0); Chloride 96 meq/L (98-107); Glomerular Filtration Rate 5 mL/min (>89); Glucose,Random 110 mg/dL (74-106); Sodium 137 meq/L (136-145)
[2017-10-21 08:47] LABS: Alkaline Phosphatase 66 U/L (45-117); Total Protein 7.5 g/dL (6.4-8.2)
--- NOTE | 2017-10-21 11:17 | P.PNIM ---
Subjective Interval history: pt in chair abdomen pain better family present. Physical Exam Vital signs: Vital Signs 10/20/17 12:00 10/20/17 16:00 10/20/17 20:00 Temperature 98 F 97.5 F L Pulse Rate 97 H 78 Respiratory Rate 16 16 Blood Pressure 102/60 130/64 Pulse Oximetry 97 98 97 10/20/17 21:50 10/21/17 00:20 10/21/17 04:00 Temperature 98 F 97.7 F 98 F Pulse Rate 90 88 76 Respiratory Rate 20 19 20 Blood Pressure 110/69 115/66 118/62 Pulse Oximetry 96 96 96 10/21/17 08:00 Temperature 97.3 F L Pulse Rate 90 Respiratory Rate 18 Blood Pressure 98/55 L Pulse Oximetry 98 Intake & Output 10/20/17 10/21/17 10/21/17 18:59 06:59 18:59 Intake Total 500 / 500 450 / 450 550 / 550 Output Total 0 / 0 250 / 250 Balance 500 / 500 200 / 200 550 / 550 Intake: IV 100 / 100 50 / 50 Zosyn 2.25 GM Premix 50 ML @ 100 / 100 50 / 50 100 mls/hr IV.SIG Q8H [facility] Rx#: [id number] Oral 400 / 400 400 / 400 550 / 550 Output: Urine 0 / 0 Emesis 250 / 250 Wound Drainage 0 / 0 # 1 Right Upper Anterior Chest 0 / 0 Right Upper Abdomen 0 / 0 Other: # Voids 3 Date of Last Bowel Movement 10/20/17 10/20/17 # Bowel Movements 0 2 # Emeses 1 heent neg heart reg lung cta abd yola tube. bs ext no edema Results - Labs CBC & Chem 7: 10/21/17 06:50 10/21/17 06:50 Laboratory Results - last 24 hr 10/21/17 10/21/17 06:50 06:50 WBC 10.1 RBC 3.37 L Hgb 10.9 L Hct 32.9 L MCV 97.5 MCH 32.2 MCHC 33.1 RDW 17.0 Plt Count 299 MPV 8.4 Neut % (Auto) 77.7 H Lymph % (Auto) 11.5 [place] % (Auto) 7.5 Eos % (Auto) 2.7 Baso % (Auto) 0.6 Neut # (Auto) 7.9 H Lymph # (Auto) 1.2 [place] # (Auto) 0.8 Eos # (Auto) 0.3 Baso # (Auto) 0.1 WBC Differential . Differential Comment Auto diff final Sodium 137 Potassium 4.0 Chloride 96 L Carbon Dioxide 25.2 Anion Gap 16 H BUN 59 H Creatinine 10.42 H* Estimated GFR 5 L Random Glucose 110 H Calcium 8.0 L Total Bilirubin 0.4 AST 22 ALT 20 Alkaline Phosphatase 66 Total Protein 7.5 Albumin 2.8 L Assessment and Plan - Assessment (1) Cholecystitis Code(s): K81.9 - Cholecystitis, unspecified Status: Acute Plan: Acute Cholecystitis General weakness - Pt is a 77 y/o male with CAD s/p [place] status post coronary stenting, ESRD on hemodialysis, history of bladder cancer who was doing rehab at [place] when he started complaining of severe abdominal pain, found to have leukocytosis, lactic acidosis and cholecystitis - Pt was transferred from [place] for acute cholecystitis - CT scan of the abdomen revealed distended gallbladder with no cholelithiasis, there is also pericholecystic stranding with no pericholecystic fluid - Pt has been seen by general surgery but is not a surgical candidate - IR placed Cholecystostomy tube on 10/16, monitor output - Pt on Zosyn, renal dosing - Pt tolerating oral intake - PT daily - DVT prophylaxis will ask general surgery if ok to send pt back to [place] with yola tube and discuss timing for removal of yola tube and f/u CAD, recent NSTEMI HTN - Pt presented recently with NSTEMI s/p cardiac catheterization, multivessel disease, poor candidate for CABG because of deconditioning - Pt was sent to [place] for rehab and then reevaluation. - Cont current medications, Continue Coreg, Imdur, statin, aspirin and Plavix. ESRD on HD - Nephrology following - Pt is on M-W- HD schedule - Continue Renvela. - Status post PermCath 09/28/2017 COPD - Not in exacerbation - Duo nebs as needed Anemia History of GI bleed - Pt previously underwent evaluation with colonoscopy on 09/17/2017 which showed diverticulosis with hemorrhoids, biopsy showed tubular adenoma, status post transfusion, stable hemoglobin for now. No need for Epogen Hx Bladder ca (2) CAD (coronary artery disease) Code(s): I25.10 - Atherosclerotic heart disease of [place] coronary artery without angina pectoris Status: Acute (3) End stage renal disease Code(s): N18.6 - End stage renal disease Status: Chronic (4) COPD (chronic obstructive pulmonary disease) Code(s): J44.9 - Chronic obstructive pulmonary disease, unspecified Status: Chronic (2) CAD (coronary artery disease) Qualifiers: Coronary Disease-Associated Artery/Lesion type: [place] artery [place] vs. transplanted heart: [place] heart
--- NOTE | 2017-10-21 12:42 | P.PNNP ---
Subjective Interval history: Sitting up in chair, with family at bedside. No shortness of breath. Some pruritus and back pain reported. <Kathi Hernández - Last Filed: 10/21/17 12:38> Physical Exam Vital signs: Vital Signs 10/20/17 16:00 10/20/17 20:00 10/20/17 21:50 Temperature 97.5 F L 98 F Pulse Rate 78 90 Respiratory Rate 16 20 Blood Pressure 130/64 110/69 Pulse Oximetry 98 97 96 10/21/17 00:20 10/21/17 04:00 10/21/17 08:00 Temperature 97.7 F 98 F 97.3 F L Pulse Rate 88 76 90 Respiratory Rate 19 20 18 Blood Pressure 115/66 118/62 98/55 L Pulse Oximetry 96 96 98 10/21/17 12:34 Temperature Pulse Rate Respiratory Rate Blood Pressure Pulse Oximetry 97 Intake & Output 10/20/17 10/21/17 10/21/17 18:59 06:59 18:59 Intake Total 500 / 500 450 / 450 550 / 550 Output Total 0 / 0 250 / 250 Balance 500 / 500 200 / 200 550 / 550 Intake: IV 100 / 100 50 / 50 Zosyn 2.25 GM Premix 50 ML @ 100 / 100 50 / 50 100 mls/hr IV.SIG Q8H LEO Rx#: [id number] Oral 400 / 400 400 / 400 550 / 550 Output: Urine 0 / 0 Emesis 250 / 250 Wound Drainage 0 / 0 # 1 Right Upper Anterior Chest 0 / 0 Right Upper Abdomen 0 / 0 Other: # Voids 3 Date of Last Bowel Movement 10/20/17 10/20/17 10/20/17 # Bowel Movements 0 2 # Emeses 1 - Constitutional no acute distress - Routine HEENT Exam Head: Present: normocephalic ENT: Present: mucous membranes moist - Routine Neck Exam Present: supple. Absent: JVD - Routine Respiratory Exam Present: decreased breath sounds. Absent: rales, rhonchi, wheezes - Routine Cardiovascular Exam Present: RRR - Routine Abdominal Exam Present: soft, normoactive bowel sounds - Routine Extremities Exam Present: vascular access. Absent: edema - Routine Neurological Exam Present: alert, oriented X3 <Kathi Hernández - Last Filed: 10/21/17 12:38> Assessment and Plan - Assessment (1) End stage renal disease Code(s): N18.6 - End stage renal disease Status: Chronic Plan: Hemodialysis M/W/F Permcath right IJ for HD use. Will need AVF at later date. Avoid gadolinium and IVF. Continue Renvela for hyperphosphatemia. He will eventually go to [facility] for outpatient HD. Next planned hemodialysis on Sunday (2) NSTEMI (non-ST elevated myocardial infarction) Code(s): I21.4 - Non-ST elevation (NSTEMI) myocardial infarction Status: Acute Plan: s/p cath, has multivessel disease. Seen by CT surgery, CABG has been deferred due to comorbidities and poor functional status. Monitor. At risk for complications. (3) Acute cholecystitis Code(s): K81.0 - Acute cholecystitis Status: Acute Plan: s/p cholecystotomy by IR. Surgery following. No plans for surgery. Tolerating diet. On Zosyn. (4) HTN (hypertension) Code(s): I10 - Essential (primary) hypertension Status: Chronic Qualifiers: Hypertension type: essential hypertension Qualified Code(s): I10 - Essential (primary) hypertension Plan: Blood pressure is controlled. Continue current medications. <Kathi Hernández - Last Filed: 10/21/17 12:38> - Assessment (1) End stage renal disease Code(s): N18.6 - End stage renal disease Status: Acute (2) NSTEMI (non-ST elevated myocardial infarction) Code(s): I21.4 - Non-ST elevation (NSTEMI) myocardial infarction Status: Acute (3) Acute cholecystitis Code(s): K81.0 - Acute cholecystitis Status: Acute (4) HTN (hypertension) Code(s): I10 - Essential (primary) hypertension Status: Chronic Qualifiers: Hypertension type: essential hypertension Qualified Code(s): I10 - Essential (primary) hypertension - Attending Attestation Patient seen and examined, agree with above. Continue HD, out patient HD arrangement. <Manjit Ernst - Last Filed: 10/25/17 11:18>
[2017-10-22] MEDS: Piperacil/Tazo 2.25 GM Premix 50 ML IV.SIG SCH ×2 (06:21→13:49)
[2017-10-22] MEDS: Isosorbide Mononitrate 30 MG ER 24HR Tablet (Imdur) PO SCH (06:21)
--- NOTE | 2017-10-22 10:12 | P.PNNP ---
Subjective Interval history: Patient was seen during dialysis. On 3K, BFR is 350 ml/min. UF goal is 2 liters. He is tolerating it well. Afebrile. Physical Exam Vital signs: Vital Signs 10/21/17 12:00 10/21/17 12:34 10/21/17 16:00 Temperature 97.9 F 98 F Pulse Rate 88 80 Respiratory Rate 18 18 Blood Pressure 106/59 L 135/63 Pulse Oximetry 98 97 94 L 10/21/17 20:00 10/21/17 22:00 10/22/17 00:00 Temperature 98.8 F 97.9 F Pulse Rate 64 69 Respiratory Rate 19 19 Blood Pressure 115/64 118/68 Pulse Oximetry 95 94 L 94 L 10/22/17 06:15 10/22/17 08:00 Temperature 97.6 F 98.6 F Pulse Rate 64 83 Respiratory Rate 18 18 Blood Pressure 115/60 128/62 Pulse Oximetry 96 91 L Intake & Output 10/21/17 10/22/17 10/22/17 18:59 06:59 18:59 Intake Total 1420 / 1420 1745 / 1745 50 / 50 Output Total 0 / 0 0 / 0 Balance 1420 / 1420 1745 / 1745 50 / 50 Weight 86 kg Intake: IV 100 / 100 50 / 50 50 / 50 Zosyn 2.25 GM Premix 50 ML @ 100 / 100 50 / 50 50 / 50 100 mls/hr IV.SIG Q8H LEO Rx#: [id number] Oral 1270 / 1270 1695 / 1695 Other 50 / 50 Output: Urine 0 / 0 0 / 0 Wound Drainage 0 / 0 0 / 0 Right Upper Abdomen 0 / 0 0 / 0 Other: Other Intake Source Saline Solution Saline Solution # Voids 4 3 # Incontinent Voids 1 Date of Last Bowel Movement 10/21/17 10/22/16 # Bowel Movements 1 3 # Incontinent Bowel Movements 1 - Constitutional no acute distress - Routine HEENT Exam Head: Present: normocephalic Eye: Present: EOMI, PERRL ENT: Present: mucous membranes moist - Routine Neck Exam Present: supple, full ROM - Routine Respiratory Exam Present: CTA bilaterally - Routine Cardiovascular Exam Present: RRR, S1, S2 - Routine Abdominal Exam Present: soft - Routine Skin Exam Present: intact - Routine Neurological Exam Present: alert, oriented X3 - Routine Psychiatric Exam Present: normal affect Assessment and Plan - Assessment (1) End stage renal disease Code(s): N18.6 - End stage renal disease Status: Chronic Plan: Hemodialysis M/W/F Permcath right IJ for HD use. Will need AVF at later date. Avoid gadolinium and IVF. Continue Renvela for hyperphosphatemia. He will eventually go to [facility] for outpatient HD. Next planned hemodialysis on Sunday (2) NSTEMI (non-ST elevated myocardial infarction) Code(s): I21.4 - Non-ST elevation (NSTEMI) myocardial infarction Status: Acute Plan: s/p cath, has multivessel disease. Seen by CT surgery, CABG has been deferred due to comorbidities and poor functional status. Monitor. At risk for complications. (3) Acute cholecystitis Code(s): K81.0 - Acute cholecystitis Status: Acute Plan: s/p cholecystotomy by IR. Surgery following. No plans for surgery. Tolerating diet. On Zosyn. (4) HTN (hypertension) Code(s): I10 - Essential (primary) hypertension Status: Chronic Qualifiers: Hypertension type: essential hypertension Qualified Code(s): I10 - Essential (primary) hypertension Plan: Blood pressure is controlled. Continue current medications.
[2017-10-22] MEDS: Heparin 10,000 UNITS/10 ML Vial (for IV use) IV.FLUSH PRN (11:41)
--- NOTE | 2017-10-22 14:20 | P.DS ---
Date of admission: 10/16/17 12:25 Primary care physician: UNKNOWN Attending physician on discharge: Nura Benedict Anticipated date of discharge: 10/22/17 Brief History from admission: This is a 77-year-old male with multiple comorbidities who originally presented with chest pain and was ruled in for NSTEMI appropriate for CABG. He was ruled out as a surgical candidate and subsequently developed pneumonia and started hemodialysis. He was eventually discharged to [facility]. Patient started complaining of nausea and abdominal pain . This morning, he was mildly lethargic complaining of right upper quadrant abdominal pain. Workup was done which revealed severe leukocytosis with lactic acidosis of 3.5. CT scan of the abdomen was done which showed a distended gallbladder with no cholelithiasis. Presently the patient is still lethargic with pain to epigastric and left upper quadrant DS: Diagnosis - Discharge Diagnosis (1) CAD (coronary artery disease) Status: Acute (2) End stage renal disease Status: Chronic (3) COPD (chronic obstructive pulmonary disease) Status: Chronic (4) Cholecystitis Status: Acute DS: Summary Hospital Course: (1) Cholecystitis Code(s): K81.9 - Cholecystitis, unspecified Status: Acute Plan: Acute Cholecystitis General weakness - Pt is a 77 y/o male with CAD s/p UT status post coronary stenting, ESRD on hemodialysis, history of bladder cancer who was doing rehab at [facility] when he started complaining of severe abdominal pain, found to have leukocytosis, lactic acidosis and cholecystitis - Pt was transferred from [facility] for acute cholecystitis - CT scan of the abdomen revealed distended gallbladder with no cholelithiasis, there is also pericholecystic stranding with no pericholecystic fluid - Pt has been seen by general surgery but is not a surgical candidate - IR placed Cholecystostomy tube on 10/16, monitor output - stop zosyn - Case d/w General Surgery, Dr. Loaiza, 10/22/17. - Case d/w Interventional Radiology (10/22/17). - Pt okay for discharge back to [facility]. - Pt will need cholecystostomy tube remove 11/07/17. - Pt, , and daughter were updated at the bedside (10/22/17). All questions were answered to the best of my ability. CAD, recent NSTEMI HTN - Pt presented recently with NSTEMI s/p cardiac catheterization, multivessel disease, poor candidate for CABG because of deconditioning - Pt was sent to [facility] for rehab and then reevaluation. - Cont current medications, Continue Coreg, Imdur, statin, aspirin and Plavix. ESRD on HD - Nephrology following - Pt is on -W- HD schedule - Continue Renvela. - Status post PermCath 09/28/2017 COPD - Not in exacerbation - Duo nebs as needed Anemia History of GI bleed - Pt previously underwent evaluation with colonoscopy on 09/17/2017 which showed diverticulosis with hemorrhoids, biopsy showed tubular adenoma, status post transfusion, stable hemoglobin for now. No need for Epogen Hx Bladder ca (2) CAD (coronary artery disease) Code(s): I25.10 - Atherosclerotic heart disease of hopi coronary artery without angina pectoris Status: Acute (3) End stage renal disease Code(s): N18.6 - End stage renal disease Status: Chronic (4) COPD (chronic obstructive pulmonary disease) Code(s): J44.9 - Chronic obstructive pulmonary disease, unspecified Status: Chronic - Time Spent with Patient Total time spent providing and/or coordinating discharge services: Greater than 30 minutes Exam Vital signs: Vital Signs 10/21/17 16:00 10/21/17 20:00 10/21/17 22:00 Temperature 98 F 98.8 F Pulse Rate 80 64 Respiratory Rate 18 19 Blood Pressure 135/63 115/64 Pulse Oximetry 94 L 95 94 L 10/22/17 00:00 10/22/17 06:15 10/22/17 08:00 Temperature 97.9 F 97.6 F 98.6 F Pulse Rate 69 64 83 Respiratory Rate 19 18 18 Blood Pressure 118/68 115/60 128/62 Pulse Oximetry 94 L 96 91 L Narrative: GENERAL: This is a well-nourished, well-developed patient, in no apparent distress. CARDIOVASCULAR: Regular rate and rhythm without murmurs, gallops, or rubs. RESPIRATORY: Clear to auscultation. Breath sounds equal bilaterally. No wheezes , rales, or rhonchi. GASTROINTESTINAL: Abdomen soft, non-tender, nondistended. Normal active bowel sounds cholecystostomy tube in place. MUSCULOSKELETAL: Extremities without clubbing, cyanosis, or edema. NEURO: Alert & Oriented x4 to person, place, time, situation. Moves all ext x4 Results Procedures completed during hospitalization: placement of cholecystostomy tube by IR - Impressions ITS Impressions Percutaneous Cholangiogram 10/16/17 00:00 CONCLUSION: 1. Uncomplicated percutaneous cholecystostomy as above. Discharge Plan - Discharge Disposition Patient Disposition: [facility] Inpatient - Discharge Condition Condition: Stable - Discharge Order Discharge Orders: Discharge Order (Routine); Ordered 10/22/17 Ordered By: Nura Benedict - Discharge Details Anticipated Discharge Date: 10/22/17 - Physicians Team Primary Care Provider: UNKNOWN, Attending Provider: Trent Estrada Other Providers: Eliot Moser MD ; Oli Hannah MD - Rxs /Orders / Referrals /Forms Prescriptions: New acetaminophen 325 mg Tablet 650 mg PO Q6HR PRN (Reason: Pain Scale 1 To 2) RF: 0 aspirin 81 mg Tablet,Delayed Release (Dr/Ec) 81 mg PO DAILY RF: 0 bisacodyl [Bisac-Evac] 10 mg Suppository 10 mg NV DAILY PRN (Reason: Severe Consitipation) RF: 0 carvedilol [Coreg] 3.125 mg Tablet 3.125 mg PO BID RF: 0 clopidogrel [Plavix] 75 mg Tablet 75 mg PO DAILY RF: 0 ipratropium-albuterol 0.5 mg-3 mg(2.5 mg base)/3 mL Solution For Nebulization 1 amp NEB Q4HR NEB PRN (Reason: Shortness Of Breath) RF: 0 isosorbide mononitrate 30 mg Tablet Extended Release 24 Hr 30 mg PO DAILY@0700 RF: 0 lactulose 20 gram/30 mL Solution 30 ml PO DAILY PRN (Reason: Severe Consitipation) RF: 0 magnesium hydroxide [Milk of Magnesia] 400 mg/5 mL Suspension 30 ml PO Q12H PRN (Reason: Mild Constipation) RF: 0 nitroglycerin [Nitrostat] 0.4 mg Tablet, Sublingual 0.4 mg Sublingual Q5M PRN (Reason: Chest Pain) RF: 0 nystatin 100,000 unit/gram Cream 1 applicatio Topical BID RF: 0 ondansetron 4 mg Tablet,Disintegrating 4 mg PO Q4H PRN (Reason: Nausea Or Vomiting) RF: 0 oxycodone-acetaminophen 5-325 mg Tablet 1 tab PO Q6H PRN (Reason: Pain Scale 3 To 5) RF: 0 pantoprazole 40 mg Tablet,Delayed Release (Dr/Ec) 40 mg PO BID RF: 0 pravastatin 40 mg Tablet 40 mg PO HS RF: 0 prochlorperazine 25 mg Suppository 25 mg NV Q12HR PRN (Reason: Nausea Or Vomiting) RF: 0 sennosides [Senna Lax] 8.6 mg Tablet 17.2 mg PO Q12H PRN (Reason: Moderate Constipation) RF: 0 sevelamer carbonate [Renvela] 800 mg Tablet 2,400 mg PO TIDAC RF: 0 temazepam 15 mg Capsule 15 mg PO HS PRN (Reason: Insomnia) RF: 0 white petrolatum-mineral oil [Eucerin] Cream 1 applicatio Topical QID RF: 0 Continue (DME) walker [Ultra-Light Rollator] [facility] [place] [facility] Referrals: Joon Vasquez MD [Physician] - See Instructions (f/u with Dr. Vasquez (or other Radiologist) in 11/07/17 for removal of cholecystostomy tube. ) Eliot Moser MD [Physician] - See Instructions (f/u with Dr. Loaiza in 3 week RE: cholecystitis) UNKNOWN, [Primary Care Provider] - See Instructions
[2017-10-23] MEDS: Piperacil/Tazo 2.25 GM Premix 50 ML IV.SIG SCH ×2 (00:06→05:31)
[2017-10-23] MEDS: Isosorbide Mononitrate 30 MG ER 24HR Tablet (Imdur) PO SCH (06:12)
--- NOTE | 2017-10-23 11:22 | P.PNNP ---
Subjective Interval history: Had dialysis yesterday. His cholecystostomy tube is not draining. NPO to go to IR for evaluation and may need manipulation. Family at bedside. Plan is to go to [facility] inpatient [facility]. <Vero Oliver - Last Filed: 10/23/17 11:18> Physical Exam Vital signs: Vital Signs 10/22/17 16:00 10/22/17 20:00 10/23/17 00:00 Temperature 98.0 F 97.9 F 97.9 F Pulse Rate 70 95 H 83 Respiratory Rate 18 18 18 Blood Pressure 122/76 119/58 L 149/70 H Pulse Oximetry 100 96 95 10/23/17 04:00 10/23/17 08:00 Temperature 97.8 F 98.8 F Pulse Rate 80 85 Respiratory Rate 18 20 Blood Pressure 147/66 H 133/67 Pulse Oximetry 94 L 95 Intake & Output 10/22/17 10/23/17 10/23/17 18:59 06:59 18:59 Intake Total 50 / 50 470 / 470 Output Total 1999 0 / 0 Balance -1950 / -1950 470 / 470 Weight 83.8 kg Intake: IV 50 / 50 150 / 150 Zosyn 2.25 GM Premix 50 ML @ 50 / 50 150 / 150 100 mls/hr IV.SIG Q8H [facility] Rx#: [id number] Oral 220 / 220 Other 100 / 100 Output: Urine 0 / 0 Hemodialysis Amount 1999 Wound Drainage 0 / 0 Right Upper Abdomen 0 / 0 Other: Other Intake Source Saline Solution Date of Last Bowel Movement 10/22/17 10/22/17 # Bowel Movements 1 1 # Incontinent Bowel Movements 1 - Constitutional no acute distress - Routine HEENT Exam Head: Present: normocephalic Eye: Present: EOMI ENT: Present: mucous membranes moist - Routine Neck Exam Present: supple, full ROM - Routine Respiratory Exam Present: CTA bilaterally. Absent: accessory muscle use - Routine Cardiovascular Exam Present: RRR, S1, S2 - Routine Abdominal Exam Present: soft, normoactive bowel sounds - Routine Extremities Exam Present: pulses intact, normal capillary refill. Absent: edema - Routine Skin Exam Present: intact, warm - Routine Neurological Exam Present: alert, oriented X3, CN II-XII intact - Detailed Neurological Exam: Coma Scale Eye Opening: Spontaneous Verbal Response: Oriented Motor Response: Obey commands Brady Coma Scale Total: 15 - Routine Psychiatric Exam Present: normal affect, normal thought process <Vero Oliver - Last Filed: 10/23/17 11:18> Vital signs: Vital Signs 10/22/17 20:00 10/23/17 00:00 10/23/17 04:00 Temperature 97.9 F 97.9 F 97.8 F Pulse Rate 95 H 83 80 Respiratory Rate 18 18 18 Blood Pressure 119/58 L 149/70 H 147/66 H Pulse Oximetry 96 95 94 L 10/23/17 08:00 10/23/17 12:00 Temperature 98.8 F 97.7 F Pulse Rate 85 99 H Respiratory Rate 20 20 Blood Pressure 133/67 101/55 L Pulse Oximetry 95 95 Intake & Output 10/23/17 10/23/17 10/24/17 06:59 18:59 06:59 Intake Total 470 / 470 Output Total 0 / 0 Balance 470 / 470 Weight 83.8 kg Intake: IV 150 / 150 Zosyn 2.25 GM Premix 50 ML @ 150 / 150 100 mls/hr IV.SIG Q8H [facility] Rx#: [id number] Oral 220 / 220 Other 100 / 100 Output: Urine 0 / 0 Wound Drainage 0 / 0 Right Upper Abdomen 0 / 0 Other: Other Intake Source Saline Solution Date of Last Bowel Movement 10/22/17 # Bowel Movements 1 # Incontinent Bowel Movements 1 <Oli Hannah - Last Filed: 10/23/17 19:27> Assessment and Plan - Assessment (1) End stage renal disease Code(s): N18.6 - End stage renal disease Status: Chronic Plan: Hemodialysis M/W/F continues. 2L UF yesterday. Permcath in right IJ for HD use. Will need AVF at later date. Avoid gadolinium and IVF. Continue Renvela for hyperphosphatemia. He will eventually go to [facility] for outpatient HD. High protein diet encouraged. Epogen not required. (2) NSTEMI (non-ST elevated myocardial infarction) Code(s): I21.4 - Non-ST elevation (NSTEMI) myocardial infarction Status: Acute Plan: s/p cath, has multivessel disease. Seen by CT surgery, CABG has been deferred due to comorbidities and poor functional status. Monitor. At risk for complications. (3) Acute cholecystitis Code(s): K81.0 - Acute cholecystitis Status: Acute Plan: s/p cholecystotomy by IR. To go back for manipulation as it is not draining. Surgery following. No N/V or further pain. On Zosyn. (4) HTN (hypertension) Code(s): I10 - Essential (primary) hypertension Status: Chronic Qualifiers: Hypertension type: essential hypertension Qualified Code(s): I10 - Essential (primary) hypertension Plan: Blood pressure is controlled. Continue current medications. <Vero Oliver - Last Filed: 10/23/17 11:18> - Assessment (1) End stage renal disease Code(s): N18.6 - End stage renal disease Status: Acute (2) NSTEMI (non-ST elevated myocardial infarction) Code(s): I21.4 - Non-ST elevation (NSTEMI) myocardial infarction Status: Acute (3) Acute cholecystitis Code(s): K81.0 - Acute cholecystitis Status: Acute (4) HTN (hypertension) Code(s): I10 - Essential (primary) hypertension Status: Chronic Qualifiers: Hypertension type: essential hypertension Qualified Code(s): I10 - Essential (primary) hypertension - Attending Attestation patient was seen and examined. Agree with above assessment and plan. <Oli Hannah - Last Filed: 10/23/17 19:27>
--- NOTE | 2017-10-23 14:30 | P.RAD ---
Post Procedure Progress Note - Pre Procedure Diagnosis (1) Acute cholecystitis - Post Procedure Diagnosis (1) Acute cholecystitis - Procedure Information Procedure Date: 10/23/17 Supervising Radiologist: Rusty Miller MD Estimated blood loss (mL): 0 - Plan of Activity Patient to Unit: Nursing Unit Patient Condition: Fair Additional Comments: Choli tube in excellent position sludge and stones filling the gallbladder. CBD is patent See PACS Report for procedural detail/treatment.
[2017-10-23] MEDS ORDERED: Iohexol 350 MG/ML 50 ML Vial (for Rad Diag) IVCONTRAST ONE (15:41)
--- NOTE | 2017-10-31 19:44 | IR ---
EXAM DATE: 10/23/2017 5:53 PM EDT AGE/SEX: 77 years / Male INDICATIONS: Patient with history of cholecystitis in need of biliary drain evaluation. CLINICAL DATA: This is the patient's subsequent encounter. Patient reports that signs and symptoms h ave been present for 1 month and indicates a pain score of 0/10. MEDICAL/SURGICAL HISTORY: Anemia. Cholecystitis. Bladder cancer.cad.dvt.diverti cul disease. GI bleed. Hyperlipidemia. HTN. Myocardial infarct, old. Cystoscopy. Heart stent. Tonsillectomy. COMPARISON: . FLUORO TIME (min): 1.9 IMAGE SERIES: 3 CONTRAST (cc): 14 Omnipaque (iohexol) 350 DEVICE(S): . . PROCEDURE: 1. Percutaneous cholangiogram. 2. Conscious sedation with continuous EKG and oximetry monitoring. The risks, benefits and alternatives to the procedure were explained and verbal and written consent w as obtained. The site was prepped in sterile fashion. Full sterile technique was used, including ca p, mask, sterile gloves and gown and a large sterile sheet. Hand hygiene and 2% chlorhexidine and/or betadine/alcohol prep was utilized per protocol for cutaneous antisepsis. The skin and subcutaneous tissues were infiltrated with local anesthetic solution. The existing tube was accessed using sterile technique. An injection of contrast filled the gallbladd er. There were numerous stones and sludge filling the gallbladder. The common bile duct was widely pa tent. 1. The cholecystostomy tube is in good position. 2. There are numerous stones and sludge filling the gallbladder. The common bile duct is patent. Electronically signed by: Rusty Miller MD 10/31/2017 4:51 PM EDT
== END 2017-10-23 15:42 ==
LOC: N05 12:25
PROVIDERS: ADMIT Hospitalist; ATTEND Hospitalist
DX: Z99.2 Dependence on renal dialysis; D63.1 Anemia in chronic kidney disease; E83.39 Other disorders of phosphorus metabolism; I25.10 Atherosclerotic heart disease of native coronary artery without angina pectoris; E87.1 Hypo-osmolality and hyponatremia; F43.23 Adjustment disorder with mixed anxiety and depressed mood; Z85.51 Personal history of malignant neoplasm of bladder; E87.2 Acidosis; F17.290 Nicotine dependence, other tobacco product, uncomplicated; Z95.5 Presence of coronary angioplasty implant and graft; I12.0 Hypertensive chronic kidney disease with stage 5 chronic kidney disease or end stage renal disease; I21.4 Non-ST elevation (NSTEMI) myocardial infarction; J44.0 Chronic obstructive pulmonary disease with (acute) lower respiratory infection; E86.0 Dehydration; N18.6 End stage renal disease; K81.0 Acute cholecystitis; Z86.718 Personal history of other venous thrombosis and embolism; E78.5 Hyperlipidemia, unspecified; A41.9 Sepsis, unspecified organism; J18.9 Pneumonia, unspecified organism

== ENCOUNTER 2017-11-07 18:15 | Inpatient (IN) ==
[2017-11-07 19:52] LABS: Baso % (Auto) 0.4 % (0.0-2.0); Eos # (Auto) 0.1 th/mm3 (0.0-0.4); Eos % (Auto) 1.2 % (0.0-4.0); Hematocrit 31.9 % (39.0-51.0); Hemoglobin 10.8 gm/dL (13.0-17.0); Lymph # (Auto) 0.9 th/mm3 (1.0-4.8); Lymph % (Auto) 8.4 % (9.0-44.0); Mean Corpuscular HGB Conc 33.9 % (32.0-36.0); Mean Corpuscular Hemoglobin 32.5 pg (27.0-34.0); Mean Corpuscular Volume 95.8 fL (80.0-100.0); Mean Platelet Volume 8.4 fL (7.0-11.0); Mono # (Auto) 0.9 th/mm3 (0.0-0.9); Neut # (Auto) 8.3 th/mm3 (1.8-7.7); Platelet Count 208 th/mm3 (150-450); Red Blood Count 3.33 mil/mm3 (4.50-5.90); Red Cell Distribution Width 16.9 % (11.6-17.2); White Blood Count 10.2 th/mm3 (4.0-11.0)
[2017-11-07 19:58] LABS: Albumin 3.3 g/dL (3.4-5.0); Anion Gap 6 meq/L (5-15); Aspartate Aminotransferase 19 U/L (15-37); Blood Urea Nitrogen 14 mg/dL (7-18); Calcium 8.3 mg/dL (8.5-10.1); Carbon Dioxide 31.9 meq/L (21.0-32.0); Chloride 100 meq/L (98-107); Glomerular Filtration Rate 12 mL/min (>89); Glucose,Random 98 mg/dL (74-106); Potassium 4.6 meq/L (3.5-5.1); Sodium 138 meq/L (136-145)
[2017-11-07 19:59] LABS: Alanine Aminotransferase 26 U/L (12-78)
[2017-11-07 20:01] LABS: Alkaline Phosphatase 85 U/L (45-117); Total Protein 7.3 g/dL (6.4-8.2)
[2017-11-07] MEDS ORDERED: Acetaminophen 325 MG Tablet PO PRN (20:27)
[2017-11-07] MEDS ORDERED: Nitroglycerin SL (Override) 0.4 MG Tab SL PRN (20:27)
[2017-11-07] MEDS ORDERED: [UNRECOGNIZED DRUG - REMARK] IV.PUSH SCH (20:30)
[2017-11-07] MEDS ORDERED: Bisacodyl 10 MG Supp RECTAL PRN (20:48)
[2017-11-07] MEDS ORDERED: Temazepam 15 MG Capsule PO PRN (20:48)
--- NOTE | 2017-11-07 20:57 | P.HPCC ---
History of Present Illness Primary Care Physician: UNKNOWN History of Present Illness: 77 year old male with medical history of hyperlipidemia, hypertension, CAD with [place] and cardiac stent in 2001, stent to LAD in 2006, chronic kidney disease now on hemodialysis, morbid obesity, DVT 2015, recent GI bleed, bladder cancer s/p Bacillus Calmette-Bambi immunotherapy and TURP, who was admitted to [facility] on 09/26/17 with severe chest pain. At that time he was diagnosed with NSTEMI - Dr. Mcdonald was following. Troponin on admit 1.16. Cardiac cath revealed proximal LAD 90% stenosis, left circumflex 90%, first OM 80%, RCA 100% occluded. The 2D echo at that time showed ejection fraction of 60 -65% and CV surgery was consulted. At that time the patient was felt not a good candidate for surgical intervention. The patient's renal function worsened post cardiac catheterization and nephrology was consulted -Dr. Hannah. Patient was started on HD MWF. He was admitted to [place] [facility] October where he developed sepsis and leukocytosis with white count 32. He was found on CT scan of abdomen pelvis to have acute cholecystitis. He was transferred back to the [facility] on October 16 and the cholecystectomy tube was placed in interventional radiology. He was treated with Zosyn for sepsis. Dr. Mendoza was a general surgeon consulted. Patient felt not to be a surgical candidate at this time due to his deconditioning. He has being readmitted to [facility] for inpatient rehab on October 23, 2017. He underwent hemodialysis today 11/07 where he was found to be extremely lethargic, obtunded and febrile with a temperature 103.2. He was immediately admitted to ICU inpatient for suspected sepsis. The patient offers no specific complaints at this time and is quite lethargic to answer any questions. Inpatient Certification: I certify that the inpatient services were ordered in accordance with Medicare regulations governing the order. This includes certification that hospital inpatient services are reasonable and necessary and in the case of services not specified as inpatient-only under 42 CFR 419.22(n), that they are appropriately provided as inpatient services in accordance to with the 2-midnight benchmark under 43 CFR 412.3(e) Estimated Total Length of Stay (Days): 5 Plans for Post Hospital Care: Not yet determined Review of Systems unobtainable due to mental condition [facility] - History History Provided By: Patient, Medical Record - Medical History Medical History: Medical History (Last Updated 11/06/17 @ 13:23 by Claudine Nails) Myocardial infarct, old (Acute) CAD (coronary artery disease) (Acute) Hyperlipidemia (Acute) Hypertension (Acute) DVT (deep venous thrombosis) (Acute) Bladder cancer (Acute) Anemia Colonoscopy planned Diverticul disease small and large intestine, no perforati or abscess GI bleed - Surgical History Surgical History: Surgical History (Last Updated 11/06/17 @ 13:23 by Claudine Nails) History of heart artery stent (Acute) History of cystoscopy History of tonsillectomy - Family History Family History: Family History (Last Reviewed 11/06/17 @ 13:20 by Claudine Nails) Other Patient denies medical problems - Tobacco History Second Hand Smoke Exposure: Yes Tobacco Use In Past 30 Days: Yes Smoking Status: Current every day smoker Tobacco Type: Cigarettes - Alcohol History How Often Do You Have a Drink Containing Alcohol: 4 or more times a week - Substance Use History Substance History: No History of Abuse - Travel History History of Recent Travel: No Medications and Allergies Active Medications: Active Medications Acetaminophen (Tylenol) 650 mg PO UNSCH PRN PRN Reason: See Label Comments Al Hydroxide/Mg Hydroxide (Milk Of Josie Arias) 30 ml PO Q12H PRN PRN Reason: Mild Constipation Albuterol (Duoneb Neb (Prn)) 1 ampul NEB Q2HR NEB PRN PRN Reason: WHEEZING Aspirin (Ecotrin) 81 mg PO DAILY [facility] Bisacodyl (Dulcolax Supp) 10 mg RECTAL DAILY PRN PRN Reason: SEVERE CONSITIPATION Carvedilol (Coreg) 6.25 mg PO BID [facility] Chlorhexidine Gluconate (Chlorhexidine 2% Cloth) 3 pack TOPICAL DAILY@0400 [facility] Stop: 11/13/17 03:59 Chlorhexidine Gluconate (Chlorhexidine 2% Cloth) 3 pack TOPICAL DAILY@0400 PRN PRN Reason: Extra cloth needed Stop: 11/13/17 03:59 Clonidine HCl (Catapres) 0.1 mg PO DAILY PRN PRN Reason: See Label Comments Clopidogrel Bisulfate (Plavix) 75 mg PO DAILY [facility] Diphenhydramine HCl (Benadryl) 25 mg PO UNSCH PRN PRN Reason: See Label Comments Epoetin Rasheed (Epogen (Non-Esrd) Inj) 10,000 unit IV.PUSH WITH DIALYSIS [facility] Heparin Sodium (Porcine) (Heparin Inj) 5,000 units SQ Q8H [facility] Sodium Chloride (Ns Inj) 1,000 mls @ 84 mls/hr IV.CONT .[id number] [facility] Piperacillin/Tazobactam/Dextrose (Zosyn 4.5 Gm Premix) 4.5 gm in 100 mls @ 200 mls/hr IV.SIG Q6H [facility] Pharmacy Profile Note (Vancomycin Consult Pharmacy) 0 mls @ 0 mls/hr OTHER UNSCH [facility] Isosorbide Mononitrate (Imdur) 30 mg PO DAILY@0700 [facility] Lactulose (Lactulose Liq) 30 ml PO DAILY PRN PRN Reason: SEVERE CONSITIPATION Nitroglycerin (Nitrostat Sl (Override)) 0.4 mg SL Q5M PRN PRN Reason: Chest Pain Oxycodone/Acetaminophen (Percocet 5/325 Mg) 1 tab PO Q4H PRN PRN Reason: PAIN SCALE 1 TO 5 Pantoprazole Sodium (Protonix) 40 mg PO BID [facility] Pravastatin Sodium (Pravachol) 40 mg PO HS [facility] Senna/Docusate Sodium (Kristen-Colace) 1 tab PO BID [facility] Sennosides (Senokot) 17.2 mg PO Q12H PRN PRN Reason: Moderate Constipation Sevelamer Carbonate (Renvela) 2,400 mg PO TIDAC [facility] Sodium Chloride (Ns Flush) 2 ml IV.FLUSH BID [facility] Sodium Chloride (Ns Flush) 2 ml IV.FLUSH PRN PRN PRN Reason: FLUSH AFTER USING IV ACCESS Temazepam (Restoril) 15 mg PO HS PRN PRN Reason: INSOMNIA Allergies Allergy/AdvReac Type Severity Reaction Status Date / Time diphenhydramine Allergy Severe Edema, Verified 10/13/17 14:14 Generalized niacin AdvReac Intermediate Numbness Verified 10/13/17 14:13 [From Niaspan Extended-Release] ANTIHISTAMINES Allergy Edema Uncoded 10/13/17 14:13 Home Medications Medication Instructions Recorded Confirmed Type aspirin 81 mg PO DAILY 10/23/17 10/23/17 History Results - Labs CBC & Chem 7: 11/07/17 19:15 11/07/17 19:15 Labs: Short CBC 11/07/17 Range/Units 19:15 WBC 10.2 (4.0-11.0) th/mm3 Hgb 10.8 L (13.0-17.0) gm/dL Hct 31.9 L (39.0-51.0) % Plt Count 208 (150-450) th/mm3 BMP 11/07/17 19:15 Sodium 138 Potassium 4.6 Chloride 100 Carbon Dioxide 31.9 BUN 14 Creatinine 4.91 H Calcium 8.3 L Liver Function 11/07/17 Range/Units 19:15 Total Bilirubin 0.4 (0.2-1.0) mg/dL AST 19 (15-37) U/L ALT 26 (12-78) U/L Alkaline Phosphatase 85 (45-117) U/L Albumin 3.3 L (3.4-5.0) g/dL Exam Vital signs: Intake & Output 11/07/17 11/07/17 11/08/17 06:59 18:59 06:59 Weight 86.5 kg Other: Weight On Admission 86.5 kg - Constitutional obese, somnolent - Routine HEENT Exam Head: Present: normocephalic, atraumatic Eye: Present: PERRL ENT: Present: mucous membranes moist - Routine Neck Exam Present: supple, full ROM. Absent: JVD, carotid bruit - Routine Respiratory Exam Absent: accessory muscle use, rhonchi, stridor, wheezes, crackles - Routine Cardiovascular Exam Present: RRR, S1, S2 - Routine Abdominal Exam Present: soft, normoactive bowel sounds. Absent: tenderness, distended - Routine Extremities Exam Absent: cyanosis, clubbing, edema - Routine Skin Exam Present: intact. Absent: cyanosis, erythema - Routine Neurological Exam Present: normal reflexes, moving all extremities. Absent: clonus, normal tone Caprini VTE Risk Assessment Caprini VTE Risk Assessment: Moderate/High Risk (score >= 2) Caprini Risk Assessment Model: Point Value = 1 Point Value = 2 Point Value = 3 Point Value = 5 Age 41-60 Minor surgery BMI > 25 kg/m2 Swollen legs Varicose veins or History of unexplained or recurrent spontaneous Oral contraceptives or hormone replacement Sepsis (< 1 month) Serious lung disease, including pneumonia (< 1 month) Abnormal pulmonary function Acute myocardial infarction Congestive heart failure (< 1 month) History of inflammatory bowel disease Medical patient at bed rest Age 61-74 Arthroscopic surgery Major open surgery (> 45 min) Laparoscopic surgery (> 45 min) Malignancy Confined to bed (> 72 hours) Immobilizing plaster cast Central venous access Age >= 75 History of VTE Family history of VTE Factor V Leiden Prothrombin [id number] Lupus anticoagulant Anticardiolipin antibodies Elevated serum homocysteine Heparin-induced thrombocytopenia Other congenital or acquired thrombophilia Stroke (< 1 month) Elective arthroplasty Hip, pelvis, or leg fracture Acute spinal cord injury (< 1 month) Prophylaxis Regimen: Total Risk Factor Score Risk Level Prophylaxis Regimen 0-1 Low Early ambulation 2 Moderate Order ONE of the following: *Sequential Compression Device (SCD) *Heparin 5000 units SQ BID 3-4 Higher Order ONE of the following medications: *Heparin 5000 units SQ TID *Enoxaparin/Lovenox 40 mg SQ daily (WT < 150 kg, CrCl > 30 mL/min) *Enoxaparin/Lovenox 30 mg SQ daily (WT < 150 kg, CrCl > 10-29 mL/min) *Enoxaparin/Lovenox 30 mg SQ BID (WT < 150 kg, CrCl > 30 mL/min) AND/OR *Sequential Compression Device (SCD) 5 or more Highest Order ONE of the following medications: *Heparin 5000 units SQ TID (Preferred with Epidurals) *Enoxaparin/Lovenox 40 mg SQ daily (WT < 150 kg, CrCl > 30 mL/min) *Enoxaparin/Lovenox 30 mg SQ daily (WT < 150 kg, CrCl > 10-29 mL/min) *Enoxaparin/Lovenox 30 mg SQ BID (WT < 150 kg, CrCl > 30 mL/min) AND *Sequential Compression Device (SCD) Assessment and Plan - Assessment and Plan Plan: Altered mental status -Suspected infection -Febrile -Broad-spectrum antibiotics -Blood cultures -Follow-up cultures and de-escalate per sensitivity End-stage renal disease -Continue dialysis per nephrology -Renvela CAD -Aspirin -Plavix -Carvedilol -Series of troponins and EKGs -Rule out ACS Hyperlipidemia -Atorvastatin Hypertension -Clonidine -Carvedilol -Isosorbide mononitrate Anemia -End-stage renal disease -Monitor H&H -Epoetin -Transfuse for hemoglobin less than 7 DVT GI prophylaxis -Teds SCDs -Subcu heparin -Pantoprazole Critical Care: The total critical care time was 35 minutes. Time to perform other separately billable procedures was not included in the critical care time. H&P: Quality - VTE Deep Vein Thrombosis/Pulmonary Embolism Present on Admission: No
[2017-11-07] MEDS ORDERED: Vancomycin Consult Pharmacy 1 EACH OTHER SCH (21:00)
[2017-11-07] MEDS ORDERED: Vancomycin Inj 1,000 MG in Sodium Chlor 0.9% Inj 250 ML IV.SIG SCH (22:00)
[2017-11-07] MEDS ORDERED: Piperacil/Tazo 3.375 GM Premix 50 ML IV.SIG SCH (22:00)
[2017-11-07] MEDS: Heparin - SQ 10,000 UNITS/ML Vial SQ SCH (22:06)
[2017-11-07] MEDS: Carvedilol 6.25 MG Tablet PO SCH (22:08)
[2017-11-07] MEDS: Sod Chloride 0.9% Inj 1,000 ML IV.CONT SCH (22:09)
[2017-11-07] MEDS: Senna/Docusate Sodium 8.6/50 MG Tablet PO SCH (22:13)
[2017-11-07] MEDS ORDERED: Vancomycin Inj 1,000 MG in Sodium Chlor 0.9% Inj 250 ML IV.SIG ONE (23:00)
[2017-11-07] MEDS: Piperacil/Tazo 2.25 GM Premix 50 ML IV.SIG SCH (23:13)
[2017-11-08] MEDS ORDERED: Chlorhexidine Gluconate 2% 1 Pack (2 Cloths) TOPICAL PRN (04:00)
[2017-11-08] MEDS: Heparin - SQ 10,000 UNITS/ML Vial SQ SCH ×3 (06:23→21:32)
[2017-11-08] MEDS: Isosorbide Mononitrate 30 MG ER 24HR Tablet (Imdur) PO SCH (06:24)
[2017-11-08 06:47] LABS: Alanine Aminotransferase 23 U/L (12-78); Albumin 2.9 g/dL (3.4-5.0); Alkaline Phosphatase 70 U/L (45-117); Anion Gap 8 meq/L (5-15); Aspartate Aminotransferase 25 U/L (15-37); Blood Urea Nitrogen 21 mg/dL (7-18); Calcium 8.2 mg/dL (8.5-10.1); Carbon Dioxide 28.1 meq/L (21.0-32.0); Chloride 103 meq/L (98-107); Glomerular Filtration Rate 9 mL/min (>89); Glucose,Random 94 mg/dL (74-106); Magnesium 2.1 mg/dL (1.5-2.5); Potassium 4.5 meq/L (3.5-5.1); Sodium 139 meq/L (136-145); Total Protein 6.5 g/dL (6.4-8.2)
[2017-11-08] MEDS: Carvedilol 6.25 MG Tablet PO SCH ×2 (08:30→21:31)
[2017-11-08] MEDS: Senna/Docusate Sodium 8.6/50 MG Tablet PO SCH ×2 (08:31→21:31)
[2017-11-08] MEDS ORDERED: Sod Chloride 0.9% Inj 1,000 ML IV.CONT PRN (08:56)
[2017-11-08] MEDS ORDERED: Sod Chloride 0.9% Inj 1,000 ML OTHER PRN ×2 (08:56)
[2017-11-08] MEDS ORDERED: Acetaminophen 325 MG Tablet PO PRN (08:56)
[2017-11-08] MEDS ORDERED: Gelatin 12 MM/7 MM Topical Foam TOPICAL PRN (08:56)
[2017-11-08] MEDS ORDERED: Heparin 10,000 UNITS/10 ML Vial (for IV use) OTHER PRN ×2 (08:56)
[2017-11-08] MEDS ORDERED: Albumin Human 25% Inj 100 ML IV.SIG PRN (08:56)
--- NOTE | 2017-11-08 09:02 | P.PNNP ---
Subjective Interval history: patient has been transferred to ICU because of lethargy and fever after dialysis yesterday. He has been started on Vancomycin and Zosyn. Afebrile today. Mental status is back to baseline. He is awake, alert, tolerating oral intake. Physical Exam Vital signs: Vital Signs 11/07/17 20:00 11/07/17 21:00 11/07/17 22:00 Temperature 101.1 F H Pulse Rate 116 H 119 H 118 H Respiratory Rate 24 30 H 31 H Blood Pressure 142/64 H 129/78 118/64 Pulse Oximetry 96 96 97 11/07/17 23:00 11/08/17 00:00 11/08/17 01:00 Temperature 99.8 F H Pulse Rate 110 H 83 80 Respiratory Rate 26 H 27 H 18 Blood Pressure 110/67 102/65 137/79 Pulse Oximetry 98 97 95 11/08/17 02:00 11/08/17 03:00 11/08/17 04:00 Temperature 98.8 F Pulse Rate 80 80 86 Respiratory Rate 30 H 30 H 31 H Blood Pressure 120/55 L 116/60 103/52 L Pulse Oximetry 96 96 95 11/08/17 05:00 11/08/17 06:00 Temperature Pulse Rate 80 81 Respiratory Rate 28 H 30 H Blood Pressure 112/50 L 110/51 L Pulse Oximetry 99 95 Intake & Output 11/07/17 11/08/17 11/08/17 18:59 06:59 18:59 Intake Total 50 / 50 Output Total 0 / 0 Balance 50 / 50 Weight 88 kg Intake: IV 50 / 50 Zosyn 2.25 GM Premix 50 ML @ 50 / 50 100 mls/hr IV.SIG Q12H [facility] Rx#: [id number] Output: Urine 0 / 0 Other: Date of Last Bowel Movement 11/07/17 # Bowel Movements 0 Weight On Admission 86.5 kg - Constitutional no acute distress - Routine HEENT Exam Head: Present: normocephalic, atraumatic Eye: Present: EOMI, PERRL ENT: Present: mucous membranes moist - Routine Neck Exam Present: supple, full ROM. Absent: JVD - Routine Respiratory Exam Present: CTA bilaterally - Routine Cardiovascular Exam Present: RRR, S1, S2 - Routine Abdominal Exam Present: soft, normoactive bowel sounds - Routine Skin Exam Present: intact - Routine Neurological Exam Present: alert, oriented X3, CN II-XII intact Assessment and Plan - Assessment (1) End stage renal disease Code(s): N18.6 - End stage renal disease Status: Acute Plan: We will continue dialysis MWF. Outpatient dialysis was to be at [facility]. We had planned to transition him to [facility] by dialyzing on Sunday which was expected day of his discharge. We will continue to monitor. Avoid Gadolinium. Monitor fluid and electrolytes. (2) NSTEMI (non-ST elevated myocardial infarction) Code(s): I21.4 - Non-ST elevation (NSTEMI) myocardial infarction Status: Acute Plan: s/p Cath, revealed multivessel disease, CABG recommended. It has been deferred pending improvement in patient's debility and comorbidities. (3) Anemia Code(s): D64.9 - Anemia, unspecified Status: Acute Qualifiers: Anemia type: due to chronic kidney disease Chronic kidney disease stage: on chronic dialysis Qualified Code(s): N18.6 - End stage renal disease; D63.1 - Anemia in chronic kidney disease; Z99.2 - Dependence on renal dialysis Plan: Epogen with dialysis. (4) Febrile illness Code(s): R50.9 - Fever, unspecified Status: Acute - Plan possible sepsis. He does have cholecystotomy tube that was supposed to have been removed on 11/07. Also has tunneled dialysis catheter. Blood cultures are awaited. On Vancomycin and Zosyn.
[2017-11-08] MEDS: Piperacil/Tazo 2.25 GM Premix 50 ML IV.SIG SCH ×2 (10:39→22:11)
[2017-11-08 11:48] LABS: Baso % (Auto) 0.6 % (0.0-2.0); Eos # (Auto) 0.1 th/mm3 (0.0-0.4); Eos % (Auto) 1.1 % (0.0-4.0); Hematocrit 26.2 % (39.0-51.0); Hemoglobin 8.9 gm/dL (13.0-17.0); Lymph # (Auto) 1.6 th/mm3 (1.0-4.8); Lymph % (Auto) 21.2 % (9.0-44.0); Mean Corpuscular Volume 97.2 fL (80.0-100.0); Mean Platelet Volume 8.5 fL (7.0-11.0); Mono # (Auto) 0.7 th/mm3 (0.0-0.9); Neut # (Auto) 5.2 th/mm3 (1.8-7.7); Neut % (Auto) 68.1 % (16.0-70.0); Platelet Count 192 th/mm3 (150-450); Red Cell Distribution Width 17.3 % (11.6-17.2); White Blood Count 7.7 th/mm3 (4.0-11.0)
[2017-11-08 11:57] LABS: Activated Partial Thrombo Time 31.5 sec (24.3-30.1); Prothrombin Time 10.5 sec (9.8-11.6)
--- NOTE | 2017-11-08 15:14 | P.PNCC ---
Subjective Subjective Remarks/Hospital Course: 11/07: 77 year old male with medical history of hyperlipidemia, hypertension, CAD with [place] and cardiac stent in 2001, stent to LAD in 2006, chronic kidney disease now on hemodialysis, morbid obesity, DVT 2015, recent GI bleed, bladder cancer s /p Bacillus Calmette-Bambi immunotherapy and TURP, who was admitted to [facility] on 09/26/17 with severe chest pain. At that time he was diagnosed with NSTEMI - Dr. Mcdonald was following. Troponin on admit 1.16. Cardiac cath revealed proximal LAD 90% stenosis, left circumflex 90%, first OM 80%, RCA 100% occluded. The 2D echo at that time showed ejection fraction of 60 -65% and CV surgery was consulted. At that time the patient was felt not a good candidate for surgical intervention. The patient's renal function worsened post cardiac catheterization and nephrology was consulted -Dr. Hannah. Patient was started on HD MWF. He was admitted to [place] [facility] October where he developed sepsis and leukocytosis with white count 32. He was found on CT scan of abdomen pelvis to have acute cholecystitis. He was transferred back to the [facility] on October 16 and the cholecystectomy tube was placed in interventional radiology. He was treated with Zosyn for sepsis. Dr. Mendoza was a general surgeon consulted. Patient felt not to be a surgical candidate at this time due to his deconditioning. He has being readmitted to [facility] for inpatient rehab on October 23, 2017. He underwent hemodialysis today 11/07 where he was found to be extremely lethargic, obtunded and febrile with a temperature 103.2. He was immediately admitted to ICU inpatient for suspected sepsis. The patient offers no specific complaints at this time and is quite lethargic to answer any questions. 11/08: Resting comfortably in bed. Denies any shortness of breath or chest pain. Objective Vital Signs / I&O: Vital Signs 11/07/17 20:00 11/07/17 21:00 11/07/17 22:00 Temperature 101.1 F H Pulse Rate 116 H 119 H 118 H Respiratory Rate 24 30 H 31 H Blood Pressure 142/64 H 129/78 118/64 Pulse Oximetry 96 96 97 11/07/17 23:00 11/08/17 00:00 11/08/17 00:11 Temperature 99.8 F H Pulse Rate 110 H 83 83 Respiratory Rate 26 H 27 H 27 H Blood Pressure 110/67 102/65 Pulse Oximetry 98 97 11/08/17 00:31 11/08/17 01:00 11/08/17 01:01 Temperature Pulse Rate 94 H 80 80 Respiratory Rate 30 H 28 H 28 H Blood Pressure 152/81 H 137/79 87/52 L Pulse Oximetry 95 11/08/17 01:22 11/08/17 01:31 11/08/17 02:00 Temperature Pulse Rate 87 84 80 Respiratory Rate 33 H 30 H 32 H Blood Pressure 137/79 99/53 L 120/55 L Pulse Oximetry 96 11/08/17 02:01 11/08/17 02:30 11/08/17 03:00 Temperature Pulse Rate 82 81 80 Respiratory Rate 31 H 29 H 30 H Blood Pressure 120/55 L 104/54 L 116/60 Pulse Oximetry 96 11/08/17 03:30 11/08/17 04:00 11/08/17 04:01 Temperature 98.8 F Pulse Rate 85 86 86 Respiratory Rate 27 H 31 H 30 H Blood Pressure 137/61 103/52 L 186/111 H Pulse Oximetry 95 11/08/17 04:07 11/08/17 04:40 11/08/17 05:00 Temperature Pulse Rate 85 85 80 Respiratory Rate 27 H 29 H 28 H Blood Pressure 114/56 L 103/52 L 112/50 L Pulse Oximetry 99 11/08/17 06:00 11/08/17 07:00 11/08/17 07:01 Temperature Pulse Rate 81 78 78 Respiratory Rate 30 H 26 H 26 H Blood Pressure 110/51 L 138/63 Pulse Oximetry 95 11/08/17 08:00 11/08/17 09:00 11/08/17 10:00 Temperature Pulse Rate 80 92 H 76 Respiratory Rate 28 H 28 H 28 H Blood Pressure 146/65 H 164/72 H Pulse Oximetry 98 95 100 11/08/17 10:01 11/08/17 11:00 Temperature Pulse Rate 77 80 Respiratory Rate 25 H 25 H Blood Pressure 107/55 L 120/60 Pulse Oximetry 100 99 Intake & Output 11/07/17 11/08/17 11/08/17 18:59 06:59 18:59 Intake Total 50 / 50 Output Total 0 / 0 Balance 50 / 50 Weight 88 kg Intake: IV 50 / 50 Zosyn 2.25 GM Premix 50 ML @ 50 / 50 100 mls/hr IV.SIG Q12H [facility] Rx#: [id number] Output: Urine 0 / 0 Other: Date of Last Bowel Movement 11/07/17 # Bowel Movements 0 Weight On Admission 86.5 kg Result Diagrams: 11/08/17 06:01 11/08/17 06:01 Objective Remarks: HEENT/Neuro: No pallor or icterus, tongue moist, JACQUES, Awake alert oriented 3 , nonfocal grossly, moving all 4 extremities Neck: No JVD Chest/pulmonary: CTA bilaterally Cardiovascular: S1-S2 regular no gallop or murmur GI/abdomen: Soft, nontender, bowel sounds present. Cholecystostomy tube in place Extremities: Warm bilaterally, no edema Assessment and Plan - Assessment and Plan Plan: Altered mental status -Suspected infection -Febrile -Broad-spectrum antibiotics -Blood cultures -Follow-up cultures and de-escalate per sensitivity -Follow-up chest x-ray. Cholecystostomy tube in place. End-stage renal disease -Continue dialysis per nephrology -Renvela CAD -Aspirin -Plavix -Carvedilol -Series of troponins and EKGs -Rule out ACS Hyperlipidemia -Atorvastatin Hypertension -Clonidine -Carvedilol -Isosorbide mononitrate Anemia -End-stage renal disease -Monitor H&H -Epoetin -Transfuse for hemoglobin less than 7 DVT GI prophylaxis -Teds SCDs -Subcu heparin -Pantoprazole Patient remains hemodynamically stable. Consult and transfer to hospitalist service for further medical management. Patient will be transferred out of ICU.
[2017-11-08] MEDS: Sod Chloride 0.9% Inj 1,000 ML IV.CONT SCH ×2 (22:09→22:12)
[2017-11-09] MEDS: Chlorhexidine Gluconate 2% 1 Pack (2 Cloths) TOPICAL SCH (06:23)
[2017-11-09] MEDS: Heparin - SQ 10,000 UNITS/ML Vial SQ SCH ×3 (06:23→21:07)
[2017-11-09] MEDS: Isosorbide Mononitrate 30 MG ER 24HR Tablet (Imdur) PO SCH (06:23)
[2017-11-09 07:36] LABS: Hematocrit 25.2 % (39.0-51.0); Hemoglobin 8.3 gm/dL (13.0-17.0); Mean Corpuscular HGB Conc 32.9 % (32.0-36.0); Mean Corpuscular Hemoglobin 31.7 pg (27.0-34.0); Mean Corpuscular Volume 96.4 fL (80.0-100.0); Mean Platelet Volume 8.5 fL (7.0-11.0); Platelet Count 201 th/mm3 (150-450); Red Blood Count 2.62 mil/mm3 (4.50-5.90); White Blood Count 6.8 th/mm3 (4.0-11.0)
--- NOTE | 2017-11-09 07:37 | ECG ---
Date Performed: 11/07/2017 Time Performed: 21:32:54 PTAGE: 77 years EKG: SINUS TACHYCARDIA INFERIOR MYOCARDIAL INFARCTION , OF INDETERMINATE AGE ABNORMAL ECG Since the PREVIOUS TRACING , no significant change noted PREVIOUS TRACIN09/26/2017 13.21 DOCTOR: Mir Ibarra Interpretating Date/Time 11/09/2017 07:36:57
[2017-11-09 08:14] LABS: Albumin 2.5 g/dL (3.4-5.0); Calcium 8.2 mg/dL (8.5-10.1); Carbon Dioxide 27.9 meq/L (21.0-32.0); Phosphorus 4.1 mg/dL (2.5-4.9); Potassium 4.6 meq/L (3.5-5.1)
[2017-11-09] MEDS: Senna/Docusate Sodium 8.6/50 MG Tablet PO SCH ×2 (08:18→21:07)
[2017-11-09] MEDS: Carvedilol 6.25 MG Tablet PO SCH ×2 (08:19→21:07)
[2017-11-09] MEDS: Piperacil/Tazo 2.25 GM Premix 50 ML IV.SIG SCH ×2 (10:06→21:08)
--- NOTE | 2017-11-09 10:06 | P.PNNP ---
Subjective Interval history: Awake and alert. Low grade fever this morning. No complaints of abdominal pain, nausea/vomiting, diarrhea. No output from cholecystostomy tube. Inquiring about plan of care. <Vero Oliver - Last Filed: 11/09/17 09:59> Physical Exam Vital signs: Vital Signs 11/08/17 10:00 11/08/17 10:01 11/08/17 11:00 Temperature Pulse Rate 76 77 80 Respiratory Rate 28 H 25 H 25 H Blood Pressure 107/55 L 120/60 Pulse Oximetry 100 100 99 11/08/17 12:00 11/08/17 13:00 11/08/17 13:01 Temperature 98.9 F Pulse Rate 78 80 79 Respiratory Rate 27 H 24 24 Blood Pressure 119/57 L 144/76 H Pulse Oximetry 99 100 99 11/08/17 14:00 11/08/17 14:01 11/08/17 15:00 Temperature Pulse Rate 80 79 72 Respiratory Rate 29 H 29 H 25 H Blood Pressure 148/68 H 137/62 Pulse Oximetry 99 100 97 11/08/17 16:00 11/08/17 16:45 11/08/17 17:00 Temperature 98.8 F Pulse Rate 72 78 Respiratory Rate 30 H 21 Blood Pressure 148/68 H 158/66 H Pulse Oximetry 99 98 11/08/17 18:00 11/08/17 20:00 11/08/17 23:55 Temperature 99.6 F Pulse Rate 80 90 110 H Respiratory Rate 33 H 20 Blood Pressure 175/77 H 131/65 Pulse Oximetry 98 95 11/09/17 00:00 11/09/17 04:00 11/09/17 08:00 Temperature 98.9 F 98.2 F 99.1 F Pulse Rate 101 H 83 85 Respiratory Rate 18 18 20 Blood Pressure 120/57 L 133/63 116/57 L Pulse Oximetry 97 98 97 Intake & Output 11/08/17 11/09/17 11/09/17 18:59 06:59 18:59 Intake Total 300 / 300 2410 / 2410 Output Total 0 / 0 200 / 200 Balance 300 / 300 2210 / 2210 Weight 86.4 kg Intake: IV 2049 / 2049 NS Inj 1,000 ML @ 84 mls/hr IV. 1999 CONT .[id number] [facility] Rx#:[id number] Zosyn 2.25 GM Premix 50 ML @ 50 / 50 100 mls/hr IV.SIG Q12H [facility] Rx#: [id number] Oral 300 / 300 360 / 360 Output: Urine 0 / 0 200 / 200 Wound Drainage 0 / 0 Right Lateral 0 / 0 Other: Date of Last Bowel Movement 11/08/17 # Bowel Movements 0 - Constitutional no acute distress, chronically ill appearing - Routine HEENT Exam Head: Present: normocephalic - Routine Neck Exam Present: supple, full ROM - Routine Respiratory Exam Present: CTA bilaterally. Absent: accessory muscle use - Routine Cardiovascular Exam Present: RRR, S1, S2 - Routine Abdominal Exam Present: soft, normoactive bowel sounds, drain. Absent: tenderness, guarding - Routine Extremities Exam Present: full ROM, vascular access. Absent: edema - Routine Skin Exam Present: intact, warm - Routine Neurological Exam Present: alert, oriented X3, CN II-XII intact - Detailed Neurological Exam: Coma Scale Eye Opening: Spontaneous Verbal Response: Oriented Motor Response: Obey commands Mcgraw Coma Scale Total: 15 - Routine Psychiatric Exam Present: normal affect, normal thought process <Vero Oliver - Last Filed: 11/09/17 09:59> Vital signs: Vital Signs 11/08/17 15:00 11/08/17 16:00 11/08/17 16:45 Temperature 98.8 F Pulse Rate 72 72 Respiratory Rate 25 H 30 H Blood Pressure 137/62 148/68 H Pulse Oximetry 97 99 11/08/17 17:00 11/08/17 18:00 11/08/17 20:00 Temperature 99.6 F Pulse Rate 78 80 90 Respiratory Rate 21 33 H 20 Blood Pressure 158/66 H 175/77 H 131/65 Pulse Oximetry 98 98 95 11/08/17 23:55 11/09/17 00:00 11/09/17 04:00 Temperature 98.9 F 98.2 F Pulse Rate 110 H 101 H 83 Respiratory Rate 18 18 Blood Pressure 120/57 L 133/63 Pulse Oximetry 97 98 11/09/17 07:20 11/09/17 08:00 11/09/17 10:51 Temperature 99.1 F Pulse Rate 83 85 Respiratory Rate 20 Blood Pressure 116/57 L Pulse Oximetry 97 97 11/09/17 12:00 Temperature 98.3 F Pulse Rate 80 Respiratory Rate 20 Blood Pressure 115/57 L Pulse Oximetry 99 Intake & Output 11/08/17 11/09/17 11/09/17 18:59 06:59 18:59 Intake Total 300 / 300 2460 / 2460 Output Total 0 / 0 200 / 200 Balance 300 / 300 2260 / 2260 Weight 86.4 kg Intake: IV 2100 / 2100 NS Inj 1,000 ML @ 84 mls/hr IV. 1999 / 1999 CONT .[id number] [facility] Rx#:[id number] Zosyn 2.25 GM Premix 50 ML @ 100 / 100 100 mls/hr IV.SIG Q12H [facility] Rx#: [id number] Oral 300 / 300 360 / 360 Output: Urine 0 / 0 200 / 200 Wound Drainage 0 / 0 Right Lateral 0 / 0 Other: Date of Last Bowel Movement 11/08/17 11/08/17 # Bowel Movements 0 <Oli Hannah - Last Filed: 11/09/17 14:46> Assessment and Plan - Assessment (1) End stage renal disease Code(s): N18.6 - End stage renal disease Status: Acute Plan: We will continue dialysis support. In preparation of discharge, we will hold HD today and transition to [facility] so he will have treatment tomorrow. Outpatient dialysis was to be at [facility]. His first day was tentatively Sunday, 2:45pm. We will continue to monitor electrolytes intermittently. IF able to eat, high protein diet should be ordered. Renvela has been resumed, he had been having low phosphorus that required replacement within the past week. Avoid Gadolinium. Avoid IVF. Permcath for HD use. Vascular evlated but is high cardiac risk given need for CABG therefore he will have AVF evaluation and creation outpatient. (2) NSTEMI (non-ST elevated myocardial infarction) Code(s): I21.4 - Non-ST elevation (NSTEMI) myocardial infarction Status: Acute Plan: s/p Cath, revealed multivessel disease, CABG recommended. It has been deferred pending improvement in patient's debility and comorbidities. Unclear about plan moving forward. (3) Anemia Code(s): D64.9 - Anemia, unspecified Status: Acute Qualifiers: Anemia type: due to chronic kidney disease Chronic kidney disease stage: on chronic dialysis Qualified Code(s): N18.6 - End stage renal disease; D63.1 - Anemia in chronic kidney disease; Z99.2 - Dependence on renal dialysis Plan: Epogen with dialysis is ordered. (4) Febrile illness Code(s): R50.9 - Fever, unspecified Status: Acute Plan: On Vancomycin and Zosyn. He has been pancultured. Cholecystomy tube was to be removed on 11/07. He also has CVC in place for HD. <Vero Oliver - Last Filed: 11/09/17 09:59> - Assessment (1) End stage renal disease Code(s): N18.6 - End stage renal disease Status: Acute (2) NSTEMI (non-ST elevated myocardial infarction) Code(s): I21.4 - Non-ST elevation (NSTEMI) myocardial infarction Status: Acute (3) Anemia Code(s): D64.9 - Anemia, unspecified Status: Acute Qualifiers: Anemia type: due to chronic kidney disease Chronic kidney disease stage: on chronic dialysis Qualified Code(s): N18.6 - End stage renal disease; D63.1 - Anemia in chronic kidney disease; Z99.2 - Dependence on renal dialysis (4) Febrile illness Code(s): R50.9 - Fever, unspecified Status: Acute - Attending Attestation patient was seen and examined. Noted that his hemoglobin has dropped significantly. Continue to monitor. Epogen initiated. Low grade fever. WBC still not high. Has CVC for dialysis and Cholecystotomy tube that is not draining much. On Vancomycin and Zosyn. <Oli Hannah - Last Filed: 11/09/17 14:46>
--- NOTE | 2017-11-09 12:12 | P.PNIM ---
Subjective Interval history: Pt has NO new medical complaints today. Pt is tolerating PO intake Physical Exam Vital signs: 11/09/17 04:00 11/09/17 08:00 11/09/17 10:51 Temperature 98.2 F 99.1 F Pulse Rate 83 85 Respiratory Rate 18 20 Blood Pressure 133/63 116/57 L Pulse Oximetry 98 97 97 Narrative: GENERAL: This is a well-nourished, well-developed patient, in no apparent distress. CARDIOVASCULAR: Regular rate and rhythm without murmurs, gallops, or rubs. RESPIRATORY: Clear to auscultation. Breath sounds equal bilaterally. No wheezes , rales, or rhonchi. GASTROINTESTINAL: Abdomen soft, non-tender, nondistended. Normal active bowel sounds MUSCULOSKELETAL: Extremities without clubbing, cyanosis, or edema. NEURO: Alert & Oriented x4 to person, place, time, situation. Moves all ext x4 Results - Labs CBC & Chem 7: 11/09/17 06:23 11/09/17 06:23 11/07/17 19:00 Blood - Peripheral Aerobic Blood Culture - Preliminary No growth in 2 days 11/07/17 19:00 Blood - Peripheral Anaerobic Blood Culture - Preliminary No growth in 2 days 11/07/17 19:15 Blood - Peripheral Aerobic Blood Culture - Preliminary No growth in 2 days 11/07/17 19:15 Blood - Peripheral Anaerobic Blood Culture - Preliminary No growth in 2 days Assessment and Plan - Assessment (1) Altered mental status Code(s): R41.82 - Altered mental status, unspecified Status: Acute Plan: - 77 year old male with medical history of hyperlipidemia, hypertension, CAD with [place] and cardiac stent in 2001, stent to LAD in 2006, chronic kidney disease now on hemodialysis, morbid obesity, DVT 2015, recent GI bleed, bladder cancer s /p immunotherapy and TURP. - Pt hospitalized 09/26/17 with severe chest pain. - At that time he was diagnosed with NSTEMI - Dr. Mcdonald was following. Troponin on admit 1.16. - Cardiac cath revealed proximal LAD 90% stenosis, left circumflex 90%, first OM 80%, RCA 100% occluded. - At that time the patient was felt not a good candidate for surgical intervention. - Patient was started on HD MWF. - [facility], 2017 where he developed sepsis and leukocytosis with white count 32. - CT A/P --> acute cholecystitis. - Transferred back to the [facility] on October 16 and the cholecystectomy tube was placed in interventional radiology. - Pt was treated with Zosyn for sepsis. - Pt seen by General Surgery, Dr. Mendoza. Patient felt NOT to be a surgical candidate at this time due to his deconditioning. - Pt was readmitted to [facility] for inpatient rehab on October 23, 2017. - Pt underwent HD 11/07. - following HD, pt was lethargic, obtunded and febrile with a temperature 103.2. - Pt was admitted to ICU for suspected sepsis - Blood Cx (11/07) NGTD - zosyn (11/07 - present) - obtain repeat CXR - cholecystostomy tube in place End-stage renal disease -Continue dialysis per nephrology -Renvela CAD -Aspirin -Plavix -Carvedilol -Series of troponins and EKGs -Rule out ACS Hyperlipidemia -Atorvastatin Hypertension -Clonidine -Carvedilol -Isosorbide mononitrate Anemia -End-stage renal disease -Monitor H&H -Epoetin -Transfuse for hemoglobin less than 7 DVT GI prophylaxis -Teds SCDs -Subcu heparin -Pantoprazole (2) CAD (coronary artery disease) Code(s): I25.10 - Atherosclerotic heart disease of [place] coronary artery without angina pectoris Status: Acute (3) End stage renal disease Code(s): N18.6 - End stage renal disease Status: Acute (4) HTN (hypertension) Code(s): I10 - Essential (primary) hypertension Status: Chronic (5) COPD (chronic obstructive pulmonary disease) Code(s): J44.9 - Chronic obstructive pulmonary disease, unspecified Status: Chronic (2) CAD (coronary artery disease) Qualifiers: Coronary Disease-Associated Artery/Lesion type: [place] artery [place] vs. transplanted heart: [place] heart Associated angina: without angina Qualified Code(s): I25.10 - Atherosclerotic heart disease of [place] coronary artery without angina pectoris (4) HTN (hypertension) Qualifiers: Hypertension type: essential hypertension Qualified Code(s): I10 - Essential (primary) hypertension (5) COPD (chronic obstructive pulmonary disease) Qualifiers: Emphysema type: unspecified
[2017-11-10] MEDS: Isosorbide Mononitrate 30 MG ER 24HR Tablet (Imdur) PO SCH (06:19)
[2017-11-10] MEDS: Chlorhexidine Gluconate 2% 1 Pack (2 Cloths) TOPICAL SCH (06:19)
[2017-11-10] MEDS: Heparin - SQ 10,000 UNITS/ML Vial SQ SCH ×3 (06:20→21:49)
[2017-11-10] MEDS: Carvedilol 6.25 MG Tablet PO SCH ×2 (08:06→21:49)
[2017-11-10] MEDS: Senna/Docusate Sodium 8.6/50 MG Tablet PO SCH ×2 (08:07→21:51)
--- NOTE | 2017-11-10 09:33 | P.PNNP ---
Subjective Interval history: Patient seen dung HD, alert, no SOB, with nasal cannula. Physical Exam Vital signs: Vital Signs 11/09/17 10:51 11/09/17 12:00 11/09/17 16:00 Temperature 98.3 F 98.6 F Pulse Rate 80 90 Respiratory Rate 20 20 Blood Pressure 115/57 L 129/55 L Pulse Oximetry 97 99 99 11/09/17 19:52 11/09/17 20:00 11/09/17 23:42 Temperature 99.0 F Pulse Rate 85 98 H Respiratory Rate 18 Blood Pressure 135/61 Pulse Oximetry 100 98 11/09/17 23:46 11/10/17 00:00 11/10/17 03:45 Temperature 98.7 F Pulse Rate 77 80 69 Respiratory Rate 18 Blood Pressure 148/66 H Pulse Oximetry 98 Intake & Output 11/09/17 11/10/17 11/10/17 18:59 06:59 18:59 Intake Total 290 / 290 170 / 170 Balance 290 / 290 170 / 170 Weight 86.7 kg Intake: IV 50 / 50 50 / 50 Zosyn 2.25 GM Premix 50 ML @ 50 / 50 50 / 50 100 mls/hr IV.SIG Q12H [facility] Rx#: [id number] Oral 240 / 240 120 / 120 Other: # Voids 1 Date of Last Bowel Movement 11/08/17 # Bowel Movements 1 Narrative: GENERAL: This is a well-nourished, well-developed patient, in no apparent distress. CARDIOVASCULAR: Regular rate and rhythm without murmurs, gallops, or rubs. RESPIRATORY: Clear to auscultation. Breath sounds equal bilaterally. No wheezes , rales, or rhonchi. GASTROINTESTINAL: Abdomen soft, non-tender, nondistended. Normal active bowel sounds MUSCULOSKELETAL: Extremities without clubbing, cyanosis, or edema. NEURO: Alert & Oriented x4 to person, place, time, situation. Moves all ext x4 Assessment and Plan - Assessment (1) End stage renal disease Code(s): N18.6 - End stage renal disease Status: Acute Plan: We will continue dialysis support. In preparation of discharge, Outpatient dialysis was to be at [facility]. His first day was tentatively Sunday, 2:45pm. We will continue to monitor electrolytes intermittently. IF able to eat, high protein diet should be ordered. Renvela has been resumed, he had been having low phosphorus that required replacement within the past week. Avoid Gadolinium. Avoid IVF. Permcath for HD use. Vascular evaluated but is high cardiac risk given need for CABG therefore he will have AVF evaluation and creation outpatient. HD today, remove fluid as tolerated.Now he will be TTS HD. (2) NSTEMI (non-ST elevated myocardial infarction) Code(s): I21.4 - Non-ST elevation (NSTEMI) myocardial infarction Status: Acute Plan: s/p Cath, revealed multivessel disease, CABG recommended. (3) Anemia Code(s): D64.9 - Anemia, unspecified Status: Acute Qualifiers: Anemia type: due to chronic kidney disease Chronic kidney disease stage: on chronic dialysis Qualified Code(s): N18.6 - End stage renal disease; D63.1 - Anemia in chronic kidney disease; Z99.2 - Dependence on renal dialysis Plan: Epogen with dialysis is ordered. (4) Febrile illness Code(s): R50.9 - Fever, unspecified Status: Acute Plan: On Vancomycin and Zosyn. He has been pancultured. Cholecystomy tube was to be removed on 11/07. He also has CVC in place for HD. - Plan possible sepsis. He does have cholecystotomy tube that was supposed to have been removed on 11/07. Also has tunneled dialysis catheter. Blood cultures are awaited. On Vancomycin.
--- NOTE | 2017-11-10 10:43 | OTSOAPIP ---
TIME SESSION COMPLETED: 1042 TREATMENT TIME: 0 MINS. CHART REVIEWED. ATTEMPTED TO EVALUATE PATIENT HOWEVER PATIENT WAS NOT AVAILABLE DUE TO BEING OFF THE UNIT FOR DIALYSIS PLAN: WILL SEE WHEN ABLE OR NEXT TREATMENT DAY Therapist: Nessa Arrieta Signature on file
--- NOTE | 2017-11-10 10:57 | P.PNIM ---
Subjective Interval history: Follow up AMS with fever, ESRD on HD, CAD Patient reports feeling well at this time offers no new concerns/complaints Physical Exam Vital signs: Vital Signs 11/09/17 12:00 11/09/17 16:00 11/09/17 19:52 Temperature 98.3 F 98.6 F Pulse Rate 80 90 85 Respiratory Rate 20 20 Blood Pressure 115/57 L 129/55 L Pulse Oximetry 99 99 11/09/17 20:00 11/09/17 23:42 11/09/17 23:46 Temperature 99.0 F Pulse Rate 98 H 77 Respiratory Rate 18 Blood Pressure 135/61 Pulse Oximetry 100 98 11/10/17 00:00 11/10/17 03:45 11/10/17 08:00 Temperature 98.7 F 98.3 F Pulse Rate 80 69 79 Respiratory Rate 18 16 Blood Pressure 148/66 H 142/65 H Pulse Oximetry 98 97 Intake & Output 11/09/17 11/10/17 11/10/17 18:59 06:59 18:59 Intake Total 290 / 290 170 / 170 Balance 290 / 290 170 / 170 Weight 86.7 kg Intake: IV 50 / 50 50 / 50 Zosyn 2.25 GM Premix 50 ML @ 50 / 50 50 / 50 100 mls/hr IV.SIG Q12H [facility] Rx#: [id number] Oral 240 / 240 120 / 120 Other: # Voids 1 Date of Last Bowel Movement 11/08/17 # Bowel Movements 1 Narrative: GENERAL: This is a well-nourished, well-developed patient, in no apparent distress. CARDIOVASCULAR: Regular rate and rhythm RESPIRATORY: Clear to auscultation. Breath sounds equal bilaterally. GASTROINTESTINAL: Abdomen soft, non-tender, nondistended. Normal active bowel sounds MUSCULOSKELETAL: Extremities without clubbing, cyanosis, or edema. NEURO: Alert & Oriented x4 to person, place, time, situation. Moves all ext x4 Results - Labs CBC & Chem 7: 11/09/17 06:23 11/09/17 06:23 Laboratory Results - last 24 hr 11/09/17 11/09/17 13:04 17:33 POC Glucose 110 108 Microbiology 11/07/17 19:00 Blood - Peripheral Aerobic Blood Culture - Preliminary No growth in 2 days 11/07/17 19:00 Blood - Peripheral Anaerobic Blood Culture - Preliminary No growth in 2 days 11/07/17 19:15 Blood - Peripheral Aerobic Blood Culture - Preliminary No growth in 2 days 11/07/17 19:15 Blood - Peripheral Anaerobic Blood Culture - Preliminary No growth in 2 days Assessment and Plan - Assessment (1) Altered mental status Code(s): R41.82 - Altered mental status, unspecified Status: Acute Plan: - 77 year old male with medical history of hyperlipidemia, hypertension, CAD with [place] and cardiac stent in 2001, stent to LAD in 2006, chronic kidney disease now on hemodialysis, morbid obesity, DVT 2015, recent GI bleed, bladder cancer s /p immunotherapy and TURP. - Pt hospitalized 09/26/17 with severe chest pain. - At that time he was diagnosed with NSTEMI - Dr. Mcdonald was following. Troponin on admit 1.16. - Cardiac cath revealed proximal LAD 90% stenosis, left circumflex 90%, first OM 80%, RCA 100% occluded. - At that time the patient was felt not a good candidate for surgical intervention. - Patient was started on HD MWF. - Admitted to [facility] October 13, 2017 where he developed sepsis and leukocytosis with white count 32. - CT A/P --> acute cholecystitis. - Transferred back to the [facility] on October 16 and the cholecystectomy tube was placed in interventional radiology. - Pt was treated with Zosyn for sepsis. - Pt seen by General Surgery, Dr. Mendoza. Patient felt NOT to be a surgical candidate at this time due to his deconditioning. - Pt was readmitted to [facility] for inpatient rehab on October 23, 2017. - Pt underwent HD 11/07. - following HD, pt was lethargic, obtunded and febrile with a temperature 103.2. - Pt was admitted to ICU for suspected sepsis - Blood Cx (11/07) NGTD - zosyn (11/07/17 - 11/10/17), Vanco stopped 11/10/17 also - obtain repeat CXR - obtain UA C&S - cholecystostomy tube in place, Dr. Benedict discussed with radiology they wish to leave tube in at this time - Patient has been afebrile since 11/08/17, WBC not elevated - will DC abx and monitor patient overnight - recheck CBC in AM - if patient remains a febrile plan to DC back to [facility] tomorrow End-stage renal disease -Continue dialysis per nephrology -Renvela CAD -Aspirin -Plavix -Carvedilol - troponin 0.07, 0.10 (11/08/17) -patient denies chest pain Hyperlipidemia -Atorvastatin Hypertension -Clonidine -Carvedilol -Isosorbide mononitrate Anemia -End-stage renal disease -Monitor H&H -Epoetin -Transfuse for hemoglobin less than 7 DVT GI prophylaxis -Teds SCDs -Subcu heparin -Pantoprazole (2) CAD (coronary artery disease) Code(s): I25.10 - Atherosclerotic heart disease of [place] coronary artery without angina pectoris Status: Chronic (3) End stage renal disease Code(s): N18.6 - End stage renal disease Status: Acute (4) HTN (hypertension) Code(s): I10 - Essential (primary) hypertension Status: Chronic (5) COPD (chronic obstructive pulmonary disease) Code(s): J44.9 - Chronic obstructive pulmonary disease, unspecified Status: Chronic - Attending Attestation Patient examined. Assessment and plan formulated with Marietta MENENDEZ I agree with the above. (2) CAD (coronary artery disease) Qualifiers: Coronary Disease-Associated Artery/Lesion type: [place] artery [place] vs. transplanted heart: [place] heart Associated angina: without angina Qualified Code(s): I25.10 - Atherosclerotic heart disease of [place] coronary artery without angina pectoris (4) HTN (hypertension) Qualifiers: Hypertension type: essential hypertension Qualified Code(s): I10 - Essential (primary) hypertension (5) COPD (chronic obstructive pulmonary disease) Qualifiers: Emphysema type: unspecified
--- NOTE | 2017-11-10 13:34 | XR ---
EXAM DATE: 11/10/2017 1:31 PM EDT AGE/SEX: 77 years / Male INDICATIONS: Shortness of breath. CLINICAL DATA: This is the patient's subsequent encounter. Patient reports that signs and symptoms h ave been present for 4 - 6 days and indicates a pain score of 5/10. MEDICAL/SURGICAL HISTORY: . Hypertension. Asthma. Chronic obstructive pulmonary disease. . S tents. COMPARISON: [facility], CHEST 1V SINGLE AP, 11/07/2017. . FINDINGS: Right-sided catheter tip in right atrium. Minimal basilar atelectasis. No dense consolidation or effu lexy. No pneumothorax. Heart size enlarged. CONCLUSION: Minimal basilar atelectasis. No pneumothorax. No effusion. Electronically signed by: Yury Mcintosh MD 11/10/2017 1:32 PM EDT
[2017-11-11] MEDS: Isosorbide Mononitrate 30 MG ER 24HR Tablet (Imdur) PO SCH (06:19)
[2017-11-11] MEDS: Heparin - SQ 10,000 UNITS/ML Vial SQ SCH (06:19)
[2017-11-11] MEDS: Chlorhexidine Gluconate 2% 1 Pack (2 Cloths) TOPICAL SCH (06:22)
[2017-11-11] MEDS: Senna/Docusate Sodium 8.6/50 MG Tablet PO SCH (09:45)
[2017-11-11] MEDS: Carvedilol 6.25 MG Tablet PO SCH (09:46)
--- NOTE | 2017-11-11 11:38 | P.PNNP ---
Subjective Interval history: Patient is alert, no SOB, eating well. Physical Exam Vital signs: Vital Signs 11/10/17 12:00 11/10/17 16:00 11/10/17 20:00 Temperature 98.5 F 97.4 F L 98.6 F Pulse Rate 84 89 89 Respiratory Rate 16 16 18 Blood Pressure 121/58 L 137/63 132/60 Pulse Oximetry 94 L 93 L 98 11/11/17 00:00 11/11/17 02:32 11/11/17 04:00 Temperature 98.4 F Pulse Rate 82 75 95 H Respiratory Rate 17 Blood Pressure 123/57 L Pulse Oximetry 96 Intake & Output 11/10/17 11/11/17 11/11/17 18:59 06:59 18:59 Output Total 1999 Balance -1999 - Output: Hemodialysis Amount 1999 Wound Drainage Right Lateral Narrative: GENERAL: This is a well-nourished, well-developed patient, in no apparent distress. CARDIOVASCULAR: Regular rate and rhythm RESPIRATORY: Clear to auscultation. Breath sounds equal bilaterally. GASTROINTESTINAL: Abdomen soft, non-tender, nondistended. Normal active bowel sounds MUSCULOSKELETAL: Extremities without clubbing, cyanosis, or edema. NEURO: Alert & Oriented x4 to person, place, time, situation. Moves all ext x4 Assessment and Plan - Assessment (1) End stage renal disease Code(s): N18.6 - End stage renal disease Status: Acute Plan: We will continue dialysis support. In preparation of discharge, Outpatient dialysis was to be at [facility]. His first day was tentatively Sunday, 2:45pm. We will continue to monitor electrolytes intermittently. IF able to eat, high protein diet should be ordered. Renvela has been resumed, he had been having low phosphorus that required replacement within the past week. Avoid Gadolinium. Avoid IVF. Permcath for HD use. Vascular evaluated but is high cardiac risk given need for CABG therefore he will have AVF evaluation and creation outpatient. HD will be TTS HD. (2) NSTEMI (non-ST elevated myocardial infarction) Code(s): I21.4 - Non-ST elevation (NSTEMI) myocardial infarction Status: Acute Plan: s/p Cath, revealed multivessel disease, CABG recommended. (3) Anemia Code(s): D64.9 - Anemia, unspecified Status: Acute Qualifiers: Anemia type: due to chronic kidney disease Chronic kidney disease stage: on chronic dialysis Qualified Code(s): N18.6 - End stage renal disease; D63.1 - Anemia in chronic kidney disease; Z99.2 - Dependence on renal dialysis Plan: Epogen with dialysis is ordered. (4) Febrile illness Code(s): R50.9 - Fever, unspecified Status: Acute Plan: On Vancomycin and Zosyn. He has been pancultured. Cholecystomy tube was to be removed on 11/07. He also has CVC in place for HD. - Plan possible sepsis. He does have cholecystotomy tube that was supposed to have been removed on 11/07. Also has tunneled dialysis catheter. Blood cultures are awaited. On Vancomycin.
--- NOTE | 2017-11-11 12:48 | P.DS ---
<Marietta Dinh W - Last Filed: 11/11/17 13:29> Date of admission: 11/07/17 18:15 Primary care physician: UNKNOWN Attending physician on discharge: Nura Benedict Anticipated date of discharge: 11/11/17 Brief History from admission: 77 year old male with medical history of hyperlipidemia, hypertension, CAD with HI and cardiac stent in 2001, stent to LAD in 2006, chronic kidney disease now on hemodialysis, morbid obesity, DVT 2015, recent GI bleed, bladder cancer s/p Bacillus Calmette-Bambi immunotherapy and TURP, who was admitted to [facility] on 09/26/17 with severe chest pain. At that time he was diagnosed with NSTEMI - Dr. Mcdonald was following. Troponin on admit 1.16. Cardiac cath revealed proximal LAD 90% stenosis, left circumflex 90%, first OM 80%, RCA 100% occluded. The 2D echo at that time showed ejection fraction of 60 -65% and CV surgery was consulted. At that time the patient was felt not a good candidate for surgical intervention. The patient's renal function worsened post cardiac catheterization and nephrology was consulted -Dr. Hannah. Patient was started on HD MWF. He was admitted to [facility] October where he developed sepsis and leukocytosis with white count 32. He was found on CT scan of abdomen pelvis to have acute cholecystitis. He was transferred back to the [facility] on October 16 and the cholecystectomy tube was placed in interventional radiology. He was treated with Zosyn for sepsis. Dr. Mendoza was a general surgeon consulted. Patient felt not to be a surgical candidate at this time due to his deconditioning. He has being readmitted to [facility] for inpatient rehab on October 23, 2017. He underwent hemodialysis today 11/07 where he was found to be extremely lethargic, obtunded and febrile with a temperature 103.2. He was immediately admitted to ICU inpatient for suspected sepsis. The patient offers no specific complaints at this time and is quite lethargic to answer any questions. DS: Diagnosis - Discharge Diagnosis (1) Altered mental status Status: Acute (2) CAD (coronary artery disease) Status: Acute (3) End stage renal disease Status: Acute (4) HTN (hypertension) Status: Chronic (5) COPD (chronic obstructive pulmonary disease) Status: Chronic DS: Summary Hospital Course: - 77 year old male with medical history of hyperlipidemia, hypertension, CAD with HI and cardiac stent in 2001, stent to LAD in 2006, chronic kidney disease now on hemodialysis, morbid obesity, DVT 2015, recent GI bleed, bladder cancer s /p immunotherapy and TURP. - Pt hospitalized 09/26/17 with severe chest pain. - At that time he was diagnosed with NSTEMI - Dr. Mcdonald was following. Troponin on admit 1.16. - Cardiac cath revealed proximal LAD 90% stenosis, left circumflex 90%, first OM 80%, RCA 100% occluded. - At that time the patient was felt not a good candidate for surgical intervention. - Patient was started on HD MWF. - Admitted to [facility] October 13, 2017 where he developed sepsis and leukocytosis with white count 32. - CT A/P --> acute cholecystitis. - [facility] 16 and the cholecystectomy tube was placed in interventional radiology. - Pt was treated with Zosyn for sepsis. - Pt seen by General Surgery, Dr. Mendoza. Patient felt NOT to be a surgical candidate at this time due to his deconditioning. - Pt was readmitted to [facility] for inpatient rehab on October 23, 2017. - Pt underwent HD 11/07. - following HD, pt was lethargic, obtunded and febrile with a temperature 103.2. - Pt was admitted to ICU for suspected sepsis - Blood Cx (11/07) NGTD - zosyn (11/07/17 - 11/10/17), Vanco stopped 11/10/17 also - repeat CXR: Minimal basilar atelectasis. No pneumothorax. No effusion. - UA C&S ordered but not yet obtained - cholecystostomy tube in place, Dr. Benedict discussed with radiology they wish to leave tube in at this time - Patient has been afebrile since 11/08/17, WBC not elevated - DC abx (11/10) and monitored patient overnight - if patient remains a febrile plan to DC back to [facility] End-stage renal disease -Continue dialysis per nephrology -Renvela CAD -Aspirin -Plavix -Carvedilol - troponin 0.07, 0.10 (11/08/17) -patient denies chest pain Hyperlipidemia -Atorvastatin Hypertension -Clonidine -Carvedilol -Isosorbide mononitrate Anemia -End-stage renal disease -Monitor H&H -Epoetin -Transfuse for hemoglobin less than 7 DVT GI prophylaxis -Teds SCDs -Subcu heparin -Pantoprazole - Time Spent with Patient Total time spent providing and/or coordinating discharge services: Greater than 30 minutes - Quality: VTE Deep Vein Thrombosis/Pulmonary Embolism Present on Admission: No Exam Vital signs: Vital Signs 11/10/17 16:00 11/10/17 20:00 11/11/17 00:00 Temperature 97.4 F L 98.6 F 98.4 F Pulse Rate 89 89 82 Respiratory Rate 16 18 17 Blood Pressure 137/63 132/60 123/57 L Pulse Oximetry 93 L 98 96 11/11/17 02:32 11/11/17 04:00 Temperature Pulse Rate 75 95 H Respiratory Rate Blood Pressure Pulse Oximetry Intake & Output 11/10/17 11/11/17 11/11/17 18:59 06:59 18:59 Output Total 1999 Balance -1999 - Output: Hemodialysis Amount 1999 Wound Drainage Right Lateral Narrative: GENERAL: This is a well-nourished, well-developed patient, in no apparent distress. CARDIOVASCULAR: Regular rate and rhythm RESPIRATORY: Clear to auscultation. Breath sounds equal bilaterally. GASTROINTESTINAL: Abdomen soft, non-tender, nondistended. Normal active bowel sounds MUSCULOSKELETAL: Extremities without clubbing, cyanosis, or edema. NEURO: Alert & Oriented x4 to person, place, time, situation. Moves all ext x4 Results Procedures completed during hospitalization: None Labs on day of discharge: Labs from last 24 hours 11/09/17 21:14 POC Glucose 164 H Preliminary micro results at discharge 11/07/17 19:00 Aerobic Blood Culture - Preliminary Blood - Peripheral No growth in 4 days Anaerobic Blood Culture - Preliminary No growth in 4 days 11/07/17 19:15 Aerobic Blood Culture - Preliminary Blood - Peripheral No growth in 4 days Anaerobic Blood Culture - Preliminary No growth in 4 days - Impressions ITS Impressions Chest X-Ray 11/10/17 10:48 CONCLUSION: Minimal basilar atelectasis. No pneumothorax. No effusion. <Nura Benedict - Last Filed: 11/27/17 10:12> Date of admission: 11/07/17 18:15 Primary care physician: UNKNOWN DS: Diagnosis - Discharge Diagnosis (1) Altered mental status Status: Acute (2) CAD (coronary artery disease) Status: Chronic (3) End stage renal disease Status: Acute (4) HTN (hypertension) Status: Chronic (5) COPD (chronic obstructive pulmonary disease) Status: Chronic DS: Summary Hospital Course: Patient examined. Assessment and plan formulated with Marietta Dinh PA-C. I agree with the above. - Time Spent with Patient Total time spent providing and/or coordinating discharge services: Results - Impressions ITS Impressions Chest X-Ray 11/10/17 10:48 CONCLUSION: Minimal basilar atelectasis. No pneumothorax. No effusion. Discharge Plan - Discharge Order Discharge Orders: Discharge Order (Routine); Ordered 11/11/17 Ordered By: Marietta Dinh - Discharge Details Anticipated Discharge Date: 11/11/17 - Physicians Team Primary Care Provider: UNKNOWN, Attending Provider: Moe Lerma Other Providers: Manjit Ernst MD ; Nura Benedict DO ; Moe Lerma MD - Rxs /Orders / Referrals /Forms Prescriptions: Discontinued diphenhydramine HCl 25 mg Capsule 25 mg PO UNSCH PRN (Reason: See Label Comments) RF: 0 nitroglycerin [Nitrostat] 0.4 mg Tablet, Sublingual 0.4 mg Sublingual Q5M PRN (Reason: Chest Pain) RF: 0 No Action acetaminophen 325 mg Tablet 650 mg PO Q4H PRN (Reason: Pain Scale 1 To 10) RF: 0 aspirin 81 mg tablet,delayed release (DR/EC) 81 mg PO DAILY 30 Days Qty: 30 carvedilol [Coreg] 6.25 mg Tablet 6.25 mg PO BID 30 Days Qty: 60 RF: 0 clopidogrel [Plavix] 75 mg tablet 75 mg PO DAILY 30 Days Qty: 30 isosorbide mononitrate 30 mg tablet extended release 24 hr 30 mg PO DAILY@0700 30 Days nitroglycerin [Nitrostat] 0.4 mg Tablet, Sublingual 0.4 mg Sublingual Q5M PRN (Reason: Chest Pain) Qty: 20 RF: 0 pantoprazole 40 mg tablet,delayed release (DR/EC) 40 mg PO BID 30 Days Qty: 60 pravastatin 40 mg tablet 40 mg PO HS 30 Days Qty: 30 sevelamer carbonate [Renvela] 800 mg Tablet 800 mg PO TIDAC 30 Days RF: 0 Referrals: Payton Mane MD [Physician] - See Instructions (follow up in 1 weeks) Joon Vasquez MD [Physician] - See Instructions (Joon Vasquez MD [Physician] - See Instructions (f/u with Dr. Vasquez (or other Radiologist) in 1 week for removal of cholecystostomy tube. )) Eliot Moser MD [Physician] - See Instructions (Eliot Moser MD [Physician] - See Instructions (f/u with Dr. Loaiza in 1 week RE: cholecystitis)) UNKNOWN, [Primary Care Provider] - See Instructions (follow up with PCP in 1 week) - Discharge Instructions
[2017-11-13 18:05] VITALS: PULSE 89
[2017-11-13 18:11] VITALS: BP 113/54; TEMP 97.6; O2SAT 93
[2017-11-13 18:38] VITALS: RESP 18
== END 2017-11-11 14:45 ==
LOC: HIMC 18:15 → N04 11-08 19:07
PROVIDERS: ADMIT Internal Medicine Critical Care Medicine; ATTEND Internal Medicine Critical Care Medicine

== ENCOUNTER 2018-02-04 05:09 | Inpatient (IN) ==
[~2018-02-04 05:09] MED LIST changes: -ATOR40TA49 PO; -CLON.1 PO; -FOLI1 PO; -METO50TA PO; +Metoprolol Tartrate 25 MG Tablet PO SCH; -NITR0.4S SL; -RIVA15 PO; -VITA20002 PO
[2018-02-04] MEDS ORDERED: Chlorhexidine Gluconate 2% 1 Pack (2 Cloths) TOPICAL ONE (05:34)
[2018-02-04] MEDS ORDERED: Metoprolol Tartrate 25 MG Tablet PO ONE (05:34)
[2018-02-04] MEDS ORDERED: Insulin Regular (For Infusion) 100 UNIT in Sodium Chlor 0.9% Inj 99 ML IV.CONT PRN ×2 (05:34→12:22)
[2018-02-04] MEDS ORDERED: Dextrose 50% in Water 50 ML Vial IV.PUSH PRN ×2 (05:34→12:22)
[2018-02-04] MEDS ORDERED: Sodium Chlor 0.9% Inj 77.5 ML, Papaverine Inj 60 MG, Nitroglycerin Inj 100 MCG, dilTIAZ... IRRIGATION SCH ×3 (05:45)
[2018-02-04] MEDS ORDERED: Sodium Chloride 0.9% Irr Bot 500 ML, ceFAZolin Inj 500 MG IRRIGATION SCH ×2 (05:45)
[2018-02-04] MEDS ORDERED: Chlorhexidine 4% Topical 120 APPLIC/120 ML Bottle TOPICAL SCH ×2 (05:45)
[2018-02-04] MEDS ORDERED: Sodium Chlor 0.9% Inj 500 ML IV.SIG SCH (06:00)
[2018-02-04] MEDS ORDERED: ceFAZolin 2 GM Premix Inj 2 GM/50 ML PIGGYBACK IV.SIG SCH (06:00)
[2018-02-04] MEDS ORDERED: ceFAZolin 2 GM Premix Inj 2 GM/50 ML PIGGYBACK IV.SIG ONE (06:43)
[2018-02-04] MEDS ORDERED: Heparin - SQ 10,000 UNITS/ML Vial ONE ×2 (06:43)
[2018-02-04] MEDS ORDERED: MethylPREDNISolone Sod Succinate Inj 125 MG/2 ML Vial ONE (06:48)
[2018-02-04] MEDS ORDERED: Dexmedetomidine Inj 200 MCG/2 ML Vial IV.CONT ONE (07:29)
[2018-02-04] MEDS ORDERED: Artificial Tears Opth Oint 3.5 GM Tube EACH EYE ONE (07:29)
[2018-02-04] MEDS ORDERED: Glycopyrrolate Inj 1 MG/5 ML Syringe IV.PUSH ONE (07:29)
[2018-02-04] MEDS ORDERED: Sod Chloride 0.9% Inj 2,000 ML IV.CONT ONE (07:29)
[2018-02-04] MEDS ORDERED: Tranexamic Acid Inj 1,000 MG/10 ML Ampul IV.PUSH ONE (07:29)
[2018-02-04] MEDS ORDERED: Calcium Chloride Inj 1 GM/10 ML Syringe IV.CONT ONE (07:29)
[2018-02-04] MEDS ORDERED: Heparin - SQ 10,000 UNITS/ML Vial OTHER ONE (07:29)
[2018-02-04] MEDS ORDERED: Sodium Chlor 0.9% Inj 1,000 ML IV.CONT ONE (07:29)
[2018-02-04] MEDS ORDERED: Neostigmine Inj 5 MG/5 ML Syringe IV.PUSH ONE (07:29)
[2018-02-04] MEDS ORDERED: Potassium Chlor 40 mEq Premix 80 MEQ/200 ML PIGGYBACK ONE (07:35)
[2018-02-04] MEDS ORDERED: Cardioplegic Irr Soln 2,000 ML IRRIGATION ONE (07:35)
[2018-02-04] MEDS ORDERED: Albumin Human 25% Inj 50 ML IV.SIG ONE (07:35)
[2018-02-04] MEDS ORDERED: Calcium Chloride Inj 1 GM/10 ML Syringe ONE (07:36)
[2018-02-04] MEDS ORDERED: Dexmedetomidine Inj 200 MCG in Sodium Chlor 0.9% Inj 48 ML IV.CONT PRN (12:22)
[2018-02-04] MEDS ORDERED: Calcium Chloride Inj 1 GM/10 ML Syringe IV.PUSH PRN (12:22)
[2018-02-04] MEDS ORDERED: Magnesium Sulfate Inj 2 GM in Sodium Chlor 0.9% Inj 96 ML IV.SIG PRN ×4 (12:22)
[2018-02-04] MEDS ORDERED: Albumin Human 5% Inj 250 ML IV.SIG PRN (12:22)
[2018-02-04] MEDS ORDERED: Metoprolol Inj 5 MG/5 ML Vial IV.PUSH PRN (12:22)
[2018-02-04] MEDS ORDERED: Calcium Chloride Inj 1 GM in Sodium Chlor 0.9% Inj 100 ML IV.SIG PRN (12:22)
[2018-02-04] MEDS ORDERED: fentaNYL Citrate Inj 100 MCG/2 ML Ampul IV.PUSH PRN (12:22)
[2018-02-04] MEDS ORDERED: RESP: Racemic Epinephrine 2.25% 0.5 ML Neb NEB PRN (12:22)
[2018-02-04] MEDS ORDERED: Post-op Orders (for Pharmacy) OTHER STA (12:22)
[2018-02-04] MEDS ORDERED: Clevidipine Inj 25 MG/50 ML VIAL IV.CONT PRN (12:22)
--- NOTE | 2018-02-04 12:39 | P.OP ---
- Preoperative Diagnosis (1) CAD (coronary artery disease) (2) End stage renal disease (3) NSTEMI (non-ST elevated myocardial infarction) Postoperative Diagnosis: same Date of procedure: 02/04/18 Procedure: CABG x 4 CORTES to LAd - good SVG to PDA - good SVG to OM1 - good SVG to RI - good EVH Anesthesia: HAYLEY Surgeon: Payton Mane MD Set Painter: Gaviota Amador Pathology: none sent Operation and Findings: The risks, benefits, complications, treatment options, and expected outcomes were discussed with the patient. The possibilities of reaction to medication, pulmonary aspiration, perforation of viscus, bleeding, recurrent infection, the need for additional procedures, failure to diagnose a condition, and creating a complication requiring transfusion or operation were discussed with the patient. The patient concurred with the proposed plan, giving informed consent. The site of surgery properly noted/marked. The patient was taken to Operating Room, identified as [facility] Henderson and the procedure verified as CABG, EVH, ANDERS. A Time Out was held and the above information confirmed. Standard monitoring lines and Morrissey catheter were placed. General anesthesia was induced. The patient was prepped and draped in a sterile fashion. A median sternotomy was performed and electrocautery was used to obtain hemostasis. The left internal mammary artery was procured as a pedicle from the 7th rib to the 1st rib in the usual manner. Simultaneously left greater saphenous vein was procured from the left leg using a minimally invasive endoscopic technique. The vein was prepared for anastomosis and the leg wound was irrigated and closed in 2 layers. The pericardium was opened and a pericardial sling was created using interrupted 0 silk sutures. The patient was heparinized for cardiopulmonary bypass and the distal mammary pedicle was instrumented for anastomosis. The heart was instrumented for cardiopulmonary bypass in the usual manner. Antegrade blood cardioplegia was employed. The patient was placed on cardiopulmonary bypass. An aortic cross-clamp was applied and the heart was arrested using cold blood cardioplegia. Antegrade cardioplegia was administered after he each anastomosis. After adequate arrest, the distal right coronary circulation was investigated and the PDA was opened with a [place] blade and found to be a 1.5 millimeter good target. Saphenous vein was approximated to the PDA artery using a running 7 0 Prolene suture. The graft was measured for length and orientation and the proximal anastomosis was constructed to the ascending aorta using a running 5 0 Prolene suture after creating an aortotomy with a 5 millimeter punch. The 1st circumflex marginal artery was then opened with a [place] blade and found to be a 1.5 millimeter good target. Saphenous vein was approximated to the OM1 artery using a running 7 0 Prolene suture. The graft was measured for length and orientation and the proximal anastomosis was constructed to the ascending aorta using a running 5 0 Prolene suture after creating an aortotomy with a 5 millimeter punch.. The ramus intermedius artery was then opened with a [place] blade and found to be a 1.5 millimeter good target. Saphenous vein was approximated to the RI artery using a running 7 0 Prolene suture. The graft was measured for length and orientation and was suspended from the pericardium. The distal LAD was opened with a [place] blade and found to be a 1.5 millimeter good target. The left internal mammary artery was approximated to the LAD using a running 7 0 Prolene suture. The pedicle was attached to the epicardium using interrupted 5 0 silk suture. The patient was systemically rewarmed and received a hotshot dose of warm blood cardioplegia. The aorta was vented and the proximal anastomosis to the RI graft was accomplished using a running 5 0 Prolene suture after creating an aortotomy was a 5 millimeter punch. The cross -clamp was removed and all proximal and distal anastomoses were examined for hemostasis. Temporary atrial pacing on wires were positioned and brought out through the skin in the usual manner. The patient was paced at 80 beats per minute and weaned from cardiopulmonary bypass. Protamine was given. There was no adverse reaction. Decannulation was carried out without incident. Wound was checked for hemostasis which was obtained using electrocautery. A 36 [place] mediastinal and 32 [place] left pleural chest tubes were placed and secured to the skin with 0 silk suture. The sternum was closed with stainless steel wire. The fascia was closed with 1. PDS. The subcutaneous tissue was closed using a running 2-0 Vicryl suture. The skin was closed with 4-0 Monocryl. Sterile dressings were placed. At the end of the operation, all sponge, instruments, and needle counts were correct. The patient was transferred to the CVICU in stable condition. Findings: Good distal targets, EF ~40-45% XC: 74 min CPB: 95 min Drains: mediastinal x 1 pleural x 1 Complications: none Disposition: To CVICU in stable condition Condition: {stable/unstable:58041} Pacing Wires: 2 atrial
[2018-02-04] MEDS ORDERED: fentaNYL Citrate Inj 250 MCG/5 ML Ampul ONE ×2 (13:30)
--- NOTE | 2018-02-04 13:56 | XR ---
EXAM DATE: 02/04/2018 1:46 PM EDT AGE/SEX: 77 years / Male INDICATIONS: Status post bypass grafting procedure and intubation. CLINICAL DATA: This is the patient's initial encounter. Patient reports that signs and symptoms have been present for 1 day and indicates a pain score of Nonresponsive. MEDICAL/SURGICAL HISTORY: . dialysis, heart attacks None. coronary artery stents COMPARISON: [facility], CHEST 2V PA&LAT, 01/28/2018. . FINDINGS: A single AP portable view of the chest was obtained and demonstrates the patient is status post media n sternotomy. The patient has been intubated with the endotracheal tube tip 3 cm above the basilio. Na sogastric tube is been placed and seen coursing through the esophagus into the stomach. There is a me diastinal chest tube and left-sided chest tube in place with no pneumothorax. There is been placement of a left subclavian central venous line. The right-sided double-lumen central venous catheter remai ns in place. The study is more mid inspiratory. There is patchy opacity at the left lung base with bl unting of left costophrenic angle. The left hemidiaphragm is partially obscured. CONCLUSION: 1. Status post interval bypass grafting procedure with intubation and placement of nasogastric tube. 2. Placement of left subclavian central venous line with no pneumothorax. 3. Mid inspiratory exam with abnormal opacity at the left lung base and blunting the costophrenic an gle consistent with effusion. Electronically signed by: Carlos Coronado MD 02/04/2018 1:54 PM EDT
--- NOTE | 2018-02-04 14:07 | P.CONCC ---
History of Present Illness Service: Critical Care Medicine Consult date: 02/04/18 Requesting Physician: Payton Mane Reason for Consult: perioperative hemodynamic management Primary Care Provider: Regina Solitario History of Present Illness: 77yM with history of Kidney disease now on HD T/R/Sa presents for CABG x 4. He underwent uncomplicated procedure. Arrived to the CVICU intubated. He was extubated on pathway and I evaluated him immediately upon being extubated. Patient denies chest pain, shortness of breath, sore throat, headache, nausea, vomiting. Remainder review systems is negative. He has had 100 mL's of sanguinous output from his chest tube since exiting the operating room. He has made 5-10 mL's of urine output per hour since coming out of the operating room, but he is oliguric at baseline. His CVP is remained 9-11 and he is remained off his vasopressors with a clearing lactate. Review of Systems All other systems reviewed negative except as stated in HPI PMFSH - History History Provided By: Patient, Medical Record - Medical History Medical History: Medical History (Last Reviewed 02/04/18 @ 15:54 by Temo Ruvalcaba MD) CAD (coronary artery disease) (Acute) Hypertension (Acute) DVT (deep venous thrombosis) (Acute) Bladder cancer (Acute) Anemia CKD (chronic kidney disease) stage V requiring chronic dialysis Colonoscopy planned Congestive heart failure Diverticul disease small and large intestine, no perforati or abscess GI bleed H/O ETOH abuse History of bleeding ulcers Morbid obesity Myocardial infarct, old Port catheter in place - Surgical History Surgical History: Surgical History (Last Reviewed 02/04/18 @ 15:54 by Temo Ruvalcaba MD) H/O colonoscopy History of cystoscopy History of heart artery stent History of tonsillectomy Hx of arteriovenostomy for renal dialysis S/P colonoscopic polypectomy - Family History Family History: Family History (Last Reviewed 02/04/18 @ 15:54 by Temo Ruvalcaba MD) Other Family history non-contributory - Social History I have reviewed the patient's Social History: Yes - Tobacco History Second Hand Smoke Exposure: No Tobacco Use In Past 30 Days: No Smoking Status: Former smoker Tobacco Type: Cigarettes - Alcohol History How Often Do You Have a Drink Containing Alcohol: Monthly or less - Substance Use History Substance History: No History of Abuse - Substance Use Type Alcohol Status: Early Remission - Travel History History of Recent Travel: No Recent Travel in the [place] Within the Last 8 Weeks: No Recent Travel Out of the Country Within the Last 8 Weeks: No Medications and Allergies Active Medications: Active Medications Albuterol (Duoneb Neb (Prn)) 1 ampul NEB Q2HR NEB PRN PRN Reason: WHEEZING Albuterol (Duoneb Neb (Matthew)) 1 ampul NEB Q6HR NEB MATTHEW Amiodarone HCl (Cordarone) 200 mg PO Q12HR MATTHEW Aspirin (Ecotrin) 81 mg PO DAILY [facility] Calcium Chloride (Calcium Chloride Inj) 0.5 gm IV.PUSH UNSCH PRN PRN Reason: SEE LABEL COMMENTS Carvedilol (Coreg) 6.25 mg PO BID [facility] Chlorhexidine Gluconate (Hibiclens 4% Topical) 0 applicatio TOPICAL [employer]ING [employer]NAGER [facility] Sodium Chloride 77.5 ml/Papaverine HCl 60 mg/Nitroglycerin 100 mcg/Diltiazem HCl 100 mg 0 ml IRRIGATION [employer]ANNING MANAGER [facility] Stop: 02/04/18 14:00 Sodium Chloride 500 ml/ (Cefazolin Sodium 500 mg) 0 ml IRRIGATION [employer]ING MANAGER [facility] Stop: 02/04/18 14:00 Dextrose (D50w Vial) 50 ml IV.PUSH UNSCH PRN PRN Reason: PER HYPOGLYCEMIA PROTOCOL Epinephrine (Racepinephrine 2.25% Neb) 0.5 ml NEB UNSCH X1 PRN PRN Reason: STRIDOR Fentanyl Citrate (Fentanyl Inj) 25 mcg IV.PUSH Q1H PRN PRN Reason: BREAKTHROUGH PAIN Lactated Ringer's (Lr 1000 Ml Inj) 1,000 mls @ 30 mls/hr IV.SIG .Q24H [facility] Stop: 02/05/18 05:44 Last Admin: 02/04/18 07:04 Dose: Not Given Cefazolin Sodium/Dextrose (Ancef 2 Gm Premix Inj) 2 gm in 50 mls @ 150 mls/hr IV.SIG [employer]ING MA[employer]GER [facility] Stop: 02/04/18 14:00 Last Infusion: 02/04/18 08:40 Dose: Infused Albumin Human (Buminate 5% Inj) 250 mls @ 250 mls/hr IV.SIG UNSCH PRN PRN Reason: SEE LABEL COMMENTS Calcium Chloride 1 gm/ Sodium (Chloride) 110 mls @ 100 mls/hr IV.SIG PRN PRN PRN Reason: SEE LABEL COMMENTS Cefazolin Sodium/Dextrose (Ancef 1 Gm Premix Inj) 1 gm in 50 mls @ 100 mls/hr IV.SIG Q8H [facility] Stop: 02/06/18 04:29 Clevidipine (Cleviprex Inj) 25 mg in 50 mls @ 2 mls/hr IV.CONT TITRATE PRN; Protocol PRN Reason: Per protocol Dexmedetomidine HCl 200 mcg/ (Sodium Chloride) 50 mls @ 4.16 mls/hr IV.CONT TITRATE PRN; Protocol PRN Reason: Per Protocol Insulin Human Regular 100 unit (/ Sodium Chloride) 100 mls @ 3 mls/hr IV.CONT TITRATE PRN; Protocol PRN Reason: See Protocol Lactated Ringer's (Lr 1000 Ml Inj) 500 mls @ 500 mls/hr IV.SIG .Q1H PRN PRN Reason: SEE LABEL COMMENTS Magnesium Sulfate 2 gm/ Sodium (Chloride) 100 mls @ 50 mls/hr IV.SIG PRN PRN PRN Reason: SEE LABEL COMMENTS Magnesium Sulfate 2 gm/ Sodium (Chloride) 100 mls @ 50 mls/hr IV.SIG PRN PRN PRN Reason: SEE LABEL COMMENTS Acetaminophen (Ofirmev Inj) 1,000 mg in 100 mls @ 400 mls/hr IV.SIG Q6H [facility] Stop: 02/05/18 08:14 Metoprolol Tartrate (Lopressor) 12.5 mg PO [employer] [facility] Stop: 02/10/18 05:35 Metoprolol Tartrate (Lopressor Inj) 2.5 mg IV.PUSH Q1H PRN PRN Reason: SEE LABEL COMMENTS Ondansetron HCl (Zofran Inj) 4 mg IV.PUSH Q6H PRN PRN Reason: NAUSEA OR VOMITING Oxycodone/Acetaminophen (Percocet 5/325 Mg) 1 tab PO Q3H PRN PRN Reason: PAIN SCALE 1 TO 5 Pantoprazole Sodium (Protonix) 40 mg PO BID [facility] Phenylephrine HCl (Neosynephrine Inj) 0.1 mg IV.PUSH UNSCH PRN PRN Reason: SEE LABEL COMMENTS Pravastatin Sodium (Pravachol) 40 mg PO HS [facility] Sodium Bicarbonate (Sodium Bicarbonate 8.4% Inj) 50 meq IV.PUSH UNSCH PRN PRN Reason: SEE LABEL COMMENTS Sodium Bicarbonate (Sodium Bicarbonate 8.4% Inj) 100 meq IV.PUSH UNSCH PRN PRN Reason: SEE LABEL COMMENTS Sodium Chloride (Ns Flush) 2 ml IV.FLUSH BID MATTHEW Sodium Chloride (Ns Flush) 2 ml IV.FLUSH PRN PRN PRN Reason: FLUSH AFTER USING IV ACCESS Allergies Allergy/AdvReac Type Severity Reaction Status Date / Time Antihistamines - Alkylamine Allergy Severe Swelling Verified 02/04/18 05:44 diphenhydramine Allergy Severe Swelling Verified 02/04/18 05:44 [From Julius] niacin Allergy Severe Swelling Verified 02/04/18 05:44 Home Medications Medication Instructions Recorded Confirmed Type aspirin [Adult Low Dose Aspirin] 81 mg PO DAILY 12/19/17 02/04/18 History isosorbide mononitrate 30 mg PO DAILY 12/19/17 02/04/18 History pravastatin 40 mg PO HS 12/19/17 02/04/18 History carvedilol 6.25 mg PO BID 12/26/17 02/04/18 History clopidogrel [Plavix] 75 mg PO DAILY 12/26/17 02/04/18 History pantoprazole 40 mg PO BID 12/26/17 02/04/18 History Physical Exam Vital signs: Vital Signs 02/04/18 05:55 02/04/18 13:14 Temperature 36.6 C Pulse Rate 81 Respiratory Rate 16 13 Blood Pressure 118/59 L Pulse Oximetry 96 97 Intake & Output 02/03/18 02/04/18 02/04/18 18:59 06:59 18:59 Intake Total 5150 / 5150 Output Total 1580 / 1580 Balance 3570 / 3570 Weight 83.3 kg Intake: IV 2350 / 2350 KCl 40 mEq Premix Inj 80 meq In 200 / 200 200 ml @ 0 mls/hr .ROUTE .STK- [facility] ONE Rx#:[id number] Plegisol Irrigating Soln 2,000 2000 / 2000 ML @ 0 mls/hr IRRIGATION .STK- [facility] ONE Rx#:[id number] Flexbumin 25% Inj 50 ML @ 0 mls 50 / 50 /hr IV.SIG .STK-[facility] Rx#: [id number] Ancef 2 GM Premix Inj 2 gm In 50 / 50 50 ml @ 150 mls/hr IV.SIG [employer]ANNING MANAGER [facility] Rx#:[id number] Ancef Inj 1,000 MG In NS Inj 50 50 / 50 ML @ 100 mls/hr IV.SIG ONCE ONE Rx#:[id number] Anesthesia Amount 1800 / 1800 Autotransfusion Amount 250 / 250 Cell Saver Amount 750 / 750 Output: Estimated Blood Loss 1500 / 1500 Urine Amount (Catheter) 80 / 80 Indwelling Temp Sensing 80 / 80 Catheter Other: Weight On Admission 83.3 kg Narrative: GENERAL: Elderly male, recently extubated, awake, alert, sitting in bed HEENT: Normocephalic. Atraumatic. Pupils equal, round, reactive, conjugate. Mucous membranes are moist NECK: Trachea is midline. There is no JVD. CHEST: Left subclavian introducer sheath in place, site is clean dry and intact. Midline sternal wound with a wound VAC dressing in place. 2 chest tubes exit subxiphoid with minimal amount of sanguinous output: 100 mLs since coming out of the operating room. CARDIOVASCULAR: Normal rate in the 70s, regular rhythm. Appears sinus by telemetry. ABDOMEN: Soft, nontender, nondistended. No guarding. MUSCULOSKELETAL: Pulses 2+. No peripheral edema. Left lower extremity wrapped in Rasheed wrapping. NEUROLOGICAL: RASS -1. Recently extubated and still arousing from sedation. Awakens briskly and follows commands x4. - Urinary Catheter Management Indwelling Temp Sensing Catheter Cath placed during this visit: yes Reason for continuing: Hourly intake/output Insertion date: 02/04/18 Insertion time: 08:00 Assessment and Plan - Assessment and Plan Plan: Assessment: 77yM POD 0 s/p CABG x 4 (CORTES-->LAD, SVG-->PDA, SVG-->OM1, SVG--> Ramus). UOP will not be an adequate marker of post-operative cardiac function and end-organ perfusion. will keep FloTrack (pulse contour analysis) connected at least until POD 1 with serial abg to ensure clearance of lactate and appropriate end-points of resuscitation. CAD s/p CABG x 4 (CORTES-->LAD, SVG-->PDA, SVG-->OM1, SVG-->Ramus) 02/04 - extubated on pathway - watch cvp closely - watch FloTrack pulse contour analysis - mivf - watch chest tube output closely - am cbc - trend abg and lactate - uop not an appropriate marker for resuscitative end-point. ESRD on IHD T/R/Sa - nephrology consulted - would plan on HD POD 1 for slight volume removal. Hyperkalemia - stable. will not treat unless > 6. mild hyperkalemia likely good cardiac myocyte stabilizer immediately post-op. - am bmp Diabetes - insulin drip POD 0. transition to SSI POD 1. Congestive Heart Failure, systolic type - mivf tonight - early IHD to prevent volume overload POD 1 - hold ACEI/BBlocker given recent operation. early beta blockade when able hemodynamically. Anemia secondary to acute blood loss superimposed on underlying chronic anemia of chronic disease - does not meet transfusion triggers - watch chest tube output - finish TXA infusion per Dr. Mane - am cbc Hypertension - will add back antihypertensives as needed. - goal sbp 90 - 140 mmHg DVT - hold anticoagulation given recent cardiac surgery - will leave timing of anticoagulation to Dr. Mane Morbid Obesity - advance diet as tolerated Hyperlipidemia - continue statin SCDs Critical care medicine will continue to follow while patient remains in the CVICU.
[2018-02-04 15:39] LABS: Bilirubin,Urine Negative (Negative); Clarity,Urine Hazy (Clear); Glucose,Urine (UA) Negative (Negative); Hyaline Casts,Urine 1 /lpf (0-3); Leukocyte Esterase,Urine Trace (Negative); Mucus,Urine Few /lpf (Occasional); Nitrite,Urine Negative (Negative); Specific Gravity,Urine 1.019 (1.002-1.035); Squamous Epithelial Cell,Urine 1 /hpf (0-5)
--- NOTE | 2018-02-04 15:39 | P.PNCV ---
- Note Subjective/Hospital Course: 77/ male initially seen 09/24 History of Present Illness The patient is a 77-year-old male with past medical history significant for recent GI bleed from severe diverticulosis, Chronic kidney disease stage IV, hyperlipidemia, hypertension, coronary artery disease with UT , cardiac stents in 2001, and stent to the LAD 2006, bladder cancer status post BCG immunotherapy and TURP, morbid obesity, DVT 2015, who presented to the emergency department with severe central chest pain. He had been having on and off chest pain for the last 2 days worsened over the last 24 hours. EKG in the emergency department showed extensive anterolateral ST depression and troponin was elevated at 1.16. He was ruled in for non-ST elevation UT, Dr. hoyt his business economist was consulted. Due to ongoing chest pain patient was started on IV nitroglycerin infusion. Patient also received 162 mg of aspirin. After evaluation Dr. Hoyt has started the patient on IV heparin also. Patient was recently admitted for lower GI bleed and anemia, was discharged on 09/21/2017. Colonoscopy on 09/17/17 showed severe diverticulosis, moderate sized internal hemorrhoids, and pedunculated polyp at the cecum s/p polypectomy-biopsy showed tubular adenoma. Patient has chronic kidney disease with baseline creatinine around 3.5, creatinine today is elevated to 4.74. He underwent LHC by Dr. Hoyt and was found to have multivessel CAD now on dialysis Vanessa askew (Medical History: CAD (coronary artery disease) , Hypertension , DVT (deep venous thrombosis), Bladder cancer (Acute) Anemia, CKD (chronic kidney disease) stage V requiring chronic dialysis, Congestive heart failure Diverticul disease small and large intestine, no perforati or abscess hx GI bleed, H/O ETOH abuse, History of bleeding ulcers, Morbid obesity, Myocardial infarct, old Port catheter in plac - Surgical History Surgical History: H/O colonoscopy, History of cystoscopy, History of heart artery stent, History of tonsillectomy, Hx of arteriovenostomy for renal dialysis S/P colonoscopic polypectomy electively admitted for surgery 02/04 Procedure: CABG x 4, CORTES to LAd - good, SVG to PDA - good, SVG to OM1 - good, SVG to RI - good, EVH Objective: Vital Signs - 24 hr 02/04/18 05:55 02/04/18 13:14 02/04/18 13:15 Temperature 97.8 F 98.5 F Pulse Rate 81 66 Respiratory Rate 16 13 15 Blood Pressure 118/59 L 102/52 L Pulse Oximetry 96 97 02/04/18 14:44 Temperature Pulse Rate Respiratory Rate 18 Blood Pressure Pulse Oximetry 98 Labs: Laboratory Results - last 12 hr 02/04/18 02/04/18 02/04/18 06:00 06:53 09:32 Potassium 4.5 POC Glucose Blood Type O Positive Antibody Screen Negative MTS Gel Crossmatch See Detail Bld Prod Order Comment 02/04/18 15:25 Potassium POC Glucose 125 H Blood Type Antibody Screen MTS Gel Crossmatch Bld Prod Order Comment Result Diagrams: 02/04/18 06:53
[2018-02-04 15:41] LABS: Color,Urine Dark-Yellow (Yellw/Straw)
--- NOTE | 2018-02-04 17:58 | P.CONNP ---
History of Present Illness Service: Nephrology Reason for Consult: ESRD Primary Care Provider: Regina Solitario History of Present Illness: This is a 77 year old male with history of ESRD who underwent CABG x 4 today. He undergoes dialysis TTS. He has a maturing AVF in the left upper extremity, has right IJ PermCath for dialysis. He was seen in CVICU after surgery. He has been extubated, on insulin drip and LR. He is doing fairly well. Not on pressors. Review of Systems Constitutional: Denies anorexia, Denies weakness Ears, Nose, Mouth, and Throat: Denies abnormal hearing Cardiovascular: Reports chest pain with activity, Reports shortness of breath with activity, Denies leg swelling Gastrointestinal: Denies abdominal pain, Denies heartburn Skin/Breast: Denies rash Neurologic: Denies fainting, Denies frequent falls, Denies localized weakness, Denies loss of vision PMFSH - History History Provided By: Patient, Medical Record - Medical History Medical History: Medical History (Last Reviewed 02/04/18 @ 15:54 by Temo Ruvalcaba MD) CAD (coronary artery disease) (Acute) Hypertension (Acute) DVT (deep venous thrombosis) (Acute) Bladder cancer (Acute) Anemia CKD (chronic kidney disease) stage V requiring chronic dialysis Colonoscopy planned Congestive heart failure Diverticul disease small and large intestine, no perforati or abscess GI bleed H/O ETOH abuse History of bleeding ulcers Morbid obesity Myocardial infarct, old Port catheter in place - Surgical History Surgical History: Surgical History (Last Reviewed 02/04/18 @ 15:54 by Temo Ruvalcaba MD) H/O colonoscopy History of cystoscopy History of heart artery stent History of tonsillectomy Hx of arteriovenostomy for renal dialysis S/P colonoscopic polypectomy - Family History Family History: Family History (Last Reviewed 02/04/18 @ 15:54 by Temo Ruvalcaba MD) Other Family history non-contributory - Tobacco History Second Hand Smoke Exposure: No Tobacco Use In Past 30 Days: No Smoking Status: Former smoker Tobacco Type: Cigarettes - Alcohol History How Often Do You Have a Drink Containing Alcohol: Monthly or less - Substance Use History Substance History: No History of Abuse - Substance Use Type Alcohol Status: Early Remission - Travel History History of Recent Travel: No Recent Travel in the [place] Within the Last 8 Weeks: No Recent Travel Out of the Country Within the Last 8 Weeks: No Medications and Allergies Active Medications: Active Medications Albuterol (Duoneb Neb (Prn)) 1 ampul NEB Q2HR NEB PRN PRN Reason: WHEEZING Albuterol (Duoneb Neb (Leo)) 1 ampul NEB Q6HR NEB LEO Last Admin: 02/04/18 16:23 Dose: 1 ampul Amiodarone HCl (Cordarone) 200 mg PO Q12HR LEO Aspirin (Ecotrin) 81 mg PO DAILY [facility] Calcium Chloride (Calcium Chloride Inj) 0.5 gm IV.PUSH UNSCH PRN PRN Reason: SEE LABEL COMMENTS Carvedilol (Coreg) 6.25 mg PO BID [facility] Chlorhexidine Gluconate (Hibiclens 4% Topical) 0 applicatio TOPICAL [employer]INT [facility] Dextrose (D50w Vial) 50 ml IV.PUSH UNSCH PRN PRN Reason: PER HYPOGLYCEMIA PROTOCOL Epinephrine (Racepinephrine 2.25% Neb) 0.5 ml NEB UNSCH X1 PRN PRN Reason: STRIDOR Fentanyl Citrate (Fentanyl Inj) 25 mcg IV.PUSH Q1H PRN PRN Reason: BREAKTHROUGH PAIN Lactated Ringer's (Lr 1000 Ml Inj) 1,000 mls @ 30 mls/hr IV.SIG .Q24H [facility] Stop: 02/05/18 05:44 Last Admin: 02/04/18 07:04 Dose: Not Given Albumin Human (Buminate 5% Inj) 250 mls @ 250 mls/hr IV.SIG UNSCH PRN PRN Reason: SEE LABEL COMMENTS Last Infusion: 02/04/18 15:00 Dose: Infused Calcium Chloride 1 gm/ Sodium (Chloride) 110 mls @ 100 mls/hr IV.SIG PRN PRN PRN Reason: SEE LABEL COMMENTS Cefazolin Sodium/Dextrose (Ancef 1 Gm Premix Inj) 1 gm in 50 mls @ 100 mls/hr IV.SIG Q8H [facility] Stop: 02/06/18 04:29 Clevidipine (Cleviprex Inj) 25 mg in 50 mls @ 2 mls/hr IV.CONT TITRATE PRN; Protocol PRN Reason: Per protocol Dexmedetomidine HCl 200 mcg/ (Sodium Chloride) 50 mls @ 4.16 mls/hr IV.CONT TITRATE PRN; Protocol PRN Reason: Per Protocol Insulin Human Regular 100 unit (/ Sodium Chloride) 100 mls @ 3 mls/hr IV.CONT TITRATE PRN; Protocol PRN Reason: See Protocol Lactated Ringer's (Lr 1000 Ml Inj) 500 mls @ 500 mls/hr IV.SIG .Q1H PRN PRN Reason: SEE LABEL COMMENTS Magnesium Sulfate 2 gm/ Sodium (Chloride) 100 mls @ 50 mls/hr IV.SIG PRN PRN PRN Reason: SEE LABEL COMMENTS Magnesium Sulfate 2 gm/ Sodium (Chloride) 100 mls @ 50 mls/hr IV.SIG PRN PRN PRN Reason: SEE LABEL COMMENTS Acetaminophen (Ofirmev Inj) 1,000 mg in 100 mls @ 400 mls/hr IV.SIG Q6H [facility] Stop: 02/05/18 08:14 Last Infusion: 02/04/18 14:34 Dose: Infused Metoprolol Tartrate (Lopressor) 12.5 mg PO [employer]INT [facility] Stop: 02/10/18 05:35 Metoprolol Tartrate (Lopressor Inj) 2.5 mg IV.PUSH Q1H PRN PRN Reason: SEE LABEL COMMENTS Ondansetron HCl (Zofran Inj) 4 mg IV.PUSH Q6H PRN PRN Reason: NAUSEA OR VOMITING Last Admin: 02/04/18 16:15 Dose: 4 mg Oxycodone/Acetaminophen (Percocet 5/325 Mg) 1 tab PO Q3H PRN PRN Reason: PAIN SCALE 1 TO 5 Pantoprazole Sodium (Protonix) 40 mg PO BID [facility] Phenylephrine HCl (Neosynephrine Inj) 0.1 mg IV.PUSH UNSCH PRN PRN Reason: SEE LABEL COMMENTS Pravastatin Sodium (Pravachol) 40 mg PO HS [facility] Sodium Bicarbonate (Sodium Bicarbonate 8.4% Inj) 50 meq IV.PUSH UNSCH PRN PRN Reason: SEE LABEL COMMENTS Sodium Bicarbonate (Sodium Bicarbonate 8.4% Inj) 100 meq IV.PUSH UNSCH PRN PRN Reason: SEE LABEL COMMENTS Sodium Chloride (Ns Flush) 2 ml IV.FLUSH BID [facility] Sodium Chloride (Ns Flush) 2 ml IV.FLUSH PRN PRN PRN Reason: FLUSH AFTER USING IV ACCESS Allergies Allergy/AdvReac Type Severity Reaction Status Date / Time Antihistamines - Alkylamine Allergy Severe Swelling Verified 02/04/18 05:44 diphenhydramine Allergy Severe Swelling Verified 02/04/18 05:44 [From Benadryl] niacin Allergy Severe Swelling Verified 02/04/18 05:44 Home Medications Medication Instructions Recorded Confirmed Type aspirin [Adult Low Dose Aspirin] 81 mg PO DAILY 12/19/17 02/04/18 History isosorbide mononitrate 30 mg PO DAILY 12/19/17 02/04/18 History pravastatin 40 mg PO HS 12/19/17 02/04/18 History carvedilol 6.25 mg PO BID 12/26/17 02/04/18 History clopidogrel [Plavix] 75 mg PO DAILY 12/26/17 02/04/18 History pantoprazole 40 mg PO BID 12/26/17 02/04/18 History Exam Vital signs: Vital Signs 02/04/18 05:55 02/04/18 13:14 02/04/18 13:15 Temperature 97.8 F 98.5 F Pulse Rate 81 66 Respiratory Rate 16 13 15 Blood Pressure 118/59 L 102/52 L Pulse Oximetry 96 97 02/04/18 14:44 02/04/18 15:00 02/04/18 16:23 Temperature 98.7 F Pulse Rate 70 83 Respiratory Rate 18 19 18 Blood Pressure 102/53 L Pulse Oximetry 98 Intake & Output 02/03/18 02/04/18 02/04/18 18:59 06:59 18:59 Intake Total 5500 / 5500 Output Total 1580 / 1580 Balance 3920 / 3920 Weight 83.3 kg Intake: IV 2700 / 2700 KCl 40 mEq Premix Inj 80 meq In 200 / 200 200 ml @ 0 mls/hr .ROUTE .STK- [facility] Rx#:[id number] Plegisol Irrigating Soln 2,000 2000 / 2000 ML @ 0 mls/hr IRRIGATION .STK- [facility] ONE Rx#:[id number] Ofirmev Inj 1,000 mg In 100 ml 100 / 100 @ 400 mls/hr IV.SIG Q6H [facility] Rx# :[id number] Flexbumin 25% Inj 50 ML @ 0 mls 50 / 50 /hr IV.SIG .STK-[facility] Rx#: [id number] Buminate 5% Inj 250 ML @ 250 250 / 250 mls/hr IV.SIG UNSCH PRN Rx#: [id number] Ancef 2 GM Premix Inj 2 gm In 50 / 50 50 ml @ 150 mls/hr IV.SIG [employer]INT [facility] Rx#:[id number] Ancef Inj 1,000 MG In NS Inj 50 50 / 50 ML @ 100 mls/hr IV.SIG ONCE ONE Rx#:[id number] Anesthesia Amount 1800 / 1800 Autotransfusion Amount 250 / 250 Cell Saver Amount 750 / 750 Output: Estimated Blood Loss 1500 / 1500 Urine Amount (Catheter) 80 / 80 Indwelling Temp Sensing 80 / 80 Catheter Other: Weight On Admission 83.3 kg - Constitutional no acute distress, obese - Routine HEENT Exam Head: Present: normocephalic, atraumatic Eye: Present: EOMI, PERRL ENT: Present: mucous membranes moist - Routine Neck Exam Present: supple. Absent: JVD, carotid bruit, lymphadenopathy, thyromegaly - Routine Respiratory Exam Present: CTA bilaterally Comments: chest tube. surgical incision over sternum is covered in dressing. - Routine Cardiovascular Exam Present: RRR, S1, S2 Comments: pericardial rub. - Routine Abdominal Exam Present: soft. Absent: guarding - Routine Extremities Exam Present: full ROM, AV fistula. Absent: edema - Routine Skin Exam Present: intact - Routine Neurological Exam Present: alert, oriented X3, CN II-XII intact, normal speech. Absent: tremors Results - Lab Results 02/04/18 06:53 Assessment and Plan - Assessment (1) End stage renal disease Code(s): N18.6 - End stage renal disease Status: Acute Plan: dialysis TTS. Monitor fluid and electrolytes. Avoid Gadolinium. No IV, BP left upper extremity. If NPO, start D10NS at 15 ml/hour. (2) S/P CABG x 4 Code(s): Z95.1 - Presence of aortocoronary bypass graft Status: Acute Plan: supportive care. CT surgery to manage. Currently very stable. (3) HTN (hypertension) Code(s): I10 - Essential (primary) hypertension Status: Chronic Plan: Monitor. BP is currently low normal. (4) Anemia Code(s): D64.9 - Anemia, unspecified Status: Chronic Plan: Monitor for blood loss. Epogen with dialysis. - Attending Attestation Thanks for the consult. (3) HTN (hypertension) Qualifiers: Hypertension type: essential hypertension Qualified Code(s): I10 - Essential (primary) hypertension (4) Anemia Qualifiers: Anemia type: due to chronic kidney disease Chronic kidney disease stage: on chronic dialysis Qualified Code(s): N18.6 - End stage renal disease; D63.1 - Anemia in chronic kidney disease; Z99.2 - Dependence on renal dialysis
[2018-02-04] MEDS ORDERED: Sod Chloride 0.9% Inj 1,000 ML IV.CONT PRN (17:59)
[2018-02-04] MEDS ORDERED: Gelatin 12 MM/7 MM Topical Foam TOPICAL PRN (17:59)
[2018-02-04] MEDS ORDERED: Sod Chloride 0.9% Inj 1,000 ML OTHER PRN ×2 (17:59)
[2018-02-04] MEDS ORDERED: Heparin 10,000 UNITS/10 ML Vial (for IV use) OTHER PRN (17:59)
[2018-02-04] MEDS ORDERED: Acetaminophen 325 MG Tablet PO PRN (17:59)
[2018-02-04] MEDS: ceFAZolin 1 GM Premix Inj 1 GM/50 ML FROZ.PIGGY IV.SIG SCH (21:18)
[2018-02-04] MEDS: Amiodarone 200 MG Tablet PO SCH (21:20)
[2018-02-05 03:47] LABS: Hematocrit 29.5 % (39.0-51.0); Hemoglobin 10.2 gm/dL (13.0-17.0); Mean Corpuscular HGB Conc 34.5 % (32.0-36.0); Mean Corpuscular Hemoglobin 35.6 pg (27.0-34.0); Mean Corpuscular Volume 103.4 fL (80.0-100.0); Platelet Count 244 th/mm3 (150-450); Red Blood Count 2.86 mil/mm3 (4.50-5.90); Red Cell Distribution Width 16.2 % (11.6-17.2); White Blood Count 14.1 th/mm3 (4.0-11.0)
[2018-02-05 04:07] LABS: Calcium 9.3 mg/dL (8.5-10.1); Carbon Dioxide 24.4 meq/L (21.0-32.0)
[2018-02-05 04:14] LABS: Potassium 6.7 meq/L (3.5-5.1)
[2018-02-05] MEDS ORDERED: Sodium Bicarbonate 8.4% Inj 50 MEQ/50 ML Syringe IV.PUSH ONE (04:20)
[2018-02-05] MEDS ORDERED: Sodium Polystyrene Sulfonate/Sorbitol Liq 15 GM/60 ML UDC PO ONE (04:21)
[2018-02-05] MEDS: ceFAZolin 1 GM Premix Inj 1 GM/50 ML FROZ.PIGGY IV.SIG SCH ×3 (04:40→20:30)
--- NOTE | 2018-02-05 06:17 | XR ---
EXAM DATE: 02/05/2018 5:48 AM EDT AGE/SEX: 77 years / Male INDICATIONS: Status post CABG 2 days ago. CLINICAL DATA: This is the patient's subsequent encounter. Patient reports that signs and symptoms h ave been present for 2 days and indicates a pain score of 0/10. MEDICAL/SURGICAL HISTORY: Carcinoma, bladder. Hypertension. Congestive heart failure. Anemia . Myocardial infarction. Chronic kidney disease stage V. Coronary artery disease. Coronary artery st ent. CABG. COMPARISON: [facility], CHEST 1V SINGLE AP, 02/04/2018. . FINDINGS: Mild perihilar and basilar consolidation again noted on the left, not significantly changed. Median sternotomy changes are again noted. Heart size stable, upper limits of normal. Endotracheal tube and nasogastric tube removed. Mediastinal drain, left chest tube, left subclavian l ine and right IJ dialysis catheter are all unchanged. CONCLUSION: 1. Left perihilar and basilar consolidation unchanged. 2. Interim extubation and nasogastric tube removal. Electronically signed by: August Estrada MD 02/05/2018 6:15 AM EDT
[2018-02-05] MEDS ORDERED: Metoprolol Inj 5 MG/5 ML Vial IV.PUSH ONE (06:29)
--- NOTE | 2018-02-05 06:40 | P.PNCC ---
Subjective Subjective Remarks/Hospital Course: Hospital Course: 77yM with history of Kidney disease now on HD T/R/Sa presents for CABG x 4. He underwent uncomplicated procedure. Arrived to the CVICU intubated. He was extubated on pathway and I evaluated him immediately upon being extubated. Patient denies chest pain, shortness of breath, sore throat, headache, nausea, vomiting. Remainder review systems is negative. He has had 100 mL's of sanguinous output from his chest tube since exiting the operating room. He has made 5-10 mL's of urine output per hour since coming out of the operating room, but he is oliguric at baseline. His CVP is remained 9-11 and he is remained off his vasopressors with a clearing lactate. Subjective: 02/05: K 6.7 this AM despite conservative medical management. receiving IHD this morning. left pleural effusion is larger, minimal out from chest tubes. denies complaints. ROS negative. Objective Vital Signs / I&O: Vital Signs 02/04/18 13:14 02/04/18 13:15 02/04/18 14:30 Temperature 36.9 C 37.0 C Pulse Rate 66 Respiratory Rate 13 15 Blood Pressure 102/52 L Pulse Oximetry 97 02/04/18 14:44 02/04/18 15:00 02/04/18 15:16 Temperature 37.1 C Pulse Rate 70 Respiratory Rate 18 19 Blood Pressure 102/53 L Pulse Oximetry 98 98 02/04/18 16:23 02/04/18 17:00 02/04/18 20:00 Temperature 36.7 C Pulse Rate 83 94 H Respiratory Rate 18 18 Blood Pressure 141/67 H Pulse Oximetry 95 97 02/04/18 21:30 02/05/18 00:00 02/05/18 03:37 Temperature 36.9 C Pulse Rate 91 H 87 91 H Respiratory Rate 18 18 14 Blood Pressure 135/62 Pulse Oximetry 98 95 02/05/18 04:00 02/05/18 04:50 Temperature Pulse Rate 95 H Respiratory Rate 14 Blood Pressure Pulse Oximetry 98 Intake & Output 02/04/18 02/04/18 02/05/18 06:59 18:59 06:59 Intake Total 5500 / 5500 250 / 250 Output Total 1830 / 1830 Balance 3670 / 3670 250 / 250 Weight 83.3 kg Intake: IV 2700 / 2700 250 / 250 KCl 40 mEq Premix Inj 80 meq In 200 / 200 200 ml @ 0 mls/hr .ROUTE .ST- [facility] Rx#:[id number] Plegisol Irrigating Soln 2,000 2000 / 2000 ML @ 0 mls/hr IRRIGATION .STK- [facility] Rx#:[id number] Ofirmev Inj 1,000 mg In 100 ml 100 / 100 200 / 200 @ 400 mls/hr IV.SIG Q6H [facility] Rx# :[id number] Flexbumin 25% Inj 50 ML @ 0 mls 50 / 50 /hr IV.SIG .[facility] Rx#: [id number] Buminate 5% Inj 250 ML @ 250 250 / 250 mls/hr IV.SIG UNSCH PRN Rx#: [id number] Ancef 1 GM Premix Inj 1 gm In 50 / 50 50 ml @ 100 mls/hr IV.SIG Q8H [facility] Rx#:[id number] Ancef 2 GM Premix Inj 2 gm In 50 / 50 50 ml @ 150 mls/hr IV.SIG FABRIC NORMALIZER [facility] Rx#:[id number] Ancef Inj 1,000 MG In NS Inj 50 50 / 50 ML @ 100 mls/hr IV.SIG ONCE [facility] Rx#:[id number] Anesthesia Amount 1800 / 1800 Autotransfusion Amount 250 / 250 Cell Saver Amount 750 / 750 Output: Estimated Blood Loss 1500 / 1500 Urine Amount (Catheter) 130 / 130 Indwelling Temp Sensing 130 / 130 Catheter Chest Tube Drainage 200 / 200 #2 Anterior 200 / 200 Other: Weight On Admission 83.3 kg Result Diagrams: 02/05/18 03:20 02/05/18 03:20 Objective Remarks: GENERAL: Elderly male, awake, alert, sitting in bed HEENT: Normocephalic. Atraumatic. Pupils equal, round, reactive, conjugate. Mucous membranes are moist NECK: Trachea is midline. There is no JVD. CHEST: Left subclavian introducer sheath in place, site is clean dry and intact. Midline sternal wound with a wound VAC dressing in place. 2 chest tubes exit subxiphoid with minimal amount of sanguinous output. CARDIOVASCULAR: tachycardic rate in the 110s, regular rhythm. Appears sinus by telemetry. ABDOMEN: Soft, nontender, nondistended. No guarding. MUSCULOSKELETAL: Pulses 2+. No peripheral edema. Left lower extremity wrapped in Rasheed wrapping. NEUROLOGICAL: RASS 0. follows commands x 4. no focal deficits. Assessment and Plan - Assessment and Plan Plan: Assessment: 77yM POD 1 s/p CABG x 4 (CORTES-->LAD, SVG-->PDA, SVG-->OM1, SVG--> Ramus). HD today with some volume removal, but will be conservative today. will likely need HD again tomorrow. left pleural effusion not resolving with turning maneuvers. will mobilize patient to help mobilize effusion, but if this is unsuccessful, may need second left-sided chest tube: will defer to CT surgery. otherwise clinically improving. remain in ICU for HD. If he clinically improves could transfer out of ICU as early as this afternoon. CAD s/p CABG x 4 (CORTES-->LAD, SVG-->PDA, SVG-->OM1, SVG-->Ramus) 02/04 - extubated on pathway - watch cvp closely - watch FloTrack pulse contour analysis - d/c mivf - am cbc - lactate cleared. - uop not an appropriate marker for resuscitative end-point. Left pleural effusion - will mobilize patient to help mobilize fluid in left chest. - if effusion does not improve with mobilization, would benefit from second chest tube: will defer to CT surgery ESRD on IHD T/R/Sa - nephrology consulted - HD this morning. have asked for 1.5L volume removal- may be able to take 2-3L , but CVP 4, so may not be able to take significant amounts of intravascular volume. Hyperkalemia- worsening - HD this AM. - am bmp Diabetes - insulin drip POD 0. transition to SSI POD 1. Congestive Heart Failure, systolic type - HD this AM. - hold ACEI. restart carvedilol after HD Anemia secondary to acute blood loss superimposed on underlying chronic anemia of chronic disease - does not meet transfusion triggers - watch chest tube output - d/c TXA - am cbc Hypertension - will add back antihypertensives as needed. - goal sbp 90 - 140 mmHg - restart carvedilol today DVT - hold anticoagulation given recent cardiac surgery - will leave timing of anticoagulation to Dr. Mane Morbid Obesity - advance diet as tolerated Hyperlipidemia - continue statin SCDs Critical care medicine will continue to follow while patient remains in the CVICU.
[2018-02-05] MEDS: Heparin 10,000 UNITS/10 ML Vial (for IV use) OTHER PRN (07:21)
[2018-02-05] MEDS ORDERED: Carvedilol 6.25 MG Tablet PO SCH (09:00)
[2018-02-05] MEDS: Albumin Human 25% Inj 100 ML IV.SIG PRN (09:20)
[2018-02-05] MEDS: Amiodarone 200 MG Tablet PO SCH ×2 (10:06→21:07)
[2018-02-05] MEDS ORDERED: Dextrose 50% in Water 50 ML Vial IV.PUSH PRN (10:20)
[2018-02-05] MEDS ORDERED: Sod Phosphate/Sod Biphosphate (Adult) Enema 133 ML Bottle RECTAL PRN (10:20)
[2018-02-05] MEDS ORDERED: Bisacodyl 10 MG Supp RECTAL PRN (10:20)
--- NOTE | 2018-02-05 10:34 | P.PNCV ---
- Note Subjective/Hospital Course: 77/ male initially seen 09/24 History of Present Illness The patient is a 77-year-old male with past medical history significant for recent GI bleed from severe diverticulosis, Chronic kidney disease stage IV, hyperlipidemia, hypertension, coronary artery disease with [place] , cardiac stents in 2001, and stent to the LAD 2006, bladder cancer status post BCG immunotherapy and TURP, morbid obesity, DVT 2015, who presented to the emergency department with severe central chest pain. He had been having on and off chest pain for the last 2 days worsened over the last 24 hours. EKG in the emergency department showed extensive anterolateral ST depression and troponin was elevated at 1.16. He was ruled in for non-ST elevation [place], Dr. hoyt his funeral pre arrangement specialist was consulted. Due to ongoing chest pain patient was started on IV nitroglycerin infusion. Patient also received 162 mg of aspirin. After evaluation Dr. Hoyt has started the patient on IV heparin also. Patient was recently admitted for lower GI bleed and anemia, was discharged on 09/21/2017. Colonoscopy on 09/17/17 showed severe diverticulosis, moderate sized internal hemorrhoids, and pedunculated polyp at the cecum s/p polypectomy-biopsy showed tubular adenoma. Patient has chronic kidney disease with baseline creatinine around 3.5, creatinine today is elevated to 4.74. He underwent LHC by Dr. Hoyt and was found to have multivessel CAD EF40-45% now on dialysis Vanessa askew (Medical History: CAD (coronary artery disease) , Hypertension , DVT (deep venous thrombosis), Bladder cancer (Acute) Anemia, CKD (chronic kidney disease) stage V requiring chronic dialysis, Congestive heart failure Diverticul disease small and large intestine, no perforati or abscess hx GI bleed, H/O ETOH abuse, History of bleeding ulcers, Morbid obesity, Myocardial infarct, old Port catheter in plac - Surgical History Surgical History: H/O colonoscopy, History of cystoscopy, History of heart artery stent, History of tonsillectomy, Hx of arteriovenostomy for renal dialysis S/P colonoscopic polypectomy electively admitted for surgery 02/04 Procedure: CABG x 4, CORTES to LAd - good, SVG to PDA - good, SVG to OM1 - good, SVG to RI - good, EVH extubated after surgery 02/05 receiving , dialysis at this time , attempted to remove at least 1.5 liter , BP becomes labile , somewhat tachycardic improved with IV lopressor no pressors at this time CVP 7-8 on jason trac on 4 liter nasal cannula CXR noted has large left effusion pt need to be out of bed to facilitate drainage of chest tube repeat CXR in am , if not improved, may need thoracentesis left chest tube in adequate position eval for transfer to stepdown later today Objective: Vital Signs - 24 hr 02/04/18 13:14 02/04/18 13:15 02/04/18 14:30 Temperature 98.5 F 98.6 F Pulse Rate 66 Respiratory Rate 13 15 Blood Pressure 102/52 L Pulse Oximetry 97 02/04/18 14:44 02/04/18 15:00 02/04/18 15:16 Temperature 98.7 F Pulse Rate 70 Respiratory Rate 18 19 Blood Pressure 102/53 L Pulse Oximetry 98 98 02/04/18 16:23 02/04/18 17:00 02/04/18 20:00 Temperature 98.0 F Pulse Rate 83 94 H Respiratory Rate 18 18 Blood Pressure 141/67 H Pulse Oximetry 95 97 02/04/18 21:30 02/05/18 00:00 02/05/18 03:37 Temperature 98.4 F Pulse Rate 91 H 87 91 H Respiratory Rate 18 18 14 Blood Pressure 135/62 Pulse Oximetry 98 95 02/05/18 04:00 02/05/18 04:50 02/05/18 07:00 Temperature 97.8 F 97.9 F Pulse Rate 89 95 H 112 H Respiratory Rate 18 14 16 Blood Pressure 142/56 H 138/57 L Pulse Oximetry 98 99 02/05/18 09:13 Temperature Pulse Rate 117 H Respiratory Rate 18 Blood Pressure Pulse Oximetry 97 GENERAL: A&O x 3 SKIN: Warm and dry. prevena dressing to chest / clifford wrap to left leg HEAD: Normocephalic. EYES: No scleral icterus. No injection or drainage. NECK: Supple, trachea midline. No JVD or lymphadenopathy. CARDIOVASCULAR: Regular rate and rhythm without murmurs, gallops, or rubs. mild general edema RESPIRATORY: diminished in bases / chest not draining much / had minimal drainage over night/ 200cc since surgery diminished left lower mid lobe . No accessory muscle use. GASTROINTESTINAL: Abdomen soft, non-tender, nondistended. MUSCULOSKELETAL: No cyanosis, or edema. BACK: Nontender without obvious deformity. No CVA tenderness. Labs: Laboratory Results - last 12 hr 02/04/18 02/05/18 02/05/18 23:15 01:55 03:20 WBC 14.1 H RBC 2.86 L Hgb 10.2 L Hct 29.5 L MCV 103.4 H MCH 35.6 H MCHC 34.5 RDW 16.2 Plt Count 244 MPV 8.0 Sodium Potassium Chloride Carbon Dioxide Anion Gap BUN Creatinine Estimated GFR POC Glucose 88 107 Random Glucose Calcium Magnesium 02/05/18 02/05/18 02/05/18 03:20 06:08 07:12 WBC RBC Hgb Hct MCV MCH MCHC RDW Plt Count MPV Sodium 138 Potassium 6.7 H* D Chloride 104 Carbon Dioxide 24.4 Anion Gap 10 BUN 45 H Creatinine 7.63 H Estimated GFR 7 L POC Glucose 163 H 119 H Random Glucose 119 H Calcium 9.3 Magnesium 3.0 H 02/05/18 08:07 WBC RBC Hgb Hct MCV MCH MCHC RDW Plt Count MPV Sodium Potassium Chloride Carbon Dioxide Anion Gap BUN Creatinine Estimated GFR POC Glucose 108 Random Glucose Calcium Magnesium Result Diagrams: 02/05/18 03:20 02/05/18 03:20 Telemetry: NSR - Plan (1) S/P CABG x 4 Plan: ASA, amiodarone , statin resume BB this pm on prn lopressor OOB after dialysis requesting rehab at discharge pulm toileting (2) CAD (coronary artery disease) (3) End stage renal disease Plan: on dialysis [id number] attempting to remove 1.5liters fluid BP labile with fluid removal (4) HTN (hypertension) (5) Hyperlipidemia Plan: on statin (6) COPD (chronic obstructive pulmonary disease) Plan: nebs, ezpap, acapella (8) Anemia (2) CAD (coronary artery disease) Qualifiers: Coronary Disease-Associated Artery/Lesion type: [place] artery [place] vs. transplanted heart: [place] heart Associated angina: without angina Qualified Code(s): I25.10 - Atherosclerotic heart disease of [place] coronary artery without angina pectoris (4) HTN (hypertension) Qualifiers: Hypertension type: essential hypertension Qualified Code(s): I10 - Essential (primary) hypertension (5) Hyperlipidemia Qualifiers: Hyperlipidemia type: mixed hyperlipidemia Qualified Code(s): E78.2 - Mixed hyperlipidemia (6) COPD (chronic obstructive pulmonary disease) Qualifiers: Emphysema type: unspecified (8) Anemia Qualifiers: Anemia type: due to chronic kidney disease Chronic kidney disease stage: on chronic dialysis Qualified Code(s): N18.6 - End stage renal disease; D63.1 - Anemia in chronic kidney disease; Z99.2 - Dependence on renal dialysis
--- NOTE | 2018-02-05 10:51 | P.PNNP ---
Subjective Interval history: Patient's serum potassium was 6.7 this morning, I was notified by Dr. Koch, emergency dialysis was arranged, I saw him during dialysis today. On 1K, BFR is 350 ml/min, minimal UF as he is tachycardic, BP dropped during dialysis. Patient complains of pain in the left arm: AVF is present in the left arm, also has central line in the subclavian on the left side. Physical Exam Vital signs: Vital Signs 02/04/18 13:14 02/04/18 13:15 02/04/18 14:30 Temperature 98.5 F 98.6 F Pulse Rate 66 Respiratory Rate 13 15 Blood Pressure 102/52 L Pulse Oximetry 97 02/04/18 14:44 02/04/18 15:00 02/04/18 15:16 Temperature 98.7 F Pulse Rate 70 Respiratory Rate 18 19 Blood Pressure 102/53 L Pulse Oximetry 98 98 02/04/18 16:23 02/04/18 17:00 02/04/18 20:00 Temperature 98.0 F Pulse Rate 83 94 H Respiratory Rate 18 18 Blood Pressure 141/67 H Pulse Oximetry 95 97 02/04/18 21:30 02/05/18 00:00 02/05/18 03:37 Temperature 98.4 F Pulse Rate 91 H 87 91 H Respiratory Rate 18 18 14 Blood Pressure 135/62 Pulse Oximetry 98 95 02/05/18 04:00 02/05/18 04:50 02/05/18 07:00 Temperature 97.8 F 97.9 F Pulse Rate 89 95 H 112 H Respiratory Rate 18 14 16 Blood Pressure 142/56 H 138/57 L Pulse Oximetry 98 99 02/05/18 09:13 Temperature Pulse Rate 117 H Respiratory Rate 18 Blood Pressure Pulse Oximetry 97 Intake & Output 02/04/18 02/05/18 02/05/18 18:59 06:59 18:59 Intake Total 5500 / 5500 1270 / 1270 250 / 250 Output Total 1830 / 1830 0 / 0 500 / 500 Balance 3670 / 3670 1270 / 1270 -250 / -250 Weight 85.5 kg Intake: IV 2700 / 2700 250 / 250 250 / 250 KCl 40 mEq Premix Inj 80 meq In 200 / 200 200 ml @ 0 mls/hr .ROUTE .[facility] Rx#:[id number] Plegisol Irrigating Soln 2,000 2000 / 2000 ML @ 0 mls/hr IRRIGATION .[facility] Rx#:[id number] Ofirmev Inj 1,000 mg In 100 ml 100 / 100 200 / 200 100 / 100 @ 400 mls/hr IV.SIG Q6H [facility] Rx# :[id number] Flexbumin 25% Inj 50 ML @ 0 mls 50 / 50 /hr IV.SIG .[facility] Rx#: [id number] Flexbumin 25% Inj 100 ML @ 60 100 / 100 mls/hr IV.SIG WITH [facility]IALYS[facility] PRN Rx#:[id number] Buminate 5% Inj 250 ML @ 250 250 / 250 mls/hr IV.SIG UNSCH PRN Rx#: [id number] Ancef 1 GM Premix Inj 1 gm In 50 / 50 50 / 50 50 ml @ 100 mls/hr IV.SIG Q8H [facility] Rx#:[id number] Ancef 2 GM Premix Inj 2 gm In 50 / 50 50 ml @ 150 mls/hr IV.SIG [employer] [facility] Rx#:[id number] Ancef Inj 1,000 MG In NS Inj 50 50 / 50 ML @ 100 mls/hr IV.SIG ON[facility] Rx#:[id number] Oral 820 / 820 Anesthesia Amount 1800 / 1800 Other 200 / 200 Autotransfusion Amount 250 / 250 Cell Saver Amount 750 / 750 Output: Hemodialysis Amount 500 / 500 Estimated Blood Loss 1500 / 1500 Urine Amount (Catheter) 130 / 130 0 / 0 Indwelling Temp Sensing 130 / 130 0 / 0 Catheter Chest Tube Drainage 200 / 200 #2 Anterior 200 / 200 Other: # Bowel Movements 0 Narrative: GENERAL: Elderly male, recently extubated, awake, alert, sitting in bed HEENT: Normocephalic. Atraumatic. Pupils equal, round, reactive, conjugate. Mucous membranes are moist NECK: Trachea is midline. There is no JVD. CHEST: Left subclavian introducer sheath in place, site is clean dry and intact. Midline sternal wound with a wound VAC dressing in place. 2 chest tubes exit subxiphoid with minimal amount of sanguinous output: 100 mLs since coming out of the operating room. CARDIOVASCULAR: Normal rate in the 70s, regular rhythm. Appears sinus by telemetry. ABDOMEN: Soft, nontender, nondistended. No guarding. MUSCULOSKELETAL: Pulses 2+. No peripheral edema. Left lower extremity wrapped in Rasheed wrapping. NEUROLOGICAL: RASS -1. Recently extubated and still arousing from sedation. Awakens briskly and follows commands x4. - Constitutional no acute distress - Routine HEENT Exam Head: Present: normocephalic, atraumatic Eye: Present: EOMI, PERRL - Routine Neck Exam Absent: JVD, lymphadenopathy, thyromegaly - Routine Respiratory Exam Present: CTA bilaterally - Routine Cardiovascular Exam Present: RRR, S1, S2 - Routine Abdominal Exam Present: soft, normoactive bowel sounds - Routine Extremities Exam Absent: edema - Urinary Catheter Management Indwelling Temp Sensing Catheter Cath placed during this visit: yes, but has since been removed by the nurse Reason for continuing: Decision to DC catheter Insertion date: 02/04/18 Insertion time: 08:00 Removal date: 02/05/18 Removal time: 04:30 Assessment and Plan - Assessment (1) End stage renal disease Code(s): N18.6 - End stage renal disease Status: Acute Plan: dialysis TTS. Dialysis today on 1K, due to hyperkalemia. (2) S/P CABG x 4 Code(s): Z95.1 - Presence of aortocoronary bypass graft Status: Acute Plan: supportive care. CT surgery to manage. (3) HTN (hypertension) Code(s): I10 - Essential (primary) hypertension Status: Chronic Qualifiers: Hypertension type: essential hypertension Qualified Code(s): I10 - Essential (primary) hypertension Plan: Monitor. BP is currently is acceptable. (4) Anemia Code(s): D64.9 - Anemia, unspecified Status: Chronic Qualifiers: Anemia type: due to chronic kidney disease Chronic kidney disease stage: on chronic dialysis Qualified Code(s): N18.6 - End stage renal disease; D63.1 - Anemia in chronic kidney disease; Z99.2 - Dependence on renal dialysis Plan: Monitor for blood loss. Epogen with dialysis. Currently Hemoglobin is acceptable.
--- NOTE | 2018-02-05 10:56 | P.DIET ---
Nutritional Evaluation Screening comments: MDC for diet education s/p CABG x 4 on 02/04. Patient Navigator to provide education. Consult RD if complexities with diet education arise.
[2018-02-05] MEDS: Acetaminophen 325 MG Tablet PO PRN ×2 (15:23→21:24)
[2018-02-05] MEDS: Insulin NovoLOG Aspart Correctional Sugar Inj SQ SCH ×3 (15:23→21:37)
--- NOTE | 2018-02-05 16:30 | ECG ---
Date Performed: 02/05/2018 Time Performed: 05:25:28 PTAGE: 77 years EKG: Sinus tachycardia Left axis deviation RBBB with left anterior fascicular block Anterolatera l Myocardial infarction, age indeterminate Consider inferior Myocardial infarction, age indeterminate Low QRS voltages in precordial leads Abnormal ECG PREVIOUS TRACING : 01/28/2018 08.37 DOCTOR: Avtar Cole Interpretating Date/Time 02/05/2018 16:29:32
[2018-02-05 19:24] LABS: Hemoglobin 8.1 gm/dL (13.0-17.0); Mean Corpuscular HGB Conc 33.6 % (32.0-36.0); Mean Corpuscular Volume 104.1 fL (80.0-100.0); Mean Platelet Volume 8.2 fL (7.0-11.0); Platelet Count 212 th/mm3 (150-450); Red Blood Count 2.31 mil/mm3 (4.50-5.90); Red Cell Distribution Width 16.2 % (11.6-17.2); White Blood Count 12.1 th/mm3 (4.0-11.0)
[2018-02-05 19:53] LABS: Albumin 3.2 g/dL (3.4-5.0); Calcium 7.9 mg/dL (8.5-10.1); Carbon Dioxide 30.4 meq/L (21.0-32.0); Phosphorus 3.9 mg/dL (2.5-4.9); Potassium 3.9 meq/L (3.5-5.1)
[2018-02-05] MEDS: Docusate Sodium 100 MG Capsule PO SCH (21:07)
[2018-02-06] MEDS: Insulin NovoLOG Aspart Correctional Sugar Inj SQ SCH ×6 (02:11→22:00)
--- NOTE | 2018-02-06 05:03 | XR ---
EXAM DATE: 02/06/2018 4:55 AM EDT AGE/SEX: 77 years / Male INDICATIONS: Short of breath. CLINICAL DATA: This is the patient's subsequent encounter. Patient reports that signs and symptoms h ave been present for 3 days and indicates a pain score of 0/10. MEDICAL/SURGICAL HISTORY: Carcinoma, bladder. Hypertension. Congestive heart failure. Anemia. M yocardial infarction. Chronic kidney disease stage V. Coronary artery disease. Coronary artery sten t. CABG. COMPARISON: [facility], CHEST 1V SINGLE AP, 02/05/2018. . FINDINGS: Median sternotomy changes are again noted. Mediastinal drain and left chest no pneumothorax. Left bas e parenchymal consolidation and small effusion are not significantly changed. Mild cardiomegaly is stable. Left subclavian central venous catheter with tip in the superior vena cava and right IJ tunneled dial ysis catheter with tip in the right atrium are again noted. CONCLUSION: No significant change. Basilar consolidation and small effusion at the left base again noted. No pneu mothorax. Electronically signed by: August Estrada MD 02/06/2018 5:02 AM EDT
[2018-02-06] MEDS: ceFAZolin 1 GM Premix Inj 1 GM/50 ML FROZ.PIGGY IV.SIG SCH (05:35)
[2018-02-06 05:57] LABS: Calcium 8.3 mg/dL (8.5-10.1); Carbon Dioxide 32.3 meq/L (21.0-32.0)
[2018-02-06 05:58] LABS: Phosphorus 4.6 mg/dL (2.5-4.9)
[2018-02-06] MEDS: Multivitamin/Minerals Therapeutic Tablet PO SCH (08:25)
[2018-02-06] MEDS: Polyethylene Glycol 3350 17 GM Packet PO SCH (08:26)
[2018-02-06] MEDS: Docusate Sodium 100 MG Capsule PO SCH ×2 (08:26→20:29)
[2018-02-06] MEDS: Amiodarone 200 MG Tablet PO SCH ×2 (08:26→20:29)
[2018-02-06 11:01] LABS: INR 1.4 Ratio; Prothrombin Time 14.1 sec (9.8-11.6)
--- NOTE | 2018-02-06 11:05 | P.PNNP ---
Subjective Interval history: Overall stable, continues to have pain and numbness in the left hand. No bowel movement yet. Tolerating liquid diet. Physical Exam Vital signs: Vital Signs 02/05/18 13:55 02/05/18 15:00 02/05/18 19:00 Temperature 98.3 F Pulse Rate 108 H 105 H 105 H Respiratory Rate 17 16 Blood Pressure 106/55 L Pulse Oximetry 97 02/05/18 19:36 02/05/18 20:00 02/05/18 23:00 Temperature 99.3 F Pulse Rate 102 H 103 H 105 H Respiratory Rate 14 18 Blood Pressure 123/56 L Pulse Oximetry 97 95 97 02/06/18 00:00 02/06/18 03:00 02/06/18 03:30 Temperature 98.9 F 99.2 F Pulse Rate 100 H 99 H 100 H Respiratory Rate 18 18 Blood Pressure 116/56 L 111/52 L Pulse Oximetry 97 95 02/06/18 04:00 02/06/18 07:00 02/06/18 07:40 Temperature 98.2 F Pulse Rate 106 H 110 H Respiratory Rate 16 17 Blood Pressure 119/42 L Pulse Oximetry 95 94 L 93 L Intake & Output 02/05/18 02/06/18 02/06/18 18:59 06:59 18:59 Intake Total 960 / 960 580 / 580 Output Total 640 / 640 130 / 130 Balance 320 / 320 450 / 450 Weight 87.5 kg Intake: IV 300 / 300 100 / 100 Ofirmev Inj 1,000 mg In 100 ml 100 / 100 @ 400 mls/hr IV.SIG Q6H [facility] Rx# :[id number] Flexbumin 25% Inj 100 ML @ 60 100 / 100 mls/hr IV.SIG WITH DIALYSIS PRN Rx#:[id number] Ancef 1 GM Premix Inj 1 gm In 100 / 100 100 / 100 50 ml @ 100 mls/hr IV.SIG Q8H [facility] Rx#:[id number] Oral 660 / 660 480 / 480 Output: Urine 0 / 0 Hemodialysis Amount 500 / 500 Chest Tube Drainage 140 / 140 130 / 130 #2 Anterior 140 / 140 130 / 130 Other: # Bowel Movements 0 Narrative: GENERAL: awake, alert. HEENT: Normocephalic. Atraumatic. Pupils equal, round, reactive, conjugate. Mucous membranes are moist NECK: Trachea is midline. There is no JVD. CHEST: Left subclavian introducer sheath in place, site is clean dry and intact. Midline sternal wound with a wound VAC dressing in place. CARDIOVASCULAR: sinus tachycardia ABDOMEN: Soft, nontender, some distension is noted, positive bowel sounds. MUSCULOSKELETAL: Pulses 2+. No peripheral edema. Left lower extremity wrapped in Rasheed wrapping. - Urinary Catheter Management Indwelling Temp Sensing Catheter Cath placed during this visit: yes, but has since been removed by the nurse Reason for continuing: Decision to DC catheter Insertion date: 02/04/18 Insertion time: 08:00 Removal date: 02/05/18 Removal time: 04:30 Assessment and Plan - Assessment (1) End stage renal disease Code(s): N18.6 - End stage renal disease Status: Acute Plan: dialysis TTS. We will continue to monitor fluid and electrolytes. Avoid Gadolinium. Phosphorus is currently acceptable. (2) S/P CABG x 4 Code(s): Z95.1 - Presence of aortocoronary bypass graft Status: Acute Plan: supportive care. CT surgery to manage. (3) HTN (hypertension) Code(s): I10 - Essential (primary) hypertension Status: Chronic Qualifiers: Hypertension type: essential hypertension Qualified Code(s): I10 - Essential (primary) hypertension Plan: Monitor. BP is low normal. (4) Anemia Code(s): D64.9 - Anemia, unspecified Status: Chronic Qualifiers: Anemia type: due to chronic kidney disease Chronic kidney disease stage: on chronic dialysis Qualified Code(s): N18.6 - End stage renal disease; D63.1 - Anemia in chronic kidney disease; Z99.2 - Dependence on renal dialysis Plan: Monitor for blood loss. Epogen with dialysis. Drop in Hemoglobin is noted.
--- NOTE | 2018-02-06 11:41 | P.PNCV ---
- Note Subjective/Hospital Course: 77/ male initially seen 09/24 History of Present Illness The patient is a 77-year-old male with past medical history significant for recent GI bleed from severe diverticulosis, Chronic kidney disease stage IV, hyperlipidemia, hypertension, coronary artery disease with [place] , cardiac stents in 2001, and stent to the LAD 2006, bladder cancer status post BCG immunotherapy and TURP, morbid obesity, DVT 2015, who presented to the emergency department with severe central chest pain. He had been having on and off chest pain for the last 2 days worsened over the last 24 hours. EKG in the emergency department showed extensive anterolateral ST depression and troponin was elevated at 1.16. He was ruled in for non-ST elevation [place], Dr. hoyt his electric organ inspector and repairer was consulted. Due to ongoing chest pain patient was started on IV nitroglycerin infusion. Patient also received 162 mg of aspirin. After evaluation Dr. Hoyt has started the patient on IV heparin also. Patient was recently admitted for lower GI bleed and anemia, was discharged on 09/21/2017. Colonoscopy on 09/17/17 showed severe diverticulosis, moderate sized internal hemorrhoids, and pedunculated polyp at the cecum s/p polypectomy-biopsy showed tubular adenoma. Patient has chronic kidney disease with baseline creatinine around 3.5, creatinine today is elevated to 4.74. He underwent LHC by Dr. Hoyt and was found to have multivessel CAD EF40-45% now on dialysis Vanessa askew (Medical History: CAD (coronary artery disease) , Hypertension , DVT (deep venous thrombosis), Bladder cancer (Acute) Anemia, CKD (chronic kidney disease) stage V requiring chronic dialysis, Congestive heart failure Diverticul disease small and large intestine, no perforati or abscess hx GI bleed, H/O ETOH abuse, History of bleeding ulcers, Morbid obesity, Myocardial infarct, old Port catheter in plac - Surgical History Surgical History: H/O colonoscopy, History of cystoscopy, History of heart artery stent, History of tonsillectomy, Hx of arteriovenostomy for renal dialysis S/P colonoscopic polypectomy electively admitted for surgery 02/04 Procedure: CABG x 4, CORTES to LAd - good, SVG to PDA - good, SVG to OM1 - good, SVG to RI - good, EVH extubated after surgery 02/05 receiving , dialysis at this time , attempted to remove at least 1.5 liter , BP becomes labile , somewhat tachycardic improved with IV lopressor no pressors at this time CVP 7-8 on jason trac on 4 liter nasal cannula CXR noted has large left effusion pt need to be out of bed to facilitate drainage of chest tube repeat CXR in am , if not improved, may need thoracentesis left chest tube in adequate position eval for transfer to stepdown later today 02/06 worsening effusion/ consolidation left lung / may need second chest tube chest tubes drained only 130cc/ 12 hrs check PA & lateral CXR DC cvc line discussed with Dr Ruvalcaba and Dr Mane ambulating with pt BB increased Objective: Vital Signs - 24 hr 02/05/18 13:55 02/05/18 15:00 02/05/18 19:00 Temperature 98.3 F Pulse Rate 108 H 105 H 105 H Respiratory Rate 17 16 Blood Pressure 106/55 L Pulse Oximetry 97 02/05/18 19:36 02/05/18 20:00 02/05/18 23:00 Temperature 99.3 F Pulse Rate 102 H 103 H 105 H Respiratory Rate 14 18 Blood Pressure 123/56 L Pulse Oximetry 97 95 97 02/06/18 00:00 02/06/18 03:00 02/06/18 03:30 Temperature 98.9 F 99.2 F Pulse Rate 100 H 99 H 100 H Respiratory Rate 18 18 Blood Pressure 116/56 L 111/52 L Pulse Oximetry 97 95 02/06/18 04:00 02/06/18 07:00 02/06/18 07:40 Temperature 98.2 F Pulse Rate 106 H 110 H Respiratory Rate 16 17 Blood Pressure 119/42 L Pulse Oximetry 95 94 L 93 L 02/06/18 11:00 Temperature 98.4 F Pulse Rate 108 H Respiratory Rate 16 Blood Pressure 120/66 Pulse Oximetry 93 L GENERAL: A&O x 3 SKIN: Warm and dry. prevena dressing to chest , incision intact to left leg HEAD: Normocephalic. EYES: No scleral icterus. No injection or drainage. NECK: Supple, trachea midline. No JVD or lymphadenopathy. CARDIOVASCULAR: Regular rate and rhythm without murmurs, gallops, or rubs. RESPIRATORY: Breath sounds equal bilaterally. No accessory muscle use. diminished left lung field / chest tube to wall suction , no air leak / drained 130cc/ 12 hrs GASTROINTESTINAL: Abdomen soft, non-tender, nondistended. MUSCULOSKELETAL: No cyanosis, or edema. BACK: Nontender without obvious deformity. No CVA tenderness. AV fistula left forearm vascath right IJ Labs: Laboratory Results - last 12 hr 02/06/18 02/06/18 02/06/18 02:04 04:58 05:00 PT INR Sodium 136 Potassium 4.0 Chloride 96 L Carbon Dioxide 32.3 H Anion Gap 8 BUN 27 H Creatinine 5.85 H Estimated GFR 9 L POC Glucose 127 H 127 H Random Glucose 105 Calcium 8.3 L Phosphorus 4.6 Albumin 3.0 L 02/06/18 02/06/18 10:02 10:17 PT 14.1 H INR 1.4 Sodium Potassium Chloride Carbon Dioxide Anion Gap BUN Creatinine Estimated GFR POC Glucose 134 H Random Glucose Calcium Phosphorus Albumin Result Diagrams: 02/05/18 18:37 02/06/18 05:00 - Plan (1) S/P CABG x 4 Plan: ASA, amiodarone , statin resume BB this pm on prn lopressor OOB after dialysis requesting rehab at discharge pulm toileting (2) CAD (coronary artery disease) (3) End stage renal disease Plan: on dialysis [id number] nephro following (4) HTN (hypertension) (5) Hyperlipidemia Plan: on statin (6) COPD (chronic obstructive pulmonary disease) Plan: nebs, ezpap, acapella (8) Anemia Plan: on epogen with dialysis (2) CAD (coronary artery disease) Qualifiers: Coronary Disease-Associated Artery/Lesion type: [place] artery [place] vs. transplanted heart: [place] heart Associated angina: without angina Qualified Code(s): I25.10 - Atherosclerotic heart disease of [place] coronary artery without angina pectoris (4) HTN (hypertension) Qualifiers: Hypertension type: essential hypertension Qualified Code(s): I10 - Essential (primary) hypertension (5) Hyperlipidemia Qualifiers: Hyperlipidemia type: mixed hyperlipidemia Qualified Code(s): E78.2 - Mixed hyperlipidemia (6) COPD (chronic obstructive pulmonary disease) Qualifiers: Emphysema type: unspecified (8) Anemia Qualifiers: Anemia type: due to chronic kidney disease Chronic kidney disease stage: on chronic dialysis Qualified Code(s): N18.6 - End stage renal disease; D63.1 - Anemia in chronic kidney disease; Z99.2 - Dependence on renal dialysis
--- NOTE | 2018-02-06 11:54 | P.PNCC ---
Subjective Subjective Remarks/Hospital Course: Hospital Course: 77yM with history of Kidney disease now on HD T/R/Sa presents for CABG x 4. He underwent uncomplicated procedure. Arrived to the CVICU intubated. He was extubated on pathway and I evaluated him immediately upon being extubated. Patient denies chest pain, shortness of breath, sore throat, headache, nausea, vomiting. Remainder review systems is negative. He has had 100 mL's of sanguinous output from his chest tube since exiting the operating room. He has made 5-10 mL's of urine output per hour since coming out of the operating room, but he is oliguric at baseline. His CVP is remained 9-11 and he is remained off his vasopressors with a clearing lactate. Subjective: 02/05: K 6.7 this AM despite conservative medical management. receiving IHD this morning. left pleural effusion is larger, minimal out from chest tubes. denies complaints. ROS negative. 02/06: looking far better. still tachycardic. left pleural effusion is persistent despite mobilization: discussed with CT surgery team and plan to get PA/Lat film to better eval size and location. patient denies complaints- minimal pain with cough or deep inspiration. Objective Vital Signs / I&O: Vital Signs 02/05/18 13:55 02/05/18 15:00 02/05/18 19:00 Temperature 36.8 C Pulse Rate 108 H 105 H 105 H Respiratory Rate 17 16 Blood Pressure 106/55 L Pulse Oximetry 97 02/05/18 19:36 02/05/18 20:00 02/05/18 23:00 Temperature 37.4 C Pulse Rate 102 H 103 H 105 H Respiratory Rate 14 18 Blood Pressure 123/56 L Pulse Oximetry 97 95 97 02/06/18 00:00 02/06/18 03:00 02/06/18 03:30 Temperature 37.2 C 37.3 C Pulse Rate 100 H 99 H 100 H Respiratory Rate 18 18 Blood Pressure 116/56 L 111/52 L Pulse Oximetry 97 95 02/06/18 04:00 02/06/18 07:00 02/06/18 07:40 Temperature 36.8 C Pulse Rate 106 H 110 H Respiratory Rate 16 17 Blood Pressure 119/42 L Pulse Oximetry 95 94 L 93 L 02/06/18 11:00 Temperature 36.9 C Pulse Rate 108 H Respiratory Rate 16 Blood Pressure 120/66 Pulse Oximetry 93 L Intake & Output 02/05/18 02/06/18 02/06/18 18:59 06:59 18:59 Intake Total 960 / 960 580 / 580 Output Total 640 / 640 130 / 130 Balance 320 / 320 450 / 450 Weight 87.5 kg Intake: IV 300 / 300 100 / 100 Ofirmev Inj 1,000 mg In 100 ml 100 / 100 @ 400 mls/hr IV.SIG Q6H LEO Rx# :[id number] Flexbumin 25% Inj 100 ML @ 60 100 / 100 mls/hr IV.SIG WITH DIALYSIS PRN Rx#:[id number] Ancef 1 GM Premix Inj 1 gm In 100 / 100 100 / 100 50 ml @ 100 mls/hr IV.SIG Q8H LEO Rx#:[id number] Oral 660 / 660 480 / 480 Output: Urine 0 / 0 Hemodialysis Amount 500 / 500 Chest Tube Drainage 140 / 140 130 / 130 #2 Anterior 140 / 140 130 / 130 Other: # Bowel Movements 0 Result Diagrams: 02/05/18 18:37 02/06/18 05:00 Objective Remarks: GENERAL: Elderly male, awake, alert, sitting in bed HEENT: Normocephalic. Atraumatic. Pupils equal, round, reactive, conjugate. Mucous membranes are moist NECK: Trachea is midline. There is no JVD. CHEST: Left subclavian introducer sheath in place, site is clean dry and intact. Midline sternal wound with a wound VAC dressing in place. 2 chest tubes exit subxiphoid with minimal amount of sanguinous output. CARDIOVASCULAR: tachycardic rate in the 100s, regular rhythm. Appears sinus by telemetry. ABDOMEN: Soft, nontender, nondistended. No guarding. MUSCULOSKELETAL: Pulses 2+. No peripheral edema. Left lower extremity wrapped in Rasheed wrapping. NEUROLOGICAL: RASS 0. follows commands x 4. no focal deficits. Assessment and Plan - Assessment and Plan Plan: Assessment: 77yM POD 2 s/p CABG x 4 (CORTES-->LAD, SVG-->PDA, SVG-->OM1, SVG--> Ramus). increase beta blockade. further eval of left pleural effusion. safe from my standpoint to leave ICU today. Sodium starting to drop, likely early predictor of volume overload and re-mobilization of fluid post-operatively. HD planned for tomorrow- would recommend early HD tomorrow to avoid further volume overload. CAD s/p CABG x 4 (CORTES-->LAD, SVG-->PDA, SVG-->OM1, SVG-->Ramus) 02/04 - extubated on pathway - am cbc - lactate cleared. - uop not an appropriate marker for resuscitative end-point. Left pleural effusion - PA/Lat film - management per CT surgery. ESRD on IHD T/R/Sa - nephrology consulted - HD 02/05 with only 500cc off (unable to take more due to SIRS response from surgery) - now starting to mobilize fluid. sodium starting to drop. recommend early HD tomorrow. Hyperkalemia- resolved - am bmp Diabetes - SSI Congestive Heart Failure, systolic type Sinus tachycardia - HD per nephrology. - increase beta blockade. Anemia secondary to acute blood loss superimposed on underlying chronic anemia of chronic disease - does not meet transfusion triggers - watch chest tube output - am cbc Hypertension - will add back antihypertensives as needed. - goal sbp 90 - 140 mmHg - increase beta blockade DVT - hold anticoagulation given recent cardiac surgery - will leave timing of anticoagulation to Dr. Mane Morbid Obesity - advance diet as tolerated Hyperlipidemia - continue statin SCDs Critical care medicine will sign off. Please re-consult as needed.
--- NOTE | 2018-02-06 12:30 | XR ---
EXAM DATE: 02/06/2018 12:13 PM EDT AGE/SEX: 77 years / Male INDICATIONS: . Short of breath. CLINICAL DATA: This is the patient's subsequent encounter. Patient reports that signs and symptoms h ave been present for 4 - 6 days and indicates a pain score of 5/10. MEDICAL/SURGICAL HISTORY: . Carcinoma, bladder. Hypertension. Congestive heart failure. Anemia. Myocardial infarction. Chronic kidney disease stage V. Coronary artery disease. . Coronary artery stent. CABG. COMPARISON: C, CHEST 1V SINGLE AP, 02/06/2018. . FINDINGS: Dialysis catheter mediastinal drain and left chest drain are in good position. Lungs remain under aer ated. The heart is minimally enlarged. There is mild interstitial prominence, stable in the interval. CONCLUSION: Stable chest with cardiomegaly and mild interstitial prominence. No pneumothorax or significant pleural effusion. Electronically signed by: Chip Miller MD 02/06/2018 12:28 PM EDT
[2018-02-06] MEDS: Carvedilol 6.25 MG Tablet PO SCH (20:29)
[2018-02-07] MEDS: Insulin NovoLOG Aspart Correctional Sugar Inj SQ SCH ×5 (02:00→21:00)
[2018-02-07 04:33] LABS: Hematocrit 22.9 % (39.0-51.0); Hemoglobin 7.9 gm/dL (13.0-17.0); Mean Corpuscular HGB Conc 34.4 % (32.0-36.0); Mean Corpuscular Hemoglobin 35.8 pg (27.0-34.0); Mean Corpuscular Volume 104.1 fL (80.0-100.0); Platelet Count 173 th/mm3 (150-450); Red Cell Distribution Width 16.7 % (11.6-17.2); White Blood Count 10.6 th/mm3 (4.0-11.0)
[2018-02-07 05:07] LABS: Calcium 7.9 mg/dL (8.5-10.1); Carbon Dioxide 29.1 meq/L (21.0-32.0); Potassium 3.8 meq/L (3.5-5.1)
--- NOTE | 2018-02-07 05:14 | XR ---
EXAM DATE: 02/07/2018 4:35 AM EDT AGE/SEX: 77 years / Male INDICATIONS: Shortness of breath, possible pulmonary disease. CLINICAL DATA: This is the patient's subsequent encounter. Patient reports that signs and symptoms h ave been present for 1 week and indicates a pain score of 3/10. MEDICAL/SURGICAL HISTORY: Carcinoma, bladder. Congestive heart failure. Hypertension. Anemia . DE. CKD. CAD. Coronary artery stent. CABG. COMPARISON: [facility] [place], CHEST 2V PA&LAT, 02/06/2018. . FINDINGS: Dense consolidation at the left base with a small effusion again noted and not significantly changed. Right lung remains clear. I don't see a pneumothorax on either side. Recent median sternotomy changes are again seen. Mediastinal drain and left chest tube remain in plac e. There is a left subclavian line with tip in the superior vena cava and a right IJ tunneled double lumen catheter with tip in the right atrium. CONCLUSION: No significant change. Parenchymal consolidation and small effusion again seen left base. Electronically signed by: August Estrada MD 02/07/2018 5:12 AM EDT
[2018-02-07] MEDS: Multivitamin/Minerals Therapeutic Tablet PO SCH (08:40)
[2018-02-07] MEDS: Amiodarone 200 MG Tablet PO SCH ×2 (08:40→20:53)
[2018-02-07] MEDS: Polyethylene Glycol 3350 17 GM Packet PO SCH (08:41)
[2018-02-07] MEDS: Carvedilol 6.25 MG Tablet PO SCH (08:41)
[2018-02-07] MEDS: Docusate Sodium 100 MG Capsule PO SCH ×2 (08:41→21:22)
[2018-02-07] MEDS: Albumin Human 25% Inj 100 ML IV.SIG PRN (09:35)
--- NOTE | 2018-02-07 09:41 | P.PNNP ---
Subjective Interval history: patient was seen and examined during dialysis. He still has chest tube. Still has left subclavian central line. Had a bowel movement today. Positive flatus. Complains of generalized weakness and poor appetite. Physical Exam Vital signs: Vital Signs 02/06/18 11:00 02/06/18 12:00 02/06/18 13:49 Temperature 98.4 F Pulse Rate 108 H 105 H Respiratory Rate 16 16 17 Blood Pressure 120/66 Pulse Oximetry 93 L 02/06/18 15:00 02/06/18 19:00 02/06/18 20:09 Temperature 98.5 F 99.2 F Pulse Rate 108 H 104 H 105 H Respiratory Rate 16 20 22 Blood Pressure 125/58 L 118/59 L Pulse Oximetry 93 L 94 L 02/06/18 20:17 02/06/18 23:00 02/07/18 03:00 Temperature 99.9 F H 98.5 F Pulse Rate 109 H 110 H Respiratory Rate 20 20 Blood Pressure 128/60 137/65 Pulse Oximetry 95 94 L 95 02/07/18 07:00 Temperature 98.1 F Pulse Rate 105 H Respiratory Rate 18 Blood Pressure 134/66 Pulse Oximetry 98 Intake & Output 02/06/18 02/07/18 02/07/18 18:59 06:59 18:59 Intake Total 560 / 560 480 / 480 Output Total 180 / 180 290 / 290 Balance 380 / 380 190 / 190 Weight 88 kg Intake: Oral 560 / 560 480 / 480 Output: Chest Tube Drainage 180 / 180 290 / 290 #2 Anterior 180 / 180 290 / 290 Other: Date of Last Bowel Movement 02/07/18 Narrative: GENERAL: awake, alert. Not in distress. HEENT: Normocephalic. Atraumatic. Pupils equal, round, reactive, conjugate. Mucous membranes are moist NECK: Trachea is midline. There is no JVD. CHEST: Left subclavian introducer sheath in place, site is clean dry and intact. Midline sternal wound with a wound VAC dressing in place. CARDIOVASCULAR: sinus tachycardia ABDOMEN: Soft, nontender, some distension is noted, positive bowel sounds. MUSCULOSKELETAL: Pulses 2+. No peripheral edema. Left lower extremity wrapped in Rasheed wrapping. - Urinary Catheter Management Indwelling Temp Sensing Catheter Cath placed during this visit: yes, but has since been removed by the nurse Reason for continuing: Decision to DC catheter Insertion date: 02/04/18 Insertion time: 08:00 Removal date: 02/05/18 Removal time: 04:30 Assessment and Plan - Assessment (1) End stage renal disease Code(s): N18.6 - End stage renal disease Status: Acute Plan: dialysis TTS. We will continue to monitor fluid and electrolytes. Dialysis today , on 3K, UF goal is about 1 liter. BFR is 350 ml/min. Tolerating it well. Avoid Gadolinium. Phosphorus is currently acceptable. (2) S/P CABG x 4 Code(s): Z95.1 - Presence of aortocoronary bypass graft Status: Acute Plan: supportive care. CT surgery to manage. (3) HTN (hypertension) Code(s): I10 - Essential (primary) hypertension Status: Chronic Qualifiers: Hypertension type: essential hypertension Qualified Code(s): I10 - Essential (primary) hypertension Plan: Monitor. BP is low normal. (4) Anemia Code(s): D64.9 - Anemia, unspecified Status: Chronic Qualifiers: Anemia type: due to chronic kidney disease Chronic kidney disease stage: on chronic dialysis Qualified Code(s): N18.6 - End stage renal disease; D63.1 - Anemia in chronic kidney disease; Z99.2 - Dependence on renal dialysis Plan: Monitor for blood loss. Epogen with dialysis. Drop in Hemoglobin is noted. To receive blood transfusion today at dialysis. - Attending Attestation Please avoid subclavian vein line placements in dialysis patients. Please remove left subclavian line if possible as he has AVF in the left arm.
--- NOTE | 2018-02-07 11:33 | P.PNCV ---
- Note Subjective/Hospital Course: 77/ male initially seen 09/24 History of Present Illness The patient is a 77-year-old male with past medical history significant for recent GI bleed from severe diverticulosis, Chronic kidney disease stage IV, hyperlipidemia, hypertension, coronary artery disease with [place] , cardiac stents in 2001, and stent to the LAD 2006, bladder cancer status post BCG immunotherapy and TURP, morbid obesity, DVT 2015, who presented to the emergency department with severe central chest pain. He had been having on and off chest pain for the last 2 days worsened over the last 24 hours. EKG in the emergency department showed extensive anterolateral ST depression and troponin was elevated at 1.16. He was ruled in for non-ST elevation [place], Dr. hoyt his bead stringer was consulted. Due to ongoing chest pain patient was started on IV nitroglycerin infusion. Patient also received 162 mg of aspirin. After evaluation Dr. Hoyt has started the patient on IV heparin also. Patient was recently admitted for lower GI bleed and anemia, was discharged on 09/21/2017. Colonoscopy on 09/17/17 showed severe diverticulosis, moderate sized internal hemorrhoids, and pedunculated polyp at the cecum s/p polypectomy-biopsy showed tubular adenoma. Patient has chronic kidney disease with baseline creatinine around 3.5, creatinine today is elevated to 4.74. He underwent LHC by Dr. Hoyt and was found to have multivessel CAD EF40-45% now on dialysis Vanessa askew (Medical History: CAD (coronary artery disease) , Hypertension , DVT (deep venous thrombosis), Bladder cancer (Acute) Anemia, CKD (chronic kidney disease) stage V requiring chronic dialysis, Congestive heart failure Diverticul disease small and large intestine, no perforati or abscess hx GI bleed, H/O ETOH abuse, History of bleeding ulcers, Morbid obesity, Myocardial infarct, old Port catheter in plac - Surgical History Surgical History: H/O colonoscopy, History of cystoscopy, History of heart artery stent, History of tonsillectomy, Hx of arteriovenostomy for renal dialysis S/P colonoscopic polypectomy electively admitted for surgery 02/04 Procedure: CABG x 4, CORTES to LAd - good, SVG to PDA - good, SVG to OM1 - good, SVG to RI - good, EVH extubated after surgery 02/05 receiving , dialysis at this time , attempted to remove at least 1.5 liter , BP becomes labile , somewhat tachycardic improved with IV lopressor no pressors at this time CVP 7-8 on jason trac on 4 liter nasal cannula CXR noted has large left effusion pt need to be out of bed to facilitate drainage of chest tube repeat CXR in am , if not improved, may need thoracentesis left chest tube in adequate position eval for transfer to stepdown later today 02/06 worsening effusion/ consolidation left lung / may need second chest tube chest tubes drained only 130cc/ 12 hrs check PA & lateral CXR DC cvc line discussed with Dr Ruvalcaba and Dr Mane ambulating with pt BB increased 02/07 HGB 7.9/ will transfuse one unit with dialysis left lower lung consolidation small effusion noted chest tube drained 290cc/ 12 hrs has poor cough effort / will consult pulm for now add chest CPT, on nebs ezpap , acapella transfer to stepdown unit BB increased / dc cvc line Objective: Vital Signs - 24 hr 02/06/18 12:00 02/06/18 13:49 02/06/18 15:00 Temperature 98.5 F Pulse Rate 105 H 108 H Respiratory Rate 16 17 16 Blood Pressure 125/58 L Pulse Oximetry 93 L 02/06/18 19:00 02/06/18 20:09 02/06/18 20:17 Temperature 99.2 F Pulse Rate 104 H 105 H Respiratory Rate 20 22 Blood Pressure 118/59 L Pulse Oximetry 94 L 95 02/06/18 23:00 02/07/18 03:00 02/07/18 07:00 Temperature 99.9 F H 98.5 F 98.1 F Pulse Rate 109 H 110 H 105 H Respiratory Rate 20 20 18 Blood Pressure 128/60 137/65 134/66 Pulse Oximetry 94 L 95 98 02/07/18 11:00 Temperature 97 F L Pulse Rate 99 H Respiratory Rate 19 Blood Pressure 138/63 Pulse Oximetry GENERAL: A&O x 3 SKIN: Warm and dry. prevena dressing to chest incision intact to left leg HEAD: Normocephalic. EYES: No scleral icterus. No injection or drainage. NECK: Supple, trachea midline. No JVD or lymphadenopathy. CARDIOVASCULAR: Regular rate and rhythm without murmurs, gallops, or rubs. RESPIRATORY: Breath sounds equal bilaterally. No accessory muscle use. diminished left lower lobe , bibasilar crackles / chest tube to wall suction, no air leak will leave in place today GASTROINTESTINAL: Abdomen soft, non-tender, nondistended. MUSCULOSKELETAL: No cyanosis, or edema. BACK: Nontender without obvious deformity. No CVA tenderness. Labs: Laboratory Results - last 12 hr 02/04/18 02/06/18 02/07/18 06:00 23:09 03:44 WBC RBC Hgb Hct MCV MCH MCHC RDW Plt Count MPV Sodium Potassium Chloride Carbon Dioxide Anion Gap BUN Creatinine Estimated GFR POC Glucose 108 113 H Random Glucose Calcium Blood Type Antibody Screen MTS Gel Crossmatch See Detail 02/07/18 02/07/18 02/07/18 04:10 04:10 09:10 WBC 10.6 RBC 2.20 L Hgb 7.9 L Hct 22.9 L MCV 104.1 H MCH 35.8 H MCHC 34.4 RDW 16.7 Plt Count 173 MPV 8.0 Sodium 135 L Potassium 3.8 Chloride 94 L Carbon Dioxide 29.1 Anion Gap 12 BUN 39 H Creatinine 7.05 H Estimated GFR 8 L POC Glucose Random Glucose 107 H Calcium 7.9 L Blood Type O Positive Antibody Screen Negative MTS Gel Crossmatch See Detail Result Diagrams: 02/07/18 04:10 02/07/18 04:10 Telemetry: NSR> ST - Plan (1) S/P CABG x 4 Plan: ASA, amiodarone , statin increase BB OOB after dialysis today requesting rehab at discharge pulm toileting add CPT consult pulmonology (2) CAD (coronary artery disease) (3) End stage renal disease Plan: on dialysis [facility] nephro following will dc CVC line maturing left AV fistula (4) HTN (hypertension) (5) Hyperlipidemia Plan: on statin (6) COPD (chronic obstructive pulmonary disease) Plan: nebs, ezpap, acapella (8) Anemia Plan: on epogen with dialysis for one unit PRBC with dialysis today (2) CAD (coronary artery disease) Qualifiers: Coronary Disease-Associated Artery/Lesion type: [place] artery [place] vs. transplanted heart: [place] heart Associated angina: without angina Qualified Code(s): I25.10 - Atherosclerotic heart disease of [place] coronary artery without angina pectoris (4) HTN (hypertension) Qualifiers: Hypertension type: essential hypertension Qualified Code(s): I10 - Essential (primary) hypertension (5) Hyperlipidemia Qualifiers: Hyperlipidemia type: mixed hyperlipidemia Qualified Code(s): E78.2 - Mixed hyperlipidemia (6) COPD (chronic obstructive pulmonary disease) Qualifiers: Emphysema type: unspecified (8) Anemia Qualifiers: Anemia type: due to chronic kidney disease Chronic kidney disease stage: on chronic dialysis Qualified Code(s): N18.6 - End stage renal disease; D63.1 - Anemia in chronic kidney disease; Z99.2 - Dependence on renal dialysis
[2018-02-07] MEDS: Heparin 10,000 UNITS/10 ML Vial (for IV use) OTHER PRN (12:04)
[2018-02-07] MEDS: Carvedilol 12.5 MG Tablet PO SCH ×2 (13:03→20:53)
--- NOTE | 2018-02-07 21:22 | MB ---
cc: Iban Avendaño MD DATE: 02/07/2018 REASON FOR CONSULTATION: Status post coronary artery bypass grafting with basilar infiltrates and effusion. HISTORY OF PRESENT ILLNESS: This is a 77-year-old white male with a history of end-stage renal disease, on dialysis, who had been admitted for critical coronary artery disease and underwent CABG x 4. The patient did have surgery on 02/06/2018. Postoperatively, he was extubated, placed on oxygen via nasal cannula and has been having some cough, wheezing and chest congestion, but denies any fevers, chills or hemoptysis. The patient was dialyzed today and a chest x-ray that was done today shows a dense infiltrate in the left base as well as some associated left pleural effusion. He has been on oxygen at 3 liters nasal cannula and maintaining a saturation of over 90%. He does have some chest discomfort and his chest tube is draining serous fluid. PAST MEDICAL HISTORY: The patient's past history has included a history of end-stage renal disease, on hemodialysis. He has a history of diabetes mellitus type 2, history of congestive heart failure, prior history of anemia and coronary artery disease as well as hypertension, obesity and hyperlipidemia. He has had a DVT in the past. His past history has also included a history for bladder cancer, history of diverticulosis, history of bleeding ulcers and a previous history of myocardial infarct. PAST SURGICAL HISTORY: Includes cystoscopy, coronary artery stenting, tonsillectomy remotely,Vas-Cath placement for dialysis and colonoscopy with polypectomy. HABITS HISTORY: The patient smoked 2-3 packs per day for 30 years and then quit. He drinks alcohol moderately. ALLERGIES: NO DRUG ALLERGIES ARE LISTED. FAMILY HISTORY: Essentially noncontributory. REVIEW OF SYSTEMS: The patient is overweight. He has leg swelling. He has dizzy attacks, postnasal drip. He has cough and wheezing. He is orthopneic and he has some upper abdominal discomfort. No anxiety or depression. PHYSICAL EXAMINATION: GENERAL: This is a moderately obese elderly man who is sitting upright, pale and mildly dyspneic at rest. VITAL SIGNS: Blood pressure 130/80, pulse 100, respirations 24, temperature 98.2. HEENT: Head is normocephalic. Pupils are reactive. Sclerae are injected. Tongue is moist. Throat is mildly injected. NECK: Supple. No bruits, thyroid enlargement or lymphadenopathy. CHEST: Distant breath sounds over the left lower chest with occasional basilar crackles. HEART: Sounds are irregular S1 and S2 with no murmur and no S3. ABDOMEN: Soft, protuberant without masses. No organomegaly or tenderness. Bowel sounds are active. EXTREMITIES: Decreased peripheral pulses with minimal edema. NEUROLOGIC: Reflexes are 1+ with no gross motor deficits. Cranial nerves grossly intact. SKIN: No lesions observed. IMPRESSION: 1. Left basilar atelectasis with pleural effusion. 2. Status post coronary artery bypass grafting x 4 with postoperative respiratory insufficiency. 3. Anemia of chronic disease. 4. Hypertension. 5. Diabetes mellitus. 6. End-stage renal disease, on dialysis. 7. Chronic obstructive pulmonary disease. PLAN: The patient will be placed on O2 at 3 liters. He was also placed on incentive spirometry every 2 hours, nebulized DuoNeb solution every 6 hours. He will be given Mucomyst solution with a nebulizer 10% 2 mL every 6 hours. EzPAP will be used with the nebulizer solution 4 times a day. The patient will have a followup chest x-ray done. If there is a significant pleural effusion present, a thoracentesis will be planned. I will review and follow the case with you, Dr. Breaux. Thank you for this consultation. Iban Avendaño MD VJD/garo , 08:18 PM , 08:31 PM
[2018-02-08] MEDS: RESP: Acetylcysteine 10% 4 ML Neb NEB SCH ×4 (04:04→20:06)
[2018-02-08] MEDS: Docusate Sodium 100 MG Capsule PO SCH ×2 (09:03→20:49)
[2018-02-08] MEDS: Multivitamin/Minerals Therapeutic Tablet PO SCH (09:03)
[2018-02-08] MEDS: Amiodarone 200 MG Tablet PO SCH ×2 (09:03→20:49)
[2018-02-08] MEDS: Carvedilol 12.5 MG Tablet PO SCH ×2 (09:03→20:49)
[2018-02-08] MEDS: Insulin NovoLOG Aspart Correctional Sugar Inj SQ SCH ×4 (09:06→20:59)
[2018-02-08] MEDS: Polyethylene Glycol 3350 17 GM Packet PO SCH (09:07)
--- NOTE | 2018-02-08 10:35 | P.PNCV ---
- Note Subjective/Hospital Course: 77/ male initially seen 09/24 History of Present Illness The patient is a 77-year-old male with past medical history significant for recent GI bleed from severe diverticulosis, Chronic kidney disease stage IV, hyperlipidemia, hypertension, coronary artery disease with MO , cardiac stents in 2001, and stent to the LAD 2006, bladder cancer status post BCG immunotherapy and TURP, morbid obesity, DVT 2015, who presented to the emergency department with severe central chest pain. He had been having on and off chest pain for the last 2 days worsened over the last 24 hours. EKG in the emergency department showed extensive anterolateral ST depression and troponin was elevated at 1.16. He was ruled in for non-ST elevation MO, Dr. hoyt his statistics teacher was consulted. Due to ongoing chest pain patient was started on IV nitroglycerin infusion. Patient also received 162 mg of aspirin. After evaluation Dr. Hoyt has started the patient on IV heparin also. Patient was recently admitted for lower GI bleed and anemia, was discharged on 09/21/2017. Colonoscopy on 09/17/17 showed severe diverticulosis, moderate sized internal hemorrhoids, and pedunculated polyp at the cecum s/p polypectomy-biopsy showed tubular adenoma. Patient has chronic kidney disease with baseline creatinine around 3.5, creatinine today is elevated to 4.74. He underwent LHC by Dr. Hoyt and was found to have multivessel CAD EF40-45% now on dialysis Vanessa askew (Medical History: CAD (coronary artery disease) , Hypertension , DVT (deep venous thrombosis), Bladder cancer (Acute) Anemia, CKD (chronic kidney disease) stage V requiring chronic dialysis, Congestive heart failure Diverticul disease small and large intestine, no perforati or abscess hx GI bleed, H/O ETOH abuse, History of bleeding ulcers, Morbid obesity, Myocardial infarct, old Port catheter in plac - Surgical History Surgical History: H/O colonoscopy, History of cystoscopy, History of heart artery stent, History of tonsillectomy, Hx of arteriovenostomy for renal dialysis S/P colonoscopic polypectomy electively admitted for surgery 02/04 Procedure: CABG x 4, CORTES to LAd - good, SVG to PDA - good, SVG to OM1 - good, SVG to RI - good, EVH extubated after surgery 02/05 receiving , dialysis at this time , attempted to remove at least 1.5 liter , BP becomes labile , somewhat tachycardic improved with IV lopressor no pressors at this time CVP 7-8 on jason trac on 4 liter nasal cannula CXR noted has large left effusion pt need to be out of bed to facilitate drainage of chest tube repeat CXR in am , if not improved, may need thoracentesis left chest tube in adequate position eval for transfer to stepdown later today 02/06 worsening effusion/ consolidation left lung / may need second chest tube chest tubes drained only 130cc/ 12 hrs check PA & lateral CXR DC cvc line discussed with Dr Ruvalcaba and Dr Mane ambulating with pt BB increased 02/07 HGB 7.9/ will transfuse one unit with dialysis left lower lung consolidation small effusion noted chest tube drained 290cc/ 12 hrs has poor cough effort / will consult pulm for now add chest CPT, on nebs ezpap , acapella transfer to stepdown unit BB increased / dc cvc line 02/08 chest tube drained 80cc/ 12 hrs will dc after pt ambulates this am , remains on 3 liter nasal cannula continue chest CPT appreciate pulm assistance dialyzed -2499/ 02/07 Objective: Vital Signs - 24 hr 02/07/18 11:00 02/07/18 13:08 02/07/18 14:11 Temperature 97 F L 98.1 F Pulse Rate 99 H 111 H 98 H Respiratory Rate 19 20 18 Blood Pressure 138/63 127/50 L Pulse Oximetry 94 L 02/07/18 14:12 02/07/18 15:00 02/07/18 16:00 Temperature 98.0 F 98.6 F Pulse Rate 85 90 Respiratory Rate 20 16 Blood Pressure 119/51 L 125/59 L Pulse Oximetry 95 98 96 02/07/18 19:00 02/07/18 20:00 02/07/18 20:34 Temperature 98.2 F Pulse Rate 100 H 100 H Respiratory Rate 18 Blood Pressure 122/58 L Pulse Oximetry 96 96 02/07/18 23:00 02/08/18 03:00 02/08/18 04:05 Temperature 98.1 F 98.1 F Pulse Rate 96 H 85 85 Respiratory Rate 20 20 18 Blood Pressure 101/55 L 121/57 L Pulse Oximetry 96 96 02/08/18 10:01 02/08/18 10:02 Temperature Pulse Rate 78 Respiratory Rate 18 Blood Pressure Pulse Oximetry 96 GENERAL: A&O x 3 / SKIN: Warm and dry. prevena dressing to chest / incision intact to left leg HEAD: Normocephalic. EYES: No scleral icterus. No injection or drainage. NECK: Supple, trachea midline. No JVD or lymphadenopathy. CARDIOVASCULAR: Regular rate and rhythm without murmurs, gallops, or rubs. RESPIRATORY: Breath sounds equal bilaterally. No accessory muscle use. bibasilar crackles, more diminished left lower lobe chest tube in place with no air leak GASTROINTESTINAL: Abdomen soft, non-tender, nondistended. MUSCULOSKELETAL: No cyanosis, or edema. BACK: Nontender without obvious deformity. No CVA tenderness. Labs: Laboratory Results - last 12 hr 02/08/18 09:01 POC Glucose 260 H Result Diagrams: 02/07/18 04:10 02/07/18 04:10 Telemetry: NSR - Plan (1) S/P CABG x 4 Plan: ASA, amiodarone , statin BB OOB / ambulate dc chest tubes today requesting rehab at discharge pulm toileting add CPT pulmonology following (2) CAD (coronary artery disease) (3) End stage renal disease Plan: on dialysis [id number] nephro following will dc CVC line maturing left AV fistula (4) HTN (hypertension) (5) Hyperlipidemia Plan: on statin (6) COPD (chronic obstructive pulmonary disease) Plan: nebs, ezpap, acapella (8) Anemia Plan: on epogen with dialysis for one unit PRBC with dialysis 02/07 (2) CAD (coronary artery disease) Qualifiers: Coronary Disease-Associated Artery/Lesion type: [place] artery [place] vs. transplanted heart: [place] heart Associated angina: without angina Qualified Code(s): I25.10 - Atherosclerotic heart disease of [place] coronary artery without angina pectoris (4) HTN (hypertension) Qualifiers: Hypertension type: essential hypertension Qualified Code(s): I10 - Essential (primary) hypertension (5) Hyperlipidemia Qualifiers: Hyperlipidemia type: mixed hyperlipidemia Qualified Code(s): E78.2 - Mixed hyperlipidemia (6) COPD (chronic obstructive pulmonary disease) Qualifiers: Emphysema type: unspecified (8) Anemia Qualifiers: Anemia type: due to chronic kidney disease Chronic kidney disease stage: on chronic dialysis Qualified Code(s): N18.6 - End stage renal disease; D63.1 - Anemia in chronic kidney disease; Z99.2 - Dependence on renal dialysis
--- NOTE | 2018-02-08 10:45 | XR ---
EXAM DATE: 02/08/2018 10:38 AM EDT AGE/SEX: 77 years / Male INDICATIONS: . Short of breath. CLINICAL DATA: This is the patient's subsequent encounter. Patient reports that signs and symptoms h ave been present for 1 week and indicates a pain score of 0/10. MEDICAL/SURGICAL HISTORY: . Carcinoma, bladder. Congestive heart failure. Hypertension. Anemia. CA. CK. CAD. . Coronary artery stent. CABG. COMPARISON: [facility], CHEST 1V SINGLE AP, 02/07/2018. . FINDINGS: Dialysis catheter is in good position and left chest drain are in good position. Right lung is clear. Left lung is better aerated with less fluid. Minimal bilateral persist in the left lobe. Cardiac silhouette is appropriate. CONCLUSION: Interval improvement of better aeration on the left Electronically signed by: Chip Miller MD 02/08/2018 10:44 AM EDT
--- NOTE | 2018-02-08 12:59 | P.PNNP ---
Subjective Interval history: Patient was resting in bed, no distress, no complaints. Patient was being picked up for a chest x-ray. Patient has a chest tube in place.Patient has left subclavian central line. Patient was on 3L nasal cannula. Physical Exam Vital signs: Vital Signs 02/07/18 13:08 02/07/18 14:11 02/07/18 14:12 Temperature 98.1 F Pulse Rate 111 H 98 H Respiratory Rate 20 18 Blood Pressure 127/50 L Pulse Oximetry 94 L 95 02/07/18 15:00 02/07/18 16:00 02/07/18 19:00 Temperature 98.0 F 98.6 F Pulse Rate 85 90 100 H Respiratory Rate 20 16 Blood Pressure 119/51 L 125/59 L Pulse Oximetry 98 96 02/07/18 20:00 02/07/18 20:34 02/07/18 23:00 Temperature 98.2 F 98.1 F Pulse Rate 100 H 96 H Respiratory Rate 18 20 Blood Pressure 122/58 L 101/55 L Pulse Oximetry 96 96 96 02/08/18 03:00 02/08/18 04:05 02/08/18 07:00 Temperature 98.1 F 97.8 F Pulse Rate 85 85 97 H Respiratory Rate 20 18 18 Blood Pressure 121/57 L 108/53 L Pulse Oximetry 96 95 02/08/18 10:01 02/08/18 10:02 02/08/18 11:00 Temperature 97.8 F Pulse Rate 78 75 Respiratory Rate 18 18 Blood Pressure 92/55 L Pulse Oximetry 96 98 Intake & Output 02/07/18 02/08/18 02/08/18 18:59 06:59 18:59 Intake Total 520 / 520 240 / 240 Output Total 2640 / 2640 80 / 80 Balance -2120 / -2120 160 / 160 Weight 88.5 kg Intake: IV 100 / 100 Flexbumin 25% Inj 100 ML @ 60 100 / 100 mls/hr IV.SIG WITH DIALYSIS PRN Rx#:[id number] Oral 420 / 420 240 / 240 Intake (Blood Product) Amt 0 / 0 Rbc As-3 Leukoreduced Unit 0 / 0 [id number] Output: Urine 0 / 0 Hemodialysis Amount 2500 / 2500 Chest Tube Drainage 140 / 140 80 / 80 #2 Anterior 140 / 140 80 / 80 Other: Date of Last Bowel Movement 02/07/18 02/07/18 - Constitutional no acute distress - Routine HEENT Exam Head: Present: normocephalic Eye: Present: EOMI, PERRL ENT: Present: mucous membranes moist - Routine Neck Exam Present: trachea midline - Detailed Chest Wall Exam Chest wall: Absent: increased AP diameter Comments: Left subclavian introducer sheath in place, site is clean dry and intact. Midline sternal wound with a wound VAC dressing in place. - Routine Respiratory Exam Absent: accessory muscle use - Routine Cardiovascular Exam Present: S1, S2, tachycardia - Routine Abdominal Exam Present: soft, normoactive bowel sounds. Absent: tenderness Comments: . - Routine Neurological Exam Present: alert - Detailed Neurological Exam: Coma Scale Verbal Response: Oriented - Routine Psychiatric Exam Present: normal affect - Urinary Catheter Management Indwelling Temp Sensing Catheter Cath placed during this visit: yes, but has since been removed by the nurse Reason for continuing: Decision to DC catheter Insertion date: 02/04/18 Insertion time: 08:00 Removal date: 02/05/18 Removal time: 04:30 Assessment and Plan - Assessment (1) End stage renal disease Code(s): N18.6 - End stage renal disease Status: Acute Plan: dialysis TTS. We will continue to monitor fluid and electrolytes. Patient had dialysis yesterday, 2500 mL fluid removed. Avoid Gadolinium. Phosphorus is currently acceptable, monitor phosphorus intermittently. (2) S/P CABG x 4 Code(s): Z95.1 - Presence of aortocoronary bypass graft Status: Acute Plan: supportive care. CT surgery to manage. (3) HTN (hypertension) Code(s): I10 - Essential (primary) hypertension Status: Chronic Qualifiers: Hypertension type: essential hypertension Qualified Code(s): I10 - Essential (primary) hypertension Plan: Monitor. BP is low normal. (4) Anemia Code(s): D64.9 - Anemia, unspecified Status: Chronic Qualifiers: Anemia type: due to chronic kidney disease Chronic kidney disease stage: on chronic dialysis Qualified Code(s): N18.6 - End stage renal disease; D63.1 - Anemia in chronic kidney disease; Z99.2 - Dependence on renal dialysis Plan: Monitor for blood loss. Epogen with dialysis. Drop in Hemoglobin is noted. Received blood transfusion at dialysis yesterday, 1 unit PRBCs.
--- NOTE | 2018-02-08 17:42 | P.PNNP ---
Physical Exam Vital signs: Vital Signs 02/07/18 19:00 02/07/18 20:00 02/07/18 20:34 Temperature 98.2 F Pulse Rate 100 H 100 H Respiratory Rate 18 Blood Pressure 122/58 L Pulse Oximetry 96 96 02/07/18 23:00 02/08/18 03:00 02/08/18 04:05 Temperature 98.1 F 98.1 F Pulse Rate 96 H 85 85 Respiratory Rate 20 20 18 Blood Pressure 101/55 L 121/57 L Pulse Oximetry 96 96 02/08/18 07:00 02/08/18 08:00 02/08/18 09:00 Temperature 97.8 F Pulse Rate 84 96 H 98 H Respiratory Rate 18 Blood Pressure 108/53 L Pulse Oximetry 95 02/08/18 10:00 02/08/18 10:01 02/08/18 10:02 Temperature Pulse Rate 86 78 Respiratory Rate 18 Blood Pressure Pulse Oximetry 96 02/08/18 11:00 02/08/18 12:00 02/08/18 13:00 Temperature 97.8 F Pulse Rate 71 74 80 Respiratory Rate 18 Blood Pressure 92/55 L Pulse Oximetry 98 02/08/18 14:00 02/08/18 15:00 02/08/18 16:00 Temperature 98.1 F Pulse Rate 82 80 84 Respiratory Rate 18 Blood Pressure 111/54 L Pulse Oximetry 96 Intake & Output 02/07/18 02/08/18 02/08/18 18:59 06:59 18:59 Intake Total 520 / 520 240 / 240 Output Total 2640 / 2640 80 / 80 Balance -2120 / -2120 160 / 160 Weight 88.5 kg Intake: IV 100 / 100 Flexbumin 25% Inj 100 ML @ 60 100 / 100 mls/hr IV.SIG WITH DIALYSIS PRN Rx#:[id number] Oral 420 / 420 240 / 240 Intake (Blood Product) Amt 0 / 0 Rbc As-3 Leukoreduced Unit 0 / 0 [id number] Output: Urine 0 / 0 Hemodialysis Amount 2500 / 2500 Chest Tube Drainage 140 / 140 80 / 80 #2 Anterior 140 / 140 80 / 80 Other: Date of Last Bowel Movement 02/07/18 02/07/18 - Urinary Catheter Management Indwelling Temp Sensing Catheter Cath placed during this visit: yes, but has since been removed by the nurse Reason for continuing: Decision to DC catheter Insertion date: 02/04/18 Insertion time: 08:00 Removal date: 02/05/18 Removal time: 04:30 Assessment and Plan - Assessment (1) End stage renal disease Code(s): N18.6 - End stage renal disease Status: Acute Plan: dialysis TTS. We will continue to monitor fluid and electrolytes. Patient had dialysis yesterday, 2500 mL fluid removed. Avoid Gadolinium. Phosphorus is currently acceptable, monitor phosphorus intermittently. (2) S/P CABG x 4 Code(s): Z95.1 - Presence of aortocoronary bypass graft Status: Acute Plan: supportive care. CT surgery to manage. (3) HTN (hypertension) Code(s): I10 - Essential (primary) hypertension Status: Chronic Qualifiers: Hypertension type: essential hypertension Qualified Code(s): I10 - Essential (primary) hypertension Plan: Monitor. BP is low normal. (4) Anemia Code(s): D64.9 - Anemia, unspecified Status: Chronic Qualifiers: Anemia type: due to chronic kidney disease Chronic kidney disease stage: on chronic dialysis Qualified Code(s): N18.6 - End stage renal disease; D63.1 - Anemia in chronic kidney disease; Z99.2 - Dependence on renal dialysis Plan: Monitor for blood loss. Epogen with dialysis. Drop in Hemoglobin is noted. Received blood transfusion at dialysis yesterday, 1 unit PRBCs. - Attending Attestation patient was seen and examined. Agree with above assessment and plan.
--- NOTE | 2018-02-08 19:47 | P.PN ---
Subjective Interval history: He is up in a chair and feeling better. On O2 2 L. Will have dialysis in am,. Chest Xray has improved with less atelectasis and effusion. Physical Exam Vital signs: Vital Signs 02/07/18 20:00 02/07/18 20:34 02/07/18 23:00 Temperature 98.2 F 98.1 F Pulse Rate 100 H 96 H Respiratory Rate 18 20 Blood Pressure 122/58 L 101/55 L Pulse Oximetry 96 96 96 02/08/18 03:00 02/08/18 04:05 02/08/18 07:00 Temperature 98.1 F 97.8 F Pulse Rate 85 85 84 Respiratory Rate 20 18 18 Blood Pressure 121/57 L 108/53 L Pulse Oximetry 96 95 02/08/18 08:00 02/08/18 09:00 02/08/18 10:00 Temperature Pulse Rate 96 H 98 H 86 Respiratory Rate Blood Pressure Pulse Oximetry 02/08/18 10:01 02/08/18 10:02 02/08/18 11:00 Temperature 97.8 F Pulse Rate 78 71 Respiratory Rate 18 18 Blood Pressure 92/55 L Pulse Oximetry 96 98 02/08/18 12:00 02/08/18 13:00 02/08/18 14:00 Temperature Pulse Rate 74 80 82 Respiratory Rate Blood Pressure Pulse Oximetry 02/08/18 15:00 02/08/18 16:00 Temperature 98.1 F Pulse Rate 80 84 Respiratory Rate 18 Blood Pressure 111/54 L Pulse Oximetry 96 Intake & Output 02/08/18 02/08/18 02/09/18 06:59 18:59 06:59 Intake Total 240 / 240 720 / 720 Output Total 80 / 80 120 / 120 Balance 160 / 160 600 / 600 Weight 88.5 kg Intake: Oral 240 / 240 720 / 720 Output: Urine 0 / 0 Chest Tube Drainage 80 / 80 120 / 120 #2 Anterior 80 / 80 120 / 120 Other: # Voids 0 Date of Last Bowel Movement 02/07/18 Narrative: GENERAL:Elderly W/M awake, alert. Not in distress. HEENT: Normocephalic. Atraumatic. Pupils equal, round, reactive, conjugate. Mucous membranes are moist NECK: Trachea is midline. There is no JVD. CHEST: Occ Basal crackles , and decreased breath sounds at left base. Midline sternal wound with a wound VAC dressing in place. CARDIOVASCULAR: sinus tachycardia ABDOMEN: Soft, nontender, some distension is noted, positive bowel sounds. MUSCULOSKELETAL: Pulses 2+. No peripheral edema. Left lower extremity wrapped in Rasheed wrapping. - Urinary Catheter Management Indwelling Temp Sensing Catheter Cath placed during this visit: yes, but has since been removed by the nurse Reason for continuing: Decision to DC catheter Insertion date: 02/04/18 Insertion time: 08:00 Removal date: 02/05/18 Removal time: 04:30 Results - Labs CBC & Chem 7: 02/07/18 04:10 02/07/18 04:10 Laboratory Results - last 24 hr 02/07/18 02/08/18 02/08/18 21:03 09:01 12:42 POC Glucose 122 H 260 H 123 H 02/08/18 02/08/18 12:44 16:54 POC Glucose 120 H 135 H - Imaging Impressions Chest X-Ray 02/08/18 08:00 CONCLUSION: Interval improvement of better aeration on the left Assessment and Plan - Assessment (1) Atelectasis Code(s): J98.11 - Atelectasis Status: Acute (2) Pleural effusion Code(s): J90 - Pleural effusion, not elsewhere classified Status: Acute (3) S/P CABG x 4 Code(s): Z95.1 - Presence of aortocoronary bypass graft Status: Acute (4) CAD (coronary artery disease) Code(s): I25.10 - Atherosclerotic heart disease of [place] coronary artery without angina pectoris Status: Chronic (5) End stage renal disease Code(s): N18.6 - End stage renal disease Status: Acute (6) HTN (hypertension) Code(s): I10 - Essential (primary) hypertension Status: Chronic (7) Hyperlipidemia Code(s): E78.5 - Hyperlipidemia, unspecified Status: Chronic (8) COPD (chronic obstructive pulmonary disease) Code(s): J44.9 - Chronic obstructive pulmonary disease, unspecified Status: Chronic (9) NSTEMI (non-ST elevated myocardial infarction) Code(s): I21.4 - Non-ST elevation (NSTEMI) myocardial infarction Status: Acute Onset Date: ~10/04/17 (10) Anemia Code(s): D64.9 - Anemia, unspecified Status: Chronic - Plan 1. Continue O2 at 3 L and wean 2. Duoneb nebs qid. 3. EZ PAP with nebs qid. 4. IS at Bedside q2h 5. Chest Xray Sunday 6. Continue Dialysis as planned 7. Mucomyst 20 % Neb solution 2 CC QID (4) CAD (coronary artery disease) Qualifiers: Coronary Disease-Associated Artery/Lesion type: [place] artery [place] vs. transplanted heart: [place] heart Associated angina: without angina Qualified Code(s): I25.10 - Atherosclerotic heart disease of [place] coronary artery without angina pectoris (6) HTN (hypertension) Qualifiers: Hypertension type: essential hypertension Qualified Code(s): I10 - Essential (primary) hypertension (7) Hyperlipidemia Qualifiers: Hyperlipidemia type: mixed hyperlipidemia Qualified Code(s): E78.2 - Mixed hyperlipidemia (8) COPD (chronic obstructive pulmonary disease) Qualifiers: Emphysema type: unspecified (10) Anemia Qualifiers: Anemia type: due to chronic kidney disease Chronic kidney disease stage: on chronic dialysis Qualified Code(s): N18.6 - End stage renal disease; D63.1 - Anemia in chronic kidney disease; Z99.2 - Dependence on renal dialysis
[2018-02-09] MEDS: RESP: Acetylcysteine 10% 4 ML Neb NEB SCH ×2 (03:23→09:46)
[2018-02-09 05:07] LABS: Hemoglobin 8.9 gm/dL (13.0-17.0); Mean Corpuscular HGB Conc 34.4 % (32.0-36.0); Mean Corpuscular Hemoglobin 35.3 pg (27.0-34.0); Mean Corpuscular Volume 102.4 fL (80.0-100.0); Mean Platelet Volume 8.2 fL (7.0-11.0); Platelet Count 204 th/mm3 (150-450); Red Blood Count 2.54 mil/mm3 (4.50-5.90); White Blood Count 8.9 th/mm3 (4.0-11.0)
[2018-02-09 05:35] LABS: Calcium 7.9 mg/dL (8.5-10.1); Carbon Dioxide 30.2 meq/L (21.0-32.0); Potassium 3.5 meq/L (3.5-5.1)
--- NOTE | 2018-02-09 05:43 | XR ---
EXAM DATE: 02/09/2018 4:35 AM EDT AGE/SEX: 77 years / Male INDICATIONS: Shortness of breath, possible pneumothorax. CLINICAL DATA: This is the patient's subsequent encounter. Patient reports that signs and symptoms h ave been present for 1 week and indicates a pain score of 0/10. MEDICAL/SURGICAL HISTORY: Carcinoma, bladder. Congestive heart failure. Hypertension. Anemi a. [place]. CK. Coronary artery stent. CABG. COMPARISON: [facility], CHEST 2V PA&LAT, 02/08/2018. . FINDINGS: There has been interval removal of left thoracostomy tube and midline chest tube. Dialysis catheter r emains in place. There is no evidence of pneumothorax. There is persistent left base consolidation an d effusion and mild atelectasis along the course of previous chest tube on the left. Right lung is st able and grossly clear. Visualized cardiac contours are stable. CONCLUSION: No pneumothorax. Electronically signed by: August Toussaint MD 02/09/2018 4:43 AM EDT
[2018-02-09] MEDS: Insulin NovoLOG Aspart Correctional Sugar Inj SQ SCH ×2 (08:16→14:06)
--- NOTE | 2018-02-09 11:01 | P.PNNP ---
Subjective Interval history: Patient seen during hemodialysis Physical Exam Vital signs: Vital Signs 02/08/18 12:00 02/08/18 13:00 02/08/18 14:00 Temperature Pulse Rate 74 80 82 Respiratory Rate Blood Pressure Pulse Oximetry 02/08/18 15:00 02/08/18 16:00 02/08/18 19:00 Temperature 98.1 F 98.2 F Pulse Rate 80 84 88 Respiratory Rate 18 18 Blood Pressure 111/54 L 150/65 H Pulse Oximetry 96 95 02/08/18 20:08 02/08/18 23:50 02/09/18 03:00 Temperature 98 F 98 F Pulse Rate 88 86 Respiratory Rate 20 20 Blood Pressure 110/58 L 116/57 L Pulse Oximetry 95 95 96 Intake & Output 02/08/18 02/09/18 02/09/18 18:59 06:59 18:59 Intake Total 720 / 720 240 / 240 Output Total 120 / 120 100 / 100 Balance 600 / 600 140 / 140 Weight 90.5 kg Intake: Oral 720 / 720 240 / 240 Output: Urine 100 / 100 Chest Tube Drainage 120 / 120 #2 Anterior 120 / 120 Other: # Voids 0 Date of Last Bowel Movement 02/07/18 Narrative: GENERAL:Elderly W/M awake, alert. Not in distress. HEENT: Normocephalic. Atraumatic. Pupils equal, round, reactive, conjugate. Mucous membranes are moist NECK: Trachea is midline. There is no JVD. CHEST: Occ Basal crackles , and decreased breath sounds at left base. Midline sternal wound with a wound VAC dressing in place. CARDIOVASCULAR: sinus tachycardia ABDOMEN: Soft, nontender, some distension is noted, positive bowel sounds. MUSCULOSKELETAL: Pulses 2+. No peripheral edema. Left lower extremity wrapped in Rasheed wrapping. - Urinary Catheter Management Indwelling Temp Sensing Catheter Cath placed during this visit: yes, but has since been removed by the nurse Reason for continuing: Decision to DC catheter Insertion date: 02/04/18 Insertion time: 08:00 Removal date: 02/05/18 Removal time: 04:30 Assessment and Plan - Assessment (1) End stage renal disease Code(s): N18.6 - End stage renal disease Status: Acute Plan: dialysis TTS. We will continue to monitor fluid and electrolytes. Patient seen during hemodialysis 4K bath 2 L UF tolerating it well Avoid Gadolinium. Phosphorus is currently acceptable, monitor phosphorus intermittently. (2) S/P CABG x 4 Code(s): Z95.1 - Presence of aortocoronary bypass graft Status: Acute Plan: supportive care. CT surgery to manage. (3) HTN (hypertension) Code(s): I10 - Essential (primary) hypertension Status: Chronic Qualifiers: Hypertension type: essential hypertension Qualified Code(s): I10 - Essential (primary) hypertension Plan: Monitor. BP is low normal. (4) Anemia Code(s): D64.9 - Anemia, unspecified Status: Chronic Qualifiers: Anemia type: due to chronic kidney disease Chronic kidney disease stage: on chronic dialysis Qualified Code(s): N18.6 - End stage renal disease; D63.1 - Anemia in chronic kidney disease; Z99.2 - Dependence on renal dialysis Plan: Monitor for blood loss. Epogen with dialysis. Drop in Hemoglobin is noted. Received blood transfusion at dialysis yesterday, 1 unit PRBCs.
--- NOTE | 2018-02-09 11:09 | P.PNCV ---
- Note Subjective/Hospital Course: 77/ male initially seen 09/24 History of Present Illness The patient is a 77-year-old male with past medical history significant for recent GI bleed from severe diverticulosis, Chronic kidney disease stage IV, hyperlipidemia, hypertension, coronary artery disease with OR , cardiac stents in 2001, and stent to the LAD 2006, bladder cancer status post BCG immunotherapy and TURP, morbid obesity, DVT 2015, who presented to the emergency department with severe central chest pain. He had been having on and off chest pain for the last 2 days worsened over the last 24 hours. EKG in the emergency department showed extensive anterolateral ST depression and troponin was elevated at 1.16. He was ruled in for non-ST elevation OR, Dr. hoyt his director of special events was consulted. Due to ongoing chest pain patient was started on IV nitroglycerin infusion. Patient also received 162 mg of aspirin. After evaluation Dr. Hoyt has started the patient on IV heparin also. Patient was recently admitted for lower GI bleed and anemia, was discharged on 09/21/2017. Colonoscopy on 09/17/17 showed severe diverticulosis, moderate sized internal hemorrhoids, and pedunculated polyp at the cecum s/p polypectomy-biopsy showed tubular adenoma. Patient has chronic kidney disease with baseline creatinine around 3.5, creatinine today is elevated to 4.74. He underwent LHC by Dr. Hoyt and was found to have multivessel CAD EF40-45% now on dialysis Vanessa askew (Medical History: CAD (coronary artery disease) , Hypertension , DVT (deep venous thrombosis), Bladder cancer (Acute) Anemia, CKD (chronic kidney disease) stage V requiring chronic dialysis, Congestive heart failure Diverticul disease small and large intestine, no perforati or abscess hx GI bleed, H/O ETOH abuse, History of bleeding ulcers, Morbid obesity, Myocardial infarct, old Port catheter in plac - Surgical History Surgical History: H/O colonoscopy, History of cystoscopy, History of heart artery stent, History of tonsillectomy, Hx of arteriovenostomy for renal dialysis S/P colonoscopic polypectomy electively admitted for surgery 02/04 Procedure: CABG x 4, CORTES to LAd - good, SVG to PDA - good, SVG to OM1 - good, SVG to RI - good, EVH extubated after surgery 02/05 receiving , dialysis at this time , attempted to remove at least 1.5 liter , BP becomes labile , somewhat tachycardic improved with IV lopressor no pressors at this time CVP 7-8 on jason trac on 4 liter nasal cannula CXR noted has large left effusion pt need to be out of bed to facilitate drainage of chest tube repeat CXR in am , if not improved, may need thoracentesis left chest tube in adequate position eval for transfer to stepdown later today 02/06 worsening effusion/ consolidation left lung / may need second chest tube chest tubes drained only 130cc/ 12 hrs check PA & lateral CXR DC cvc line discussed with Dr Ruvalcaba and Dr Mane ambulating with pt BB increased 02/07 HGB 7.9/ will transfuse one unit with dialysis left lower lung consolidation small effusion noted chest tube drained 290cc/ 12 hrs has poor cough effort / will consult pulm for now add chest CPT, on nebs ezpap , acapella transfer to stepdown unit BB increased / dc cvc line 02/08 chest tube drained 80cc/ 12 hrs will dc after pt ambulates this am , remains on 3 liter nasal cannula continue chest CPT appreciate pulm assistance dialyzed -2500/ 02/07 02/09 Clinically and medically stable In dialysis today Anticipate discharge to inpatient rehab today Objective: Vital Signs - 24 hr 02/08/18 12:00 02/08/18 13:00 02/08/18 14:00 Temperature Pulse Rate 74 80 82 Respiratory Rate Blood Pressure Pulse Oximetry 02/08/18 15:00 02/08/18 16:00 02/08/18 19:00 Temperature 98.1 F 98.2 F Pulse Rate 80 84 88 Respiratory Rate 18 18 Blood Pressure 111/54 L 150/65 H Pulse Oximetry 96 95 02/08/18 20:08 02/08/18 23:50 02/09/18 03:00 Temperature 98 F 98 F Pulse Rate 88 86 Respiratory Rate 20 20 Blood Pressure 110/58 L 116/57 L Pulse Oximetry 95 95 96 Labs: Laboratory Results - last 12 hr 02/09/18 02/09/18 02/09/18 04:11 04:11 07:52 WBC 8.9 RBC 2.54 L Hgb 8.9 L Hct 26.0 L MCV 102.4 H MCH 35.3 H MCHC 34.4 RDW 18.0 H Plt Count 204 MPV 8.2 Sodium 138 Potassium 3.5 Chloride 97 L Carbon Dioxide 30.2 Anion Gap 11 BUN 37 H Creatinine 7.06 H Estimated GFR 8 L POC Glucose 113 H Random Glucose 96 Calcium 7.9 L Result Diagrams: 02/09/18 04:11 02/09/18 04:11 - Plan (1) S/P CABG x 4 Plan: ASA, amiodarone , statin BB OOB / ambulate dc chest tubes today requesting rehab at discharge pulm toileting add CPT pulmonology following (2) CAD (coronary artery disease) (3) End stage renal disease Plan: on dialysis [id number] nephro following will dc CVC line maturing left AV fistula (4) HTN (hypertension) (5) Hyperlipidemia Plan: on statin (6) COPD (chronic obstructive pulmonary disease) Plan: nebs, ezpap, acapella (8) Anemia Plan: on epogen with dialysis for one unit PRBC with dialysis 02/07 (2) CAD (coronary artery disease) Qualifiers: Coronary Disease-Associated Artery/Lesion type: [place] artery [place] vs. transplanted heart: [place] heart Associated angina: without angina Qualified Code(s): I25.10 - Atherosclerotic heart disease of [place] coronary artery without angina pectoris (4) HTN (hypertension) Qualifiers: Hypertension type: essential hypertension Qualified Code(s): I10 - Essential (primary) hypertension (5) Hyperlipidemia Qualifiers: Hyperlipidemia type: mixed hyperlipidemia Qualified Code(s): E78.2 - Mixed hyperlipidemia (6) COPD (chronic obstructive pulmonary disease) Qualifiers: Emphysema type: unspecified (8) Anemia Qualifiers: Anemia type: due to chronic kidney disease Chronic kidney disease stage: on chronic dialysis Qualified Code(s): N18.6 - End stage renal disease; D63.1 - Anemia in chronic kidney disease; Z99.2 - Dependence on renal dialysis
--- NOTE | 2018-02-09 11:14 | P.DS ---
Date of admission: 02/04/18 05:09 Primary care physician: Regina Solitario Brief History from admission: History of Present Illness The patient is a 77-year-old male with past medical history significant for recent GI bleed from severe diverticulosis, Chronic kidney disease stage IV, hyperlipidemia, hypertension, coronary artery disease with WI , cardiac stents in 2001, and stent to the LAD 2006, bladder cancer status post BCG immunotherapy and TURP, morbid obesity, DVT 2015, who presented to the emergency department with severe central chest pain. He had been having on and off chest pain for the last 2 days worsened over the last 24 hours. EKG in the emergency department showed extensive anterolateral ST depression and troponin was elevated at 1.16. He was ruled in for non-ST elevation WI, Dr. hoyt his cold type artist was consulted. Due to ongoing chest pain patient was started on IV nitroglycerin infusion. Patient also received 162 mg of aspirin. After evaluation Dr. Hoyt has started the patient on IV heparin also. Patient was recently admitted for lower GI bleed and anemia, was discharged on 09/21/2017. Colonoscopy on 09/17/17 showed severe diverticulosis, moderate sized internal hemorrhoids, and pedunculated polyp at the cecum s/p polypectomy-biopsy showed tubular adenoma. Patient has chronic kidney disease with baseline creatinine around 3.5, creatinine today is elevated to 4.74. He underwent LHC by Dr. Hoyt and was found to have multivessel CAD EF40-45% now on dialysis Vanessa askew (Medical History: CAD (coronary artery disease) , Hypertension , DVT (deep venous thrombosis), Bladder cancer (Acute) Anemia, CKD (chronic kidney disease) stage V requiring chronic dialysis, Congestive heart failure Diverticul disease small and large intestine, no perforati or abscess hx GI bleed, H/O ETOH abuse, History of bleeding ulcers, Morbid obesity, Myocardial infarct, old Port catheter in plac - Surgical History Surgical History: H/O colonoscopy, History of cystoscopy, History of heart artery stent, History of tonsillectomy, Hx of arteriovenostomy for renal dialysis S/P colonoscopic polypectomy electively admitted for surgery 02/04 DS: Diagnosis - Discharge Diagnosis (1) S/P CABG x 4 Status: Acute (2) CAD (coronary artery disease) Status: Chronic (3) End stage renal disease Status: Acute (4) HTN (hypertension) Status: Chronic (5) Hyperlipidemia Status: Chronic (6) COPD (chronic obstructive pulmonary disease) Status: Chronic (7) NSTEMI (non-ST elevated myocardial infarction) Status: Acute (8) Anemia Status: Chronic DS: Medications - Discharge Medications Prescriptions: oxycodone-acetaminophen 1 tab PO Q6H PRN #30 tab PRN Reason: Pain Scale 1 To 5 DS: Summary Hospital Course: History of Present Illness The patient is a 77-year-old male with past medical history significant for recent GI bleed from severe diverticulosis, Chronic kidney disease stage IV, hyperlipidemia, hypertension, coronary artery disease with WI , cardiac stents in 2001, and stent to the LAD 2006, bladder cancer status post BCG immunotherapy and TURP, morbid obesity, DVT 2015, who presented to the emergency department with severe central chest pain. He had been having on and off chest pain for the last 2 days worsened over the last 24 hours. EKG in the emergency department showed extensive anterolateral ST depression and troponin was elevated at 1.16. He was ruled in for non-ST elevation WI, Dr. hoyt his cold type artist was consulted. Due to ongoing chest pain patient was started on IV nitroglycerin infusion. Patient also received 162 mg of aspirin. After evaluation Dr. Hoyt has started the patient on IV heparin also. Patient was recently admitted for lower GI bleed and anemia, was discharged on 09/21/2017. Colonoscopy on 09/17/17 showed severe diverticulosis, moderate sized internal hemorrhoids, and pedunculated polyp at the cecum s/p polypectomy-biopsy showed tubular adenoma. Patient has chronic kidney disease with baseline creatinine around 3.5, creatinine today is elevated to 4.74. He underwent LHC by Dr. Hoyt and was found to have multivessel CAD EF40-45% now on dialysis Vanessa askew (Medical History: CAD (coronary artery disease) , Hypertension , DVT (deep venous thrombosis), Bladder cancer (Acute) Anemia, CKD (chronic kidney disease) stage V requiring chronic dialysis, Congestive heart failure Diverticul disease small and large intestine, no perforati or abscess hx GI bleed, H/O ETOH abuse, History of bleeding ulcers, Morbid obesity, Myocardial infarct, old Port catheter in plac - Surgical History Surgical History: H/O colonoscopy, History of cystoscopy, History of heart artery stent, History of tonsillectomy, Hx of arteriovenostomy for renal dialysis S/P colonoscopic polypectomy electively admitted for surgery 02/04 Procedure: CABG x 4, CORTES to LAd - good, SVG to PDA - good, SVG to OM1 - good, SVG to RI - good, EVH extubated after surgery 02/05 receiving , dialysis at this time , attempted to remove at least 1.5 liter , BP becomes labile , somewhat tachycardic improved with IV lopressor no pressors at this time CVP 7-8 on jason trac on 4 liter nasal cannula CXR noted has large left effusion pt need to be out of bed to facilitate drainage of chest tube repeat CXR in am , if not improved, may need thoracentesis left chest tube in adequate position eval for transfer to stepdown later today 02/06 worsening effusion/ consolidation left lung / may need second chest tube chest tubes drained only 130cc/ 12 hrs check PA & lateral CXR DC cvc line discussed with Dr Ruvalcaba and Dr Mane ambulating with pt BB increased 02/07 HGB 7.9/ will transfuse one unit with dialysis left lower lung consolidation small effusion noted chest tube drained 290cc/ 12 hrs has poor cough effort / will consult pulm for now add chest CPT, on nebs ezpap , acapella transfer to stepdown unit BB increased / dc cvc line 02/08 chest tube drained 80cc/ 12 hrs will dc after pt ambulates this am , remains on 3 liter nasal cannula continue chest CPT appreciate pulm assistance dialyzed -2500/ 02/07 02/09 Clinically and medically stable In dialysis today Anticipate discharge to inpatient rehab today - Time Spent with Patient Total time spent providing and/or coordinating discharge services: Greater than 30 minutes Exam Vital signs: Vital Signs 02/08/18 12:00 02/08/18 13:00 02/08/18 14:00 Temperature Pulse Rate 74 80 82 Respiratory Rate Blood Pressure Pulse Oximetry 02/08/18 15:00 02/08/18 16:00 02/08/18 19:00 Temperature 98.1 F 98.2 F Pulse Rate 80 84 88 Respiratory Rate 18 18 Blood Pressure 111/54 L 150/65 H Pulse Oximetry 96 95 02/08/18 20:08 02/08/18 23:50 02/09/18 03:00 Temperature 98 F 98 F Pulse Rate 88 86 Respiratory Rate 20 20 Blood Pressure 110/58 L 116/57 L Pulse Oximetry 95 95 96 Intake & Output 02/08/18 02/09/18 02/09/18 18:59 06:59 18:59 Intake Total 720 / 720 240 / 240 Output Total 120 / 120 100 / 100 Balance 600 / 600 140 / 140 Weight 90.5 kg Intake: Oral 720 / 720 240 / 240 Output: Urine 100 / 100 Chest Tube Drainage 120 / 120 #2 Anterior 120 / 120 Other: # Voids 0 Date of Last Bowel Movement 02/07/18 - Constitutional no acute distress - Routine HEENT Exam Head: Present: normocephalic, atraumatic - Routine Neck Exam Present: supple, full ROM. Absent: JVD, carotid bruit - Routine Respiratory Exam Present: CTA bilaterally - Routine Cardiovascular Exam Present: RRR, S1, S2 - Routine Abdominal Exam Present: soft, normoactive bowel sounds - Routine Extremities Exam Present: full ROM. Absent: cyanosis, clubbing - Routine Skin Exam Present: intact - Routine Neurological Exam Present: alert, oriented X3 Results Procedures completed during hospitalization: Procedure: CABG x 4, CORTES to LAd - good, SVG to PDA - good, SVG to OM1 - good, SVG to RI - good, EVH extubated after surgery Labs on day of discharge: Labs from last 24 hours 02/09/18 02/09/18 02/09/18 07:52 04:11 04:11 WBC 8.9 RBC 2.54 L Hgb 8.9 L Hct 26.0 L MCV 102.4 H MCH 35.3 H MCHC 34.4 RDW 18.0 H Plt Count 204 MPV 8.2 Sodium 138 Potassium 3.5 Chloride 97 L Carbon Dioxide 30.2 Anion Gap 11 BUN 37 H Creatinine 7.06 H Estimated GFR 8 L POC Glucose 113 H Random Glucose 96 Calcium 7.9 L 02/08/18 02/08/18 02/08/18 20:53 16:54 12:44 WBC RBC Hgb Hct MCV MCH MCHC RDW Plt Count MPV Sodium Potassium Chloride Carbon Dioxide Anion Gap BUN Creatinine Estimated GFR POC Glucose 104 135 H 120 H Random Glucose Calcium 02/08/18 12:42 WBC RBC Hgb Hct MCV MCH MCHC RDW Plt Count MPV Sodium Potassium Chloride Carbon Dioxide Anion Gap BUN Creatinine Estimated GFR POC Glucose 123 H Random Glucose Calcium - Impressions ITS Impressions Chest X-Ray 02/09/18 06:00 CONCLUSION: No pneumothorax. Discharge Plan - Discharge Disposition Patient Disposition: [facility] Rehab Inpatient - Discharge Condition Condition: Good - Discharge Order Discharge Orders: Discharge Order (Routine); Ordered 02/09/18 Ordered By: Rick Breaux - Discharge Details Anticipated Discharge Date: 02/09/18 - Physicians Team Primary Care Provider: Regina Solitario Attending Provider: Payton Mane Other Providers: Temo Ruvalcaba MD ; Oli Hannah MD ; [facility] ; [facility] ; August Cruz MD - Rxs /Orders / Referrals /Forms Prescriptions: New acetaminophen 325 mg Tablet 650 mg PO UNSCH PRN (Reason: See Label Comments) RF: 0 albumin, human 25 % [Flexbumin 25 %] 25 % Parenteral Solution 1 ml IV WITH DIALYSIS PRN (Reason: hypotension / volume replace) RF: 0 albumin, human 5 % [Buminate 5 %] 5 % Parenteral Solution 1 ml IV UNSCH PRN (Reason: See Label Comments) RF: 0 amiodarone 200 mg Tablet 200 mg PO Q12HR Qty: 28 RF: 0 carvedilol [Coreg] 12.5 mg Tablet 12.5 mg PO BID RF: 0 clonidine HCl [Catapres] 0.1 mg Tablet 0.1 mg PO UNSCH PRN (Reason: See Label Comments) RF: 0 dextrose 50 % in water (D50W) Parenteral Solution 50 ml IV.PUSH UNSCH PRN (Reason: Per Hypoglycemia Protocol) RF: 0 diphenhydramine HCl 25 mg Capsule 25 mg PO UNSCH PRN (Reason: See Label Comments) RF: 0 docusate sodium [DOK] 100 mg Capsule 100 mg PO BID RF: 0 epoetin itzel [Epogen] 10,000 unit/mL Solution 10,000 unit IV.PUSH UNSCH PRN (Reason: See Label Comments) RF: 0 gelatin absorbable [Gelfoam Sponge Size 12-7mm] 12-7 mm Sponge 1 foam Topical PRN PRN (Reason: help stop bleeding from site) RF: 0 gentamicin 20 mg/2 mL Solution 20 mg OTHER WITH DIALYSIS PRN (Reason: Dwell Gentamycin Lock) RF: 0 glucagon (human recombinant) [GlucaGen Diagnostic Kit] 1 mg/mL Recon Soln 1 mg OTHER PRN PRN (Reason: For hypoglycemia) RF: 0 heparin (porcine) 1,000 unit/mL Solution 1,000 units OTHER WITH DIALYSIS PRN (Reason: Dwell Heparin to Fill Catheter ) RF: 0 heparin (porcine) 1,000 unit/mL Solution 8,000 units OTHER WITH DIALYSIS PRN (Reason: for machine prime) RF: 0 ipratropium-albuterol 0.5 mg-3 mg(2.5 mg base)/3 mL Solution For Nebulization 1 amp NEB Q6HR WHILE AWAKE NEB RF: 0 mannitol 25 % 25 % Solution 12.5 gm IV.PUSH UNSCH PRN (Reason: hypotension / volume replace) RF: 0 gzegifrn-lkmn-AP-calcium-mins [Thera M Plus (ferrous fumarat)] 9 mg iron-400 mcg Tablet 1 tab PO DAILY RF: 0 oxycodone-acetaminophen 5-325 mg Tablet 1 tab PO Q6H PRN (Reason: Pain Scale 1 To 5) Qty: 30 RF: 0 polyethylene glycol 3350 17 gram Powder In Packet 17 gm PO DAILY RF: 0 sodium chloride 0.9 % Parenteral Solution 1 ml OTHER .Q5H PRN (Reason: for dialyzer flush PRN) RF: 0 sodium chloride 0.9 % [Normal Saline Flush] Syringe 5 ml IV.FLUSH PRN PRN (Reason: flush each lumen during HD) RF: 0 Continue aspirin [Adult Low Dose Aspirin] 81 mg Tablet,Delayed Release (Dr/Ec) 81 mg PO DAILY clopidogrel [Plavix] 75 mg Tablet 75 mg PO DAILY pantoprazole 40 mg Tablet,Delayed Release (Dr/Ec) 40 mg PO BID pravastatin 40 mg Tablet 40 mg PO HS Discontinued acetaminophen 325 mg Tablet 650 mg PO Q4H PRN (Reason: Pain Scale 1 To 10) RF: 0 carvedilol 6.25 mg Tablet 6.25 mg PO BID isosorbide mononitrate 30 mg Tablet Extended Release 24 Hr 30 mg PO DAILY nitroglycerin [Nitrostat] 0.4 mg Tablet, Sublingual 0.4 mg Sublingual Q5M PRN (Reason: Chest Pain) Qty: 20 RF: 0 Ambulatory Orders / Order Sets / DME: XR chest 2V PA&LAT (Routine) Timeframe: 2 Weeks Location: Determined by Patient Ordered By: Sri Baker Basic Metabolic Panel (Routine) Timeframe: 2 Weeks Location: Determined by Patient Ordered By: Sri Baker Complete Blood Count NO Diff (Routine) Timeframe: 2 Weeks Location: Determined by Patient Ordered By: Sri Baker Referrals: Sri Baker [[facility] RN PRACTITIONER] - See Instructions ( Your appointment has been scheduled for [02/21/18] at [10:45 am] If you cannot make this appointment, please call the office to reschedule ) Regina Solitario MD [Primary Care Provider] - See Instructions ( Your appointment has been scheduled for [02/14/18] at [1:15 pm] If you cannot make this appointment, please call the office to reschedule ) Jose Antonio Hoyt MD [Physician] - See Instructions ( Your appointment has been scheduled for [03/12/18] at [1:50 pm] If you cannot make this appointment, please call the office to reschedule ) - Discharge Instructions Patient Printed Instructions: Coronary Artery Bypass Graft (DC) Additional Instructions: PREVENA Single Use Negative Wound Therapy System Caregiver Instruction Sheet 1. A Prevena dressing system was applied to the chest incision during surgery , to promote wound healing. It works via a suction device (negative pressure wound therapy) to remove low to moderate levels of exudate (drainage) and infectious materials. We recommend that the device stay in place for up to seven days, from day of surgery. 2. Day of Surgery___02/04/18 Day of Removal 02/11/18 3. The dressing should only be removed by a health health care recruiter. Please arrange removal of device to coincide with Home Health visit and or with Nursing staff at Rehab 4. If skin reddening or irritation of skin occurs, or excessive drainage, please notify the Cardiovascular Surgeons office at [phone]. 5. Light showering is permissible; however the pump should be disconnected and placed in safe location, where it will not get wet. The dressing should not be exposed to direct spray or submerged in water. No bath tub / shower only. Ensure the end of the tubing attached to the dressing is facing down so that water does not enter the top of the tube. 6. To remove Prevena dressing: press purple button to turn off device / remove the suction. Then disconnect the tubing from the pump. The fixation strips should be stretched away from the skin and the dressing lifted at one corner and peeled back until it has been fully removed. 7. After removal, it is ok to shower daily using liquid dial soap and clean wash cloth, rinse and pat dry, and leave incision open to air dry. For any concerns regarding Prevena dressing, and or wounds, please contact Concepción Delgadillo, patient navigator at [phone] or notify the Cardiovascular Surgeons office at [phone]. Incentive spirometry Q1 hr x 10, while awake, also use acapella device hourly whole awake Sternal Breast Bone Precautions: NO pushing or pulling, ( pt must use sternal pillow to support chest with all activities and with coughing ( takes up to 3 months breast bone to heal ) Daily incision care: ok to shower daily, no tub bath. Wash all incisions with liquid dial soap, clean wash cloth to each site, rinse and pat dry. Observe for any signs of infection, such as drainage which is dark yellow, talley, green or foul smelling. Immediately report to the surgeon any drainage from the chest incision, or legs, and for any abnormal drainage from the chest tube sites. Notify surgeon if any temp >101.5 degrees F. When specialty dressing removed/ or if you do not have one, continue to shower daily as above, then rinse and pat incision dry and paint with betadine daily x 5 days. Allow steri strips to fall off if you have any. Avoid lotions, creams, salves, oils, etc. for the first month Please see attached forms for additional instructions regarding post Open Heart specialty wound vacuum dressings. KULDIP or Prevena , Dressing to be removed by Nursing staff on _02/11/[address] Mane patients , please obtain CBC, BMP, PA & Lat CXR in 2 weeks, results to Dr. Mane ( prescription will be given) ( ) (Tele: [phone]) , F/U appointment: as per DC instructions: PCP in 2 weeks, CV surgeon 2 weeks, Change Lead 3-4 weeks For any questions regarding incisions/ dressing / meds / post op care or above Symptoms, Sunday 8am-5pm Heart & Vascular Surgery Office ( Dr. Breaux & Dr. Mane), After Hours / Nights (5pm -8am) Weekends and Holidays Please call [facility] Card[facility] ([facility]) Charge Nurse - Post Discharge Care Plan Care Plan Goals: dialysis vanessa polo sat
[2018-02-09] MEDS: Docusate Sodium 100 MG Capsule PO SCH (14:01)
[2018-02-09] MEDS: Amiodarone 200 MG Tablet PO SCH (14:01)
[2018-02-09] MEDS: Multivitamin/Minerals Therapeutic Tablet PO SCH (14:01)
[2018-02-09] MEDS: Carvedilol 12.5 MG Tablet PO SCH (14:02)
[2018-02-09] MEDS: Polyethylene Glycol 3350 17 GM Packet PO SCH (14:06)
== END 2018-02-09 15:08 ==
LOC: HSDI 05:09 → HCVI 13:02 → HCPC 02-07 15:32
PROVIDERS: ADMIT Thoracic Surgery (Cardiothoracic Vascular Surgery); ATTEND Thoracic Surgery (Cardiothoracic Vascular Surgery)